=== PATIENT | female | born 1960 | race Caucasian/White ===

== ENCOUNTER 2020-04-14 09:19 | Outpatient (REF) | payer OTHER, SELFPAY ==
--- NOTE | 2020-04-14 09:22 | XR_ITS ---
EXAMINATION: XR CHEST CLINICAL INFORMATION: Cough. COMPARISON: Chest 10/26/2019 TECHNIQUE: 2 views of the chest were obtained. FINDINGS: Lungs are well-expanded with patchy opacities seen in the left upper lobe suggestive of developing infiltrate. Underlying lesion cannot be excluded. Rest of lungs are clear. The heart size and pulmonary vascularity is normal. There is old healed right posterior eighth rib fracture. XR/XR chest 2V IMPRESSION: Left upper lobe developing infiltrate. Underlying lesion cannot be excluded. This is a new finding since chest x-ray 10/26/2019
== END 2020-04-14 09:20 | disposition home or self-care (01) ==
LOC: HO.HMGCX 09:19
PROVIDERS: PCP Internal Medicine; Visit Provider Hospitalist
DX: R05 Cough (principal)
CPT/HCPCS: 71046

== ENCOUNTER 2020-04-14 09:52 | Outpatient (REF) | payer OTHER, SELFPAY | END 2020-04-14 09:53 | disposition home or self-care (01) | LOC: HO.LAB 09:52 | PROVIDERS: Visit Provider Hospitalist | DX: Z20.828 Contact with and (suspected) exposure to other viral communicable diseases (principal) | CPT/HCPCS: U0003 ==

== ENCOUNTER 2020-08-22 09:55 | Outpatient (REF) | payer OTHER, SELFPAY ==
--- NOTE | ~2020-08-22 | XR_ITS ---
EXAMINATION: XR ABDOMEN KUB CLINICAL INDICATION: Intra-abdominal and pelvic swelling, mass, lump. COMPARISON: Most recent CT abdomen/pelvis dated 06/02/2019 TECHNIQUE: AP view of the abdomen. FINDINGS: Nonobstructive bowel gas pattern. Mild air and stool throughout the colon. No radiopaque renal stone. Pelvic phleboliths. No acute osseous abnormality. XR/XR KUB IMPRESSION: Unremarkable examination.
[2020-08-22 11:15] LABS: MANUAL DIFF FLAG NO
[2020-08-22 11:39] LABS: Basophils Absolute Auto 0.1 X10*3/uL (0.0-0.2); Eosinophils Absolute Auto 0.1 X10*3/uL (0.0-0.4); Eosinophils Percent Auto 2.7 % (0-4); Hematocrit 43.9 % (37-47); Hemoglobin 14.6 g/dl (12.0-16.0); Imm Gran Abs Auto 0.01 X10*3/uL (0.00-0.03); Imm Gran Pct Auto 0.2 % (0.0-0.4); Lymphocytes Absolute Auto 0.8 X10*3/uL (1.2-4.9); Mean Corpuscular HGB Conc 33.3 g/dl (31.0-35.0); Mean Corpuscular Hemoglobin 31.2 pg (27.0-33.0); Mean Corpuscular Volume 93.8 fL (80-98); Mean Platelet Volume 9.9 fL (9.4-12.3); Monocytes Absolute Auto 0.3 X10*3/uL (0.1-1.2); Monocytes Percent Auto 5.1 % (2-11); Neutrophils Absolute Auto 3.6 X10*3/uL (2.0-8.3); Platelet Count 332 X10*3/uL (160-400); Red Blood Count 4.68 X10*6/uL (4.20-5.50); Red Cell Distribution Width 12.6 % (11.0-16.0); White Blood Count 4.9 X10*3/uL (4.8-10.8)
[2020-08-22 12:19] LABS: Alanine Aminotransferase 18 U/L (0-31); Albumin Level 4.6 g/dL (3.5-5.0); Alkaline Phosphatase 62 U/L (39-117); Amylase 46 U/L (28-100); Anion Gap 15 (12-20); Aspartate Amino Transferase 27 U/L (5-31); Bilirubin Total 0.7 mg/dL (0.0-1.0); Blood Urea Nitrogen 18 mg/dL (9-16); Calcium 9.3 mg/dL (8.4-10.2); Carbon Dioxide 27 mmol/L (22-29); Chloride 104 mmol/L (96-108); Estimated Glomerular Filt Rate 59; Glucose Random 100 mg/dL (60-115); Lipase 30 U/L (8-78); Sodium 142 mmol/L (135-145); Total Protein 7.1 g/dL (6.5-8.0)
== END 2020-08-22 09:56 | disposition home or self-care (01) ==
LOC: HO.HMGCX 09:55
PROVIDERS: PCP Internal Medicine; Visit Provider Nurse Practitioner Family
DX: R19.00 Intra-abdominal and pelvic swelling, mass and lump, unspecified site (principal)
CPT/HCPCS: 36415; 74018; 80053; 82150; 83690; 85025

== ENCOUNTER 2020-11-26 17:46 | Emergency (ER) | payer OTHER, SELFPAY ==
--- NOTE | ~2020-11-26 | XR_ITS ---
EXAMINATION: XR CHEST CLINICAL INFORMATION: Dyspnea. Question aspiration. COMPARISON: 03/16/2020 chest x-ray TECHNIQUE: 2 views of the chest were obtained. FINDINGS: The lungs are well-expanded. There is no focal consolidation, edema or effusion. No pneumothorax. The cardiomediastinal silhouette is within normal limits. Old healed right posterior eighth rib fracture. XR/XR chest 2V IMPRESSION: No acute pulmonary disease. IMPRESSION: No evidence of focal consolidation.
[2020-11-26 17:52] VITALS: BP 140/57; PULSE 70; RESP 18; TEMP 36.8; O2SAT 97; BMI 19.6
[2020-11-26 20:21] VITALS: BP 128/71; PULSE 59; RESP 16; TEMP 36.8; O2SAT 98
--- NOTE | 2020-11-26 21:12 | ECG_ITS ---
Test Reason : SOB Blood Pressure : / mmHG Vent. Rate : 047 BPM Atrial Rate : 047 BPM P-R Int : 140 ms QRS Dur : 078 ms QT Int : 494 ms P-R-T Axes : 058 004 031 degrees QTc Int : 437 ms Sinus bradycardia Possible Left atrial enlargement Borderline ECG No previous ECGs available Referred By: Micki Almeida Electronically Signed By:GRISELDA JUAREZ
--- NOTE | 2020-11-26 21:12 | ED.SOB ---
HPI - SOB/Dyspnea General Chief Complaint: Dyspnea Stated Complaint: diff breathing Time Seen by Provider: 11/26/20 21:03 Source: patient Mode of arrival: ambulatory Limitations: no limitations History of Present Illness HPI Narrative: Patient comes emergency room complaining of shortness of breath. Patient states she vomited 2 days ago, yesterday she started feeling tired, this morning she woke with shortness of breath. Patient states that she does have history of asthma, has been using her inhaler. Patient states her breathing feels tight. Patient states she has had COVID pneumonia in the past and feels about the same. Patient denies fever or chills, no chest pain MD elicited complaint: shortness of breath Related Data Home Medications Medication Instructions Recorded Confirmed brimonidine 0.1 % eye drops drp OPHTHALMIC (EYE) 03/15/20 07/18/20 carboxymethylcellulose 0.5 drp OPHTHALMIC (EYE) 03/15/20 07/18/20 %-glycerin 0.9 % (PF) eye drops,dropperette dorzolamide 2 % eye drops drp OPHTHALMIC (EYE) 03/15/20 07/18/20 fluorometholone 0.1 % eye drp OPHTHALMIC (EYE) 03/15/20 07/18/20 drops,suspension pilocarpine HCl 1 % eye drops drp OPHTHALMIC (EYE) 03/15/20 07/18/20 travoprost 0.004 % eye drops drp OPHTHALMIC (EYE) 03/15/20 07/18/20 Previous Rx's Medication Instructions Recorded ProAir HFA 90 mcg/actuation 2 puff INHALATION Q6H PRN #8.5 g NS 03/08/20 aerosol inhaler fluticasone propionate 50 2 spray INTRANASAL DAILY #16 cap 04/27/20 mcg/actuation nasal spray,suspension ascorbic acid (vitamin C) 500 mg 500 mg PO DAILY #30 cap 06/12/20 tablet rosuvastatin 5 mg tablet 5 mg PO .twice a week 90 Days #24 07/17/20 tab azithromycin 250 mg tablet See Rx Instructions PO .COMPLEX #6 07/25/20 tab prednisone 20 mg tablet 20 mg PO DAILY 9 Days #18 tab 07/25/20 fluticasone propionate 110 1 puff INHALATION BID #12 g 09/15/20 mcg/actuation HFA aerosol inhaler alprazolam 0.25 mg tablet 0.25 mg PO DAILY PRN #14 tab 11/10/20 levothyroxine 88 mcg tablet 88 mcg PO DAILY #30 cap 11/10/20 azithromycin 250 mg tablet See Rx Instructions PO .COMPLEX #6 11/14/20 tab prednisone 20 mg tablet 20 mg PO DAILY 9 Days #18 tab 11/14/20 prednisone 50 mg PO DAILY #4 tab 11/26/20 Allergies Allergy/AdvReac Type Severity Reaction Status Date / Time Opioids - Morphine Analogues Allergy Severe convultions Verified 07/18/20 00:42 sulfabenzamide Allergy Severe tongue Verified 07/18/20 00:42 swelled shut gluten [GLUTEN] Allergy Intermediate INFLAMMATION Verified 07/18/20 00:42 SYSTEMICALLY mold [MOLD] Allergy Intermediate UNKNOWN Verified 07/18/20 00:42 animal dander Allergy Unknown ASTHMA Verified 07/18/20 00:42 FLAIRUP Clindamycin HCl Allergy Unknown rash Verified 07/18/20 00:42 doxycycline [DOXYCYCLINE] Allergy Unknown RASH Verified 07/18/20 00:42 morphine [MORPHINE] Allergy Unknown SEIZURE Verified 07/18/20 00:42 LIKE EXPERIENCE - FELT TERRIBLE, convulsions penicillin V Allergy Unknown rash Verified 07/18/20 00:42 Penicillins [PENICILLINS] Allergy Unknown RASH HIVES Verified 07/18/20 00:42 soybean Allergy Unknown unknown Verified 07/18/20 00:42 Sulfa (Sulfonamide Allergy Unknown TONGUE Verified 07/18/20 00:42 Antibiotics) SWELLING, [SULFA (SULFONAMIDE swelling ANTIBIOTICS)] of mouth soy AdvReac Intermediate UPSET Verified 07/18/20 00:42 STOMACH DAIRY PRODUCTS Allergy Intermediate INFLAMMATIO Uncoded 04/27/20 10:26 N cats, dogs Allergy Unknown Unknown Uncoded 04/27/20 10:26 mole,bread and diary Allergy Unknown Unknown Uncoded 04/27/20 10:26 Review of Systems Review of Systems: Constitutional : No Weight loss, No Fever, No Chills, No Night Sweats, No Fatigue, No Malaise ENT/Mouth : No Hearing loss, No Ear Pain, No Nasal Congestion, No Sinus Pain, No Hoarseness, No sore throat, No Rhinorrhea, No Swallowing Difficulty Eyes: No Eye Pain, No Swelling, No Redness, No Foreign Body, No Discharge, No Vision Changes Cardiovascular : No Chest Pain, No SOB, No Dyspnea on Exertion, No Orthopnea, No Edema, No Palpitations Respiratory : No Cough, No Sputum, No Wheezing, No Smoke Exposure, complaining of dyspnea Gastrointestinal : No Nausea, No Vomiting, No Diarrhea, No Constipation, No abdominal Pain, No Hematochezia, No Melena Genitourinary : no irregular bleeding, No Dysuria, No Urinary Frequency, No Hematuria, No Urinary Incontinence, No Urgency, No Flank Pain, No Urinary Flow Changes, No Hesitancy Musculoskeletal : No joint pain, No Myalgias, No Joint Swelling Skin : No Skin Lesions, No rash Neuro : No Weakness, No Numbness, No Paresthesias, No Loss of Consciousness, No Dizziness, No Headache Psych : No Anxiety/Panic, No Depression, No SI/HI/AH/VH, No Social Issues, Heme/Lymph: No Bruising, No Bleeding,No Lymphadenopathy Endocrine : No Polyuria, No Polydipsia, No Temperature Intolerance PMFSH Past Medical History Medical History Acquired hypothyroidism Anxiety disorder Breast cancer, right Dyslipidemia Encounter for screening laboratory testing for COVID-19 virus in asymptomatic patient Vini's thyroiditis History of COVID-19 Mild intermittent asthma Narrow angle glaucoma suspect of both eyes Recurrent otitis media Retinal detachment Rib fracture Vitamin D deficiency Surgical History H/O myringotomy History of eye surgery History of eyelid surgery History of hysterectomy History of surgery Family History Family History Father No problems noted. Mother Diabetes mellitus Heart disease Brother No problems noted. Brother No problems noted. Brother No problems noted. Brother No problems noted. Brother No problems noted. Social History Social History Alcohol intake: never Advance Directives: No Advance Directives Information Provided: Yes Patient : No Physical Exam Vital Signs: Vital Signs: Last Vital Signs Temp 98.3 F 11/26/20 20: Pulse 59 11/26/20 20:21 Resp 16 11/26/20 20:21 BP 128/71 11/26/20 20:21 Pulse Ox 98 11/26/20 20:21 Body Mass Index 19.6 Appearance: Alert. Oriented X3. No acute distress. Eyes: Pupils equal, round and reactive to light. ENT: Pharynx normal. Neck: Normal inspection. Neck supple. No lymph nodes noted. No crepitus CVS: Normal heart rate and rhythm. Pulses normal. Normal S1 and S2 Respiratory: No respiratory distress. Breath sounds normal. No Wheezing. No rales Abdomen: Soft and nontender. No rigidity. No distention. good BS x4 Skin: Skin warm and dry. Normal skin color. Normal skin turgor. Extremities: No lower extremity edema. No Lacerations. No Rash Neuro: Oriented X 3. No motor deficit. No sensory deficit. Moving all extermities. No slurred speech. Course Course Course Narrative: I discussed the labs and imaging with the patient, chest x-ray within normal limits, white blood cell count, BNP, D-dimer negative. Patient likely having residual dyspnea from an asthma exacerbation. Patient was given a 1st dose prednisone here in the emergency room. Patient instructed to follow-up with her primary care physician tomorrow. Patient's EKG shows sinus bradycardia, 147. Patient is an avid weightlifter and does daily intense physical activity Wells PE score 0 MDM - SOB/Dyspnea Lab Data Result diagrams: 11/26/20 21:27 11/26/20 21:27 Labs: Lab Results 11/26/20 11/26/20 11/26/20 Range/Units 21:27 21:27 21:27 WBC 6.8 (4.8-10.8) X10*3/uL RBC 4.41 (4.20-5.50) X10*6/uL Hgb 13.7 (12.0-16.0) g/dl Hct 41.7 (37-47) % MCV 94.6 (80-98) fL MCH 31.1 (27.0-33.0) pg MCHC 32.9 (31.0-35.0) g/dl RDW 12.3 (11.0-16.0) % Plt Count 303 (160-400) X10*3/uL MPV 8.7 L (9.4-12.3) fL Immature Gran % (Auto) 0.3 (0.0-0.4) % Neut % (Auto) 79.3 H (45-73) % Lymph % (Auto) 14.3 L (20-40) % [place] % (Auto) 5.7 (2-11) % Eos % (Auto) 0.1 (0-4) % Baso % (Auto) 0.3 (0-2) % Lymph # (Auto) 1.0 L (1.2-4.9) X10*3/uL [place] # (Auto) 0.4 (0.1-1.2) X10*3/uL Eos # (Auto) 0.0 (0.0-0.4) X10*3/uL Baso # (Auto) 0.0 (0.0-0.2) X10*3/uL Abs Immat Gran (auto) 0.02 (0.00-0.03) X10*3/uL Absolute Neuts (auto) 5.4 (2.0-8.3) X10*3/uL Absolute Nucleated RBC 0.000 (0.0-0.012) X10*3/uL Nucleated RBC % (auto) 0.0 (0.0-0.2) /100WBC D-Dimer < 200 NG/ML Sodium 142 (135-145) mmol/L Potassium 4.2 (3.3-5.1) mmol/L Chloride 106 (96-108) mmol/L Carbon Dioxide 26 (22-29) mmol/L Anion Gap 14 (12-20) BUN 18 H (9-16) mg/dL Creatinine 0.90 (0.5-1.4) mg/dL Estim Creat Clear Calc 57.5 Estimated GFR > 60 Random Glucose 114 (60-115) mg/dL Calcium 9.6 (8.4-10.2) mg/dL Total Bilirubin 0.4 (0.0-1.0) mg/dL Direct Bilirubin 0.2 (0.0-0.5) mg/dL AST 32 H (5-31) U/L ALT 22 (0-31) U/L Alkaline Phosphatase 67 (39-117) U/L B-Natriuretic Peptide (<100) pg/mL Total Protein 7.1 (6.5-8.0) g/dL Albumin 4.6 (3.5-5.0) g/dL COVID-19 (LIANG) (Negative) COVID-19 Clin Com 11/26/20 11/26/20 Range/Units 21:27 21:27 WBC (4.8-10.8) X10*3/uL RBC (4.20-5.50) X10*6/uL Hgb (12.0-16.0) g/dl Hct (37-47) % MCV (80-98) fL MCH (27.0-33.0) pg MCHC (31.0-35.0) g/dl RDW (11.0-16.0) % Plt Count (160-400) X10*3/uL MPV (9.4-12.3) fL Immature Gran % (Auto) (0.0-0.4) % Neut % (Auto) (45-73) % Lymph % (Auto) (20-40) % [place] % (Auto) (2-11) % Eos % (Auto) (0-4) % Baso % (Auto) (0-2) % Lymph # (Auto) (1.2-4.9) X10*3/uL [place] # (Auto) (0.1-1.2) X10*3/uL Eos # (Auto) (0.0-0.4) X10*3/uL Baso # (Auto) (0.0-0.2) X10*3/uL Abs Immat Gran (auto) (0.00-0.03) X10*3/uL Absolute Neuts (auto) (2.0-8.3) X10*3/uL Absolute Nucleated RBC (0.0-0.012) X10*3/uL Nucleated RBC % (auto) (0.0-0.2) /100WBC D-Dimer NG/ML Sodium (135-145) mmol/L Potassium (3.3-5.1) mmol/L Chloride (96-108) mmol/L Carbon Dioxide (22-29) mmol/L Anion Gap (12-20) BUN (9-16) mg/dL Creatinine (0.5-1.4) mg/dL Estim Creat Clear Calc Estimated GFR Random Glucose (60-115) mg/dL Calcium (8.4-10.2) mg/dL Total Bilirubin (0.0-1.0) mg/dL Direct Bilirubin (0.0-0.5) mg/dL AST (5-31) U/L ALT (0-31) U/L Alkaline Phosphatase (39-117) U/L B-Natriuretic Peptide 14 (<100) pg/mL Total Protein (6.5-8.0) g/dL Albumin (3.5-5.0) g/dL COVID-19 (LIANG) Negative (Negative) COVID-19 Clin Com See Note Imaging Data Chest x-ray: Radiologist's impression: The lungs are well-expanded. There is no focal consolidation, edema or effusion. No pneumothorax. The cardiomediastinal silhouette is within normal limits. Old healed right posterior eighth rib fracture. XR/XR chest 2V IMPRESSION: No acute pulmonary disease. IMPRESSION: No evidence of focal consolidation. ECG Data Attestation: I personally reviewed and interpreted this ECG as follows: (Sinus bradycardia, heart rate 47, no ST segment depression or elevation, no T-wave inversion. QTC 437) Discharge Plan Discharge Clinical Impression: Acute dyspnea Patient Disposition: Home, Self-Care Instructions: Dyspnea (ED) Additional Instructions: Please follow-up with your primary care physician tomorrow. If you have any worsening or new symptoms, please return to the emergency room or call 911 Prescriptions: New prednisone 50 mg tablet 50 mg PO DAILY Qty: 4 RF: 0 No Action albuterol sulfate [ProAir HFA] 90 mcg/actuation HFA aerosol inhaler 2 puff inhalation Q6H PRN (Reason: shortness of breath or wheezing) Qty: 8.5 RF: 2 fluticasone propionate 50 mcg/actuation spray,suspension 2 spray intranasal DAILY Qty: 16 RF: 2 ascorbic acid (vitamin C) [Vitamin C] 500 mg tablet 500 mg PO DAILY Qty: 30 RF: 8 fluticasone propionate 110 mcg/actuation HFA aerosol inhaler 1 puff inhalation BID Qty: 12 RF: 2 levothyroxine 88 mcg tablet 88 mcg PO DAILY Qty: 30 RF: 6 alprazolam 0.25 mg tablet 0.25 mg PO DAILY PRN (Reason: anxiety) Qty: 14 RF: 0 Refresh Optive Sensitive (PF) 0.5-0.9 % dropperette ophthalmic (eye) RF: 0 pilocarpine HCl 1 % drops ophthalmic (eye) RF: 0 [place] P 0.1 % drops ophthalmic (eye) RF: 0 dorzolamide 2 % drops ophthalmic (eye) RF: 0 fluorometholone 0.1 % drops,suspension ophthalmic (eye) RF: 0 travoprost 0.004 % drops ophthalmic (eye) RF: 0 prednisone 20 mg tablet 20 mg PO DAILY 9 Days Qty: 18 RF: 0 azithromycin 250 mg tablet See Rx Instructions PO .COMPLEX Qty: 6 RF: 0 prednisone 20 mg tablet 20 mg PO DAILY 9 Days Qty: 18 RF: 0 azithromycin 250 mg tablet See Rx Instructions PO .COMPLEX Qty: 6 RF: 0 rosuvastatin 5 mg tablet 5 mg PO .twice a week 90 Days Qty: 24 RF: 1
[2020-11-26 21:34] LABS: Basophils Percent Auto 0.3 % (0-2); Eosinophils Percent Auto 0.1 % (0-4); Hematocrit 41.7 % (37-47); Hemoglobin 13.7 g/dl (12.0-16.0); Imm Gran Abs Auto 0.02 X10*3/uL (0.00-0.03); Imm Gran Pct Auto 0.3 % (0.0-0.4); Lymphocytes Percent Auto 14.3 % (20-40); MANUAL DIFF FLAG NO; Mean Corpuscular HGB Conc 32.9 g/dl (31.0-35.0); Mean Corpuscular Hemoglobin 31.1 pg (27.0-33.0); Mean Corpuscular Volume 94.6 fL (80-98); Mean Platelet Volume 8.7 fL (9.4-12.3); Monocytes Absolute Auto 0.4 X10*3/uL (0.1-1.2); Monocytes Percent Auto 5.7 % (2-11); Neutrophils Absolute Auto 5.4 X10*3/uL (2.0-8.3); Neutrophils Percent Auto 79.3 % (45-73); Platelet Count 303 X10*3/uL (160-400); Red Blood Count 4.41 X10*6/uL (4.20-5.50); Red Cell Distribution Width 12.3 % (11.0-16.0); White Blood Count 6.8 X10*3/uL (4.8-10.8)
[2020-11-26 21:44] LABS: D Dimer < 200 NG/ML
[2020-11-26 21:46] LABS: COVID-19 Test Negative (Negative)
[2020-11-26 22:07] LABS: Alanine Aminotransferase 22 U/L (0-31); Albumin Level 4.6 g/dL (3.5-5.0); Alkaline Phosphatase 67 U/L (39-117); Anion Gap 14 (12-20); Aspartate Amino Transferase 32 U/L (5-31); Bilirubin Direct 0.2 mg/dL (0.0-0.5); Bilirubin Total 0.4 mg/dL (0.0-1.0); Blood Urea Nitrogen 18 mg/dL (9-16); Calcium 9.6 mg/dL (8.4-10.2); Carbon Dioxide 26 mmol/L (22-29); Chloride 106 mmol/L (96-108); Creatinine Clr Calc Pharmacy 57.5; Estimated Glomerular Filt Rate > 60; Glucose Random 114 mg/dL (60-115); Potassium 4.2 mmol/L (3.3-5.1); Sodium 142 mmol/L (135-145); Total Protein 7.1 g/dL (6.5-8.0)
[2020-11-26 22:10] LABS: B Type Natriuretic Peptide 14 pg/mL (<100)
[2020-11-26] MEDS: predniSONE 20 MG TABLET 60 MG PO (22:45)
== END 2020-11-26 22:56 | disposition home or self-care (01) ==
PROVIDERS: Emergency Provider Emergency Medicine; PCP Internal Medicine
DX: R06.00 Dyspnea, unspecified (principal); Z20.822 Contact with and (suspected) exposure to COVID-19; R06.02 Shortness of breath
CPT/HCPCS: 36415; 71046; 80048; 80076; 83880; 85025; 85379; 87635; 93005; 99284

== ENCOUNTER 2020-11-27 12:23 | Outpatient (REF) | payer OTHER, SELFPAY ==
--- NOTE | ~2020-11-27 | XR_ITS ---
EXAMINATION: XR CHEST CLINICAL INFORMATION: Cough COMPARISON: Previous chest x-ray most recent from yesterday TECHNIQUE: 2 views of the chest were obtained. FINDINGS: The cardiac and mediastinal contours are normal. The lungs are clear. There is no pleural effusion or pneumothorax. There is an old right posterior eighth rib fracture. There is mild thoracolumbar scoliosis. XR/XR chest 2V IMPRESSION: No evidence for acute disease in the chest.
== END 2020-11-27 12:24 | disposition home or self-care (01) ==
LOC: HO.HMGCX 12:23
PROVIDERS: PCP Internal Medicine; Visit Provider Internal Medicine
DX: Z13.89 Encounter for screening for other disorder (principal)
CPT/HCPCS: 71046

== ENCOUNTER → 2020-12-18 09:02 | Outpatient (BNV) | payer OTHER, SELFPAY | PROVIDERS: PCP Internal Medicine; Visit Provider Internal Medicine | DX: Z85.3 Personal history of malignant neoplasm of breast (principal) | CPT/HCPCS: 99213; 99214 ==

== ENCOUNTER 2021-02-15 11:35 | Outpatient (REF) | payer OTHER, SELFPAY | END 2021-02-15 11:36 | disposition home or self-care (01) | LOC: HO.LNP 11:35 | PROVIDERS: Visit Provider Physician Assistant Medical | DX: Z20.822 Contact with and (suspected) exposure to COVID-19 (principal) | CPT/HCPCS: U0003; U0005 ==

== ENCOUNTER 2021-02-21 13:32 | Emergency (ER) | payer MEDICAID, SELFPAY ==
[2021-02-21 14:17] VITALS: BP 125/67; PULSE 68; RESP 18; TEMP 36.5; O2SAT 97; BMI 19.6
--- NOTE | 2021-02-21 16:12 | ED_ITS ---
HPI - General Adult General Chief complaint: General Medical Stated complaint: EAR PAIN Time Seen by Provider: 02/21/21 16:00 Source: patient Mode of arrival: ambulatory Limitations: no limitations History of Present Illness HPI narrative: 52-year-old female presents for 3 days of left ear pain. She feels nauseous, and has had pain behind her left ear. She endorses a runny nose and postnasal drip. The left side of her throat is also sore, her left neck feels sore. No fevers. No cough, no vomiting, no diarrhea, no chest pain, no shortness of breath. Patient has a history of her current otitis media, recurrence sinusitis. Patient is very anxious because she is having problems with her insurance. She has many specialty doctors and now she is without insurance. Past medical history includes breast cancer, anxiety, Vini's, recurrent otitis, recurrent sinusitis, narrow angle glaucoma Related Data Home Medications Medication Instructions Recorded Confirmed dorzolamide 2 % eye drops 2 drp OPHTHALMIC (EYE) DAILY 03/15/20 12/18/20 fluorometholone 0.1 % eye 1 drp OPHTHALMIC (EYE) NEEDED 03/15/20 12/18/20 drops,suspension pilocarpine HCl 1 % eye drops 1 drp OPHTHALMIC (EYE) NEEDED 03/15/20 12/18/20 travoprost 0.004 % eye drops 4 drp OPHTHALMIC (EYE) NEEDED 03/15/20 12/18/20 betaxolol 0.25 % eye drp OPHTHALMIC (EYE) 02/15/21 drops,suspension (Betoptic S) carboxymethylcellulose 0.5 drp OPHTHALMIC (EYE) 02/15/21 %-glycerin 0.9 % (PF) eye drops,dropperette (Refresh Optive Sensitive (PF)) cyclosporine 0.05 % eye drops in a drp OPHTHALMIC (EYE) 02/15/21 dropperette (Restasis) Previous Rx's Medication Instructions Recorded fluticasone propionate 50 2 spray INTRANASAL DAILY #16 cap 04/27/20 mcg/actuation nasal spray,suspension ascorbic acid (vitamin C) 500 mg 500 mg PO DAILY #30 cap 06/12/20 tablet (Vitamin C) fluticasone propionate 110 1 puff INHALATION BID #12 g 09/15/20 mcg/actuation HFA aerosol inhaler levothyroxine 88 mcg tablet 88 mcg PO DAILY #30 cap 11/10/20 prednisone 50 mg tablet 50 mg PO DAILY #4 tab 11/26/20 ProAir HFA 90 mcg/actuation 2 puff INHALATION Q6H PRN #8.5 g NS 01/18/21 aerosol inhaler (albuterol sulfate) alprazolam 0.25 mg tablet 0.25 mg PO DAILY PRN #14 tab 02/06/21 azithromycin 250 mg tablet See Rx Instructions PO .COMPLEX #6 02/15/21 tab methylprednisolone 4 mg tablets in See Rx Instructions PO PER PKG DIR 02/15/21 a dose pack (Medrol (Ghanshyam)) #21 ea azithromycin 250 mg tablet See Rx Instructions .ROUTE 02/21/21 .COMPLEX #6 tab prednisone 20 mg tablet 20 mg PO DAILY 9 Days #18 tab 02/21/21 Allergies Allergy/AdvReac Type Severity Reaction Status Date / Time Opioids - Morphine Analogues Allergy Severe convultions Verified 02/21/21 14:15 sulfabenzamide Allergy Severe tongue Verified 02/21/21 14:15 swelled shut gluten [GLUTEN] Allergy Intermediate INFLAMMATION Verified 02/21/21 14:15 SYSTEMICALLY mold [MOLD] Allergy Intermediate UNKNOWN Verified 02/21/21 14:15 animal dander Allergy Unknown ASTHMA Verified 02/21/21 14:15 FLAIRUP Clindamycin HCl Allergy Unknown rash Verified 02/21/21 14:15 doxycycline [DOXYCYCLINE] Allergy Unknown RASH Verified 02/21/21 14:15 morphine [MORPHINE] Allergy Unknown SEIZURE Verified 02/21/21 14:15 LIKE EXPERIENCE - FELT TERRIBLE, convulsions penicillin V Allergy Unknown rash Verified 02/21/21 14:15 Penicillins [PENICILLINS] Allergy Unknown RASH HIVES Verified 02/21/21 14:15 soybean Allergy Unknown unknown Verified 02/21/21 14:15 Sulfa (Sulfonamide Allergy Unknown TONGUE Verified 02/21/21 14:15 Antibiotics) SWELLING, [SULFA (SULFONAMIDE swelling ANTIBIOTICS)] of mouth soy AdvReac Intermediate UPSET Verified 02/21/21 14:15 STOMACH DAIRY PRODUCTS Allergy Intermediate INFLAMMATIO Uncoded 04/27/20 10:26 N cats, dogs Allergy Unknown Unknown Uncoded 04/27/20 10:26 mole,bread and diary Allergy Unknown Unknown Uncoded 04/27/20 10:26 Review of Systems Constitutional: Constitutional: Denies body ache(s), Denies chills, Reports fatigue, Denies fever(s), Denies headache(s), Denies malaise and Denies weakness Eyes: Eyes: Denies diplopia ENT: Denies vertigo, Reports dizziness, Reports otalgia, Denies headache(s), Denies mouth pain, Denies post nasal drip, Denies sinus pain, Denies sinus pressure, Reports sore throat and Denies throat swelling Cardiovascular: Cardiovascular: Denies chest pain, Denies syncope, Denies leg edema, Denies lightheadedness, Denies Loss of Consciousness, Denies palpitations and Denies dyspnea Respiratory: Respiratory: Denies chest congestion, Denies cough and Denies dyspnea Gastrointestinal: Gastrointestinal: Denies abdominal pain, Denies hematochezia, Denies constipation, Denies diarrhea, Reports nausea and Denies vomiting Musculoskeletal: Musculoskeletal: Reports no additional musculoskeletal complaints Neurologic: Denies confusion, Denies vertigo, Reports dizziness, Denies syncope, Denies headache(s) and Denies weakness Psychiatric: Psychiatric: Reports anxiety, Denies confusion and Denies depression Endocrine: Endocrine: Reports fatigue and Denies palpitations Allergic/Immunologic: Allergic/Immunologic: Denies throat swelling PMFSH Past Medical History Medical History Acquired hypothyroidism Anxiety disorder Breast cancer, right Dyslipidemia Encounter for screening laboratory testing for COVID-19 virus in asymptomatic patient Vini's thyroiditis History of COVID-19 Mild intermittent asthma Narrow angle glaucoma suspect of both eyes Recurrent otitis media Retinal detachment Rib fracture Vitamin D deficiency Surgical History H/O myringotomy History of eye surgery History of eyelid surgery History of hysterectomy History of surgery Family History Family History Father No problems noted. Mother Diabetes mellitus Heart disease Heart attack Brother No problems noted. Brother No problems noted. Brother No problems noted. Brother No problems noted. Brother No problems noted. Social History Social History Alcohol intake: never Advance Directives: No Advance Directives Information Provided: No Physical Exam Vital Signs: Vital Signs: Last Vital Signs Temp 97.7 F 02/21/21 14:17 Pulse 68 02/21/21 14:17 Resp 18 02/21/21 14:17 BP 125/67 02/21/21 14:17 Pulse Ox 97 02/21/21 14:17 Body Mass Index 19.6 Const: General: alert, awake and in distress (d/t anxiety) mild; No confusion Nutritional Appearance: thin Orientation/consciousness: patient oriented x3 and No confusion Limitations: no limitations HENMT: Head: Yes normal to inspection, Yes normocephalic and Yes atraumatic Ears: hearing grossly normal bilaterally, external ears normal, TM normal on the right, EAC's normal, mastoid abnormal (tender over left mastoid) and TM abnormal bulging on the left and with fluid behind the TM (purulent) on the left General nose exam: Normal external nose present Face and sinus: Yes normal facial exam and Yes sinuses nontender Mouth: Normal oral and palatal mucosa present Throat: Yes posterior oropharynx normal Eyes: Conjunctivae: conjunctivae normal Pupils: Equal, round and reactive pupils present EOM: EOMs intact bilaterally Neck: Neck: Yes full ROM, Yes no lymphadenopathy and Yes supple Resp: Effort & Inspection: normal respiratory effort and able to speak in complete sentences Auscultation: clear to auscultation bilaterally, no crackles, no rales, no rhonchi and no wheezes Cardio: Rate: regular rate Rhythm: regular rhythm Heart sounds: S1 normal heart sound present and S2 normal heart sound present GI: Inspection: Yes normal to inspection Palpation (GI): Soft to palpation, nontender, no guarding and not rigid Percussion: Yes normal to percussion Auscultation: normal bowel sounds Skin: General skin exam: no rashes or lesions noted Neuro: General: patient oriented x3 and No confusion Cranial nerves: Yes Equal, round and reactive pupils present Extrem: General: Yes normal to inspection and Yes full ROM Psych: Appearance: grossly normal Affect: normal affect Attitude: cooperative Thought process: Normal thought process present Course Course Course Narrative: 52-year-old female with chronic otitis media presents for 3 days of left ear pain. On exam patient has stable vitals, no fevers, but is tender over her left mastoid bone. Left TM is bulging with a purulence effusion. Patient is very concerned about insurance, social work spoke to patient, gave her phone numbers to call financial services tomorrow morning. Patient is refusing CT scan due to her insurance problems. And counseled patient to return for fevers, worsening pain. Gave patient good Rx prescription to help alleviate the cost of the azithromycin and prednisone are prescribed. Patient is allergic to penicillin, doxycycline, sulfa medicines, as well as clindamycin. Discharge Plan Discharge Clinical Impression: Otitis media Qualifiers: Otitis media type: suppurative Chronicity: chronic Laterality: left Suppurative otitis media location: unspecified location Qualified Code(s): H66.3X2 - Other chronic suppurative otitis media, left ear Patient Disposition: Left Against Medical Advice Additional Instructions: You are leaving against medical advice. I hope to get a CT scan of your mastoid bone behind your left ear, because you have chronic ear infections, and you are tender in this bone. Please call the insurance people that the high school social science teacher gave you the phone numbers for. Please discuss options for getting a CT scan. Please fill the prescriptions, I sent them to the [facility] pharmacy. Please return if you have fevers, worsening pain, or for any other new or concerning symptoms. Even though you have left against medical advice, we are always here to see you and treat you Prescriptions: New azithromycin 250 mg tablet See Rx Instructions .ROUTE .COMPLEX Qty: 6 RF: 0 prednisone 20 mg tablet 20 mg PO DAILY 9 Days Qty: 18 RF: 0 No Action fluticasone propionate 50 mcg/actuation spray,suspension 2 spray intranasal DAILY Qty: 16 RF: 2 ascorbic acid (vitamin C) [Vitamin C] 500 mg tablet 500 mg PO DAILY Qty: 30 RF: 8 fluticasone propionate 110 mcg/actuation HFA aerosol inhaler 1 puff inhalation BID Qty: 12 RF: 2 levothyroxine 88 mcg tablet 88 mcg PO DAILY Qty: 30 RF: 6 albuterol sulfate [ProAir HFA] 90 mcg/actuation HFA aerosol inhaler 2 puff inhalation Q6H PRN (Reason: shortness of breath or wheezing) Qty: 8.5 RF: 2 alprazolam 0.25 mg tablet 0.25 mg PO DAILY PRN (Reason: anxiety) Qty: 14 RF: 0 prednisone 50 mg tablet 50 mg PO DAILY Qty: 4 RF: 0 pilocarpine HCl 1 % drops 1 drp ophthalmic (eye) NEEDED RF: 0 dorzolamide 2 % drops 2 drp ophthalmic (eye) DAILY RF: 0 fluorometholone 0.1 % drops,suspension 1 drp ophthalmic (eye) NEEDED RF: 0 travoprost 0.004 % drops 4 drp ophthalmic (eye) NEEDED RF: 0 Restasis 0.05 % dropperette ophthalmic (eye) RF: 0 Betoptic S 0.25 % drops,suspension ophthalmic (eye) RF: 0 Refresh Optive Sensitive (PF) 0.5-0.9 % dropperette ophthalmic (eye) RF: 0 azithromycin 250 mg tablet See Rx Instructions PO .COMPLEX Qty: 6 RF: 0 methylprednisolone [Medrol (Hganshyam)] 4 mg tablets,dose pack See Rx Instructions PO PER PKG DIR Qty: 21 RF: 0
[2021-02-21] MEDS: Azithromycin 500 MG TABLET PO (16:46)
[2021-02-21] MEDS: Ondansetron ODT 4 MG TAB.RAPDIS TRANSLINGU (16:46)
[2021-02-21] MEDS: predniSONE 20 MG TABLET 60 MG PO (16:46)
--- NOTE | 2021-02-21 18:02 | MHC.CM.ED ---
CM met with patient at request of Val LEGER. Pt has concerns about insurance and costs of care, and a recommended CT scan, because she states she cannot possibly incur any more bills. CM gave patient the financial services brochure. Pt wanted CM to guarantee that she would not be billed. CM explained that financial services could help her, but that my expertise was not in insurance and financial services. CM stressed that pt should have recommended testing and then work with financial services. Pt is refusing and wants to go home. Will return if symptoms worsen. Will call financial services if needed. Val LEGER aware. Val LEGER spoke with patient. Pt will leave AMA.
== END 2021-02-21 17:48 | disposition left against medical advice (07) ==
PROVIDERS: Emergency Provider Emergency Medicine; PCP Internal Medicine
DX: H66.3X2 Other chronic suppurative otitis media, left ear (principal); J45.20 Mild intermittent asthma, uncomplicated; Z88.0 Allergy status to penicillin; Z88.2 Allergy status to sulfonamides; Z88.8 Allergy status to other drugs, medicaments and biological substances
CPT/HCPCS: 99284

== ENCOUNTER 2021-04-10 14:33 | Outpatient (REF) | payer OTHER, SELFPAY ==
--- NOTE | ~2021-04-10 | US_ITS ---
EXAMINATION: US SOFT TISSUE HEAD AND/OR NECK CLINICAL INFORMATION: Generalized enlarged lymph nodes COMPARISON: None TECHNIQUE: Ultrasound of the left neck, left chest, and armpit soft tissues is performed with high- frequency howe-scale imaging and color Doppler. FINDINGS: There is no lymphadenopathy identified. Multiple small lymph nodes are seen with normal morphology in the regions of concern. US/US soft tiss head and/or neck IMPRESSION: No lymphadenopathy.
== END 2021-04-10 14:34 | disposition home or self-care (01) ==
LOC: HO.US 14:33
PROVIDERS: PCP Internal Medicine; Visit Provider Internal Medicine
DX: R59.1 Generalized enlarged lymph nodes (principal)
CPT/HCPCS: 76536

== ENCOUNTER 2021-05-22 08:28 | Outpatient (REF) | payer OTHER, SELFPAY ==
--- NOTE | ~2021-05-22 | US_ITS ---
EXAMINATION: US THYROID CLINICAL INFORMATION: Vini's thyroiditis. Mass anterior left neck. COMPARISON: Ultrasound soft tissue head/neck 04/10/2021. TECHNIQUE: Linear transducer grayscale and color Doppler examination with attention to the region of the thyroid. FINDINGS: SIZE: Measurements of the thyroid lobes and nodules are given in sagittal, anteroposterior and transverse dimensions respectively. Right Thyroid Lobe: 1.6 x 0.7 x 0.7 cm, volume 0.4 mL. Parenchyma: The gland echotexture is heterogeneous. Thyroid vascularity is normal. Left Thyroid Lobe: 1.5 x 0.5 x 0.8 cm, volume 0.3 mL. Parenchyma: The gland echotexture is heterogeneous. Thyroid vascularity is increased. Isthmus: 0.1 cm in maximum AP dimension. No focal thyroid nodule is seen. NODES: There is a right lymph node level 2 measuring 2.3 x 0.5 x 1.2 cm and left neck level 1B lymph node measuring 1.8 x 0.8 x 0.5 cm. US/US thyroid IMPRESSION: Heterogenous thyroid gland without any focal nodules. Benign-appearing neck lymph nodes. ACR TI-RADS RECOMMENDATION REFERENCE: Ultrasound-guided fine-needle aspiration, followup ultrasound, no further follow up. * TR1 (0 point) and TR 2 (2 points): No FNA or follow up * TR3 (3 points): FNA if more than or equal to 2.5 cm in maximum dimension, followup ultrasound in 1, 3 and 5 years if 1.5 to 2.4 cm in maximum dimension. * TR4 (4-6 points): FNA if more than or equal to 1.5 cm in maximum dimension, followup ultrasound in 1, 2, 3 and 5 years if 1 to 1.4 cm in maximum dimension. * TR5 (more than or equal to 7 points): FNA if more than or equal to 1 cm in maximum dimension, followup ultrasound every year for 5 years if 0.5 to 0.9 cm in maximum dimension. * TR3, TR4 or TR5 nodules that are below the size threshold for follow up receive no follow up.
--- NOTE | ~2021-05-22 | US_ITS ---
EXAMINATION: US EXTREMITY NONVASCULAR, LEFT CLINICAL INFORMATION: Left groin mass. COMPARISON: None TECHNIQUE: Limited ultrasound imaging of left groin extremity was performed. FINDINGS: There is a small well-defined lymph node in the left groin hypervascular measuring 2.5 x 0.4 x 0.7 cm. There are additional lymph nodes measuring 0.6 x 0.3 x 0.4 cm, 0.9 x 0.3 x 0.5 cm and 1.1 x 0.3 x 0.6 cm, most of these lymph nodes with normal vascularity. No fluid collection or hernia seen. US/US extremity nonvascular sutton IMPRESSION: Small 4 lymph nodes seen in the left groin with the largest lymph node measuring 2.5 cm being slightly hypervascular. These are likely nonspecific and could be related to low-grade inflammation or infectious process. The lymph node architecture has benign ultrasound appearance.
== END 2021-05-22 08:29 | disposition home or self-care (01) ==
LOC: HO.HMGCX 08:28
PROVIDERS: PCP Internal Medicine; Visit Provider Internal Medicine
DX: E06.3 Autoimmune thyroiditis (principal); E03.9 Hypothyroidism, unspecified; R59.0 Localized enlarged lymph nodes; R19.09 Other intra-abdominal and pelvic swelling, mass and lump
CPT/HCPCS: 76536; 76882

== ENCOUNTER 2021-05-29 08:14 | Outpatient (REF) | payer OTHER, SELFPAY ==
[2021-05-29 11:19] LABS: MANUAL DIFF FLAG NO
[2021-05-29 11:34] LABS: Basophils Absolute Auto 0.1 X10*3/uL (0.0-0.2); Basophils Percent Auto 1.6 % (0-2); Eosinophils Absolute Auto 0.4 X10*3/uL (0.0-0.4); Eosinophils Percent Auto 9.3 % (0-4); Hematocrit 42.2 % (37.0-47.0); Hemoglobin 13.8 g/dl (12.0-16.0); Imm Gran Abs Auto 0.01 X10*3/uL (0.00-0.03); Imm Gran Pct Auto 0.3 % (0.0-0.4); Lymphocytes Absolute Auto 1.9 X10*3/uL (1.2-4.9); Lymphocytes Percent Auto 51.5 % (20-40); Mean Corpuscular HGB Conc 32.7 g/dl (31.0-35.0); Mean Corpuscular Hemoglobin 30.9 pg (27.0-33.0); Mean Corpuscular Volume 94.6 fL (80.0-98.0); Mean Platelet Volume 9.9 fL (9.4-12.3); Monocytes Absolute Auto 0.4 X10*3/uL (0.1-1.2); Monocytes Percent Auto 9.5 % (2-11); Neutrophils Absolute Auto 1.1 x10*3/uL (2.0-8.3); Neutrophils Percent Auto 27.8 % (45-73); Platelet Count 306 X10*3/uL (160-400); Red Blood Count 4.46 X10*6/uL (4.20-5.50); White Blood Count 3.8 X10*3/uL (4.8-10.8)
[2021-05-29 12:06] LABS: Anion Gap 11 (12-20); Blood Urea Nitrogen 15 mg/dL (9-16); Calcium 9.8 mg/dL (8.4-10.2); Carbon Dioxide 29 mmol/L (22-29); Chloride 107 mmol/L (96-108); Estimated Glomerular Filt Rate 60; Glucose Fasting 94 mg/dL (60-99); Sodium 143 mmol/L (135-145)
[2021-05-29 12:09] LABS: Free T4 (Free Thyroxine) 1.12 ng/dL (0.71-1.85); Vitamin D 25-OH Total 44.5 ng/mL (>30)
[2021-05-30 09:17] LABS: Cholesterol 326 mg/dL; HDL Cholesterol 100 mg/dL; LDL Cholesterol Calculated 211 mg/dl; Triglycerides 75 mg/dL
[2021-05-30 21:25] LABS: Thyroid Peroxidase Antibodies <1 IU/mL (<9)
== END 2021-05-29 08:15 | disposition home or self-care (01) ==
LOC: HO.HMGCLDS 08:14
PROVIDERS: PCP Internal Medicine; Visit Provider Internal Medicine
DX: E03.9 Hypothyroidism, unspecified (principal); E06.3 Autoimmune thyroiditis; E55.9 Vitamin D deficiency, unspecified; R59.0 Localized enlarged lymph nodes; E78.5 Hyperlipidemia, unspecified
CPT/HCPCS: 36415; 80048; 80061; 82306; 84439; 84443; 85025; 86376

== ENCOUNTER 2021-06-14 14:11 | Outpatient (REF) | payer OTHER, SELFPAY ==
[2021-06-18 17:57] LABS: CK-BB None Detected (None Detected); CK-MB 0 % (<5); CK-MM 100 % (95-100); Creatine Kinase,Total,Serum 113 U/L (29-143)
== END 2021-06-14 14:12 | disposition home or self-care (01) ==
LOC: HO.HMGCLDS 14:11
PROVIDERS: Visit Provider Internal Medicine
DX: Z79.899 Other long term (current) drug therapy (principal)
CPT/HCPCS: 36415; 82552

== ENCOUNTER 2022-01-14 08:02 | Outpatient (REF) | payer OTHER, SELFPAY ==
--- NOTE | ~2022-01-14 | MM_ITS ---
EXAMINATION: MM DIAGNOSTIC DIGITAL BREAST TOMOSYNTHESIS, LEFT US DIAGNOSTIC ULTRASOUND BREAST, LEFT CLINICAL INFORMATION: Right mastectomy for breast cancer, 2013. Due for yearly. Patient notes several month history stabbing left breast pain. COMPARISON: Mammography: 11/06/2017; outside mammography 12/27/2015, 06/27/2015 ([facility]); 03/08/2014. TECHNIQUE: Digital breast tomosynthesis is performed in both the craniocaudal and mediolateral oblique views along with computer-aided detection (CAD). Synthesized 2D images are generated from the tomosynthesis. Additional exaggerated left CC view is provided. Ultrasound left breast is targeted to the areas of clinical concern. Grayscale imaging and color Doppler are performed without and with harmonics. FINDINGS: The breasts are heterogeneously dense, which may obscure small masses (ACR BI-RADS breast composition Category c). There are no significant masses, abnormal calcifications, or other abnormalities. Parenchymal pattern is similar to prior studies. Breast tissue composition borders on average fibroglandular. No developing density or architectural abnormality. No skin thickening or coarsening of the Harley's ligaments. The axilla is unremarkable. Ultrasound left breast demonstrates no cystic or solid mass or architectural abnormality. No focal duct ectasia. No skin thickening or edema tracking in soft tissue planes. Results are discussed with the patient at time of visit. MM/MM tomosynthesis diagnostic LT IMPRESSION: -No mammographic evidence of malignancy or inflammatory changes.. -Unremarkable left breast ultrasound. ASSESSMENT: BI-RADS 1: Negative RECOMMENDATION: 1. Patient's left mastodynia should be managed based on the clinical impression. 2. Otherwise, routine annual screening mammography. This patient's information was entered into a reminder system with a target due date for their next mammogram.
== END 2022-01-14 08:03 | disposition home or self-care (01) ==
LOC: HO.MAMMO 08:02
PROVIDERS: PCP Internal Medicine; Visit Provider Internal Medicine
DX: N64.4 Mastodynia (principal)
CPT/HCPCS: 76642; 77061; 77065

== ENCOUNTER 2022-07-02 18:03 | Outpatient (REF) | payer OTHER, SELFPAY ==
[2022-07-02 18:59] LABS: Influenza A PCR NEGATIVE (Negative); Influenza B PCR NEGATIVE (Negative); Resp Syncy Virus RNA Qual PCR NEGATIVE (Negative); SARS COV2 PCR INHOUSE NEGATIVE (Negative)
== END 2022-07-02 18:04 | disposition home or self-care (01) ==
LOC: HO.LNP 18:03
PROVIDERS: Visit Provider Nurse Practitioner Family
DX: R09.89 Other specified symptoms and signs involving the circulatory and respiratory systems (principal); Z20.822 Contact with and (suspected) exposure to COVID-19
CPT/HCPCS: 0241U

== ENCOUNTER 2022-07-12 07:54 | Outpatient (REF) | payer OTHER, SELFPAY ==
[2022-07-12 12:31] LABS: Alanine Aminotransferase 23 U/L (0-31); Aspartate Amino Transferase 30 U/L (5-31); Cholesterol 263 mg/dL; HDL Cholesterol 96 mg/dL; LDL Cholesterol Calculated 154 mg/dl; Triglycerides 68 mg/dL
[2022-07-12 12:48] LABS: Free T4 (Free Thyroxine) 1.17 ng/dL (0.71-1.85); Thyroid Stimulating Hormone 1.59 uIU/mL (0.32-4.0)
[2022-07-18 11:54] LABS: Thyroid Peroxidase Antibodies <1 IU/mL (<9)
== END 2022-07-12 07:55 | disposition home or self-care (01) ==
LOC: HO.HMGCLDS 07:54
PROVIDERS: PCP Internal Medicine; Visit Provider Internal Medicine
DX: E03.9 Hypothyroidism, unspecified (principal); E06.3 Autoimmune thyroiditis; E78.5 Hyperlipidemia, unspecified
CPT/HCPCS: 36415; 80061; 82550; 84439; 84443; 84450; 84460; 86376

== ENCOUNTER 2022-09-04 10:17 | Outpatient (REF) | payer OTHER, SELFPAY ==
--- NOTE | ~2022-09-04 | XR_ITS ---
EXAMINATION: XR SINUSES CLINICAL INFORMATION: Chronic frontal sinusitis COMPARISON: None available. TECHNIQUE: 3 views of the sinuses were obtained. FINDINGS: Paranasal sinuses appear clear without air-fluid levels. No fractures are identified. No radiodense foreign bodies. XR/XR sinus min 3V IMPRESSION: Unremarkable examination.
== END 2022-09-04 10:18 | disposition home or self-care (01) ==
LOC: HO.HMGCX 10:17
PROVIDERS: PCP Internal Medicine; Visit Provider Internal Medicine
DX: J32.1 Chronic frontal sinusitis (principal)
CPT/HCPCS: 70220

== ENCOUNTER 2022-10-10 08:11 | Outpatient (REF) | payer OTHER, SELFPAY ==
[2022-10-10 11:37] LABS: MANUAL DIFF FLAG NO
[2022-10-10 11:53] LABS: Basophils Absolute Auto 0.1 X10*3/uL (0.0-0.2); Basophils Percent Auto 1.2 % (0-2); Eosinophils Absolute Auto 0.2 X10*3/uL (0.0-0.4); Eosinophils Percent Auto 3.2 % (0-4); Hematocrit 42.8 % (37.0-47.0); Hemoglobin 13.8 g/dl (12.0-16.0); Imm Gran Abs Auto 0.01 X10*3/uL (0.00-0.03); Imm Gran Pct Auto 0.2 % (0.0-0.4); Lymphocytes Absolute Auto 1.4 X10*3/uL (1.2-4.9); Lymphocytes Percent Auto 24.6 % (20-40); Mean Corpuscular HGB Conc 32.2 g/dl (31.0-35.0); Mean Corpuscular Hemoglobin 31.2 pg (27.0-33.0); Mean Corpuscular Volume 96.6 fL (80.0-98.0); Monocytes Absolute Auto 0.4 X10*3/uL (0.1-1.2); Monocytes Percent Auto 7.6 % (2-11); Neutrophils Absolute Auto 3.6 x10*3/uL (2.0-8.3); Neutrophils Percent Auto 63.2 % (45-73); Platelet Count 291 X10*3/uL (160-400); Red Blood Count 4.43 X10*6/uL (4.20-5.50); Red Cell Distribution Width 12.8 % (11.0-16.0); White Blood Count 5.7 X10*3/uL (4.8-10.8)
== END 2022-10-10 08:12 | disposition home or self-care (01) ==
LOC: HO.HMGCLDS 08:11
PROVIDERS: PCP Internal Medicine; Visit Provider Internal Medicine
DX: J32.1 Chronic frontal sinusitis (principal); R51.9 Headache, unspecified
CPT/HCPCS: 36415; 85025

== ENCOUNTER 2022-11-03 12:06 | Emergency (ER) | payer OTHER, SELFPAY ==
[2022-11-03 12:33] VITALS: BP 119/68; PULSE 73; RESP 18; TEMP 36.8; O2SAT 98; BMI 20.3
--- NOTE | 2022-11-03 12:40 | ED.GENADULT ---
HPI - General Adult General Chief complaint: Abdominal Pain Stated complaint: L upper abd pain/L side back pain Time Seen by Provider: 11/03/22 14:40 Source: patient, RN notes reviewed and old records reviewed Mode of arrival: ambulatory Limitations: no limitations History of Present Illness HPI narrative: 62 year old female with history of anxiety, HDL, Afsaneh's, asthma, breast cancer, recurrent OM presents to the ED with c/o abdominal bloating, left-sided abdominal pain radiating to left flank, nausea and constipation x4 days. Describes pain as sharp without identifiable triggers. States her abdomen has felt more bloated over the last few days. Admits to irregular BM fluctuating between regular/ constipation. Last BM this morning. Denies fever/ chills, CP or SOB, diarrhea, hematochezia or hematemesis, urinary symptoms. MD complaint: abdominal pain/bloating, nausea Onset (ago): day(s) Related Data Home Medications Medication Instructions Recorded Confirmed dorzolamide 2 % eye drops 2 drp ophthalmic (eye) DAILY 03/15/20 10/11/22 fluorometholone 0.1 % eye 1 drp ophthalmic (eye) NEEDED 03/15/20 10/11/22 drops,suspension pilocarpine HCl 1 % eye drops 1 drp ophthalmic (eye) NEEDED 03/15/20 10/11/22 travoprost 0.004 % eye drops 4 drp ophthalmic (eye) NEEDED 03/15/20 10/11/22 betaxolol 0.25 % eye 1 drp ophthalmic (eye) DAILY 02/15/21 10/11/22 drops,suspension (Betoptic S) carboxymethylcellulose 0.5 1 drp ophthalmic (eye) DAILY 02/15/21 10/11/22 %-glycerin 0.9 % (PF) eye drops,dropperette (Refresh Optive Sensitive (PF)) cyclosporine 0.05 % eye drops in a 1 drp ophthalmic (eye) DAILY 02/15/21 10/11/22 dropperette (Restasis) brimonidine 0.1 % eye drops 1 drp ophthalmic (eye) DAILY 03/16/21 10/11/22 (Alphagan P) Previous Rx's Medication Instructions Recorded levothyroxine 88 mcg tablet 88 mcg PO DAILY #30 caps 11/10/20 albuterol sulfate 90 mcg/actuation 2 inh inhalation Q6H PRN shortness 05/22/21 breath activated powder inhaler of breath or wheezing #1 ea Flovent HFA 110 mcg/actuation 1 puff inhalation Q12H #12 grams 04/30/22 aerosol inhaler (fluticasone propionate) ascorbic acid (vitamin C) 500 mg 500 mg PO DAILY #90 caps 05/03/22 tablet (Vitamin C) cyclobenzaprine 5 mg tablet 5 mg PO TID PRN muscle spasm #20 07/02/22 tabs ProAir HFA 90 mcg/actuation 2 puff inhalation Q6H PRN for 07/09/22 aerosol inhaler (albuterol sulfate) wheezing #8.5 grams inhalational spacing device #1 ea 07/18/22 (BreatheRite MDI Spacer) nebulizers (AeroEclipse II #1 ea 07/18/22 Nebulizer) ipratropium 0.5 mg-albuterol 3 mg 3 ml inhalation Q6H PRN wheezing 07/19/22 (2.5 mg base)/3 mL nebulization #90 mL soln cephalexin 500 mg capsule 500 mg PO BID #20 caps 09/04/22 fluticasone propionate 50 2 spray intranasal DAILY #16 caps 09/22/22 mcg/actuation nasal spray,suspension alprazolam 0.25 mg tablet 0.25 mg PO DAILY PRN anxiety #10 10/03/22 tabs azelastine 137 mcg (0.1 %) nasal 1 spray intranasal BID #30 mL 10/11/22 spray aerosol azithromycin 250 mg tablet See Rx Instructions PO .COMPLEX #6 10/11/22 tabs rosuvastatin 5 mg tablet 5 mg PO Q2D #45 tabs 10/17/22 Allergies Allergy/AdvReac Type Severity Reaction Status Date / Time Opioids - Morphine Analogues Allergy Severe convultions Verified 11/03/22 12:33 sulfabenzamide Allergy Severe tongue Verified 11/03/22 12:33 swelled shut gluten [GLUTEN] Allergy Intermediate INFLAMMATION Verified 11/03/22 12:33 SYSTEMICALLY mold [MOLD] Allergy Intermediate UNKNOWN Verified 11/03/22 12:33 animal dander Allergy Unknown ASTHMA Verified 11/03/22 12:33 FLAIRUP Clindamycin HCl Allergy Unknown rash Verified 11/03/22 12:33 doxycycline [DOXYCYCLINE] Allergy Unknown RASH Verified 11/03/22 12:33 morphine [MORPHINE] Allergy Unknown SEIZURE Verified 11/03/22 12:33 LIKE EXPERIENCE - FELT TERRIBLE, convulsions penicillin V Allergy Unknown rash Verified 11/03/22 12:33 Penicillins [PENICILLINS] Allergy Unknown RASH HIVES Verified 11/03/22 12:33 soybean Allergy Unknown unknown Verified 11/03/22 12:33 Sulfa (Sulfonamide Allergy Unknown TONGUE Verified 11/03/22 12:33 Antibiotics) SWELLING, [SULFA (SULFONAMIDE swelling ANTIBIOTICS)] of mouth soy AdvReac Intermediate UPSET Verified 11/03/22 12:33 STOMACH DAIRY PRODUCTS Allergy Intermediate INFLAMMATIO Uncoded 10/11/22 12:30 N cats, dogs Allergy Unknown Unknown Uncoded 10/11/22 12:30 mole,bread and diary Allergy Unknown Unknown Uncoded 10/11/22 12:30 Review of Systems Review of Systems: Constitutional: No Fever, No Chills, No Fatigue, ENT/Mouth: No Ear Pain, No Nasal Congestion, No sore throat, Cardiovascular: No Chest Pain, No SOB Respiratory: No Cough, No Sputum, No Wheezinga Gastrointestinal: + Nausea, No Vomiting, No Diarrhea, + Constipation, + Abdominal pain, No Hematochezia, No Melena Genitourinary: No irregular bleeding, No Dysuria, No Urinary Frequency, No Hematuria, No Urgency, No Flank Pain, No Urinary Flow Changes, No Hesitancy Musculoskeletal: No joint pain, No Myalgias, No Joint Swelling Skin: No Skin Lesions, No rash Neuro: No Dizziness, No Headache Yes all other systems are reviewed and are negative Constitutional: Constitutional: Reports as per [facility] Past Medical History Attestation statement: The following information was validated with the patient. Source: old records reviewed Medical History Acquired hypothyroidism Anxiety disorder Dyslipidemia Environmental and seasonal allergies Frequent headaches Afsaneh's thyroiditis History of COVID-19 Hx of breast cancer Immunization refused Mild intermittent asthma Mixed dyslipidemia Narrow angle glaucoma suspect of both eyes Recurrent otitis media Retinal detachment Temporomandibular joint dysfunction Vitamin D deficiency Surgical History H/O myringotomy History of eye surgery History of eyelid surgery History of hysterectomy History of surgery Family History Family History Father No problems noted. Mother Diabetes mellitus Heart disease Heart attack Brother No problems noted. Brother No problems noted. Brother No problems noted. Brother No problems noted. Brother No problems noted. Social History Social History Household Members: None Housing: House Alcohol intake: current Alcohol intake frequency: a few times a week Patient Tobacco Use Status: Never used Tobacco Smoked in Last 30 Days: No e-Cigarette/Vaping Use: Never Used Use of substances other than those prescribed or required for medical reasons: No Advance Directives: No Advance Directives Information Provided: No service: No Current occupational status: employed Cognitive needs: No Hearing needs: No Vision needs: No Physical Exam ED Vital Signs: Vital Signs - 24 hr 11/03/22 12:33 11/03/22 13:08 11/03/22 17:02 Temperature 98.2 F 98.1 F 98.0 F Pulse Rate 73 69 52 Respiratory Rate 18 16 18 Blood Pressure 119/68 124/64 131/55 L Pulse Oximetry 98 97 98 Oxygen Delivery Method Room Air Room Air Room Air 11/03/22 18:04 Temperature Pulse Rate 59 Respiratory Rate 16 Blood Pressure 114/66 Pulse Oximetry 95 Oxygen Delivery Method Room Air BMI result Body Mass Index 20.3 Const General: cooperative, healthy appearing, no acute distress, alert and awake; No diaphoretic or lethargic Nutritional Appearance: average body habitus Orientation/consciousness: patient oriented x3 and No lethargic Limitations: no limitations HENMT Head: Yes normal to inspection and Yes atraumatic Ears: hearing grossly normal bilaterally General nose exam: Normal external nose present Face and sinus: Yes normal facial exam Mouth: moist mucous membranes Eyes General: appearance normal, both eyes and all related structures EOM: EOMs intact bilaterally Neck Neck: Yes normal visual inspection and Yes no meningeal signs Resp Effort & Inspection: normal respiratory effort and no respiratory distress Auscultation: clear to auscultation bilaterally Cardio Rate: regular rate Heart sounds: S1 normal heart sound present and S2 normal heart sound present GI Other: no overlying skin changes or obvious masses Inspection: Yes normal to inspection, No abdominal wall ecchymosis, Yes distended (mildly), No visible herniation and No visible peristalsis Palpation (GI): Soft to palpation, Tenderness to palpation present (GI) (+LUQ and left mid-abdomen tenderness to palpation) with no rebound tenderness, no guarding, not rigid, no pulsatile masses and No Rebound tenderness present General: Yes CVA tenderness on the left Back/Spine/Pelvis Other: No midline cervical/thoracic/lumbar spinous tenderness/step-off or deformity Back: CVA tenderness Skin General skin exam: no rashes or lesions noted Wounds: no wounds Neuro General: patient oriented x3, gait normal, tone normal and no meningeal signs Gait exam (Neuro): Normal gait present Extrem General: Yes normal to inspection Course Course Course Narrative: RME: 62 yold female with pmh of afsaneh disease presents to the ED for left upper abdominal pain radiating to left posterior rib upper back. labs, EKG, and chest xray and UA ordered 1522-- CBC without leukocytosis or anemia. Coags WNL. BMP without electrolyte derangements. Lipase WNL. No elevation of LFTs. Troponin negative, BNP WNL. UA without infection or RBCs. Urine preg negative. Radiology currently down > Preliminary report CXR 2V interpretation by Dr. Keily PALENCIA . -1630--ED care transferred to [facility] Ricks pending CTAP Reevaluation(s) Reevaluation #1: Patient received in sign-out at change of shift pending CT scan. CT scan shows mild edema and possible stranding around the pancreas question early mild pancreatitis. The patient's lipase is within normal limits. Her pain is in the area that would be consistent with acute pancreatitis. However her symptoms appear mild. She is able to tolerate p.o. and is not vomiting. Patient was encouraged to drink clear fluids for the next 2 days and advance as tolerated Time: 19:26 Medications Administered Discontinued Medications Generic Name Dose Route Start Last Admin Trade Name Freq PRN Reason Stop Dose Admin Sodium Chloride 1,000 mls @ 999 mls/hr 11/03/22 15:30 11/03/22 18:29 Ns IV 11/03/22 16:30 Infused .Q1H1M RAÚL Infusion Iohexol 100 ml 11/03/22 17:45 11/03/22 17:46 Iohexol 350 Mg/Ml 100 Ml Infus..Btl IV 11/03/22 17:46 85 ml ONCE ONE Administration Ketorolac Tromethamine 15 mg 11/03/22 15:27 11/03/22 15:37 Ketorolac Tromethamine 15 Mg/Ml Vial IVPUSH 11/03/22 15:28 15 mg ONCE ONE Administration Ondansetron HCl 4 mg 11/03/22 15:27 11/03/22 15:37 Ondansetron Hcl 4 Mg/2 Ml Vial IVPUSH 11/03/22 15:28 4 mg ONCE ONE Administration Medical Decision Making Medical Decision Making [facility] Narrative: 62 year old female with history of anxiety, HDL, Afsaneh's, asthma, breast cancer, recurrent OM presents to the ED with c/o abdominal bloating, left-sided abdominal pain radiating to left flank, nausea and constipation x4 days. On exam vital signs stable, NAD, abdomen soft, mildly distended, +LUQ and left mid-abdomen tenderness to palpation without rebound tenderness or guarding, +Left CVA tenderness. Concern for SBO vs diverticulitis/ diverticulosis vs colitis vs pancreatitis vs renal stone. Lower suspicion for pyelonephritis/UTI, cholecystitis or appendicitis. Unlikely atypical ACS Plan: labs, UA, EKG, CXR, CT abd/pelvis, IVF, antiemetics/IV Toradol, re-evaluate Please refer to course for remaining clinical decision making, interpretation of labs/imaging results, and discussions with consultants and/or family members. Differential Diagnosis Differential Diagnoses: The differential diagnosis associated with the presentation includes As above Admission/Observation Consideration of admission/observation: Escalation of care including admission/observation considered Lab Data [facility] Lab Attestation statement: I reviewed the patient's lab results. 11/03/22 13:24 11/03/22 13:24 Labs: Lab Results 11/03/22 11/03/22 11/03/22 Range/Units 13:24 13:24 13:24 WBC 5.8 (4.8-10.8) X10*3/uL RBC 4.29 (4.20-5.50) X10*6/uL Hgb 13.4 (12.0-16.0) g/dl Hct 40.5 (37.0-47.0) % MCV 94.4 (80.0-98.0) fL MCH 31.2 (27.0-33.0) pg MCHC 33.1 (31.0-35.0) g/dl RDW 12.4 (11.0-16.0) % Plt Count 259 (160-400) X10*3/uL MPV 9.2 L (9.4-12.3) fL Immature Gran % (Auto) 0.5 H (0.0-0.4) % Neut % (Auto) 77.3 H (45-73) % Lymph % (Auto) 14.9 L (20-40) % [place] % (Auto) 5.5 (2-11) % Eos % (Auto) 0.9 (0-4) % Baso % (Auto) 0.9 (0-2) % Lymph # (Auto) 0.9 L (1.2-4.9) X10*3/uL [place] # (Auto) 0.3 (0.1-1.2) X10*3/uL Eos # (Auto) 0.1 (0.0-0.4) X10*3/uL Baso # (Auto) 0.1 (0.0-0.2) X10*3/uL Abs Immat Gran (auto) 0.03 (0.00-0.03) X10*3/uL Absolute Neuts (auto) 4.5 (2.0-8.3) x10*3/uL Absolute Nucleated RBC 0.000 (0.0-0.012) X10*3/uL Nucleated RBC % (auto) 0.0 (0.0-0.2) /100WBC PT 10.9 (10.0-13.1) SEC INR 1.0 (0.9-1.1) APTT 29.1 (26.0-36.4) SEC Sodium 141 (135-145) mmol/L Potassium 3.8 (3.3-5.1) mmol/L Chloride 106 (96-108) mmol/L Carbon Dioxide 25 (22-29) mmol/L Anion Gap 14 (12-20) BUN 15 (9-16) mg/dL Creatinine 0.90 (0.5-1.4) mg/dL Estim Creat Clear Calc 58.1 Estimated GFR > 60 Random Glucose 122 H (60-115) mg/dL Calcium 10.0 (8.4-10.2) mg/dL Magnesium 2.3 (1.6-2.6) mg/dL Total Bilirubin 0.9 (0.0-1.0) mg/dL AST 31 (5-31) U/L ALT 21 (0-31) U/L Alkaline Phosphatase 69 (39-117) U/L Troponin I High Sens (<3.5-17.0) ng/L B-Natriuretic Peptide (<100) pg/mL Total Protein 7.2 (6.5-8.0) g/dL Albumin 4.3 (3.5-5.0) g/dL Lipase 67 (8-78) U/L Urine Color Urine Appearance Urine pH (5.0-9.0) Ur Specific [place] (1.005-1.025) Urine Protein (Neg-Trace) mg/dL Urine Glucose (UA) (Negative) mg/dL Urine Ketones (Negative) mg/dL Urine Blood (Negative) Urine Nitrite (Negative) Ur Leukocyte Esterase (Negative) 11/03/22 11/03/22 11/03/22 Range/Units 13:25 13:30 14:14 WBC (4.8-10.8) X10*3/uL RBC (4.20-5.50) X10*6/uL Hgb (12.0-16.0) g/dl Hct (37.0-47.0) % MCV (80.0-98.0) fL MCH (27.0-33.0) pg MCHC (31.0-35.0) g/dl RDW (11.0-16.0) % Plt Count (160-400) X10*3/uL MPV (9.4-12.3) fL Immature Gran % (Auto) (0.0-0.4) % Neut % (Auto) (45-73) % Lymph % (Auto) (20-40) % [place] % (Auto) (2-11) % Eos % (Auto) (0-4) % Baso % (Auto) (0-2) % Lymph # (Auto) (1.2-4.9) X10*3/uL [place] # (Auto) (0.1-1.2) X10*3/uL Eos # (Auto) (0.0-0.4) X10*3/uL Baso # (Auto) (0.0-0.2) X10*3/uL Abs Immat Gran (auto) (0.00-0.03) X10*3/uL Absolute Neuts (auto) (2.0-8.3) x10*3/uL Absolute Nucleated RBC (0.0-0.012) X10*3/uL Nucleated RBC % (auto) (0.0-0.2) /100WBC PT (10.0-13.1) SEC INR (0.9-1.1) APTT (26.0-36.4) SEC Sodium (135-145) mmol/L Potassium (3.3-5.1) mmol/L Chloride (96-108) mmol/L Carbon Dioxide (22-29) mmol/L Anion Gap (12-20) BUN (9-16) mg/dL Creatinine (0.5-1.4) mg/dL Estim Creat Clear Calc Estimated GFR Random Glucose (60-115) mg/dL Calcium (8.4-10.2) mg/dL Magnesium (1.6-2.6) mg/dL Total Bilirubin (0.0-1.0) mg/dL AST (5-31) U/L ALT (0-31) U/L Alkaline Phosphatase (39-117) U/L Troponin I High Sens < 2.7 (<3.5-17.0) ng/L B-Natriuretic Peptide 57 (<100) pg/mL Total Protein (6.5-8.0) g/dL Albumin (3.5-5.0) g/dL Lipase (8-78) U/L Urine Color Yellow Urine Appearance Clear Urine pH 7.0 (5.0-9.0) Ur Specific [place] <= 1.005 (1.005-1.025) Urine Protein Negative (Neg-Trace) mg/dL Urine Glucose (UA) Negative (Negative) mg/dL Urine Ketones Negative (Negative) mg/dL Urine Blood Negative (Negative) Urine Nitrite Negative (Negative) Ur Leukocyte Esterase Negative (Negative) Independent Interpretation Interpretation: Radiology currently down. Preliminary report read. Radiology Impression Discussion of test interpretation with radiology: I have reviewed the radiologist's reading. External Record Review External record reviewed: Inpatient record, Office record, Outpatient record, Prior outpatient labs, Prior outpatient radiology, Primary care record and Outside ED record Tests considered The following testing was considered but not selected: As above Prescription Management I considered prescription management with: Pain Medication and Other (antiemetic) Critical Care Time Critical Care Time Critical Care Time: No Discharge Plan Discharge Clinical Impression: Abdominal pain Patient Disposition: Home, Self-Care Instructions: Pancreatitis (ED) Additional Instructions: Your workup in the emergency department today was reassuring. Your CT scan did show some inflammation around the pancreas Your lipase however was within normal limits You should have a clear liquid diet for the next 2 days and advance as tolerated You may use ibuprofen or Tylenol as needed for pain Return for new or worsening symptoms For your bloating, you may use [id number] Pepto-Bismol, simethicone or gas-x Call your doctor tomorrow morning to schedule follow-up Prescriptions: No Action levothyroxine 88 mcg tablet 88 mcg PO DAILY Qty: 30 6RF albuterol sulfate 90 mcg/actuation aerosol powdr breath activated 2 inh inhalation Q6H PRN (Reason: shortness of breath or wheezing) Qty: 1 5RF fluticasone propionate [Flovent HFA] 110 mcg/actuation HFA aerosol inhaler 1 puff inhalation Q12H Qty: 12 2RF ascorbic acid (vitamin C) [Vitamin C] 500 mg tablet 500 mg PO DAILY Qty: 90 3RF albuterol sulfate [ProAir HFA] 90 mcg/actuation HFA aerosol inhaler 2 puff inhalation Q6H PRN (Reason: for wheezing) Qty: 8.5 2RF (DME) BreatheRite MDI Spacer Spacer See Rx Instructions .Route Qty: 1 0RF Rx Instructions: As directed (DME) nebulizers [AeroEclipse II Nebulizer] [facility] [place] .Route Qty: 1 0RF Rx Instructions: As directed ipratropium-albuterol 0.5 mg-3 mg(2.5 mg base)/3 mL solution for nebulization 3 ml inhalation Q6H PRN (Reason: wheezing) Qty: 90 0RF fluticasone propionate 50 mcg/actuation spray,suspension 2 spray intranasal DAILY Qty: 16 5RF alprazolam 0.25 mg tablet 0.25 mg PO DAILY PRN (Reason: anxiety) Qty: 10 0RF rosuvastatin 5 mg tablet 5 mg PO Q2D Qty: 45 1RF pilocarpine HCl 1 % drops 1 drp ophthalmic (eye) NEEDED dorzolamide 2 % drops 2 drp ophthalmic (eye) DAILY fluorometholone 0.1 % drops,suspension 1 drp ophthalmic (eye) NEEDED travoprost 0.004 % drops 4 drp ophthalmic (eye) NEEDED Alphagan P 0.1 % drops 1 drp ophthalmic (eye) DAILY Restasis 0.05 % dropperette 1 drp ophthalmic (eye) DAILY Betoptic S 0.25 % drops,suspension 1 drp ophthalmic (eye) DAILY Refresh Optive Sensitive (PF) 0.5-0.9 % dropperette 1 drp ophthalmic (eye) DAILY cyclobenzaprine 5 mg tablet 5 mg PO TID PRN (Reason: muscle spasm) Qty: 20 0RF azithromycin 250 mg tablet See Rx Instructions PO .COMPLEX Qty: 6 0RF Rx Instructions: For 250 mg dose pack: take 500 mg today (day 1), then 250 mg for 4 days (days 2-5) PO azelastine 137 mcg (0.1 %) aerosol,spray 1 spray intranasal BID Qty: 30 0RF Rx Instructions: administer into each nostril cephalexin 500 mg capsule 500 mg PO BID Qty: 20 0RF Interventions: ED Discharge Assessment Last Done: 11/03/22 19:38 Discharge Date/Time: 11/03/22 19:46
[2022-11-03 13:08] VITALS: BP 124/64; PULSE 69; RESP 16; TEMP 36.7; O2SAT 97
--- NOTE | 2022-11-03 13:29 | PC.NURSE ---
pt a&ox3, respirations equal and non labored. skin pink, warm and moist. abdomen soft but tender to touch in the upper left. active bowel sounds in all quadrants. pt reporting constipation, nausea and pain for 3 days that gets worse with eating.
[2022-11-03 17:02] VITALS: BP 131/55; PULSE 52; RESP 18; TEMP 36.7; O2SAT 98
[2022-11-03 18:04] VITALS: BP 114/66; PULSE 59; RESP 16; O2SAT 95
== END 2022-11-03 19:46 | disposition home or self-care (01) ==
PROVIDERS: Emergency Provider Emergency Medicine Emergency Medical Services; PCP Internal Medicine
DX: R10.12 Left upper quadrant pain (principal); R11.0 Nausea; K59.00 Constipation, unspecified; E06.3 Autoimmune thyroiditis; J45.909 Unspecified asthma, uncomplicated; E78.5 Hyperlipidemia, unspecified
CPT/HCPCS: 36415; 71046; 74177; 80053; 81003; 83690; 83735; 83880; 84484; 85025; 85610; 85730; 93005; 96361; 96374; 96375; 99285; J1885; J2405; Q9967

== ENCOUNTER 2022-11-25 07:07 | Outpatient (REF) | payer OTHER, SELFPAY ==
[2022-11-25 12:40] LABS: Free T4 (Free Thyroxine) 0.97 ng/dL (0.71-1.85); Thyroid Stimulating Hormone 0.95 uIU/mL (0.32-4.0)
[2022-11-25 12:59] LABS: Alanine Aminotransferase 17 U/L (0-31); Anion Gap 11 (12-20); Aspartate Amino Transferase 24 U/L (5-31); Blood Urea Nitrogen 19 mg/dL (9-16); Calcium 9.8 mg/dL (8.4-10.2); Carbon Dioxide 30 mmol/L (22-29); Chloride 106 mmol/L (96-108); Cholesterol 252 mg/dL; Estimated Glomerular Filt Rate > 60; Glucose Fasting 93 mg/dL (60-99); HDL Cholesterol 89 mg/dL; LDL Cholesterol Calculated 144 mg/dl; Potassium 3.9 mmol/L (3.3-5.1); Sodium 143 mmol/L (135-145); Triglycerides 96 mg/dL
[2022-11-26 23:04] LABS: Thyroid Peroxidase Antibodies <1 IU/mL (<9)
== END 2022-11-25 07:08 | disposition home or self-care (01) ==
LOC: HO.HMGCLDS 07:07
PROVIDERS: PCP Internal Medicine; Visit Provider Internal Medicine
DX: E03.9 Hypothyroidism, unspecified (principal); E06.3 Autoimmune thyroiditis; E55.9 Vitamin D deficiency, unspecified; E78.2 Mixed hyperlipidemia; J32.1 Chronic frontal sinusitis; R51.9 Headache, unspecified
CPT/HCPCS: 36415; 80048; 80061; 82306; 82550; 84439; 84443; 84450; 84460; 86376

== ENCOUNTER 2022-11-27 09:22 | Outpatient (AMB) | payer OTHER, SELFPAY ==
--- NOTE | 2022-11-27 10:07 | MHC.PC.OV ---
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 Allergies Opioids - Morphine Analogues Allergy (Severe, Verified 02/26/23 03:07) convultions sulfabenzamide Allergy (Severe, Verified 02/26/23 03:07) tongue swelled shut gluten [GLUTEN] Allergy (Intermediate, Verified 02/26/23 03:07) INFLAMMATION SYSTEMICALLY mold [MOLD] Allergy (Intermediate, Verified 02/26/23 03:07) UNKNOWN animal dander Allergy (Unknown, Verified 02/26/23 03:07) ASTHMA FLAIRUP Clindamycin HCl Allergy (Unknown, Verified 02/26/23 03:07) rash doxycycline [DOXYCYCLINE] Allergy (Unknown, Verified 02/26/23 03:07) RASH morphine [MORPHINE] Allergy (Unknown, Verified 02/26/23 03:07) SEIZURE LIKE EXPERIENCE - FELT TERRIBLE, convulsions penicillin V Allergy (Unknown, Verified 02/26/23 03:07) rash Penicillins [PENICILLINS] Allergy (Unknown, Verified 02/26/23 03:07) RASH HIVES soybean Allergy (Unknown, Verified 02/26/23 03:07) unknown Sulfa (Sulfonamide Antibiotics) [SULFA (SULFONAMIDE ANTIBIOTICS)] Allergy (Unknown, Verified 02/26/23 03:07) TONGUE SWELLING, swelling of mouth soy Adverse Reaction (Intermediate, Verified 02/26/23 03:07) UPSET STOMACH DAIRY PRODUCTS Allergy (Intermediate, Uncoded 02/26/23 03:07) INFLAMMATION cats, dogs Allergy (Unknown, Uncoded 02/26/23 03:07) Unknown mole,bread and diary Allergy (Unknown, Uncoded 02/26/23 03:07) Unknown Medication List - Last Reconciled 02/26/23 by Stephania Guaman MD albuterol sulfate 90 mcg/actuation 2 inhalations inhalation Q6H PRN alprazolam 0.25 mg PO DAILY PRN ascorbic acid (vitamin C) (Vitamin C) 500 mg PO DAILY azelastine 1 spray intranasal BID betaxolol 0.25% (Betoptic S) 1 drp ophthalmic (eye) DAILY brimonidine 0.1% (Alphagan P) 1 drp ophthalmic (eye) DAILY carboxymethylcell-glycerin(PF) 0.5-0.9 % (Refresh Optive Sensitive (PF)) 1 drp ophthalmic (eye) DAILY cyclosporine 0.05% (Restasis) 1 drp ophthalmic (eye) DAILY Flovent HFA 110 mcg/actuation (fluticasone propionate) 1 puff inhalation Q12H NS fluorometholone 0.1% 1 drp ophthalmic (eye) NEEDED fluticasone propionate 50 mcg/actuation 2 sprays intranasal DAILY inhalational spacing device (BreatheRite MDI Spacer) As directed ipratropium-albuterol 0.5 mg-3 mg(2.5 mg base)/3 mL 3 mL inhalation Q6H PRN levofloxacin 500 mg PO DAILY levothyroxine 88 mcg PO DAILY nebulizers (AeroEclipse II Nebulizer) As directed pilocarpine HCl 1% 1 drp ophthalmic (eye) NEEDED prednisone 40 mg (2 x 20 mg) PO DAILY 5 days ProAir HFA 90 mcg/actuation (albuterol sulfate) 2 puffs inhalation Q6H PRN NS rosuvastatin 5 mg PO Q2D travoprost 0.004% 4 drps ophthalmic (eye) NEEDED Tobacco use date assessed: 11/27/22 Dental Screening Dental Screen Date: 11/27/22 Did you have a dental visit in the last 12 months?: Yes Did you have a dental problem in the last 6 months where you did not have access to dental care?: No Was dental information given to patient?: Patient has dentist HPI 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 CBC done was unremarkable, and her basic metabolic panel, lipase, liver enzymes, troponin and BNP as well as urinalysis all came back with negative results. Her Urine test was negative. t CXR 2V did not show any acute process. CT scan of abdomen done showed mild edema and possible stranding around the pancreas, questioning early mild pancreatitis developing. Patient was then discharged home due to lack of severity of symptoms, and pain resolving. She advised to drink clear fluids in the meantime and advance her diet as tolerated. At present, patient feels better, no eating a regular diet, with no recurrence of abdominal pain [facility] Medical History Environmental and seasonal allergies Temporomandibular joint dysfunction Frequent headaches Mixed dyslipidemia Immunization refused Hx of breast cancer History of COVID-19 Anxiety disorder Dyslipidemia Recurrent otitis media Retinal detachment Vini's thyroiditis Mild intermittent asthma Narrow angle glaucoma suspect of both eyes Vitamin D deficiency Acquired hypothyroidism Surgical History History of surgery H/O myringotomy History of hysterectomy History of eyelid surgery History of eye surgery Family History Father No problems noted. Mother Diabetes mellitus Heart disease Heart attack Brother No problems noted. Brother No problems noted. Brother No problems noted. Brother No problems noted. Brother No problems noted. Social History Household Members: None Housing: House Alcohol intake: current Alcohol intake frequency: a few times a week Patient Tobacco Use Status: Never used Tobacco e-Cigarette/Vaping Use: Never Used service: No Current occupational status: employed Cognitive needs: No Hearing needs: No Vision needs: No Questionnaire Thrive Questionnaire Date Thrive assessed: 07/15/22 PASCUAL-7 AMB Questionnaire PASCUAL-7 Date PASCUAL - 7 assessed: 07/15/22 Source: Developed by Drs. Angel Allen, Manuela Gardner, Emre Palacios and colleagues, with an educational cresencio from [employer]. Review of Systems Const All systems reviewed & are unremarkable except as noted in HPI and below Physical exam (Primary Care) Vital Signs: Last Vital Signs Pulse 61 11/27/22 10:08 BP 112/70 11/27/22 10:08 Pulse Ox 98 11/27/22 10:08 Oxygen Delivery Method Room Air 11/27/22 10:08 BMI result Body Mass Index 20.0 Tobacco/Smoking Status: Tobacco use Status Tobacco use date assessed 11/27/22 11/27/22 10:09 Patient Tobacco Use Status Never used Tobacco 11/27/22 10:09 e-Cigarette/Vaping Use Never Used 11/27/22 10:09 Thrive Assessment: Date of Thrive Assessment Date Thrive assessed 07/15/22 11/27/22 10:09 Const Other: Alert oriented x3, no acute distress noted, ambulatory normal gait HENMT Ears: no periauricular adenopathy General nose exam: Normal external nose present Mouth: Normal oral and palatal mucosa present, oropharynx normal and moist mucous membranes Neck Neck: Yes full ROM, Yes no lymphadenopathy and Yes supple Resp Effort & Inspection: normal respiratory effort and able to speak in complete sentences Auscultation: clear to auscultation bilaterally Cardio Other: S1-S2 present regular rate and rhythm GI Inspection: Yes normal to inspection Palpation (GI): Soft to palpation, nontender, no guarding and no masses Auscultation: normal bowel sounds Assessment and Plan Assessment & Plan (1) History of abdominal pain: Code(s): Z87.898 - Personal history of other specified conditions Plan: Likely early pancreatitis, which has now resolved. Patient now on a regular diet, advised to continue staying well hydrated, with water only (2) Colon cancer screening: Code(s): Z12.11 - Encounter for screening for malignant neoplasm of colon Plan: Referred for screening colonoscopy to GI clinic Orders: Referrals Gastroenterology Referral Z12.11 - Encounter for screening for malignant neoplasm of colon Medications: Refilled azelastine administer into each nostril 1 spray intranasal BID 30 mL 5RF cyclobenzaprine 5 mg PO TID PRN 14 tabs 0RF muscle spasm Coding Level of Care Code Est Pt Level 3 (80782) Diagnoses History of abdominal pain Z87.898 Colon cancer screening Z12.11
[2022-11-27 10:08] VITALS: BP 112/70; PULSE 61; O2SAT 98
== END 2022-11-27 10:52 | disposition home or self-care (01) ==
PROVIDERS: PCP Internal Medicine; Visit Provider Internal Medicine
DX: F41.9 Anxiety disorder, unspecified (principal); Z87.898 Personal history of other specified conditions; Z12.11 Encounter for screening for malignant neoplasm of colon
CPT/HCPCS: 99213

== ENCOUNTER → 2023-01-20 08:45 | Outpatient (BNV) | payer OTHER, SELFPAY | PROVIDERS: PCP Internal Medicine; Visit Provider Radiology Diagnostic Radiology | DX: Z12.31 Encounter for screening mammogram for malignant neoplasm of breast (principal); Z90.11 Acquired absence of right breast and nipple | CPT/HCPCS: 77063; 77067 ==

== ENCOUNTER 2023-01-20 08:53 | Outpatient (REF) | payer OTHER, SELFPAY | END 2023-01-20 08:54 | disposition home or self-care (01) | LOC: HO.MAMMO 08:53 | PROVIDERS: PCP Internal Medicine; Visit Provider Internal Medicine | DX: Z12.31 Encounter for screening mammogram for malignant neoplasm of breast (principal) | CPT/HCPCS: 77063; 77067 ==

== ENCOUNTER 2023-02-20 09:01 | Outpatient (AMB) | payer OTHER, SELFPAY ==
--- NOTE | 2023-02-20 09:37 | AM.OFFWIN_ITS ---
Intake Vital Signs 02/20/23 09:38 Height 5 ft 5 in Weight 54.431 kg BMI 20.0 BP 120/70 Blood Pressure Location Lt brachial Position Sitting Pulse 62 Pulse Source Pulse Oximeter Temp 97.9 F Temp Source Temporal Artery Scan Pulse Oximetry (%) 98 Oxygen Delivery Method Room Air Intake Visit Reasons: EP, sinus congestion, left ear pain [phone] Intake Note: pt is here for c.o sinus congestion, left ear pain Patient Tobacco Use Status: Never used Tobacco Allergies Opioids - Morphine Analogues Allergy (Severe, Verified 02/20/23 09:38) convultions sulfabenzamide Allergy (Severe, Verified 02/20/23 09:38) tongue swelled shut gluten [GLUTEN] Allergy (Intermediate, Verified 02/20/23:38) INFLAMMATION SYSTEMICALLY mold [MOLD] Allergy (Intermediate, Verified 02/20/23 09:38) UNKNOWN animal dander Allergy (Unknown, Verified 02/20/23 09:38) ASTHMA FLAIRUP Clindamycin HCl Allergy (Unknown, Verified 02/20/23 09:38) rash doxycycline [DOXYCYCLINE] Allergy (Unknown, Verified 02/20/23 09:38) RASH morphine [MORPHINE] Allergy (Unknown, Verified 02/20/23 09:38) SEIZURE LIKE EXPERIENCE - FELT TERRIBLE, convulsions penicillin V Allergy (Unknown, Verified 02/20/23 09:38) rash Penicillins [PENICILLINS] Allergy (Unknown, Verified 02/20/23 09:38) RASH HIVES soybean Allergy (Unknown, Verified 02/20/23 09:38) unknown Sulfa (Sulfonamide Antibiotics) [SULFA (SULFONAMIDE ANTIBIOTICS)] Allergy (Unknown, Verified 02/20/23 09:38) TONGUE SWELLING, swelling of mouth soy Adverse Reaction (Intermediate, Verified 02/20/23 09:38) UPSET STOMACH DAIRY PRODUCTS Allergy (Intermediate, Uncoded 11/27/22 10:09) INFLAMMATION cats, dogs Allergy (Unknown, Uncoded 11/27/22 10:09) Unknown mole,bread and diary Allergy (Unknown, Uncoded 11/27/22 10:09) Unknown Do you need a note to return to daycare/school/sports/work: Yes HPI HPI Comments History of Present Illness Details 1007 62-year-old female presents with fatigue, malaise, frontal headaches, sinus pressure, rhinorrhea, sore throat and left ear pain for the past week worsening. Patient tells me this feels like her typical sinus infection she gets them yearly. She denies any visual disturbances dizziness or weakness associated with headache. Patient denies fevers, chills, chest pain, shortness of breath, abdominal pain, nausea, vomiting. Physical exam with discomfort with palpation of facial sinuses and pressure to face with for admitting. Likely sinusitis versus viral illness unlikely pneumonia, intracranial hemorrhage, stroke, posterior stroke. Likely tension type headache secondary to sinusitis. No signs of pneumonia, PE. Plan viral test will discharge with azithromycin patient has allergies to doxycycline and penicillin based antibiotics. Educated patient on diagnosis and treatment plan, answered all question, patient verbalizes understanding. At this time patient will be discharged home, advised to return with new or worsening symptoms. Educated on worrisome signs and symptoms and when to return. At this time I feel comfortable discharge home. [facility] Medical History Acquired hypothyroidism Anxiety disorder Dyslipidemia Environmental and seasonal allergies Frequent headaches Vini's thyroiditis History of COVID-19 Hx of breast cancer Immunization refused Mild intermittent asthma Mixed dyslipidemia Narrow angle glaucoma suspect of both eyes Recurrent otitis media Retinal detachment Temporomandibular joint dysfunction Vitamin D deficiency Surgical History H/O myringotomy History of eye surgery History of eyelid surgery History of hysterectomy History of surgery Family History Father No problems noted. Mother Diabetes mellitus Heart disease Heart attack Brother No problems noted. Brother No problems noted. Brother No problems noted. Brother No problems noted. Brother No problems noted. Social History Household Members: None Housing: House Alcohol intake: current Alcohol intake frequency: a few times a week Patient Tobacco Use Status: Never used Tobacco e-Cigarette/Vaping Use: Never Used service: No Current occupational status: employed Cognitive needs: No Hearing needs: No Vision needs: No Review of Systems Const Details: Constitutional : No Weight loss, No Fever, No Chills, + Fatigue, + Malaise ENT/Mouth : + sore throat, + Rhinorrhea, + sinus pressure Eyes: No Eye Pain, No Swelling, No Redness Cardiovascular : No Chest Pain, No SOB, No Dyspnea on Exertion, No Orthopnea, No Edema, No Palpitations Respiratory : No Cough, No Sputum, No Wheezing Gastrointestinal : No Nausea, No Vomiting, No Diarrhea, No Constipation, No abdominal Pain, No Hematochezia, No Melena Genitourinary : No Dysuria, No Urinary Frequency, No Hematuria, Musculoskeletal : No joint pain, No Myalgias, No Joint Swelling Skin : No Skin Lesions, No rash Neuro : No Weakness, No Numbness, No Dizziness, No Headache Psych : No Anxiety/Panic, No Depression All other systems reviewed and are negative All systems reviewed & are unremarkable except as noted in HPI and below Physical Exam Vital Signs: Last Vital Signs Temp 97.9 F 02/20/23 09:38 Pulse 62 02/20/23 09:38 BP 120/70 02/20/23 09:38 Pulse Ox 98 02/20/23 09:38 Oxygen Delivery Method Room Air 02/20/23 09:38 BMI result Body Mass Index 20.0 vss Appearance: Alert.? Oriented X3.? No acute distress.? Head: Normocephalic, atraumatic, no step-offs or deformities. Discomfort with palpation of facial sinuses and pressure to face with forward bending. Eyes: Pupils equal, round and reactive to light.? ENT: Pharynx normal.? No pain negative sensation of external ears bilaterally. No mastoid tenderness bilaterally. Tympanic membranes pearly white with normal landmarks, no erythema, edema . Neck: Normal inspection.? Neck supple.? CVS: Normal heart rate and rhythm.? Pulses normal.? Respiratory: No respiratory distress.? Breath sounds normal.? Abdomen: Soft and nontender.? Skin: Skin warm and dry.? Normal skin color.? Normal skin turgor.? Extremities: No lower extremity edema.? No calf ttp. 5/5 strength to bilateral upper and lower extremities Back: No midline tenderness, no C-spine tenderness, full range of motion, no CVA tenderness bilaterally Neuro: Oriented X 3.? No motor deficit.? No sensory deficit. CN 2-12 intact Assessment & Plan Assessment & Plan (1) Sinusitis: Code(s): J32.9 - Chronic sinusitis, unspecified Plan Take your medications as prescribed. If you were prescribed antibiotics today, it is important that you take your medication to their entirety, do not skip any doses, do not finish them early. Follow-up with your primary care provider this week. Return to the emergency department with new or worsening symptoms. Such as fe vers, chills, chest pain, shortness of breath, nausea, vomiting, dizziness, headache, vision changes, lethargy In case of emergency call 911 Orders: Orders BinaxMAGALYSW Covid-19 Ag Today J32.9 - Chronic sinusitis, unspecified Medications: New prednisone 40 mg (2 x 20 mg) PO DAILY 5 days 10 tabs 0RF azithromycin For 250 mg dose pack: take 500 mg today (day 1), then 250 mg for 4 days (days 2-5) PO 6 tabs 0RF Coding Level of Care Code Est Pt Level 3 (26964) Diagnoses Sinusitis J32.9
[2023-02-20 09:38] VITALS: BP 120/70; PULSE 62; TEMP 36.6; O2SAT 98
== END 2023-02-20 10:20 | disposition home or self-care (01) ==
PROVIDERS: PCP Internal Medicine; Visit Provider Physician Assistant
DX: J32.9 Chronic sinusitis, unspecified (principal)
CPT/HCPCS: 99213

== ENCOUNTER 2023-02-20 10:06 | Outpatient (REF) | payer OTHER, SELFPAY ==
[2023-02-20 10:35] LABS: Binax Internal Control QC Valid; Binax Now Covid-19 Ag Negative (Negative); Binax Performed by: HO.BONILM
== END 2023-02-20 10:07 | disposition home or self-care (01) ==
LOC: HO.HMGCLDS 10:06
PROVIDERS: Visit Provider Physician Assistant
DX: Z11.52 Encounter for screening for COVID-19 (principal); J32.9 Chronic sinusitis, unspecified
CPT/HCPCS: 87811

== ENCOUNTER 2023-02-25 09:32 | Outpatient (AMB) | payer OTHER, SELFPAY ==
--- NOTE | 2023-02-25 09:38 | MHC.PC.OV ---
Vital Signs 02/25/23 09:39 Height 5 ft 5 in Weight 122 lb 2 oz BMI 20.3 BP 120/78 Blood Pressure Location Lt brachial Position Sitting Pulse 63 Pulse Source Pulse Oximeter Pulse Oximetry (%) 97 Oxygen Delivery Method Room Air Intake Visit Reasons: Follow up from walk in visit Intake Note: pt was seen last with a sinus and ear infection at the walk-in and pt was told to follow with her Pcp pt was told to postpone surgery until Jun due to stress Allergies Opioids - Morphine Analogues Allergy (Severe, Verified 02/26/23 03:07) convultions sulfabenzamide Allergy (Severe, Verified 02/26/23 03:07) tongue swelled shut gluten [GLUTEN] Allergy (Intermediate, Verified 02/26/23 03:07) INFLAMMATION SYSTEMICALLY mold [MOLD] Allergy (Intermediate, Verified 02/26/23 03:07) UNKNOWN animal dander Allergy (Unknown, Verified 02/26/23 03:07) ASTHMA FLAIRUP Clindamycin HCl Allergy (Unknown, Verified 02/26/23 03:07) rash doxycycline [DOXYCYCLINE] Allergy (Unknown, Verified 02/26/23 03:07) RASH morphine [MORPHINE] Allergy (Unknown, Verified 02/26/23 03:07) SEIZURE LIKE EXPERIENCE - FELT TERRIBLE, convulsions penicillin V Allergy (Unknown, Verified 02/26/23 03:07) rash Penicillins [PENICILLINS] Allergy (Unknown, Verified 02/26/23 03:07) RASH HIVES soybean Allergy (Unknown, Verified 02/26/23 03:07) unknown Sulfa (Sulfonamide Antibiotics) [SULFA (SULFONAMIDE ANTIBIOTICS)] Allergy (Unknown, Verified 02/26/23 03:07) TONGUE SWELLING, swelling of mouth soy Adverse Reaction (Intermediate, Verified 02/26/23 03:07) UPSET STOMACH DAIRY PRODUCTS Allergy (Intermediate, Uncoded 02/26/23 03:07) INFLAMMATION cats, dogs Allergy (Unknown, Uncoded 02/26/23 03:07) Unknown mole,bread and diary Allergy (Unknown, Uncoded 02/26/23 03:07) Unknown Medication List - Last Reconciled 02/26/23 by Stephania Guaman MD albuterol sulfate 90 mcg/actuation 2 inhalations inhalation Q6H PRN alprazolam 0.25 mg PO DAILY PRN ascorbic acid (vitamin C) (Vitamin C) 500 mg PO DAILY azelastine 1 spray intranasal BID betaxolol 0.25% (Betoptic S) 1 drp ophthalmic (eye) DAILY brimonidine 0.1% (Alphagan P) 1 drp ophthalmic (eye) DAILY carboxymethylcell-glycerin(PF) 0.5-0.9 % (Refresh Optive Sensitive (PF)) 1 drp ophthalmic (eye) DAILY cyclosporine 0.05% (Restasis) 1 drp ophthalmic (eye) DAILY Flovent HFA 110 mcg/actuation (fluticasone propionate) 1 puff inhalation Q12H NS fluorometholone 0.1% 1 drp ophthalmic (eye) NEEDED fluticasone propionate 50 mcg/actuation 2 sprays intranasal DAILY inhalational spacing device (BreatheRite MDI Spacer) As directed ipratropium-albuterol 0.5 mg-3 mg(2.5 mg base)/3 mL 3 mL inhalation Q6H PRN levofloxacin 500 mg PO DAILY levothyroxine 88 mcg PO DAILY nebulizers (AeroEclipse II Nebulizer) As directed pilocarpine HCl 1% 1 drp ophthalmic (eye) NEEDED prednisone 40 mg (2 x 20 mg) PO DAILY 5 days ProAir HFA 90 mcg/actuation (albuterol sulfate) 2 puffs inhalation Q6H PRN NS rosuvastatin 5 mg PO Q2D travoprost 0.004% 4 drps ophthalmic (eye) NEEDED Tobacco use date assessed: 02/25/23 Dental Screening Dental Screen Date: 02/25/23 Did you have a dental visit in the last 12 months?: Yes Did you have a dental problem in the last 6 months where you did not have access to dental care?: No Was dental information given to patient?: Patient has dentist HPI HPI Comments History of Present Illness Details 62-year-old lady here today for follow-up after recent visit to the walk-in clinic, where she was diagnosed with acute otitis media and sinusitis. He was initially placed on azithromycin, which patient states did not help at all. She then called her oncologist, who placed her on levofloxacin 500 mg once a day, , which has stayed afforded improvement in her nasal congestion and left ear pain and headache. Still has about 3 tablets left on her prescription. [facility] Medical History Environmental and seasonal allergies Temporomandibular joint dysfunction Frequent headaches Mixed dyslipidemia Immunization refused Hx of breast cancer History of COVID-19 Anxiety disorder Dyslipidemia Recurrent otitis media Retinal detachment Vini's thyroiditis Mild intermittent asthma Narrow angle glaucoma suspect of both eyes Vitamin D deficiency Acquired hypothyroidism Surgical History History of surgery H/O myringotomy History of hysterectomy History of eyelid surgery History of eye surgery Family History Father No problems noted. Mother Diabetes mellitus Heart disease Heart attack Brother No problems noted. Brother No problems noted. Brother No problems noted. Brother No problems noted. Brother No problems noted. Social History Household Members: None Housing: House Alcohol intake: current Alcohol intake frequency: a few times a week Patient Tobacco Use Status: Never used Tobacco e-Cigarette/Vaping Use: Never Used service: No Current occupational status: employed Cognitive needs: No Hearing needs: No Vision needs: No Questionnaire Thrive Questionnaire Date Thrive assessed: 07/15/22 PASCUAL-7 AMB Questionnaire PASCUAL-7 Date PASCUAL - 7 assessed: 07/15/22 Source: Developed by Drs. Angel Allen, Manuela Gardner, Emre Palacios and colleagues, with an educational cresencio from [employer]. Review of Systems Const Denies fatigue, Denies fever(s), Denies headache(s) and Denies lethargy ENT Denies dizziness, Denies facial pain, Denies headache(s), Denies epistaxis, Denies nasal congestion, Denies nasal discharge, Denies neck pain, Denies sinus pain, Denies sinus pressure and Denies sore throat Card Reports no additional complaints Resp Reports no additional complaints Musc Denies neck pain Neuro Denies dizziness and Denies headache(s) Endo Denies fatigue Physical exam (Primary Care) Vital Signs: Last Vital Signs Pulse 63 02/25/23 09:39 BP 120/78 02/25/23 09:39 Pulse Ox 97 02/25/23 09:39 Oxygen Delivery Method Room Air 02/25/23 09:39 BMI result Body Mass Index 20.3 Tobacco/Smoking Status: Tobacco use Status Tobacco use date assessed 02/25/23 02/25/23 09:48 Patient Tobacco Use Status Never used Tobacco 02/25/23 09:41 e-Cigarette/Vaping Use Never Used 02/25/23 09:41 Thrive Assessment: Date of Thrive Assessment Date Thrive assessed 07/15/22 02/25/23 09:41 Const Other: Alert oriented x3, no acute distress noted, ambulatory normal gait HENMT Head: Yes normocephalic Ears: hearing grossly normal bilaterally, TM normal on the right, TM normal on the left (Except for mild erythema and swelling in left tympanic membrane, no dischar), EAC's normal and no periauricular adenopathy General nose exam: Normal external nose present Mouth: Normal oral and palatal mucosa present, oropharynx normal and moist mucous membranes Neck Neck: Yes full ROM, Yes no lymphadenopathy and Yes supple Resp Effort & Inspection: normal respiratory effort and able to speak in complete sentences Auscultation: clear to auscultation bilaterally Cardio Other: S1-S2 present regular rate and rhythm Assessment and Plan Assessment & Plan (1) Sinusitis chronic, frontal: Comment: Due to patient's allergies, prescribed Levaquin for sinus infection. Advised to use Neti pot, Flonase, rest and take the antibiotic. Code(s): J32.1 - Chronic frontal sinusitis Plan: Patient clinically improved, continue and finish prescription for levofloxacin. Coding Level of Care Code Est Pt Level 3 (04565) Diagnoses Sinusitis chronic, frontal J32.1
[2023-02-25 09:39] VITALS: BP 120/78; PULSE 63; O2SAT 97; BMI 20.3
== END 2023-02-25 12:32 | disposition home or self-care (01) ==
PROVIDERS: PCP Internal Medicine; Visit Provider Internal Medicine
DX: J32.1 Chronic frontal sinusitis (principal)
CPT/HCPCS: 99213

== ENCOUNTER 2023-03-18 14:04 | Outpatient (AMB) | payer OTHER, SELFPAY ==
[2023-03-18 15:59] VITALS: BP 122/64; PULSE 68; TEMP 36.4; BMI 20.1
--- NOTE | 2023-03-18 15:59 | AM.OFFWIN_ITS ---
Intake Vital Signs 03/18/23 15:59 Height 5 ft 5 in Weight 121 lb BMI 20.1 BP 122/64 Blood Pressure Location Rt brachial Position Sitting Pulse 68 Pulse Source Pulse Oximeter Temp 97.5 F Temp Source Temporal Artery Scan Intake Visit Reasons: EP LT eye/Sinus pain. Intake Note: pt is here for c/o sinus pain, was at the eye doctor due to patient feeling eye pressure but eye doctor advised patient to be seen in walk in for possible sinus infection Patient Tobacco Use Status: Never used Tobacco Allergies Opioids - Morphine Analogues Allergy (Severe, Verified 03/18/23 16:03) convultions sulfabenzamide Allergy (Severe, Verified 03/18/23 16:03) tongue swelled shut gluten [GLUTEN] Allergy (Intermediate, Verified 03/18/23 16:03) INFLAMMATION SYSTEMICALLY mold [MOLD] Allergy (Intermediate, Verified 03/18/23 16:03) UNKNOWN animal dander Allergy (Unknown, Verified 03/18/23 16:03) ASTHMA FLAIRUP Clindamycin HCl Allergy (Unknown, Verified 03/18/23 16:03) rash doxycycline [DOXYCYCLINE] Allergy (Unknown, Verified 03/18/23 16:03) RASH morphine [MORPHINE] Allergy (Unknown, Verified 03/18/23 16:03) SEIZURE LIKE EXPERIENCE - FELT TERRIBLE, convulsions penicillin V Allergy (Unknown, Verified 03/18/23 16:03) rash Penicillins [PENICILLINS] Allergy (Unknown, Verified 03/18/23 16:03) RASH HIVES soybean Allergy (Unknown, Verified 03/18/23 16:03) unknown Sulfa (Sulfonamide Antibiotics) [SULFA (SULFONAMIDE ANTIBIOTICS)] Allergy (Unknown, Verified 03/18/23 16:03) TONGUE SWELLING, swelling of mouth soy Adverse Reaction (Intermediate, Verified 03/18/23 16:03) UPSET STOMACH DAIRY PRODUCTS Allergy (Intermediate, Uncoded 02/26/23 03:07) INFLAMMATION cats, dogs Allergy (Unknown, Uncoded 02/26/23 03:07) Unknown mole,bread and diary Allergy (Unknown, Uncoded 02/26/23 03:07) Unknown Do you need a note to return to daycare/school/sports/work: Yes HPI EP LT eye/Sinus pain. HPI Details Patient presents for a sick visit. Reporting symptoms of sinus congestion, sore throat and difficulty swallowing. Low-grade fever. No family member is sick. No recent travel. Patient reports symptoms of malaise and fatigue. [facility] Medical History Environmental and seasonal allergies Temporomandibular joint dysfunction Frequent headaches Mixed dyslipidemia Immunization refused Hx of breast cancer History of COVID-19 Anxiety disorder Dyslipidemia Recurrent otitis media Retinal detachment Vini's thyroiditis Mild intermittent asthma Narrow angle glaucoma suspect of both eyes Vitamin D deficiency Acquired hypothyroidism Surgical History History of surgery H/O myringotomy History of hysterectomy History of eyelid surgery History of eye surgery Family History Father No problems noted. Mother Diabetes mellitus Heart disease Heart attack Brother No problems noted. Brother No problems noted. Brother No problems noted. Brother No problems noted. Brother No problems noted. Social History Household Members: None Housing: House Alcohol intake: current Alcohol intake frequency: a few times a week Patient Tobacco Use Status: Never used Tobacco e-Cigarette/Vaping Use: Never Used service: No Current occupational status: employed Cognitive needs: No Hearing needs: No Vision needs: No Physical Exam Vital Signs: Last Vital Signs Temp 97.5 F 03/18/23 15:59 Pulse 68 03/18/23 15:59 BP 122/64 03/18/23 15:59 BMI result Body Mass Index 20.1 Const General: cooperative and healthy appearing Nutritional Appearance: well nourished Orientation/consciousness: patient oriented x3 Limitations: no limitations HEENT Head: Yes normal to inspection Eyes General: appearance normal, both eyes and all related structures Neck Neck: Yes normal visual inspection Chest Chest palpation & inspection: normal palpation of entire chest wall Resp Effort & Inspection: normal respiratory effort Neuro General: patient oriented x3 Assessment & Plan Assessment & Plan (1) Acute sinusitis: Code(s): J01.90 - Acute sinusitis, unspecified Plan Antibiotics ordered. Increase fluid intake. Tylenol for aches and pains. If symptoms worsen, follow-up here for a recheck. Medications: New azithromycin (Zithromax) 250 mg PO ONCE 1 day 4 tabs 0RF Coding Level of Care Code Est Pt Level 3 (72893) Diagnoses Acute sinusitis J01.90
== END 2023-03-18 16:22 | disposition home or self-care (01) ==
PROVIDERS: PCP Internal Medicine; Visit Provider Internal Medicine
DX: J01.90 Acute sinusitis, unspecified (principal)
CPT/HCPCS: 99213

== ENCOUNTER 2023-04-24 12:04 | Outpatient (AMB) | payer OTHER, SELFPAY ==
--- NOTE | 2023-04-24 12:05 | MHC.OFFWIV ---
Intake Vital Signs 04/24/23 12:19 Height 5 ft 5 in Weight 124 lb 6 oz BMI 20.7 BP 124/70 Blood Pressure Location Lt brachial Position Sitting Pulse 59 Pulse Source Pulse Oximeter Temp 97.7 F Temp Source Oral Pulse Oximetry (%) 97 Oxygen Delivery Method Room Air Intake Visit Reasons: EP ?Sinus Infection/Nausea [phone] Intake Note: pt is here today for sinus infection nausea started Friday. Patient Tobacco Use Status: Never used Tobacco Allergies Opioids - Morphine Analogues Allergy (Severe, Verified 04/24/23 12:21) convultions sulfabenzamide Allergy (Severe, Verified 04/24/23 12:21) tongue swelled shut gluten [GLUTEN] Allergy (Intermediate, Verified 04/24/23 12:21) INFLAMMATION SYSTEMICALLY mold [MOLD] Allergy (Intermediate, Verified 04/24/23 12:21) UNKNOWN animal dander Allergy (Unknown, Verified 04/24/23 12:21) ASTHMA FLAIRUP Clindamycin HCl Allergy (Unknown, Verified 04/24/23 12:21) rash doxycycline [DOXYCYCLINE] Allergy (Unknown, Verified 04/24/23 12:21) RASH morphine [MORPHINE] Allergy (Unknown, Verified 04/24/23 12:21) SEIZURE LIKE EXPERIENCE - FELT TERRIBLE, convulsions penicillin V Allergy (Unknown, Verified 04/24/23 12:21) rash Penicillins [PENICILLINS] Allergy (Unknown, Verified 04/24/23 12:21) RASH HIVES soybean Allergy (Unknown, Verified 04/24/23 12:21) unknown Sulfa (Sulfonamide Antibiotics) [SULFA (SULFONAMIDE ANTIBIOTICS)] Allergy (Unknown, Verified 04/24/23 12:21) TONGUE SWELLING, swelling of mouth soy Adverse Reaction (Intermediate, Verified 04/24/23 12:21) UPSET STOMACH DAIRY PRODUCTS Allergy (Intermediate, Uncoded 02/26/23 03:07) INFLAMMATION cats, dogs Allergy (Unknown, Uncoded 02/26/23 03:07) Unknown mole,bread and diary Allergy (Unknown, Uncoded 02/26/23 03:07) Unknown Do you need a note to return to daycare/school/sports/work: No HPI HPI Comments History of Present Illness Details the patient presents to urgent care for evaluation of cough congestion sinus pressure sore throat with symptoms beginning to 3 days ago. Patient reports no fever no nausea vomiting or diarrhea. patient is very concerned because she has a democrat this weekend and notes that the symptoms will only worsen from past experience. She reports that she must get it taken care of now. She cannot take many different [id number] medications due to several allergies or medical conditions. COUNT INCLUDES THE [facility] Medical History Environmental and seasonal allergies Temporomandibular joint dysfunction Frequent headaches Mixed dyslipidemia Immunization refused Hx of breast cancer History of COVID-19 Anxiety disorder Dyslipidemia Recurrent otitis media Retinal detachment Vini's thyroiditis Mild intermittent asthma Narrow angle glaucoma suspect of both eyes Vitamin D deficiency Acquired hypothyroidism Surgical History History of surgery H/O myringotomy History of hysterectomy History of eyelid surgery History of eye surgery Family History Father No problems noted. Mother Diabetes mellitus Heart disease Heart attack Brother No problems noted. Brother No problems noted. Brother No problems noted. Brother No problems noted. Brother No problems noted. Social History Household Members: None Housing: House Alcohol intake: current Alcohol intake frequency: a few times a week Patient Tobacco Use Status: Never used Tobacco e-Cigarette/Vaping Use: Never Used service: No Current occupational status: employed Cognitive needs: No Hearing needs: No Vision needs: No Review of Systems Const Denies increased appetite ENT Reports nasal obstruction, Denies disequilibrium, Reports post nasal drip and Reports sinus pain Card Denies radiating jaw, neck or arm pain and Denies dyspnea Resp Denies hemoptysis and Denies dyspnea Neuro Denies disequilibrium Physical Exam Vital Signs: Last Vital Signs Temp 97.7 F 04/24/23 12:19 Pulse 59 04/24/23 12:19 BP 124/70 04/24/23 12:19 Pulse Ox 97 04/24/23 12:19 Oxygen Delivery Method Room Air 04/24/23 12:19 BMI result Body Mass Index 20.7 Const General: healthy appearing and no acute distress HEENT Head: Yes normal to inspection Ears: external ears normal Mouth: Normal oral and palatal mucosa present Throat: Yes posterior oropharynx normal Chest Chest palpation & inspection: normal inspection of the chest Resp Effort & Inspection: normal respiratory effort and able to speak in complete sentences Assessment & Plan Assessment & Plan (1) URI (upper respiratory infection): Code(s): J06.9 - Acute upper respiratory infection, unspecified Plan Patient's symptoms consistent with viral URI. discussed symptomatic treatment with patient who adamantly reports that she needs an antibiotic. She states that this is definitely not a virus and will only continue to get worse without treatment of an antibiotic. I have attempted to family counselor the patient but in the end we will prescribe antibiotic. Medications: New azithromycin For 250 mg dose pack: take 500 mg today (day 1), then 250 mg for 4 days (days 2-5) PO 6 tabs 0RF Coding Level of Care Code Est Pt Level 3 (79960) Diagnoses URI (upper respiratory infection) J06.9
[2023-04-24 12:19] VITALS: BP 124/70; PULSE 59; TEMP 36.5; O2SAT 97; BMI 20.7
== END 2023-04-24 13:28 | disposition home or self-care (01) ==
PROVIDERS: PCP Internal Medicine; Visit Provider Emergency Medicine
DX: J06.9 Acute upper respiratory infection, unspecified (principal)
CPT/HCPCS: 99213

== ENCOUNTER 2023-05-14 09:11 | Outpatient (AMB) | payer OTHER, SELFPAY ==
--- NOTE | 2023-05-14 09:42 | AM.OFFWIN_ITS ---
Intake Vital Signs 05/14/23 09:48 Height 5 ft 5 in Weight 122 lb BMI 20.3 BP 126/70 Blood Pressure Location Lt brachial Position Sitting Pulse 69 Pulse Source Pulse Oximeter Temp 98.5 F Temp Source Oral Pulse Oximetry (%) 97 Oxygen Delivery Method Room Air Intake Visit Reasons: EST/coughing up flem ([phone]) Intake Note: Pt is here c/o sinus congestion, phlegm build up and a bad cough for the past 2 weeks Patient Tobacco Use Status: Never used Tobacco Allergies Opioids - Morphine Analogues Allergy (Severe, Verified 05/14/23 09:46) convultions sulfabenzamide Allergy (Severe, Verified 05/14/23:46) tongue swelled shut gluten [GLUTEN] Allergy (Intermediate, Verified 05/14/2346) INFLAMMATION SYSTEMICALLY mold [MOLD] Allergy (Intermediate, Verified 05/14/23:46) UNKNOWN animal dander Allergy (Unknown, Verified 05/14/23:46) ASTHMA FLAIRUP Clindamycin HCl Allergy (Unknown, Verified 05/14/2346) rash doxycycline [DOXYCYCLINE] Allergy (Unknown, Verified 05/14/23:46) RASH morphine [MORPHINE] Allergy (Unknown, Verified 05/14/23:46) SEIZURE LIKE EXPERIENCE - FELT TERRIBLE, convulsions penicillin V Allergy (Unknown, Verified 05/14/23:46) rash Penicillins [PENICILLINS] Allergy (Unknown, Verified 05/14/23:46) RASH HIVES soybean Allergy (Unknown, Verified 05/14/23:46) unknown Sulfa (Sulfonamide Antibiotics) [SULFA (SULFONAMIDE ANTIBIOTICS)] Allergy (Unknown, Verified 05/14/23:46) TONGUE SWELLING, swelling of mouth soy Adverse Reaction (Intermediate, Verified 05/14/23:46) UPSET STOMACH DAIRY PRODUCTS Allergy (Intermediate, Uncoded 05/14/23:46) INFLAMMATION cats, dogs Allergy (Unknown, Uncoded 05/14/23:46) Unknown mole,bread and diary Allergy (Unknown, Uncoded 05/14/23:46) Unknown Do you need a note to return to daycare/school/sports/work: No HPI HPI Comments History of Present Illness Details She presents to office with cough and chest wall pain She has a PCP here and unable to be seen Hx of breast ca and autoimmune issues She states post mastectomy R side she has had recurrent sharp stabbing R chest wall pain epsidoes Has been seen for this with negative work up PCP said she thinks it is a post neuralgia Last month she had a few episodes of the chest wall pain which radiates to R s houlder and back/neck Symptoms are always consistent with this presentation She decided to come today because she had the recurrent sensation last night Last night felt minty cold water sensation on R side of chest wall which radiates intermittently into R shoulder/back No associated palpitations or SOB Has had chronic cough and congestion associated No dizziness or syncope Tried Alprazolam 1 tablet which helped with symptoms She denies personal cardiac issue but mother had AL in 50s Unsure when last PCP visit was; has next appointment in June She said + cough with phlegm production + nasal congestion and post nasal drip She denies fever but + chills subjective No covid test completed She denies chest pain currently, 0/10 PFSH Medical History Environmental and seasonal allergies Temporomandibular joint dysfunction Frequent headaches Mixed dyslipidemia Immunization refused Hx of breast cancer History of COVID-19 Anxiety disorder Dyslipidemia Recurrent otitis media Retinal detachment Vini's thyroiditis Mild intermittent asthma Narrow angle glaucoma suspect of both eyes Vitamin D deficiency Acquired hypothyroidism Surgical History History of surgery H/O myringotomy History of hysterectomy History of eyelid surgery History of eye surgery Family History Father No problems noted. Mother Diabetes mellitus Heart disease Heart attack Brother No problems noted. Brother No problems noted. Brother No problems noted. Brother No problems noted. Brother No problems noted. Social History Household Members: None Housing: House Alcohol intake: current Alcohol intake frequency: a few times a week Patient Tobacco Use Status: Never used Tobacco e-Cigarette/Vaping Use: Never Used service: No Current occupational status: employed Cognitive needs: No Hearing needs: No Vision needs: No Review of Systems Const Denies body aches, Reports chills, Denies fatigue, Denies fever(s) and Denies headache(s) Eyes Denies blurry vision ENT Denies otalgia, Denies headache(s), Reports nasal congestion, Reports nasal discharge, Denies sinus pressure, Denies sore throat and Denies throat swelling Card Reports chest pain (R chest wall minty cold sensation ), Denies syncope, Denies rapid heart rate, Denies claudication, Denies leg edema and Denies dyspnea Resp Denies change in phlegm color, Reports chest congestion, Reports cough, Denies hemoptysis and Denies dyspnea Neuro Denies syncope and Denies headache(s) Psych Reports anxiety Endo Denies fatigue Aller/Immun Denies throat swelling Physical Exam Vital Signs: Last Vital Signs Temp 98.5 F 05/14/23 09:48 Pulse 69 05/14/23 09:48 BP 126/70 05/14/23 09:48 Pulse Ox 97 05/14/23 09:48 Oxygen Delivery Method Room Air 05/14/23 09:48 BMI result Body Mass Index 20.3 General: Non-toxic, NAD. Speaking full sentences. Skin: Warm dry throughout No posterior back or flank or chest wall rashes or vesicles Eye: EOMI HENT: Airway patent. Uvula midline. No pharyngeal erythema or edema. No [employer]. Bilateral canals clear. TM non-erythematous, non-bulging. No TM perforation or hemotympanum noted. Respiratory: CTA bilaterally. No wheezes, rales or rhonchi Cardiac: + R sided rib and intervertebral space chest wall tenderness to palpation near rib 4/5. RRR. No murmur MSK: Full ROM extremities. No midline cervical or thoracic tenderness. + R trapezius tenderness to palpation Neurology: A/O. No aphasia or facial droop. Gait without abnormality Psych: Good mood and affect Assessment & Plan Assessment & Plan (1) Chest wall pain: Code(s): R07.89 - Other chest pain Plan: Patient seen and evaluated. Vitals are stable Lungs CTA No shingles on examination + chest wall tenderness to palpation and this provokes the same pain that the patient has been experiencing EKG and chest xray ordered EKG compared to that in summer and no significant change. No STEMI. +bradycardic Chest xray: I viewed as no change when compared to summer imaging in system Discussed results with patient Has has follow up arranged with her PCP We discussed muscle relaxant use; can cause lethargy. No alcohol or driving We discussed ER procotol s/s in depth and she understands. Patient gave verbal understanding and had no additional questions or concerns at time of discharge All questions answered (2) Cough: Code(s): R05.9 - Cough, unspecified Qualifiers: Cough type: acute Qualified Code(s): R05.1 - Acute cough Plan: see above. (3) Muscle ache: Code(s): M79.10 - Myalgia, unspecified site Plan: muscle relaxant use. see above Orders: Orders AMB EKG-In Office Today R07.89 - Other chest pain XR chest 2V Today R05.9 - Cough, unspecified, R07.89 - Other chest pain Coding Level of Care Code Est Pt Level 4 (82522) Diagnoses Chest wall pain R07.89 Acute cough R05.1 Cough type: acute Muscle ache M79.10
[2023-05-14 09:48] VITALS: BP 126/70; PULSE 69; TEMP 36.9; O2SAT 97; BMI 20.3
== END 2023-05-14 11:54 | disposition home or self-care (01) ==
PROVIDERS: PCP Internal Medicine; Visit Provider Physician Assistant
DX: R07.89 Other chest pain (principal); R05.1 Acute cough; M79.10 Myalgia, unspecified site
CPT/HCPCS: 93000; 99214

== ENCOUNTER 2023-05-14 10:32 | Outpatient (REF) | payer OTHER, SELFPAY ==
--- NOTE | ~2023-05-14 | XR_ITS ---
EXAMINATION: XR CHEST CLINICAL INFORMATION: Chest pain COMPARISON: 11/03/2022 TECHNIQUE: 2 views of the chest were obtained. FINDINGS: Lungs are well-inflated and clear. Trachea is midline in position. No interstitial disease, consolidation or mass. No pleural effusion or pneumothorax. Cardiac silhouette and pulmonary vessels are normal in size. The mediastinum and rosa have normal contour. Old healed fractures of right posterior eighth and ninth ribs. There is dextroscoliosis of the thoracic spine. Prior right mastectomy. Surgical clips are present in the right axillary region. XR/XR chest 2V IMPRESSION: No acute cardiopulmonary abnormality.
== END 2023-05-14 10:33 | disposition home or self-care (01) ==
LOC: HO.HMGCX 10:32
PROVIDERS: Visit Provider Physician Assistant
DX: R07.89 Other chest pain (principal); R05.9 Cough, unspecified
CPT/HCPCS: 71046

== ENCOUNTER 2023-06-04 14:09 | Outpatient (REF) | payer OTHER, SELFPAY ==
[2023-06-04 16:07] LABS: MANUAL DIFF FLAG NO
[2023-06-04 16:14] LABS: Basophils Absolute Auto 0.1 X10*3/uL (0.0-0.2); Basophils Percent Auto 0.9 % (0-2); Eosinophils Absolute Auto 0.1 X10*3/uL (0.0-0.4); Eosinophils Percent Auto 1.9 % (0-4); Hematocrit 41.6 % (37.0-47.0); Hemoglobin 14.2 g/dl (12.0-16.0); Imm Gran Abs Auto 0.02 X10*3/uL (0.00-0.03); Imm Gran Pct Auto 0.4 % (0.0-0.4); Lymphocytes Absolute Auto 1.1 X10*3/uL (1.2-4.9); Lymphocytes Percent Auto 19.7 % (20-40); Mean Corpuscular HGB Conc 34.1 g/dl (31.0-35.0); Mean Corpuscular Volume 93.7 fL (80.0-98.0); Mean Platelet Volume 9.5 fL (9.4-12.3); Monocytes Absolute Auto 0.3 X10*3/uL (0.1-1.2); Monocytes Percent Auto 5.4 % (2-11); Neutrophils Absolute Auto 3.9 x10*3/uL (2.0-8.3); Neutrophils Percent Auto 71.7 % (45-73); Platelet Count 306 X10*3/uL (160-400); Red Blood Count 4.44 X10*6/uL (4.20-5.50); White Blood Count 5.4 X10*3/uL (4.8-10.8)
[2023-06-04 16:17] LABS: Appearance Urine Clear; Color Urine Yellow; Glucose Urine UA Negative (Negative); Leukocyte Esterase Urine Negative (Negative); Nitrite Urine Negative (Negative); Specific Gravity - Urine <= 1.005 (1.005-1.025); UMIC TRIGGER UACC YES; Urine Blood Trace (Negative); Urine Ketones Negative (Negative); Urine Protein Negative (Neg-Trace)
[2023-06-04 16:22] LABS: Bacteria Urine None Seen (None Seen); Hyaline Casts Urine 0-2 /LPF (0-2); RBC Urine 0-2 /HPF (0-2); Squamous Epithelial Cell Urine 0-2 /HPF (0-2); WBC Urine 0-5 /HPF (0-5)
[2023-06-04 16:25] LABS: Rheumatoid Factor < 13.0 IU/mL (<15.0)
[2023-06-04 16:40] LABS: Alanine Aminotransferase 21 U/L (0-31); Albumin Level 4.4 g/dL (3.5-5.0); Alkaline Phosphatase 67 U/L (39-117); Anion Gap 14 (12-20); Aspartate Amino Transferase 28 U/L (5-31); Bilirubin Total 0.3 mg/dL (0.0-1.0); Blood Urea Nitrogen 23 mg/dL (9-16); C Reactive Protein < 0.04 mg/dL (< or = 0.50); Calcium 9.6 mg/dL (8.4-10.2); Carbon Dioxide 25 mmol/L (22-29); Chloride 104 mmol/L (96-108); Estimated Glomerular Filt Rate > 60; Glucose Random 112 mg/dL (60-115); Sodium 139 mmol/L (135-145); Total Protein 7.5 g/dL (6.5-8.0)
[2023-06-04 16:47] LABS: Free T4 (Free Thyroxine) 1.07 ng/dL (0.71-1.85); Thyroid Stimulating Hormone 0.29 uIU/mL (0.32-4.0)
[2023-06-04 17:03] LABS: Erythrocyte Sedimentation Rate 16 MM/HR (0-20)
[2023-06-05 11:23] LABS: Thyroid Peroxidase Antibodies <1 IU/mL (<9)
[2023-06-05 13:33] LABS: Antibody to SS-A Antigen <1.0 NEG AI (<1.0 NEG); Antibody to SS-B Antigen <1.0 NEG AI (<1.0 NEG)
[2023-06-05 13:44] LABS: Complement C3 109 mg/dL (83-193)
[2023-06-09 07:43] LABS: Anti Nuclear Antibody Screen NEGATIVE (NEGATIVE)
== END 2023-06-04 14:10 | disposition home or self-care (01) ==
LOC: HO.HMGCLDS 14:09
PROVIDERS: PCP Internal Medicine; Referring Provider Internal Medicine; Visit Provider Ophthalmology
DX: Z13.89 Encounter for screening for other disorder (principal)
CPT/HCPCS: 36415; 80053; 81001; 84439; 84443; 85025; 85652; 86038; 86140; 86160; 86235; 86376; 86431

== ENCOUNTER 2023-06-09 09:01 | Outpatient (AMB) | payer OTHER, SELFPAY ==
[2023-06-09 09:09] VITALS: BP 114/62; PULSE 61; O2SAT 98; BMI 20.8
--- NOTE | 2023-06-09 09:09 | A.OFFPC_ITS ---
Vital Signs 06/09/23 09:09 Height 5 ft 5 in Weight 125 lb BMI 20.8 BP 114/62 Blood Pressure Location Lt brachial Position Sitting Pulse 61 Pulse Source Pulse Oximeter Pulse Oximetry (%) 98 Oxygen Delivery Method Room Air Intake Visit Reasons: pain where mastectomy was, other issues Intake Note: Pt is here today c/o pain wheere mastectomy site Allergies Opioids - Morphine Analogues Allergy (Severe, Verified 06/09/23 09:29) convultions sulfabenzamide Allergy (Severe, Verified 06/09/23:) tongue swelled shut gluten [GLUTEN] Allergy (Intermediate, Verified 06/09/23:) INFLAMMATION SYSTEMICALLY mold [MOLD] Allergy (Intermediate, Verified 06/09/23) UNKNOWN animal dander Allergy (Unknown, Verified 06/09/23) ASTHMA FLAIRUP Clindamycin HCl Allergy (Unknown, Verified 06/09/23) rash doxycycline [DOXYCYCLINE] Allergy (Unknown, Verified 06/09/23) RASH morphine [MORPHINE] Allergy (Unknown, Verified 06/09/23) SEIZURE LIKE EXPERIENCE - FELT TERRIBLE, convulsions penicillin V Allergy (Unknown, Verified 06/09/23:) rash Penicillins [PENICILLINS] Allergy (Unknown, Verified 06/09/23:) RASH HIVES soybean Allergy (Unknown, Verified 06/09/23) unknown Sulfa (Sulfonamide Antibiotics) [SULFA (SULFONAMIDE ANTIBIOTICS)] Allergy (Unknown, Verified 06/09/23:) TONGUE SWELLING, swelling of mouth soy Adverse Reaction (Intermediate, Verified 06/09/23:) UPSET STOMACH DAIRY PRODUCTS Allergy (Intermediate, Uncoded 06/09/23:) INFLAMMATION cats, dogs Allergy (Unknown, Uncoded 06/09/23:) Unknown mole,bread and diary Allergy (Unknown, Uncoded 06/09/23:) Unknown Medication List - Last Reconciled 06/09/23 by Stephania Guaman MD alprazolam 0.25 mg PO DAILY PRN ascorbic acid (vitamin C) (Vitamin C) 500 mg PO DAILY azelastine 1 spray intranasal BID betaxolol 0.25% (Betoptic S) 1 drp ophthalmic (eye) DAILY brimonidine 0.1% (Alphagan P) 1 drp ophthalmic (eye) DAILY carboxymethylcell-glycerin(PF) 0.5-0.9 % (Refresh Optive Sensitive (PF)) 1 drp ophthalmic (eye) DAILY cyclosporine 0.05% (Restasis) 1 drp ophthalmic (eye) DAILY fluorometholone 0.1% 1 drp ophthalmic (eye) NEEDED fluticasone furoate 100 mcg/actuation (Arnuity Ellipta) 1 inh inhalation Q24H fluticasone propionate 50 mcg/actuation 2 sprays intranasal DAILY inhalational spacing device (BreatheRite MDI Spacer) As directed ipratropium-albuterol 0.5 mg-3 mg(2.5 mg base)/3 mL 3 mL inhalation Q6H PRN levothyroxine 88 mcg PO DAILY methocarbamol 500 mg PO BID PRN nebulizers (AeroEclipse II Nebulizer) As directed pilocarpine HCl 1% 1 drp ophthalmic (eye) NEEDED rosuvastatin 5 mg PO Q2D travoprost 0.004% 4 drps ophthalmic (eye) NEEDED Ventolin HFA 90 mcg/actuation (albuterol sulfate) 2 puffs inhalation Q6H PRN NS Tobacco use date assessed: 06/09/23 Dental Screening Dental Screen Date: 06/09/23 Did you have a dental visit in the last 12 months?: Yes Did you have a dental problem in the last 6 months where you did not have access to dental care?: Yes Was dental information given to patient?: Patient has dentist HPI pain where mastectomy was, other issues HPI Details 62-year-old lady here today complaining of intermittent episodes of sharp pain over her right chest, where she had her mastectomy. She already has been seen by her breast surgeon, ordered a bone scan with results still pending. 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 Has been having and some pain on anterior neck an occasional difficulty swelling over the last several days. Latest labs however showed no evidence of inflammation with CRP within normal limits Has hyperlipidemia currently on rosuvastatin 40 mg daily, due for recheck on her lipids. She has been compliant with healthy eating habits but unable to exercise much lately [facility] Medical History (Updated 06/09/23 @ 09:52 by Stephania Guaman MD) Environmental and seasonal allergies Temporomandibular joint dysfunction Frequent headaches Mixed dyslipidemia Immunization refused Hx of breast cancer History of COVID-19 Anxiety disorder Dyslipidemia Recurrent otitis media Retinal detachment Vini's thyroiditis Mild intermittent asthma Narrow angle glaucoma suspect of both eyes Vitamin D deficiency Acquired hypothyroidism Surgical History History of surgery H/O myringotomy History of hysterectomy History of eyelid surgery History of eye surgery Family History Father No problems noted. Mother Diabetes mellitus Heart disease Heart attack Brother No problems noted. Brother No problems noted. Brother No problems noted. Brother No problems noted. Brother No problems noted. Social History Household Members: None Housing: House Alcohol intake: current Alcohol intake frequency: a few times a week Patient Tobacco Use Status: Never used Tobacco e-Cigarette/Vaping Use: Never Used service: No Current occupational status: employed Cognitive needs: No Hearing needs: No Vision needs: No Questionnaire PHQ-9 Over the last 2 weeks, how often have you been bothered by any of the following problems? 1. Little interest or pleasure in doing things: not at all 2. Feeling down, depressed, or hopeless: not at all 3. Trouble falling or staying asleep, or sleeping too much: not at all 4. Feeling tired or having little energy: more than half the days 5. Poor appetite or overeating: not at all 6. Feeling bad about yourself - or that you are a failure or have let yourself or your family down: not at all 7. Trouble concentrating on things, such as reading the newspaper or watching television: not at all 8. Moving or speaking so slowly that other people could have noticed. Or the opposite - being so fidgety or restless that you have been moving around a lot more than usual: not at all 9. Thoughts that you would be better off or of hurting yourself in some way: not at all Total score: 2 Depression Screening Interpretation: Negative Depression Screening Done: Yes 44160 - PHQ-9 Billing: Yes Source: Developed by Drs. Angel Allen, Manuela Gardner, Emre Palacios and colleagues, with an educational cresencio from [employer]. Thrive Questionnaire Date Thrive assessed: 06/09/23 I am a: Patient What is your living situation today?: I have a steady place to live Within the past 12 months, did the food you bought not last and you didn't have the money to get more?: Sometimes True Within the past 12 months, did you worry whether your food would run out before you got money to buy more?: I choose not to answer this question Do you have trouble paying for medicines?: No Do you have trouble getting transportation to medical appointments?: No Do you have trouble paying your heating and electricity bill?: Yes Do you have trouble taking care of your child, family member or friend?: I choose not to answer this question Do you have trouble with day-to-day activities such as bathing, preparing meals, shopping, managing finances, etc.?: No Are you currently unemployed and looking for a job?: No Are you interested in more education?: Yes THRIVE Score: 2 PASCUAL-7 AMB Questionnaire PASCUAL-7 Date PASCUAL - 7 assessed: 06/09/23 Source: Developed by Drs. Angel Allen, Manuela Gardner, Emre Palacios and colleagues, with an educational cresencio from [employer]. PASCUAL-7 Assessment Billing PASCUAL-7 Assessment Tool: pt declined-do not bill Review of Systems Const Denies fever(s) and Denies headache(s) ENT Denies headache(s), Denies sinus pressure and Denies sore throat Card Denies syncope, Denies rapid heart rate and Denies dyspnea Resp Denies dyspnea GI Reports no additional complaints Musc Reports as per HPI Skin/Breast Denies lesions, Denies erythema, Denies rash and Denies unusual bruising Neuro Denies syncope and Denies headache(s) Physical exam (Primary Care) Vital Signs: Last Vital Signs Pulse 61 06/09/23 09:09 BP 114/62 06/09/23 09:09 Pulse Ox 98 06/09/23 09:09 Oxygen Delivery Method Room Air 06/09/23 09:09 BMI result Body Mass Index 20.8 Tobacco/Smoking Status: Tobacco use Status Tobacco use date assessed 06/09/23 06/09/23 09:16 Patient Tobacco Use Status Never used Tobacco 06/09/23 09:11 e-Cigarette/Vaping Use Never Used 06/09/23 09:11 PHQ-9: PHQ-9 Score PHQ-9: Total score 2 06/23/23 00:44 Depression Screening Interpretation: Negative Thrive Assessment: Date of Thrive Assessment Date Thrive assessed 06/09/23 06/09/23 10:07 Const Other: Alert oriented x3, no acute distress noted, ambulatory normal gait HENMT Head: Yes normocephalic Mouth: Normal oral and palatal mucosa present, oropharynx normal and moist mucous membranes Neck Neck: Yes full ROM, Yes no lymphadenopathy and Yes supple Thyroid: Thyroid normal (Nonpalpable) and nontender Chest Other: Right mastectomy scar, no redness or swelling noted, nontender to palpation Resp Effort & Inspection: normal respiratory effort and able to speak in complete sentences Auscultation: clear to auscultation bilaterally Cardio Other: S1-S2 present regular rate and rhythm Neuro General: gait normal, tone normal, moves all extremities and no focal motor deficits Results Reviewed Results Reviewed: Name: Kaylynn Julian Age/Sex: 62/F : 1960 Unit#: [id number] Attend Dr: VINICIUS KUMARI MD Re06/04/23 Status: DEP REF Location: [facility] Dis ch: SPEC : [id number] BECKY: 06/04/23 STATUS: COMP REQ : [id number] RECD: 06/04/23-[address]: KENYETTA COLVIN COMP: 06/04/23-1433 ENTERED: 06/04/23-[address]: Stephania Guaman MD ORDERED: CBC Auto Diff Test Result Flag Reference WBC 5.4 4.8-10.8 X10*3/uL RBC 4.44 4.20-5.50 X10*6/uL HGB 14.2 12.0-16.0 g/dl HCT 41.6 37.0-47.0 % MCV 93.7 80.0-98.0 fL MCH 32.0 27.0-33.0 pg MCHC 34.1 31.0-35.0 g/dl RDW 12.0 11.0-16.0 % PLT 306 160-400 X10*3/uL debi: Kaylynn Julian Age/Sex: 62/F : 1960 Unit#: [id number] Attend Dr: VINICIUS KUMARI MD Re06/04/23 Status: DEP REF Location: [facility] Disch: SPEC : [id number] BECKY: 06/04/23-1440 STATUS: COMP REQ : [id number] RECD: 06/04/23-[address]: KENYETTA COLVIN COMP: 06/04/23 ENTERED: 06/04/23-[address]: Stephania Guaman MD ORDERED: CMP, C Reactive Prot, Free T4, TSH Test Result Flag Reference Sodium 139 135-145 mmol/L Potassium 4.0 3.3-5.1 mmol/L CL 104 96-108 mmol/L CO2 25 22-29 mmol/L Gap 14 12-20 BUN 23 H 9-16 mg/dL Creat 0.95 0.5-1.4 mg/dL EGFR > 60 NOTE: For -[place] individuals, multiply the result by 1.210. Chronic Kidney Disease: Estimated GFR < 60 mL/min/1.73m2 Severe Kidney Disease: Estimated GFR < 15 mL/min/1.73m2 Glucose, Random 112 60-115 mg/dL CA 9.6 8.4-10.2 mg/dL Total Bili 0.3 0.0-1.0 mg/dL AST (GOT) 28 5-31 U/L ALT (GPT) 21 0-31 U/L CRP < 0.04 < or = 0.50 mg/dL Protein, Total 7.5 6.5-8.0 g/dL Alb 4.4 3.5-5.0 g/dL Alk Phos 67 39-117 U/L Free T4 1.07 0.71-1.85 ng/dL TSH 3rd Gen. 0.29 L 0.32-4.0 uIU/mL TSH 3rd Generation ([facility]) Assessment and Plan Assessment & Plan (1) Right-sided chest wall pain: Code(s): R07.89 - Other chest pain Plan: Patient states that she was already seen by her breast surgeon, and they ordered a bone scan, results still pending (2) Vini's thyroiditis: Code(s): E06.3 - Autoimmune thyroiditis Plan: Recent thyroid levels were reviewed with low normal TSH and normal free T4. Continue with current dose of levothyroxine, might be having a flare-up of her thyroiditis as patient complaining of difficulty swallowing and swelling around anterior neck area, advised to take ibuprofen or Aleve as needed. (3) Acquired hypothyroidism: Code(s): E03.9 - Hypothyroidism, unspecified Plan: Recent thyroid levels were reviewed with low normal TSH and normal free T4. Continue with current dose of levothyroxine, might be having a flare-up of her thyroiditis as patient complaining of difficulty swallowing and swelling around anterior neck area, advised to take ibuprofen or Aleve as needed. (4) Mixed dyslipidemia: Code(s): E78.2 - Mixed hyperlipidemia Plan: Continue with rosuvastatin 5 mg every other day , in addition to adherence to low-cholesterol diet and regular exercise, at least 30 minutes 3 to 4 times a week. Advised patient to make healthy food choices, eat more fruits, vegetables, whole grains, wild caught fish and low-fat dairy. Limit amount of meat and fried or fatty food products, as well as processed foods and fast foods. Fasting lipid panel ordered Coding Level of Care Code Est Pt Level 4 (12506) Diagnoses Right-sided chest wall pain R07.89 Vini's thyroiditis E06.3 Acquired hypothyroidism E03.9 Mixed dyslipidemia E78.2
== END 2023-06-09 10:18 | disposition home or self-care (01) ==
PROVIDERS: PCP Internal Medicine; Visit Provider Internal Medicine
DX: R07.89 Other chest pain (principal); E06.3 Autoimmune thyroiditis; E03.9 Hypothyroidism, unspecified; E78.2 Mixed hyperlipidemia
CPT/HCPCS: 99214

== ENCOUNTER 2023-06-25 11:21 | Outpatient (AMB) | payer OTHER, SELFPAY ==
[2023-06-25 11:51] VITALS: BP 130/80; PULSE 66; O2SAT 97; BMI 20.3
--- NOTE | 2023-06-25 11:51 | AM.OFFWIN_ITS ---
Intake Vital Signs 06/25/23 11:51 Height 5 ft 5 in Weight 122 lb BMI 20.3 BP 130/80 Blood Pressure Location Lt brachial Position Sitting Pulse 66 Pulse Source Pulse Oximeter Temp Source Temporal Artery Scan Pulse Oximetry (%) 97 Oxygen Delivery Method Room Air Intake Visit Reasons: EP sinus pressure Intake Note: pt is here today for sinus pressure started 1 week ago Patient Tobacco Use Status: Never used Tobacco Allergies Opioids - Morphine Analogues Allergy (Severe, Verified 06/25/23 11:54) convultions sulfabenzamide Allergy (Severe, Verified 06/25/23 11:54) tongue swelled shut gluten [GLUTEN] Allergy (Intermediate, Verified 06/25/23 11:54) INFLAMMATION SYSTEMICALLY mold [MOLD] Allergy (Intermediate, Verified 06/25/23 11:54) UNKNOWN animal dander Allergy (Unknown, Verified 06/25/23 11:54) ASTHMA FLAIRUP Clindamycin HCl Allergy (Unknown, Verified 06/25/23 11:54) rash doxycycline [DOXYCYCLINE] Allergy (Unknown, Verified 06/25/23 11:54) RASH morphine [MORPHINE] Allergy (Unknown, Verified 06/25/23 11:54) SEIZURE LIKE EXPERIENCE - FELT TERRIBLE, convulsions penicillin V Allergy (Unknown, Verified 06/25/23 11:54) rash Penicillins [PENICILLINS] Allergy (Unknown, Verified 06/25/23 11:54) RASH HIVES soybean Allergy (Unknown, Verified 06/25/23 11:54) unknown Sulfa (Sulfonamide Antibiotics) [SULFA (SULFONAMIDE ANTIBIOTICS)] Allergy (Unknown, Verified 06/25/23 11:54) TONGUE SWELLING, swelling of mouth soy Adverse Reaction (Intermediate, Verified 06/25/23 11:54) UPSET STOMACH DAIRY PRODUCTS Allergy (Intermediate, Uncoded 06/09/23 09:29) INFLAMMATION cats, dogs Allergy (Unknown, Uncoded 06/09/23 09:29) Unknown mole,bread and diary Allergy (Unknown, Uncoded 06/09/23 09:29) Unknown Do you need a note to return to daycare/school/sports/work: Yes HPI HPI Comments History of Present Illness Details Patient is a 62yo F who presents with sinus/cough complaint States has felt unwell since Friday Had chills, fatigue, congestion, cough No CP or SOB Increase fluid hydration which helped + body aches Not taking any medicine for symptoms to improve it No nausea/vomiting No diarrhea or abdominal pain + ear pain, congstion, ST, L tonsilar LN pain, headache, cough PFSH Medical History (Updated 06/25/23 @ 12:39 by Brooklyn Morin PA-C) Environmental and seasonal allergies Temporomandibular joint dysfunction Frequent headaches Mixed dyslipidemia Immunization refused Hx of breast cancer History of COVID-19 Anxiety disorder Dyslipidemia Recurrent otitis media Retinal detachment Vini's thyroiditis Mild intermittent asthma Narrow angle glaucoma suspect of both eyes Vitamin D deficiency Acquired hypothyroidism Surgical History History of surgery H/O myringotomy History of hysterectomy History of eyelid surgery History of eye surgery Family History Father No problems noted. Mother Diabetes mellitus Heart disease Heart attack Brother No problems noted. Brother No problems noted. Brother No problems noted. Brother No problems noted. Brother No problems noted. Social History Household Members: None Housing: House Alcohol intake: current Alcohol intake frequency: a few times a week Patient Tobacco Use Status: Never used Tobacco e-Cigarette/Vaping Use: Never Used service: No Current occupational status: employed Cognitive needs: No Hearing needs: No Vision needs: No Review of Systems Const Reports body aches, Reports chills, Reports fatigue, Denies fever(s) and Reports headache(s) Eyes Denies blurry vision ENT Denies vertigo, Reports otalgia, Reports headache(s), Reports nasal discharge, Reports sinus pressure, Reports sore throat, Denies throat swelling and Denies tongue swelling Card Denies chest pain and Denies dyspnea Resp Reports chest congestion, Reports cough and Denies dyspnea GI Denies abdominal pain, Denies diarrhea and Denies vomiting Musc Reports myalgias Skin/Breast Reports erythema (R cheek redness) Neuro Denies vertigo and Reports headache(s) Endo Reports fatigue Aller/Immun Denies throat swelling and Denies tongue swelling Physical Exam Vital Signs: Last Vital Signs Pulse 66 06/25/23 11:51 BP 130/80 06/25/23 11:51 Pulse Ox 97 06/25/23 11:51 Oxygen Delivery Method Room Air 06/25/23 11:51 BMI result Body Mass Index 20.3 General: Non-toxic, NAD. Speaking full sentences. Skin: Warm dry throughout. Slight R cheek erythema without vesicles, patches discharge Eye: EOMI HENT: Airway patent. Uvula midline. No pharyngeal erythema or edema. No ORGANIZATIONAL EFFECTIVENESS CONSULTANT. Bilateral canals clear. Slight L TM erythema without bulge. R TM non- erythematous, non-bulging. No TM perforation or hemotympanum noted. +maxillary tenderness bilaterally. Respiratory: CTA bilaterally. No wheezes, rales or rhonchi Cardiac: RRR. No murmur Neurology: A/O No aphasia or facial droop. Gait without abnormality Psych: Good mood and affect Assessment & Plan Assessment & Plan (1) Sinusitis: Code(s): J32.9 - Chronic sinusitis, unspecified Qualifiers: Sinusitis location: maxillary Chronicity: acute Recurrence: non- recurrent Qualified Code(s): J01.00 - Acute maxillary sinusitis, unspecified Plan: Patient seen and evaluated. Will cover sinus/cheek erythema with keflex No periorbital or orbital cellulitis Lungs CTA COVID/FLU/RSV sent Advised to take medicine with food F/U with PCP. Call with concerns Patient gave verbal understanding and had no additional questions or concerns at time of discharge All questions answered Orders: Orders SARS-CoV2/FLU/RSV Today J32.9 - Chronic sinusitis, unspecified Medications: New cephalexin 500 mg PO BID 14 caps 0RF Coding Level of Care Code Est Pt Level 3 (78066) Diagnoses Acute non-recurrent maxillary sinusitis J01.00 Sinusitis location: maxillary Chronicity: acute Recurrence: non-recurrent
== END 2023-06-25 14:00 | disposition home or self-care (01) ==
PROVIDERS: PCP Internal Medicine; Visit Provider Physician Assistant
DX: J01.00 Acute maxillary sinusitis, unspecified (principal)
CPT/HCPCS: 99213

== ENCOUNTER 2023-06-25 13:47 | Outpatient (REF) | payer OTHER, SELFPAY ==
[2023-06-25 14:53] LABS: Influenza A PCR NEGATIVE (Negative); Influenza B PCR NEGATIVE (Negative); Resp Syncy Virus RNA Qual PCR NEGATIVE (Negative); SARS COV2 PCR INHOUSE NEGATIVE (Negative)
== END 2023-06-25 13:48 | disposition home or self-care (01) ==
LOC: HO.HMGCLNP 13:47
PROVIDERS: Visit Provider Physician Assistant
DX: J32.9 Chronic sinusitis, unspecified (principal)
CPT/HCPCS: 0241U

== ENCOUNTER 2023-07-03 10:31 | Outpatient (AMB) | payer OTHER, SELFPAY ==
[2023-07-03 10:33] VITALS: BP 122/74; PULSE 70; O2SAT 96; BMI 20.9
--- NOTE | 2023-07-03 10:33 | A.OFFPC_ITS ---
Vital Signs 07/03/23 10:33 Height 5 ft 5 in Weight 125 lb 6 oz BMI 20.9 BP 122/74 Blood Pressure Location Lt brachial Position Sitting Pulse 70 Pulse Source Pulse Oximeter Pulse Oximetry (%) 96 Oxygen Delivery Method Room Air Intake Visit Reasons: f/u labs Intake Note: Pt is here today to follow up on labs and also has abdominal concerns. Allergies Opioids - Morphine Analogues Allergy (Severe, Verified 01/07/24 15:07) convultions sulfabenzamide Allergy (Severe, Verified 01/07/24 15:07) tongue swelled shut gluten [GLUTEN] Allergy (Intermediate, Verified 01/07/24 15:07) INFLAMMATION SYSTEMICALLY mold [MOLD] Allergy (Intermediate, Verified 01/07/24 15:07) UNKNOWN animal dander Allergy (Unknown, Verified 01/07/24 15:07) ASTHMA FLAIRUP Clindamycin HCl Allergy (Unknown, Verified 01/07/24 15:07) rash doxycycline [DOXYCYCLINE] Allergy (Unknown, Verified 01/07/24 15:07) RASH morphine [MORPHINE] Allergy (Unknown, Verified 01/07/24 15:07) SEIZURE LIKE EXPERIENCE - FELT TERRIBLE, convulsions penicillin V Allergy (Unknown, Verified 01/07/24 15:07) rash Penicillins [PENICILLINS] Allergy (Unknown, Verified 01/07/24 15:07) RASH HIVES soybean Allergy (Unknown, Verified 01/07/24 15:07) unknown Sulfa (Sulfonamide Antibiotics) [SULFA (SULFONAMIDE ANTIBIOTICS)] Allergy (Unknown, Verified 01/07/24 15:07) TONGUE SWELLING, swelling of mouth soy Adverse Reaction (Intermediate, Verified 01/07/24 15:07) UPSET STOMACH DAIRY PRODUCTS Allergy (Intermediate, Uncoded 01/07/24 15:07) INFLAMMATION cats, dogs Allergy (Unknown, Uncoded 01/07/24 15:07) Unknown mole,bread and diary Allergy (Unknown, Uncoded 01/07/24 15:07) Unknown Medication List - Last Reconciled 07/03/23 by Stephania Guaman MD alprazolam 0.25 mg PO DAILY PRN ascorbic acid (vitamin C) (Vitamin C) 500 mg PO DAILY azelastine 1 spray intranasal BID betaxolol 0.25% (Betoptic S) 1 drp ophthalmic (eye) DAILY brimonidine 0.1% (Alphagan P) 1 drp ophthalmic (eye) DAILY carboxymethylcell-glycerin(PF) 0.5-0.9 % (Refresh Optive Sensitive (PF)) 1 drp ophthalmic (eye) DAILY cyclosporine 0.05% (Restasis) 1 drp ophthalmic (eye) DAILY dorzolamide-timolol 22.3-6.8 mg/mL ophthalmic (eye) fluorometholone 0.1% 1 drp ophthalmic (eye) NEEDED fluticasone furoate 100 mcg/actuation (Arnuity Ellipta) 1 inh inhalation Q24H fluticasone propionate 50 mcg/actuation 2 sprays intranasal DAILY inhalational spacing device (BreatheRite MDI Spacer) As directed ipratropium-albuterol 0.5 mg-3 mg(2.5 mg base)/3 mL 3 mL inhalation Q6H PRN levothyroxine 88 mcg PO DAILY loteprednol etabonate 0.5% (Lotemax) drps ophthalmic (eye) nebulizers (AeroEclipse II Nebulizer) As directed prednisone 5 mg PO DAILY rosuvastatin 5 mg PO Q2D Ventolin HFA 90 mcg/actuation (albuterol sulfate) 2 puffs inhalation Q6H PRN NS Tobacco use date assessed: 07/03/23 Dental Screening Dental Screen Date: 07/03/23 Did you have a dental visit in the last 12 months?: Yes Did you have a dental problem in the last 6 months where you did not have access to dental care?: No Was dental information given to patient?: Patient has dentist HPI f/u labs HPI Details 63-year-old lady here today complaining of intermittent episodes of lower abdominal cramping accompanied by feeling gassy. This has been on and off present for the last several weeks.. Denies any urinary symptoms, no back pain. She is overdue for colon cancer screening. Has history of recurrent genital herpes, would like a prescription for valacyclovir to have an has to take at the 1st sign of symptoms. Not having a flare-up at this time [facility] Medical History (Updated 11/23/23 @ 22:46 by Stephania Guaman MD) History of adenomatous polyp of colon Fatigue Recurrent genital herpes Environmental and seasonal allergies Temporomandibular joint dysfunction Frequent headaches Mixed dyslipidemia Immunization refused Hx of breast cancer History of COVID-19 Anxiety disorder Dyslipidemia Recurrent otitis media Retinal detachment Vini's thyroiditis Mild intermittent asthma Narrow angle glaucoma suspect of both eyes Vitamin D deficiency Acquired hypothyroidism Surgical History Hx of colonoscopy History of surgery H/O myringotomy History of hysterectomy History of eyelid surgery History of eye surgery Family History Father No problems noted. Mother Diabetes mellitus Heart disease Heart attack Brother No problems noted. Brother No problems noted. Brother No problems noted. Brother No problems noted. Brother No problems noted. Social History Household Members: None Housing: House Alcohol intake: current Alcohol intake frequency: a few times a week Patient Tobacco Use Status: Never used Tobacco e-Cigarette/Vaping Use: Never Used service: No Current occupational status: employed Cognitive needs: No Hearing needs: No Vision needs: No Questionnaire PHQ-9 Over the last 2 weeks, how often have you been bothered by any of the following problems? Depression Screening Interpretation: Negative Depression Screening Done: Yes Source: Developed by Drs. Angel Allen, Emre Sims and colleagues, with an educational cresencio from [employer]. Thrive Questionnaire Date Thrive assessed: 06/09/23 AUDIT C Alcohol Use Questionnaire (AUDIT-C) 1. How often do you have a drink containing alcohol?: Never 3. How often do you have six or more drinks on one occasion?: Never Total Score: 0 Score Reviewed/Action Taken: Yes PASCUAL-7 AMB Questionnaire PASCUAL-7 Date PASCUAL - 7 assessed: 06/09/23 Source: Developed by Drs. Angel lAlen, Emre Sims and colleagues, with an educational cresencio from [employer]. Review of Systems Const Reports no additional complaints ENT Denies sinus pressure and Denies sore throat Card Denies syncope, Denies rapid heart rate and Denies dyspnea Resp Denies dyspnea GI Reports as per HPI Reports no additional complaints Musc Reports as per HPI Skin/Breast Denies lesions, Denies erythema, Denies rash and Denies unusual bruising Neuro Denies syncope Physical exam (Primary Care) Vital Signs: Last Vital Signs Pulse 70 07/03/23 10:33 BP 122/74 07/03/23 10:33 Pulse Ox 96 07/03/23 10:33 Oxygen Delivery Method Room Air 07/03/23 10:33 BMI result Body Mass Index 20.9 Tobacco/Smoking Status: Tobacco use Status Tobacco use date assessed 07/03/23 07/03/23 10:34 Patient Tobacco Use Status Never used Tobacco 07/03/23 10:34 e-Cigarette/Vaping Use Never Used 07/03/23 10:34 Depression Screening Interpretation: Negative Thrive Assessment: Date of Thrive Assessment Date Thrive assessed 06/09/23 07/03/23 10:34 Const Other: Alert oriented x3, no acute distress noted, ambulatory normal gait HENFL Head: Yes normocephalic Mouth: Normal oral and palatal mucosa present, oropharynx normal and moist mucous membranes Neck Neck: Yes full ROM, Yes no lymphadenopathy and Yes supple Thyroid: Thyroid normal (Nonpalpable) and nontender Chest Other: Right mastectomy scar, no redness or swelling noted, nontender to palpation Resp Effort & Inspection: normal respiratory effort and able to speak in complete sentences Auscultation: clear to auscultation bilaterally Cardio Other: S1-S2 present regular rate and rhythm GI Inspection: Yes normal to inspection Palpation (GI): Soft to palpation, nontender, no guarding and no masses General: Yes no CVA tenderness Back/Spine/Pelvis Back: no CVA tenderness Skin General skin exam: no rashes or lesions noted Neuro General: gait normal, tone normal, moves all extremities and no focal motor deficits Extrem General: Yes full ROM, Yes no joint enlargement, Yes no pedal edema, Yes no calf tenderness and Yes normal gait Results AMB Urinalysis, Automated UA Leukoctes 0 Blayne/uL Last Edit by CHRIS Lowe on 07/03/23 11:04 UA Nitrite Negative Last Edit by CHRIS Lowe on 07/03/23 11:04 UA Urobilinogen 0.2 mg/dL Last Edit by CHRIS Lowe on 07/03/23 11:04 UA Protein 0 mg/dL Last Edit by CHRIS Lowe on 07/03/23 11:04 UA pH 7.0 Last Edit by [facility]org[facility] on 07/03/23 11:04 UA Blood 25 Loyd/uL Last Edit by Maxine Mayorga [facility] on 07/03/23 11:04 UA Specific [place] 1.010 Last Edit by Maxine Mayorga [facility] on 07/03/23 11:04 UA Ketone Negative Last Edit by Maxine Mayorga [facility] on 07/03/23 11:04 UA Bilirubin 0 mg/dL Last Edit by Maxine Mayorga [facility] on 07/03/23 11:04 UA Glucose 0 mg/dL Last Edit by Maxine Mayorga [facility] on 07/03/23 11:04 Results Reviewed Results Reviewed: Laboratory Last Values Urine pH (Auto) 7.0 07/03/23 11:03 Specific [place] (Auto) 1.010 07/03/23 11:03 Urine Protein (Auto) 0 mg/dL 07/03/23 11:03 Glucose (UA)(Auto) 0 mg/dL 07/03/23 11:03 Urine Ketones (Auto) Negative 07/03/23 11:03 Urine Blood (Auto) 25 Loyd/uL 07/03/23 11:03 Urine Nitrite (Auto) Negative 07/03/23 11:03 Urine Bilirubin (Auto) 0 mg/dL 07/03/23 11:03 Urine Urobilinogen (Auto) 0.2 mg/dL 07/03/23 11:03 Leukocyte Esterase (Auto) 0 Blayne/uL 07/03/23 11:03 Name: Kaylynn Julian Age/Sex: 62/F : 1960 Unit#: [id number] Attend Dr: VINICIUS KUMARI MD Re06/04/23 Status: DEP REF Location: [facility] Disch: SPEC : [id number] BECKY: 06/04/23144 STATUS: COMP REQ : [id number] RECD: 06/04/[address]: KENYETTA COLVIN COMP: 06/04/23 ENTERED: 06/04/23-[address]: Stephania Guaman MD ORDERED: CBC Auto Diff Test Result Flag Reference WBC 5.4 4.8-10.8 X10*3/uL RBC 4.44 4.20-5.50 X10*6/uL HGB 14.2 12.0-16.0 g/dl HCT 41.6 37.0-47.0 % MCV 93.7 80.0-98.0 fL MCH 32.0 27.0-33.0 pg MCHC 34.1 31.0-35.0 g/dl RDW 12.0 11.0-16.0 % PLT 306 160-400 X10*3/uL RUN: 07/03/23 1112 PAGE 1 [facility] [address] [place] [id number] [employer]ch Hemmer: Ra Lee M.D. Specimen Inquiry Name: Kaylynn Julian Age/Sex: 62/F : 1960 Unit#: [id number] Attend Dr: VINICIUS KUMARI MD Re06/04/23 Status: DEP REF Location: [facility] Disch: SPEC : [id number] BECKY: 06/04/23-1440 STATUS: COMP REQ : [id number] RECD: 06/04/23-[address]: KENYETTA COLVIN COMP: 06/04/23-1647 ENTERED: 06/04/23-[address]: Stephania Guaman MD ORDERED: CMP, C Reactive Prot, Free T4, TSH Test Result Flag Reference Sodium 139 135-145 mmol/L Potassium 4.0 3.3-5.1 mmol/L CL 104 96-108 mmol/L CO2 25 22-29 mmol/L Gap 14 12-20 BUN 23 H 9-16 mg/dL Creat 0.95 0.5-1.4 mg/dL EGFR > 60 NOTE: For -Malaysian individuals, multiply the result by 1.210. Chronic Kidney Disease: Estimated GFR < 60 mL/min/1.73m2 Severe Kidney Disease: Estimated GFR < 15 mL/min/1.73m2 Glucose, Random 112 60-115 mg/dL CA 9.6 8.4-10.2 mg/dL Total Bili 0.3 0.0-1.0 mg/dL AST (GOT) 28 5-31 U/L ALT (GPT) 21 0-31 U/L CRP < 0.04 < or = 0.50 mg/dL Protein, Total 7.5 6.5-8.0 g/dL Alb 4.4 3.5-5.0 g/dL Alk Phos 67 39-117 U/L Free T4 1.07 0.71-1.85 ng/dL TSH 3rd Gen. 0.29 L 0.32-4.0 uIU/mL TSH 3rd Generation ([facility]) Assessment and Plan Assessment & Plan (1) Colon cancer screening: Code(s): Z12.11 - Encounter for screening for malignant neoplasm of colon Plan: Referred to GI Clinic at [facility] [place] for her colon cancer screening (2) Abdominal bloating with cramps: Code(s): R14.0 - Abdominal distension (gaseous); R10.9 - Unspecified abdominal pain Plan: GI consult obtained, advised to avoid dairy, greasy /fried foods, advised to try taking probiotic (3) Recurrent genital herpes: Code(s): A60.00 - Herpesviral infection of urogenital system, unspecified Plan: prescription sent for valacyclovir 500 mg per tablet to take 1 every 12 hours for 3 days, 6 tablets prescribed with 3 refills, take it the 1st sign of 60 Orders: Orders AMB Urinalysis Automated 07/03/23 Z13.9 - Encounter for screening, unspecified Referrals Gastroenterology Referral Z12.11 - Encounter for screening for malignant neoplasm of colon, R14.0 - Abdominal distension (gaseous), R10.9 - Unspecified abdominal pain Medications: New valacyclovir Take within 48 hours at the onset of symptom 500 mg PO Q12H 6 tabs 3RF 3 days A60.00 - Herpesviral infection of urogenital system, unspecified Coding Level of Care Code Est Pt Level 4 (67311) Diagnoses Colon cancer screening Z12.11 Abdominal bloating with cramps R14.0; R10.9 Recurrent genital herpes A60.00
== END 2023-07-03 12:25 | disposition home or self-care (01) ==
PROVIDERS: PCP Internal Medicine; Visit Provider Internal Medicine
DX: Z12.11 Encounter for screening for malignant neoplasm of colon (principal); R14.0 Abdominal distension (gaseous); R10.9 Unspecified abdominal pain; A60.00 Herpesviral infection of urogenital system, unspecified
CPT/HCPCS: 81003; 99499

== ENCOUNTER 2023-07-09 08:57 | Emergency (ER) | payer OTHER, SELFPAY ==
--- NOTE | ~2023-07-09 | CT_ITS ---
EXAMINATION: CT ABDOMEN AND PELVIS WITH CONTRAST CLINICAL INFORMATION: Left-sided pain and swelling COMPARISON: 11/03/2022 TECHNIQUE: Multidetector volumetric images were obtained from the superior aspect of the liver through the pubic symphysis following administration 85 mL of Omnipaque 350 intravenous contrast. Sagittal and coronal reformatted images were obtained on the technologist's workstation. Oral contrast: No This CT examination was performed using dose optimization techniques as appropriate, variously including the following: *Automated exposure control *Adjustment of mA and/or kV according to patient size (this includes techniques or standardized protocols for targeted exams where dose is matched to indication/reason for exam; i.e. extremities or head) *Use of iterative reconstruction technique DLP: 361 mGy-cm FINDINGS: LUNG BASES: Right-sided mastectomy changes. Lung bases clear. LIVER, GALLBLADDER, AND BILIARY TREE: The liver is normal in size, shape, and attenuation. No focal hepatic lesion or biliary ductal dilatation is present. The gallbladder is unremarkable with no evidence of radiopaque gallstones, gallbladder wall thickening, or obvious pericholecystic inflammatory changes. PANCREAS: Unremarkable. SPLEEN: Unremarkable. ADRENAL GLANDS: Unremarkable. KIDNEYS AND URETERS: The kidneys are normal in size, shape, and attenuation. No hydronephrosis, hydroureter, or calculi seen. No perinephric stranding. Incidental low-density focus tiny cyst measuring 3 mm right kidney similar. No perinephric abnormality. BLADDER: Unremarkable. GASTROINTESTINAL TRACT: Cortical thickening circumferentially of the gastric antrum. Stomach is somewhat contracted this level limiting assessment. Further assessment with endoscopy recommended for GI. The small and large bowel are unremarkable. The appendix is unremarkable. ABDOMINAL WALL: No significant hernia is appreciated. LYMPH NODES: Normal. VASCULAR: Unremarkable. PELVIC VISCERA: Pelvic organs appear to be surgically absent. OSSEOUS STRUCTURES: Unremarkable. CT/CT abdomen pelvis w IV con IMPRESSION: 1. No specific findings to explain patient's left-sided pain. 2. Nonspecific thickening of the gastric antrum question. Consider endoscopy for further assessment. Fleischner guidelines were followed.
[2023-07-09 09:06] VITALS: BP 123/61; PULSE 68; RESP 18; TEMP 37.1; O2SAT 99; BMI 19.8
[2023-07-09 10:00] LABS: MANUAL DIFF FLAG NO
[2023-07-09 10:02] LABS: Basophils Absolute Auto 0.1 X10*3/uL (0.0-0.2); Basophils Percent Auto 0.9 % (0-2); Eosinophils Absolute Auto 0.1 X10*3/uL (0.0-0.4); Eosinophils Percent Auto 1.8 % (0-4); Hematocrit 43.5 % (37.0-47.0); Hemoglobin 14.7 g/dl (12.0-16.0); Imm Gran Abs Auto 0.02 X10*3/uL (0.00-0.03); Imm Gran Pct Auto 0.4 % (0.0-0.4); Lymphocytes Absolute Auto 0.9 X10*3/uL (1.2-4.9); Lymphocytes Percent Auto 15.7 % (20-40); Mean Corpuscular HGB Conc 33.8 g/dl (31.0-35.0); Mean Corpuscular Hemoglobin 30.9 pg (27.0-33.0); Mean Corpuscular Volume 91.6 fL (80.0-98.0); Mean Platelet Volume 8.8 fL (9.4-12.3); Monocytes Absolute Auto 0.3 X10*3/uL (0.1-1.2); Monocytes Percent Auto 5.1 % (2-11); Neutrophils Absolute Auto 4.3 x10*3/uL (2.0-8.3); Neutrophils Percent Auto 76.1 % (45-73); Platelet Count 297 X10*3/uL (160-400); Red Blood Count 4.75 X10*6/uL (4.20-5.50); Red Cell Distribution Width 11.9 % (11.0-16.0); White Blood Count 5.7 X10*3/uL (4.8-10.8)
[2023-07-09 10:35] LABS: Alanine Aminotransferase 17 U/L (0-31); Albumin Level 4.4 g/dL (3.5-5.0); Alkaline Phosphatase 65 U/L (39-117); Anion Gap 12 (12-20); Aspartate Amino Transferase 26 U/L (5-31); Bilirubin Total 0.5 mg/dL (0.0-1.0); Blood Urea Nitrogen 11 mg/dL (9-16); Carbon Dioxide 28 mmol/L (22-29); Chloride 103 mmol/L (96-108); Creatinine Clr Calc Pharmacy 50.9; Estimated Glomerular Filt Rate 57; Glucose Random 109 mg/dL (60-115); Magnesium 2.4 mg/dL (1.6-2.6); Sodium 139 mmol/L (135-145); Total Protein 7.6 g/dL (6.5-8.0)
[2023-07-09 10:43] LABS: Influenza A PCR NEGATIVE (Negative); Influenza B PCR NEGATIVE (Negative); Resp Syncy Virus RNA Qual PCR NEGATIVE (Negative); SARS COV2 PCR INHOUSE NEGATIVE (Negative)
--- NOTE | 2023-07-09 12:13 | ED.GENADULT ---
HPI - General Adult General Chief complaint: Abdominal Pain Stated complaint: Abd pain left side Time Seen by Provider: 07/09/23 12:13 Source: patient Mode of arrival: ambulatory Limitations: no limitations History of Present Illness HPI narrative: Patient is a 62 year old assigned female at with a history of anxiety, breast cancer, and thyroiditis presenting to the emergency department today with abdominal pain. Patient states that over the last few weeks she has had left sided abdominal pain that radiates into the center of the abdomen and into the left pelvis. Patient states that she is scheduled to follow up with GI here at [facility] later this month. Patient denies any dizziness, lightheadedness, nausea, vomiting, fever, chills, blurry vision, double vision, loss of vision, chest pain, difficulty breathing, shortness of breath, back pain, night sweats, pain with urination, increased urinary frequency, increased urinary urgency, blood in her urine or stool, syncope or a near syncopal episode, recent trauma or falls, bowel incontinence, bladder incontinence, bowel retention, bladder retention, or any other complaints at this time. MD complaint: Abdominal pain Onset (ago): week(s) (2) Location: abdomen Radiation: back Severity: mild Severity scale (1-10): 3 Quality: aching and sharp Pain Consistency: constant Relieving factors: none Exacerbating factors: eating Associated symptoms: denies other symptoms Treatments prior to arrival: NSAID (two week history of Advil, 400 mg/day) Related Data Home Medications Medication Instructions Recorded Confirmed fluorometholone 0.1 % eye 1 drp ophthalmic (eye) NEEDED 03/15/20 02/26/23 drops,suspension betaxolol 0.25 % eye 1 drp ophthalmic (eye) DAILY 02/15/21 02/26/23 drops,suspension (Betoptic S) carboxymethylcellulose 0.5 1 drp ophthalmic (eye) DAILY 02/15/21 02/26/23 %-glycerin 0.9 % (PF) eye drops,dropperette (Refresh Optive Sensitive (PF)) cyclosporine 0.05 % eye drops in a 1 drp ophthalmic (eye) DAILY 02/15/21 02/26/23 dropperette (Restasis) brimonidine 0.1 % eye drops 1 drp ophthalmic (eye) DAILY 03/16/21 02/26/23 (Alphagan P) dorzolamide 22.3 mg-timolol 6.8 ophthalmic (eye) 06/25/23 mg/mL eye drops loteprednol etabonate 0.5 % eye drp ophthalmic (eye) 06/25/23 drops,suspension (Lotemax) prednisone 5 mg tablet 5 mg PO DAILY 06/25/23 Previous Rx's Medication Instructions Recorded inhalational spacing device #1 ea 07/18/22 (BreatheRite MDI Spacer) nebulizers (AeroEclipse II #1 ea 07/18/22 Nebulizer) ipratropium 0.5 mg-albuterol 3 mg 3 ml inhalation Q6H PRN wheezing 07/19/22 (2.5 mg base)/3 mL nebulization #90 mL soln ascorbic acid (vitamin C) 500 mg 500 mg PO DAILY #90 caps 03/17/23 tablet (Vitamin C) Ventolin HFA 90 mcg/actuation 2 puff inhalation Q6H PRN for 04/16/23 aerosol inhaler (albuterol sulfate) wheezing #18 grams levothyroxine 88 mcg tablet 88 mcg PO DAILY #90 caps 05/07/23 rosuvastatin 5 mg tablet 5 mg PO Q2D #45 tabs 05/24/23 fluticasone furoate 100 1 inh inhalation Q24H #30 ea 05/31/23 mcg/actuation blister powder for inhalation (Arnuity Ellipta) azelastine 137 mcg (0.1 %) nasal 1 spray intranasal BID #30 mL 06/13/23 spray aerosol fluticasone propionate 50 2 spray intranasal DAILY #16 caps 06/28/23 mcg/actuation nasal spray,suspension valacyclovir 500 mg tablet 500 mg PO Q12H 3 days #6 tabs 07/03/23 alprazolam 0.25 mg tablet 0.25 mg PO DAILY PRN anxiety #14 07/04/23 tabs omeprazole 20 mg capsule,delayed 20 mg PO DAILY #14 caps 07/09/23 release Allergies Allergy/AdvReac Type Severity Reaction Status Date / Time Opioids - Morphine Analogues Allergy Severe convultions Verified 07/09/23 09:10 sulfabenzamide Allergy Severe tongue Verified 07/09/23 09:10 swelled shut gluten [GLUTEN] Allergy Intermediate INFLAMMATION Verified 07/09/23 09:10 SYSTEMICALLY mold [MOLD] Allergy Intermediate UNKNOWN Verified 07/09/23 09:10 animal dander Allergy Unknown ASTHMA Verified 07/09/23 09:10 FLAIRUP Clindamycin HCl Allergy Unknown rash Verified 07/09/23 09:10 doxycycline [DOXYCYCLINE] Allergy Unknown RASH Verified 07/09/23 09:10 morphine [MORPHINE] Allergy Unknown SEIZURE Verified 07/09/23 09:10 LIKE EXPERIENCE - FELT TERRIBLE, convulsions penicillin V Allergy Unknown rash Verified 07/09/23 09:10 Penicillins [PENICILLINS] Allergy Unknown RASH HIVES Verified 07/09/23 09:10 soybean Allergy Unknown unknown Verified 07/03/23 11:13 Sulfa (Sulfonamide Allergy Unknown TONGUE Verified 07/03/23 11:13 Antibiotics) SWELLING, [SULFA (SULFONAMIDE swelling ANTIBIOTICS)] of mouth soy AdvReac Intermediate UPSET Verified 07/03/23 11:13 STOMACH DAIRY PRODUCTS Allergy Intermediate INFLAMMATIO Uncoded 07/03/23 11:13 N cats, dogs Allergy Unknown Unknown Uncoded 07/03/23 11:13 mole,bread and diary Allergy Unknown Unknown Uncoded 07/03/23 11:13 Review of Systems Constitutional: Constitutional: Reports no additional constitutional complaints, Denies chills, Denies fever(s) and Denies night sweats Eyes: Eyes: Reports no additional eye complaints, Denies blurry vision, Denies change in vision, Denies diplopia, Denies eye discharge, Denies loss of vision and Denies eye pain ENT: Denies dizziness Cardiovascular: Cardiovascular: Reports no additional cardiovascular complaints, Denies chest pain, Denies lightheadedness, Denies Loss of Consciousness and Denies dyspnea Respiratory: Respiratory: Reports no additional respiratory complaints and Denies dyspnea Gastrointestinal: Gastrointestinal: Reports no additional gastrointestinal complaints, Reports abdominal pain, Denies melena, Denies hematochezia, Denies change in bowel habits and Denies change in stool character Genitourinary: Genitourinary: Denies hematuria, Denies urinary frequency, Denies dysuria, Denies urinary incontinence, Denies urinary hesitancy and Denies urinary urgency Musculoskeletal: Musculoskeletal: Reports no additional musculoskeletal complaints, Denies numbness and Denies tingling Neurologic: Denies dizziness, Denies loss of vision, Denies numbness and Denies tingling Psychiatric: Psychiatric: Reports no additional psychiatric complaints Endocrine: Endocrine: Reports no additional endocrine complaints Hematologic/Lymphatic: Hematologic/Lymphatic: Reports no additional hematologic/lymphatic complaints Allergic/Immunologic: Allergic/Immunologic: Reports no additional allergic/immunologic complaints [facility] Past Medical History Attestation statement: The following information was validated with the patient. Source: old records reviewed and nursing notes reviewed Medical History Recurrent genital herpes Environmental and seasonal allergies Temporomandibular joint dysfunction Frequent headaches Mixed dyslipidemia Immunization refused Hx of breast cancer History of COVID-19 Anxiety disorder Dyslipidemia Recurrent otitis media Retinal detachment Vini's thyroiditis Mild intermittent asthma Narrow angle glaucoma suspect of both eyes Vitamin D deficiency Acquired hypothyroidism Surgical History History of surgery H/O myringotomy History of hysterectomy History of eyelid surgery History of eye surgery Family History Family History Father No problems noted. Mother Diabetes mellitus Heart disease Heart attack Brother No problems noted. Brother No problems noted. Brother No problems noted. Brother No problems noted. Brother No problems noted. Social History Social History Household Members: None Housing: House Alcohol intake: current Alcohol intake frequency: a few times a week Patient Tobacco Use Status: Never used Tobacco e-Cigarette/Vaping Use: Never Used service: No Current occupational status: employed Cognitive needs: No Hearing needs: No Vision needs: No Physical Exam ED Vital Signs: Vital Signs - 24 hr 07/09/23 09:06 07/09/23 13:02 Temperature 98.8 F 98.0 F Pulse Rate 68 70 Respiratory Rate 18 16 Blood Pressure 123/61 125/61 Pulse Oximetry 99 97 Oxygen Delivery Method Room Air Room Air BMI result Body Mass Index 19.8 Const General: cooperative, alert, awake and Physically active Nutritional Appearance: average body habitus Orientation/consciousness: patient oriented x3 Limitations: no limitations HENMT Head: Yes normal to inspection Ears: hearing grossly normal bilaterally General nose exam: Normal external nose present Face and sinus: Yes normal facial exam Mouth: Normal oral and palatal mucosa present Throat: Yes posterior oropharynx normal Eyes General: appearance normal, both eyes and all related structures Periorbital: periorbital findings normal Eyelids: Yes eyelids normal Conjunctivae: conjunctivae normal Pupils: Equal, round and reactive pupils present EOM: EOMs intact bilaterally Neck Neck: Yes normal visual inspection, Yes full ROM and Yes no lymphadenopathy Chest Chest palpation & inspection: normal inspection of the chest Resp Effort & Inspection: normal respiratory effort and able to speak in complete sentences Auscultation: clear to auscultation bilaterally Cardio Jugular venous distension: no JVD Palpation: normal PMI Rate: regular rate Rhythm: regular rhythm GI Inspection: Yes normal to inspection Palpation (GI): Soft to palpation, not firm, nontender, no guarding and No Rebound tenderness present Auscultation: Hyperactive bowel sounds present Neuro General: patient oriented x3 Cranial nerves: Yes Equal, round and reactive pupils present Cognition (Neuro): normal cognition Motor exam (neuro): 5/5 motor strength present throughout Sensory Exam: Normal double simultaneous stimulation for sensation Coordination: [id number] test normal Extrem General: Yes normal to inspection, Yes full ROM and Yes capillary refill normal Psych Appearance: grossly normal Mental Status: mental status grossly normal Affect: normal affect Attitude: cooperative Thought process: Normal thought process present Thought content: Normal thought content present Insight: Good insight present (Psych) Medications Administered Discontinued Medications Generic Name Dose Route Start Last Admin Trade Name Freq PRN Reason Stop Dose Admin Iohexol 100 ml 07/09/23 13:22 07/09/23 13:23 Iohexol 350 Mg/Ml 100 Ml Infus..Btl IV 07/09/23 13:23 85 ml ONCE ONE Administration Ketorolac Tromethamine 15 mg 07/09/23 14:18 07/09/23 14:41 Ketorolac Tromethamine 15 Mg/Ml Vial IVPUSH 07/09/23 14:19 15 mg ONCE ONE Administration Medical Decision Making Medical Decision Making [facility] Narrative: Patient is a 62 year old assigned female at with a history of anxiety, breast cancer, and thyroiditis presenting to the emergency department today with abdominal pain. Patient's physical exam was unremarkable. Patient's blood work was unremarkable. Patient's urine showed no acute process. Patient's CT abdomen / pelvis showed no specific findings to explain the patient's left sided pain as well as non-specific thickening of the gastric antrum. Radiologist recommended an endoscope to further evaluate the gastric antrum thickening. I spoke to Dr. Argueta who recommended the patient follow up on an outpatient basis for an EGD. Given the patient has been taking prednisone with ibuprofen, has epigastric pain, and has this nonspecific gastric antrum thickening, will start patient on PPI for symptom relief. I explained my physical exam findings as well as all test results to the patient. I answered all questions asked by the patient. I stressed the importance of the patient taking her medication as prescribed. I stressed the importance of the patient following up with her primary care provider and GI specialist. I stressed the importance of the patient returning to the emergency department immediately if her symptoms were to worsen or if she were to develop any dizziness, shortness of breath, difficulty breathing, chest pain, blurry vision, loss of vision, nausea, vomiting, abdominal pain, fever, chills, back pain, or any other complaints. Patient verbalized agreement and understanding with this treatment plan and discharge. Differential Diagnosis Differential Diagnoses: The differential diagnosis associated with the presentation includes Gastritis Gastroenteritis Constipation Abdominal pain Admission/Observation Consideration of admission/observation: Escalation of care including admission/observation considered Patient would have been admitted to the hospital had her work up had any findings where hospital admission was appropriate and her clinical presentation warranted hospital admission. Consult Healthcare Provider Management of the patient was discussed with: Junior Qa Analyst (spoke to Dr. Argueta, the GI specialist, as noted in the [facility] Rationale portion of this note. ) Lab Data [facility] Lab Attestation statement: I reviewed the patient's lab results. My interpretation of these studies and their corresponding values is that they are grossly normal. 07/09/23 09:56 07/09/23 09:56 Labs: Lab Results 07/09/23 07/09/23 Range/Units 09:56 15:30 WBC 5.7 (4.8-10.8) X10*3/uL RBC 4.75 (4.20-5.50) X10*6/uL Hgb 14.7 (12.0-16.0) g/dl Hct 43.5 (37.0-47.0) % MCV 91.6 (80.0-98.0) fL MCH 30.9 (27.0-33.0) pg MCHC 33.8 (31.0-35.0) g/dl RDW 11.9 (11.0-16.0) % Plt Count 297 (160-400) X10*3/uL MPV 8.8 L (9.4-12.3) fL Immature Gran % (Auto) 0.4 (0.0-0.4) % Neut % (Auto) 76.1 H (45-73) % Lymph % (Auto) 15.7 L (20-40) % [place] % (Auto) 5.1 (2-11) % Eos % (Auto) 1.8 (0-4) % Baso % (Auto) 0.9 (0-2) % Lymph # (Auto) 0.9 L (1.2-4.9) X10*3/uL [place] # (Auto) 0.3 (0.1-1.2) X10*3/uL Eos # (Auto) 0.1 (0.0-0.4) X10*3/uL Baso # (Auto) 0.1 (0.0-0.2) X10*3/uL Abs Immat Gran (auto) 0.02 (0.00-0.03) X10*3/uL Absolute Neuts (auto) 4.3 (2.0-8.3) x10*3/uL Absolute Nucleated RBC 0.000 (0.0-0.012) X10*3/uL Nucleated RBC % (auto) 0.0 (0.0-0.2) /100WBC Sodium 139 (135-145) mmol/L Potassium 4.0 (3.3-5.1) mmol/L Chloride 103 (96-108) mmol/L Carbon Dioxide 28 (22-29) mmol/L Anion Gap 12 (12-20) BUN 11 (9-16) mg/dL Creatinine 1.00 (0.5-1.4) mg/dL Estim Creat Clear Calc 50.9 Estimated GFR 57 Random Glucose 109 (60-115) mg/dL Calcium 10.0 (8.4-10.2) mg/dL Magnesium 2.4 (1.6-2.6) mg/dL Total Bilirubin 0.5 (0.0-1.0) mg/dL AST 26 (5-31) U/L ALT 17 (0-31) U/L Alkaline Phosphatase 65 (39-117) U/L Total Protein 7.6 (6.5-8.0) g/dL Albumin 4.4 (3.5-5.0) g/dL Urine Color Yellow Urine Appearance Clear Urine pH 6.0 (5.0-9.0) Ur Specific [place] >= 1.030 H (1.005-1.025) Urine Protein Negative (Neg-Trace) mg/dL Urine Glucose (UA) Negative (Negative) mg/dL Urine Ketones Trace (Negative) mg/dL Urine Blood Small (1+) H (Negative) Urine Nitrite Negative (Negative) Ur Leukocyte Esterase Negative (Negative) Urine RBC 3-5 H (0-2) /HPF Urine WBC 0-5 (0-5) /HPF Ur Squamous Epith Cells 0-2 (0-2) /HPF Urine Bacteria None Seen (None Seen) Hyaline Casts 0-2 (0-2) /LPF Influenza Type A (PCR) NEGATIVE (Negative) Influenza Type B (PCR) NEGATIVE (Negative) RSV RNA Qual (PCR) NEGATIVE (Negative) SARS-CoV-2 RNA (RT-PCR) NEGATIVE (Negative) Independent Interpretation I performed an independent interpretation of an: CT Scan Interpretation: My interpretation is in agreement with the radiologist's impression of this imaging study. EXAMINATION: CT ABDOMEN AND PELVIS WITH CONTRAST CLINICAL INFORMATION: Left-sided pain and swelling COMPARISON: 11/03/2022 TECHNIQUE: Multidetector volumetric images were obtained from the superior aspect of the liver through the pubic symphysis following administration 85 mL of Omnipaque 350 intravenous contrast. Sagittal and coronal reformatted images were obtained on the technologist's workstation. Oral contrast: No This CT examination was performed using dose optimization techniques as appropriate, variously including the following: *Automated exposure control *Adjustment of mA and/or kV according to patient size (this includes techniques or standardized protocols for targeted exams where dose is matched to indication/reason for exam; i.e. extremities or head) *Use of iterative reconstruction technique DLP: 361 mGy-cm FINDINGS: LUNG BASES: Right-sided mastectomy changes. Lung bases clear. LIVER, GALLBLADDER, AND BILIARY TREE: The liver is normal in size, shape, and attenuation. No focal hepatic lesion or biliary ductal dilatation is present. The gallbladder is unremarkable with no evidence of radiopaque gallstones, gallbladder wall thickening, or obvious pericholecystic inflammatory changes. PANCREAS: Unremarkable. SPLEEN: Unremarkable. ADRENAL GLANDS: Unremarkable. KIDNEYS AND URETERS: The kidneys are normal in size, shape, and attenuation. No hydronephrosis, hydroureter, or calculi seen. No perinephric stranding. Incidental low-density focus tiny cyst measuring 3 mm right kidney similar. No perinephric abnormality. BLADDER: Unremarkable. GASTROINTESTINAL TRACT: Cortical thickening circumferentially of the gastric antrum. Stomach is somewhat contracted this level limiting assessment. Further assessment with endoscopy recommended for GI. The small and large bowel are unremarkable. The appendix is unremarkable. ABDOMINAL WALL: No significant hernia is appreciated. LYMPH NODES: Normal. VASCULAR: Unremarkable. PELVIC VISCERA: Pelvic organs appear to be surgically absent. OSSEOUS STRUCTURES: Unremarkable. CT/CT abdomen pelvis w IV con IMPRESSION: 1. No specific findings to explain patient's left-sided pain. 2. Nonspecific thickening of the gastric antrum question. Consider endoscopy for further assessment. Fleischner guidelines were followed. Dictated By: Rusty Lange MD Signed By: Electronically signed by Rusty Lange MD 07/09/23 9919 Radiology Impression Discussion of test interpretation with radiology: I have reviewed the radiologist's reading. Critical Care Time Critical Care Time Critical Care Time: Yes Total Critical Care Time: 45 Attestation: I spent 45 minutes of Critical Care Time with this patient. This does not include time spent on separately reported billable procedures. Discharge Plan Discharge Clinical Impression: Epigastric pain Patient Disposition: Home, Self-Care Instructions: Epigastric Pain (ED) Additional Instructions: Follow up with your primary care provider and a GI specialist. Return to the emergency department immediately if your symptoms worsen or if you develop any dizziness, shortness of breath, difficulty breathing, chest pain, blurry vision, loss of vision, nausea, vomiting, abdominal pain, fever, chills, back pain, or any other complaints. Prescriptions: New omeprazole 20 mg capsule,delayed release(DR/EC) 20 mg PO DAILY Qty: 14 0RF No Action (DME) BreatheRite MDI Spacer Spacer See Rx Instructions .Route Qty: 1 0RF Rx Instructions: As directed (DME) nebulizers [AeroEclipse II Nebulizer] [facility] See Rx Instructions .Route Qty: 1 0RF Rx Instructions: As directed ipratropium-albuterol 0.5 mg-3 mg(2.5 mg base)/3 mL solution for nebulization 3 ml inhalation Q6H PRN (Reason: wheezing) Qty: 90 0RF ascorbic acid (vitamin C) [Vitamin C] 500 mg tablet 500 mg PO DAILY Qty: 90 3RF albuterol sulfate [Ventolin HFA] 90 mcg/actuation HFA aerosol inhaler 2 puff inhalation Q6H PRN (Reason: for wheezing) Qty: 18 2RF levothyroxine 88 mcg tablet 88 mcg PO DAILY Qty: 90 1RF rosuvastatin 5 mg tablet 5 mg PO Q2D Qty: 45 1RF Arnuity Ellipta 100 mcg/actuation blister with device 1 inh inhalation Q24H Qty: 30 5RF azelastine 137 mcg (0.1 %) aerosol,spray 1 spray intranasal BID Qty: 30 5RF fluticasone propionate 50 mcg/actuation spray,suspension 2 spray intranasal DAILY Qty: 16 5RF alprazolam 0.25 mg tablet 0.25 mg PO DAILY PRN (Reason: anxiety) Qty: 14 0RF fluorometholone 0.1 % drops,suspension 1 drp ophthalmic (eye) NEEDED Alphagan P 0.1 % drops 1 drp ophthalmic (eye) DAILY Restasis 0.05 % dropperette 1 drp ophthalmic (eye) DAILY Betoptic S 0.25 % drops,suspension 1 drp ophthalmic (eye) DAILY Refresh Optive Sensitive (PF) 0.5-0.9 % dropperette 1 drp ophthalmic (eye) DAILY prednisone 5 mg tablet 5 mg PO DAILY dorzolamide-timolol 22.3-6.8 mg/mL drops ophthalmic (eye) loteprednol etabonate [Lotemax] 0.5 % drops,suspension ophthalmic (eye) valacyclovir 500 mg tablet 500 mg PO Q12H 3 Days Qty: 6 3RF Rx Instructions: Take within 48 hours at the onset of symptom
[2023-07-09 13:02] VITALS: BP 125/61; PULSE 70; RESP 16; TEMP 36.7; O2SAT 97
--- NOTE | 2023-07-09 13:05 | PC.NURSE ---
patient a&ox3, vss, pt has c/o 8/10 abd pain with PO intake, hyperactive bs, iv inserted, labs previously drawn, pt to ct scan.
[2023-07-09] MEDS: iohexoL 350 MG/ML 100 ML INFUS..BTL IV (13:23)
[2023-07-09] MEDS: Ketorolac Tromethamine 15 MG/ML VIAL IVPUSH (14:41)
[2023-07-09 15:39] LABS: Appearance Urine Clear; Color Urine Yellow; Glucose Urine UA Negative (Negative); Leukocyte Esterase Urine Negative (Negative); Nitrite Urine Negative (Negative); Specific Gravity - Urine >= 1.030 (1.005-1.025); UMIC TRIGGER UACC YES; Urine Blood Small (1+) (Negative); Urine Ketones Trace mg/dL (Negative); Urine Protein Negative (Neg-Trace)
[2023-07-09 15:59] LABS: Bacteria Urine None Seen (None Seen); Hyaline Casts Urine 0-2 /LPF (0-2); Squamous Epithelial Cell Urine 0-2 /HPF (0-2); WBC Urine 0-5 /HPF (0-5)
== END 2023-07-09 16:52 | disposition home or self-care (01) ==
PROVIDERS: Physician Assistant Medical; Emergency Provider Emergency Medicine; PCP Internal Medicine
DX: R10.13 Epigastric pain (principal); Z11.52 Encounter for screening for COVID-19; Z20.828 Contact with and (suspected) exposure to other viral communicable diseases
CPT/HCPCS: 0241U; 74177; 80053; 81001; 83735; 85025; 96374; 99284; J1885; Q9967

== ENCOUNTER 2023-07-11 08:44 | Outpatient (AMB) | payer OTHER, SELFPAY ==
--- NOTE | 2023-07-11 08:52 | A.OFFVIS_ITS ---
Intake Vital Signs 07/11/23 08:55 Height 5 ft 5 in Weight 118 lb BMI 19.6 BP 100/79 Blood Pressure Location Lt brachial Position Sitting Pulse 70 Intake Visit Reasons: ED visit Intake Note: Kaylynn presents in the office as a ED follow up. CC: She was in the ED and she states that she had pains in her stomach. She states that she is scheduled already for her procedure. States that she has IBS and was also seen at [facility]. Pains always in the left side of abdomen. Travelift Operator Required: No Allergies Opioids - Morphine Analogues Allergy (Severe, Verified 07/11/23 08:57) convultions sulfabenzamide Allergy (Severe, Verified 07/11/23 08:57) tongue swelled shut gluten [GLUTEN] Allergy (Intermediate, Verified 07/11/23 08:57) INFLAMMATION SYSTEMICALLY mold [MOLD] Allergy (Intermediate, Verified 07/11/23 08:57) UNKNOWN animal dander Allergy (Unknown, Verified 07/11/23 08:57) ASTHMA FLAIRUP Clindamycin HCl Allergy (Unknown, Verified 07/11/23 08:57) rash doxycycline [DOXYCYCLINE] Allergy (Unknown, Verified 07/11/23 08:57) RASH morphine [MORPHINE] Allergy (Unknown, Verified 07/11/23 08:57) SEIZURE LIKE EXPERIENCE - FELT TERRIBLE, convulsions penicillin V Allergy (Unknown, Verified 07/11/23 08:57) rash Penicillins [PENICILLINS] Allergy (Unknown, Verified 07/11/23 08:57) RASH HIVES soybean Allergy (Unknown, Verified 07/11/23 08:57) unknown Sulfa (Sulfonamide Antibiotics) [SULFA (SULFONAMIDE ANTIBIOTICS)] Allergy (Unknown, Verified 07/11/23 08:57) TONGUE SWELLING, swelling of mouth soy Adverse Reaction (Intermediate, Verified 07/11/23 08:57) UPSET STOMACH DAIRY PRODUCTS Allergy (Intermediate, Uncoded 07/11/23 08:57) INFLAMMATION cats, dogs Allergy (Unknown, Uncoded 07/11/23 08:57) Unknown mole,bread and diary Allergy (Unknown, Uncoded 07/11/23 08:57) Unknown HPI ED visit HPI Details 62 y rold f with thyoriditis anxiety, gl aucoma, asthma, recurrent genital herpes here for assessment She had went to the ED due to bloating and indigestion, and LUQ discomfort for [address] scan with abn antrum and stomach thickening she gets antibiotics she has constipation she is chronic pred 5 mg for grave opthalmoplegia she takes excedrin on regular basis for headaches she chokes and gags easily, if eats fast, but no dysphagia never had colonoscopy she has constipation, and takes sennakot, 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 just 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 omeprazole brother and still trying to recover labs: 07/2023-- nml HGB an d CMP Constitutional : No Weight loss, No Fever, No Chills ENT/Mouth : No sore throat, No Rhinorrhea Eyes: No Swelling, No Redness Cardiovascular : No Chest Pain, No SOB, No Edema Respiratory : No Cough, No Sputum, No Wheezing Gastrointestinal : see HPI Genitourinary : NO Dysuria, No Urinary Frequency, No Hematuria, No Urgency Musculoskeletal : + joint pain, No Myalgias, No Joint Swelling Skin : No Skin Lesions, No rash Neuro : No Weakness, No Numbness, No Dizziness, No Headache Psych : No Anxiety/Panic, + Depression--reactive Heme/Lymph: No Bruising, No Lymphadenopathy Endocrine : No Polyuria, No Polydipsia All other systems reviewed and are negative. Medical History Environmental and seasonal allergies Temporomandibular joint dysfunction Frequent headaches Mixed dyslipidemia Immunization refused Hx of breast cancer History of COVID-19 Anxiety disorder Dyslipidemia Recurrent otitis media Retinal detachment Vini's thyroiditis Mild intermittent asthma Narrow angle glaucoma suspect of both eyes Vitamin D deficiency Acquired hypothyroidism Surgical History History of surgery H/O myringotomy History of hysterectomy History of eyelid surgery History of eye surgery Family History Father No problems noted. Mother Diabetes mellitus Heart disease Heart attack Brother No problems noted. Brother No problems noted. Brother No problems noted. Brother No problems noted. Brother No problems noted. Social History Household Members: None Housing: House Alcohol intake: current Alcohol intake frequency: a few times a week Patient Tobacco Use Status: Never used Tobacco e-Cigarette/Vaping Use: Never Used service: No Current occupational status: employed Cognitive needs: No Hearing needs: No Vision needs: No EXAM: GENERAL: The patient is well developed and nontoxic. VITAL SIGNS:see workflow HEENT: Nonicteric sclerae, PERRLA, EOMI. Oropharynx clear. Moist mucous membranes. Conjunctivae appear well perfused. No thyroid mass. CHEST: Chest wall is nontender. HEART: Regular rate and rhythm without murmurs. LUNGS: Clear to auscultation bilaterally. ABDOMEN: Soft, positive bowel sounds, nontender, no organomegaly.no flank tenderness SKIN: No rash, no excessive bruising, petechiae, or purpura. NEUROLOGIC: Cranial nerves II-XII intact without motor/sensory deficit. Psych: normal affect A?P: 1/ constipation, never had colonoscopy, could be IBS, but need to r/o underlying pathology 2/ abn imaging of stomach, prob PUD from pred and excedrin use, maybe from stress as well PLAN: 1/ EGD and colonoscopy for further asses sment, bx as well--suprep 2/ needs zofran on procedure day 3/ atherosclerosis of aorta on imaging a nd scoliosis, advised to make sure on LDL targets with PCP anthony with FH of heart disease --on statin PFSH Medical History Recurrent genital herpes Environmental and seasonal allergies Temporomandibular joint dysfunction Frequent headaches Mixed dyslipidemia Immunization refused Hx of breast cancer History of COVID-19 Anxiety disorder Dyslipidemia Recurrent otitis media Retinal detachment Vini's thyroiditis Mild intermittent asthma Narrow angle glaucoma suspect of both eyes Vitamin D deficiency Acquired hypothyroidism Surgical History History of surgery H/O myringotomy History of hysterectomy History of eyelid surgery History of eye surgery Family History Father No problems noted. Mother Diabetes mellitus Heart disease Heart attack Brother No problems noted. Brother No problems noted. Brother No problems noted. Brother No problems noted. Brother No problems noted. Social History Household Members: None Housing: House Alcohol intake: current Alcohol intake frequency: a few times a week Patient Tobacco Use Status: Never used Tobacco e-Cigarette/Vaping Use: Never Used service: No Current occupational status: employed Cognitive needs: No Hearing needs: No Vision needs: No Review of Systems Const Details: Constitutional : No Weight loss, No Fever, No Chills ENT/Mouth : No sore throat, No Rhinorrhea Eyes: No Swelling, No Redness Cardiovascular : No Chest Pain, No SOB, No Edema Respiratory : No Cough, No Sputum, No Wheezing Gastrointestinal : see HPI Genitourinary : NO Dysuria, No Urinary Frequency, No Hematuria, No Urgency Musculoskeletal : + joint pain, No Myalgias, No Joint Swelling Skin : No Skin Lesions, No rash Neuro : No Weakness, No Numbness, No Dizziness, No Headache Psych : No Anxiety/Panic, No Depression Heme/Lymph: No Bruising, No Lymphadenopathy Endocrine : No Polyuria, No Polydipsia All other systems reviewed and are negative. Physical Exam Vital Signs: Last Vital Signs Pulse 70 07/11/23 08:55 BP 100/79 07/11/23 08:55 BMI result Body Mass Index 19.6 EXAM: GENERAL: The patient is well developed and nontoxic. VITAL SIGNS:see workflow HEENT: Nonicteric sclerae, PERRLA, EOMI. Oropharynx clear. Moist mucous membra cecilio. Conjunctivae appear well perfused. No thyroid mass. CHEST: Chest wall is nontender. HEART: Regular rate and rhythm without murmurs. LUNGS: Clear to auscultation bilaterally. ABDOMEN: Soft, positive bowel sounds, nontender, no organomegaly.no flank tenderness SKIN: No rash, no excessive bruising, petechiae, or purpura. NEUROLOGIC: Cranial nerves II-XII intact without motor/sensory deficit. Psych: normal affect Assessment & Plan Assessment & Plan (1) Peptic ulcer: Code(s): K27.9 - Peptic ulcer, site unspecified, unspecified as acute or chronic, without hemorrhage or perforation Plan: see above (2) Encounter for screening colonoscopy: Code(s): Z12.11 - Encounter for screening for malignant neoplasm of colon Plan: see above Medications: New polyethylene glycol 3350 (Miralax) 17 grams PO BID 510 grams 2RF sodium,potassium,mag sulfates 17.5-3.13-1.6 gram (Suprep Bowel Prep Kit) DILUTE; drink 1/2 at 6-8 pm and half at 11 PM- 1AM 354 mL 0RF Coding Level of Care Code New Pt Level 4 (12710) Diagnoses Peptic ulcer K27.9 Encounter for screening colonoscopy Z12.11
[2023-07-11 08:55] VITALS: BP 100/79; PULSE 70; BMI 19.6
== END 2023-07-11 09:37 | disposition home or self-care (01) ==
PROVIDERS: PCP Internal Medicine; Visit Provider Internal Medicine Gastroenterology
DX: K27.9 Peptic ulcer, site unspecified, unspecified as acute or chronic, without hemorrhage or perforation (principal); Z12.11 Encounter for screening for malignant neoplasm of colon
CPT/HCPCS: 99204

== ENCOUNTER → 2023-07-11 08:44 | Outpatient (BNVA) | payer OTHER, SELFPAY | PROVIDERS: PCP Internal Medicine; Visit Provider Internal Medicine Gastroenterology | DX: Z12.11 Encounter for screening for malignant neoplasm of colon (principal); K27.9 Peptic ulcer, site unspecified, unspecified as acute or chronic, without hemorrhage or perforation | CPT/HCPCS: 99202 ==

== ENCOUNTER 2023-07-15 11:21 | Day surgery (SDC) | payer OTHER, SELFPAY ==
--- NOTE | 2023-07-14 11:05 | HO.ANESPROP2 ---
Documented by User: Diane Biggs NP 07/14/23 11:08 HPI - Anesthesia Eval Consult details Narrative: 62yo F for Upper Endoscopy and Colonoscopy *Multiple Med Allergies* PMFSH Active Problems Active Problems: All Active Problems (Updated 07/11/23 @ 09:36 by Cherelle Argueta MD) Encounter for screening colonoscopy (Acute) Peptic ulcer (Acute) Recurrent genital herpes (Acute) Sinusitis (Acute) Chest wall pain (Acute) Environmental and seasonal allergies (Acute) Temporomandibular joint dysfunction (Acute) Mixed dyslipidemia (Acute) Immunization refused (Acute) Anxiety disorder (Acute) Vini's thyroiditis (Acute) Mild intermittent asthma (Acute) Narrow angle glaucoma suspect of both eyes (Acute) Vitamin D deficiency (Acute) Acquired hypothyroidism (Acute) Past Medical History Medical History Recurrent genital herpes Environmental and seasonal allergies Temporomandibular joint dysfunction Frequent headaches Mixed dyslipidemia Immunization refused Hx of breast cancer History of COVID-19 Anxiety disorder Dyslipidemia Recurrent otitis media Retinal detachment Vini's thyroiditis Mild intermittent asthma Narrow angle glaucoma suspect of both eyes Vitamin D deficiency Acquired hypothyroidism Family History Family History Father No problems noted. Mother Diabetes mellitus Heart disease Heart attack Brother No problems noted. Brother No problems noted. Brother No problems noted. Brother No problems noted. Brother No problems noted. Surgical History Surgical History History of surgery H/O myringotomy History of hysterectomy History of eyelid surgery History of eye surgery Social History Social History Household Members: None Housing: House Alcohol intake: current Alcohol intake frequency: a few times a week Patient Tobacco Use Status: Never used Tobacco e-Cigarette/Vaping Use: Never Used Use of substances other than those prescribed or required for medical reasons: No Are you DNR?: No Advance Directives: No Advance Directives Information Provided: Yes service: No Current occupational status: employed Cognitive needs: No Hearing needs: No Vision needs: No Meds Allergies Allergy/AdvReac Type Severity Reaction Status Date / Time Opioids - Morphine Analogues Allergy Severe convultions Verified 07/15/23 13:15 sulfabenzamide Allergy Severe tongue Verified 07/15/23 13:15 swelled shut gluten [GLUTEN] Allergy Intermediate INFLAMMATION Verified 07/15/23 13:15 SYSTEMICALLY mold [MOLD] Allergy Intermediate UNKNOWN Verified 07/15/23 13:15 animal dander Allergy Unknown ASTHMA Verified 07/15/23 13:15 FLAIRUP Clindamycin HCl Allergy Unknown rash Verified 07/15/23 13:15 doxycycline [DOXYCYCLINE] Allergy Unknown RASH Verified 07/15/23 13:15 morphine [MORPHINE] Allergy Unknown SEIZURE Verified 07/15/23 13:15 LIKE EXPERIENCE - FELT TERRIBLE, convulsions penicillin V Allergy Unknown rash Verified 07/15/23 13:15 Penicillins [PENICILLINS] Allergy Unknown RASH HIVES Verified 07/15/23 13:15 soybean Allergy Unknown unknown Verified 07/15/23 13:15 Sulfa (Sulfonamide Allergy Unknown TONGUE Verified 07/15/23 13:15 Antibiotics) SWELLING, [SULFA (SULFONAMIDE swelling ANTIBIOTICS)] of mouth soy AdvReac Intermediate UPSET Verified 07/15/23 13:15 STOMACH DAIRY PRODUCTS Allergy Intermediate INFLAMMATIO Uncoded 07/15/23 13:15 N cats, dogs Allergy Unknown Unknown Uncoded 07/15/23 13:15 mole,bread and diary Allergy Unknown Unknown Uncoded 07/15/23 13:15 Home Medications Medication Instructions Recorded Confirmed Last Taken Type fluorometholone 0.1 % eye 1 drp ophthalmic (eye) NEEDED 03/15/20 07/15/23 Unknown History drops,suspension betaxolol 0.25 % eye 1 drp ophthalmic (eye) DAILY 02/15/21 07/15/23 Unknown History drops,suspension (Betoptic S) carboxymethylcellulose 0.5 1 drp ophthalmic (eye) DAILY 02/15/21 07/15/23 Unknown History %-glycerin 0.9 % (PF) eye drops,dropperette (Refresh Optive Sensitive (PF)) cyclosporine 0.05 % eye drops in a 1 drp ophthalmic (eye) DAILY 02/15/21 07/15/23 Unknown History dropperette (Restasis) brimonidine 0.1 % eye drops 1 drp ophthalmic (eye) DAILY 03/16/21 07/15/23 Unknown History (Alphagan P) dorzolamide 22.3 mg-timolol 6.8 ophthalmic (eye) 06/25/23 Unknown History mg/mL eye drops loteprednol etabonate 0.5 % eye drp ophthalmic (eye) 06/25/23 Unknown History drops,suspension (Lotemax) prednisone 5 mg tablet 5 mg PO DAILY 06/25/23 07/15/23 Unknown History Exam Pertinent Lab Results Pertinent Lab Results: Laboratory Tests 07/09/23 09:56 WBC 5.7 Hgb 14.7 Hct 43.5 Plt Count 297 Sodium 139 Potassium 4.0 Chloride 103 Carbon Dioxide 28 BUN 11 Creatinine 1.00 Narrative Narrative: EKG 05/2023 SB @ 56 Low volt QRS Nonspecific T wave abn Assessment and Plan Assessment Anesthesia Assessment: Chart Reviewed Documented by User: Rosita Rosales MD 07/15/23 14:27 PMFSH Active Problems Active Problems: All Active Problems (Updated 07/15/23 @ 13:56 by Rosita Rosales MD) Encounter for screening colonoscopy (Acute) Peptic ulcer (Acute) Recurrent genital herpes (Acute) Sinusitis (Acute) Chest wall pain (Acute) Environmental and seasonal allergies (Acute) Temporomandibular joint dysfunction (Acute) Mixed dyslipidemia (Acute) Immunization refused (Acute) Anxiety disorder (Acute) Vini's thyroiditis (Acute) Asthma (Acute)- inhalers 2ce/day Narrow angle glaucoma suspect of both eyes (Acute) Vitamin D deficiency (Acute) Acquired hypothyroidism (Acute) Dry eyes- Thyroid eye disease Post nasal drip Past Medical History Medical History Recurrent genital herpes Environmental and seasonal allergies Temporomandibular joint dysfunction Frequent headaches Mixed dyslipidemia Immunization refused Hx of breast cancer History of COVID-19 Anxiety disorder Dyslipidemia Recurrent otitis media Retinal detachment Vini's thyroiditis Mild intermittent asthma Narrow angle glaucoma suspect of both eyes Vitamin D deficiency Acquired hypothyroidism Family History Family History Father No problems noted. Mother Diabetes mellitus Heart disease Heart attack Brother No problems noted. Brother No problems noted. Brother No problems noted. Brother No problems noted. Brother No problems noted. Family history of problems with anesthesia: No Surgical History Surgical History History of surgery H/O myringotomy History of hysterectomy History of eyelid surgery History of eye surgery History of Problems with Anesthesia: Yes (PONV) Social History Social History Household Members: None Housing: House Alcohol intake: current Alcohol intake frequency: a few times a week Patient Tobacco Use Status: Never used Tobacco e-Cigarette/Vaping Use: Never Used Use of substances other than those prescribed or required for medical reasons: No Are you DNR?: No Advance Directives: No Advance Directives Information Provided: Yes service: No Current occupational status: employed Cognitive needs: No Hearing needs: No Vision needs: No Meds Allergies Allergy/AdvReac Type Severity Reaction Status Date / Time Opioids - Morphine Analogues Allergy Severe convultions Verified 07/15/23 13:15 sulfabenzamide Allergy Severe tongue Verified 07/15/23 13:15 swelled shut gluten [GLUTEN] Allergy Intermediate INFLAMMATION Verified 07/15/23 13:15 SYSTEMICALLY mold [MOLD] Allergy Intermediate UNKNOWN Verified 07/15/23 13:15 animal dander Allergy Unknown ASTHMA Verified 07/15/23 13:15 FLAIRUP Clindamycin HCl Allergy Unknown rash Verified 07/15/23 13:15 doxycycline [DOXYCYCLINE] Allergy Unknown RASH Verified 07/15/23 13:15 morphine [MORPHINE] Allergy Unknown SEIZURE Verified 07/15/23 13:15 LIKE EXPERIENCE - FELT TERRIBLE, convulsions penicillin V Allergy Unknown rash Verified 07/15/23 13:15 Penicillins [PENICILLINS] Allergy Unknown RASH HIVES Verified 07/15/23 13:15 soybean Allergy Unknown unknown Verified 07/15/23 13:15 Sulfa (Sulfonamide Allergy Unknown TONGUE Verified 07/15/23 13:15 Antibiotics) SWELLING, [SULFA (SULFONAMIDE swelling ANTIBIOTICS)] of mouth soy AdvReac Intermediate UPSET Verified 07/15/23 13:15 STOMACH DAIRY PRODUCTS Allergy Intermediate INFLAMMATIO Uncoded 07/15/23 13:15 N cats, dogs Allergy Unknown Unknown Uncoded 07/15/23 13:15 mole,bread and diary Allergy Unknown Unknown Uncoded 07/15/23 13:15 Home Medications Medication Instructions Recorded Confirmed Last Taken Type fluorometholone 0.1 % eye 1 drp ophthalmic (eye) NEEDED 03/15/20 07/15/23 Unknown History drops,suspension betaxolol 0.25 % eye 1 drp ophthalmic (eye) DAILY 02/15/21 07/15/23 Unknown History drops,suspension (Betoptic S) carboxymethylcellulose 0.5 1 drp ophthalmic (eye) DAILY 02/15/21 07/15/23 Unknown History %-glycerin 0.9 % (PF) eye drops,dropperette (Refresh Optive Sensitive (PF)) cyclosporine 0.05 % eye drops in a 1 drp ophthalmic (eye) DAILY 02/15/21 07/15/23 Unknown History dropperette (Restasis) brimonidine 0.1 % eye drops 1 drp ophthalmic (eye) DAILY 03/16/21 07/15/23 Unknown History (Alphagan P) dorzolamide 22.3 mg-timolol 6.8 ophthalmic (eye) 06/25/23 Unknown History mg/mL eye drops loteprednol etabonate 0.5 % eye drp ophthalmic (eye) 06/25/23 Unknown History drops,suspension (Lotemax) prednisone 5 mg tablet 5 mg PO DAILY 06/25/23 07/15/23 Unknown History Exam Height,Weight and Vital Signs: Height 5 ft 5 in Weight 53.524 kg Vital Signs Temp Pulse Resp BP Pulse Ox O2 Del Method 07/15/23 13:41 98.7 F 67 16 123/62 97 Room Air Airway Mallampati Class: II TM Dist: >3cm Neck ROM: Full Loose/Missing/Broken Teeth: Yes (Chipped tooth back right-repaired. Top front ?dental implant- weaker than other teeth, ?hollow-patient states worried because beginning to discolor at base) Heart: RRR Lungs: CTAB. No wheezing Other: Patient worried about dry eyes- asks to use her eye drops before. Will use eye ointment in OR as well Assessment and Plan Assessment Anesthesia Assessment: Anesthesia Plan Discussed and Chart Reviewed Final Anesthetic Review Family History of Problems with Anesthesia: No History of Problems with Anesthesia: Yes (PONV) NPO: Yes ASA Class: III Final Preanesthetic Review: No Changes in Pt Med Stat, Meds/Allgs Chart Reviewed, Consent Obtained/Reviewed and Anes Risks/Benef Reviewed Patient Risk: Intermediate Procedure Risk: Low Assessment/Block/Sedation in SS: Assess/Block/Sedation-SS Anesthetic Plan Anesthetic Plan: MAC: and TIVA Disposition: Standard PACU
[2023-07-15 13:14] VITALS: BMI 19.6
--- NOTE | 2023-07-15 13:27 | MHC.SHP ---
Pre-Procedural Eval Section A - 24 Hr Update-Section A only Date of Service: 07/15/23 The patient is an INPATIENT: No The patient has been examined within 24 hours of the surgical procedure. The History & Physical has been completed within 30 days and I have reviewed it.: Yes Section B - Complete if H&P > 30 days Chief Complaint: Generalized abdominal pain,screening Allergies: Allergies Allergy/AdvReac Type Severity Reaction Status Date / Time Opioids - Morphine Analogues Allergy Severe convultions Verified 07/15/23 13:15 sulfabenzamide Allergy Severe tongue Verified 07/15/23 13:15 swelled shut gluten [GLUTEN] Allergy Intermediate INFLAMMATION Verified 07/15/23 13:15 SYSTEMICALLY mold [MOLD] Allergy Intermediate UNKNOWN Verified 07/15/23 13:15 animal dander Allergy Unknown ASTHMA Verified 07/15/23 13:15 FLAIRUP Clindamycin HCl Allergy Unknown rash Verified 07/15/23 13:15 doxycycline [DOXYCYCLINE] Allergy Unknown RASH Verified 07/15/23 13:15 morphine [MORPHINE] Allergy Unknown SEIZURE Verified 07/15/23 13:15 LIKE EXPERIENCE - FELT TERRIBLE, convulsions penicillin V Allergy Unknown rash Verified 07/15/23 13:15 Penicillins [PENICILLINS] Allergy Unknown RASH HIVES Verified 07/15/23 13:15 soybean Allergy Unknown unknown Verified 07/15/23 13:15 Sulfa (Sulfonamide Allergy Unknown TONGUE Verified 07/15/23 13:15 Antibiotics) SWELLING, [SULFA (SULFONAMIDE swelling ANTIBIOTICS)] of mouth soy AdvReac Intermediate UPSET Verified 07/15/23 13:15 STOMACH DAIRY PRODUCTS Allergy Intermediate INFLAMMATIO Uncoded 07/15/23 13:15 N cats, dogs Allergy Unknown Unknown Uncoded 07/15/23 13:15 mole,bread and diary Allergy Unknown Unknown Uncoded 07/15/23 13:15 Plan Diagnosis/Plan: Unchanged I have reviewed the history and physical and performed a pertinent physical examination on my patient. No changes have occurred unless specified. Time Spent With Patient Time: Total time managing care of this patient today ____ minutes.
[2023-07-15 13:41] VITALS: BP 123/62; PULSE 67; RESP 16; TEMP 37.1; O2SAT 97
--- NOTE | 2023-07-15 14:25 | P.OP_ITS ---
Operative Note Operative Note Date of Service: 07/15/23 Narrative: Operative Information Procedure Description: EGD, Colonoscopy Indication: abn imaging of stomach, Anesthesia: MAC FLEXIBLE TRANSORAL UPPER GASTROINTESTINAL ENDOSCOPY AND COLONOSCOPY PROCEDURE NOTE UPPER ENDOSCOPY Consent: Indications for the procedure and potential complications of bleeding, perforation, reaction to medications and missed diagnosis were discussed with the patient and informed consent was obtained. Instrument: Olympus GIF H 190 J mid size upper endoscope Monitoring: Vital signs and clinical assessment, continuous EKG monitoring, Pulse oximetry, Carbon Dioxide monitoring and blood pressure monitoring were done throughout the procedure. Procedure: The patient was placed in the left lateral decubitis position and pre-procedure medications were administered and a bite block was placed. The endoscope was inserted into the mouth and advanced under direct vision to the third part of duodenum. A careful inspection was made as the upper endoscope was withdrawn including a retroflexed examination of the proximal stomach; Findings and interventions are described below. Findings: Larynx:normal Esophagus: GE junction at 40 cm, diaphragm hiatus at 40 cm, furrowing of mucosa and ridging noted, bx taken from GEJ, distal and proximal esophagus Stomach: Nodular mucosa and erosions at antrum. Biopsies were obtained. Grade 2 flap valve on retroflexed examination of the cardia. Duodenum: Mild bulbar duodenitis, bx taken Intervention: Biopsies as noted above, COLONOSCOPY Instrument: Olympus variable stiffness pediatric scope 190L Colonoscopy Monitoring: Vital signs and clinical assessment, continuous EKG monitoring, Pulse oximetry, Carbon Dioxide monitoring and blood pressure monitoring were done throughout the procedure. Colon withdrawal time was 23 minutes. Procedure: The patient was placed in the left lateral decubitis position and pre-procedure medications were administered. After a digital rectal examination of the ano-rectum, the video colonoscope was inserted into the rectum and advanced through the colon to the cecum/TI. The colonoscope was slowly withdrawn in a retrograde panoramic fashion and the colon mucosa was carefully examined including a retroflexed view of the rectum. Findings and interventions are described below. Procedure Difficulty:moderate Findings: Terminal Ileum-normal, bx taken Random right sided and left sided bx taken due to granular mucosa Cecum: x 2 sessile polyps 8-10 mm removed with cold snare Ascending Colon: x 3 sessile polyps 10 mm removed with cold snare Transverse Colon - x 3 sessile polyps, 6-8 mm removed with cold snare Descending Colon:normal Sigmoid Colon: moderate diverticulosis Rectum: Retroflexion with small internal hemorrhoids, grade I Anorectum - normal Colon preparation: [place] Bowel Preparation Scale Right colon; 2 Transverse colon: 2 Left colon; 2 (0 = Unprepared colon segment with mucosa not seen due to solid stool that cannot be cleared. 1 = Portion of mucosa of the colon segment seen, but other areas of the colon segment not well seen due to staining, residual stool and/or opaque liquid. 2 = Minor amount of residual staining, small fragments of stool and/or opaque liquid, but mucosa of colon segment seen well. 3 = Entire mucosa of colon segment seen well with no residual staining, small fragments of stool or opaque liquid) Impression and Post Procedure Diagnosis: Endoscopy Findings: erosive gastritis duodenitis Colonoscopy Findings: diverticulosis colon polyps internal hemorrhoids Plan: Await Pathology results Repeat Colonoscopy in 1 year or earlier if clinically indicated High fiber diet leaflet avoid straining at stool, epsom salts and sitz bath, anusol supps or cream consider increasing PPI, if h pylori pos then treat Above findings were reviewed with the patient and relevant handouts were provided if indicated.
[2023-07-15 15:04] VITALS: BP 96/46; PULSE 53; RESP 14; TEMP 37.1; O2SAT 97
[2023-07-15 15:19] VITALS: BP 113/46; PULSE 66; RESP 20; TEMP 37.1; O2SAT 99
== END 2023-07-15 15:35 | disposition home or self-care (01) ==
PROVIDERS: PCP Internal Medicine; Visit Provider Internal Medicine Gastroenterology
PROC: (CPT 43239; principal; 2023-07-15 14:40)
DX: Q39.8 Other congenital malformations of esophagus (principal); K29.60 Other gastritis without bleeding; K29.80 Duodenitis without bleeding; K20.90 Esophagitis, unspecified without bleeding; Z12.11 Encounter for screening for malignant neoplasm of colon; D12.0 Benign neoplasm of cecum; D12.2 Benign neoplasm of ascending colon; D12.3 Benign neoplasm of transverse colon; K57.30 Diverticulosis of large intestine without perforation or abscess without bleeding; K64.0 First degree hemorrhoids; E78.5 Hyperlipidemia, unspecified; A60.00 Herpesviral infection of urogenital system, unspecified; J45.30 Mild persistent asthma, uncomplicated; E55.9 Vitamin D deficiency, unspecified; E03.9 Hypothyroidism, unspecified; F41.9 Anxiety disorder, unspecified; Z85.3 Personal history of malignant neoplasm of breast
CPT/HCPCS: 43239; 45385; 45380; 88305; 88313; 88342; J2405; J2704

== ENCOUNTER → 2023-07-15 11:21 | Outpatient (BNV) | payer OTHER, SELFPAY | PROVIDERS: PCP Internal Medicine; Visit Provider Internal Medicine Gastroenterology | DX: R93.3 Abnormal findings on diagnostic imaging of other parts of digestive tract (principal); K29.80 Duodenitis without bleeding; K22.89 Other specified disease of esophagus; D12.3 Benign neoplasm of transverse colon; D12.0 Benign neoplasm of cecum; K63.89 Other specified diseases of intestine | CPT/HCPCS: 43239; 45380; 45385 ==

== ENCOUNTER 2023-08-04 13:54 | Outpatient (AMB) | payer OTHER, SELFPAY ==
--- NOTE | 2023-08-04 13:55 | A.OFFVIS_ITS ---
Intake Intake Visit Reasons: S/P colo Intake Note: Kaylynn presents as a telehealth. CC: f/u colo - states she has questions for the Dr once he calls. Allergies Opioids - Morphine Analogues Allergy (Severe, Verified 08/04/23 13:55) convultions sulfabenzamide Allergy (Severe, Verified 08/04/23 13:55) tongue swelled shut gluten [GLUTEN] Allergy (Intermediate, Verified 08/04/23 13:55) INFLAMMATION SYSTEMICALLY mold [MOLD] Allergy (Intermediate, Verified 08/04/23 13:55) UNKNOWN animal dander Allergy (Unknown, Verified 08/04/23 13:55) ASTHMA FLAIRUP Clindamycin HCl Allergy (Unknown, Verified 08/04/23 13:55) rash doxycycline [DOXYCYCLINE] Allergy (Unknown, Verified 08/04/23 13:55) RASH morphine [MORPHINE] Allergy (Unknown, Verified 08/04/23 13:55) SEIZURE LIKE EXPERIENCE - FELT TERRIBLE, convulsions penicillin V Allergy (Unknown, Verified 08/04/23 13:55) rash Penicillins [PENICILLINS] Allergy (Unknown, Verified 08/04/23 13:55) RASH HIVES soybean Allergy (Unknown, Verified 08/04/23 13:55) unknown Sulfa (Sulfonamide Antibiotics) [SULFA (SULFONAMIDE ANTIBIOTICS)] Allergy (Unknown, Verified 08/04/23 13:55) TONGUE SWELLING, swelling of mouth soy Adverse Reaction (Intermediate, Verified 08/04/23 13:55) UPSET STOMACH DAIRY PRODUCTS Allergy (Intermediate, Uncoded 08/04/23 13:55) INFLAMMATION cats, dogs Allergy (Unknown, Uncoded 08/04/23 13:55) Unknown mole,bread and diary Allergy (Unknown, Uncoded 08/04/23 13:55) Unknown HPI S/P colo HPI Details 62 yr old f with thyoriditis anxiety, gl aucoma, asthma, recurrent genital herpes called for f/u RECAP: She had went to the ED due to bloating and indigestion, and LUQ discomfort for [address] scan with abn antrum and stomach thickening she gets antibiotics she has constipation she is chronic pred 5 mg for grave opthalmoplegia she takes excedrin on regular basis for headaches she chokes and gags easily, if eats fast, but no dysphagia never had colonoscopy she has constipation, and takes sennakot, 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 just started omeprazole brother and still trying to recover labs: 07/2023-- nml HGB and CMP EGD/[place]- 07/25 Endoscopy Findings: erosive gastritis duodenitis Colonoscopy Findings: diverticulosis colon polyps internal hemorrhoids path: moderate inflammation GEJ, TA polyps- 8 melanosis coli Repeat colo recommended in 1-2 yrs INTERIM: she feels really good with omeprazole reviewed pathology eating more healthy no abdominal pain no diarrhea or constipation--feels stools are in the middle using miralax A/P: 1/ tubular adenomas 2/ erosive gastritis, esophagitis -on pp i PLAN: 1/ repeat colonoscopy in 1-2 yrs 3/ cont with PPI, take Mv and vit D supp lement PFSH Medical History (Updated 08/04/23 @ 14:28 by Cherelle Argueta MD) Recurrent genital herpes Environmental and seasonal allergies Temporomandibular joint dysfunction Frequent headaches Mixed dyslipidemia Immunization refused Hx of breast cancer History of COVID-19 Anxiety disorder Dyslipidemia Recurrent otitis media Retinal detachment Vini's thyroiditis Mild intermittent asthma Narrow angle glaucoma suspect of both eyes Vitamin D deficiency Acquired hypothyroidism Surgical History (Updated 08/04/23 @ 13:56 by AMBAR Green) Hx of colonoscopy History of surgery H/O myringotomy History of hysterectomy History of eyelid surgery History of eye surgery Family History Father No problems noted. Mother Diabetes mellitus Heart disease Heart attack Brother No problems noted. Brother No problems noted. Brother No problems noted. Brother No problems noted. Brother No problems noted. Social History Household Members: None Housing: House Alcohol intake: current Alcohol intake frequency: a few times a week Patient Tobacco Use Status: Never used Tobacco e-Cigarette/Vaping Use: Never Used service: No Current occupational status: employed Cognitive needs: No Hearing needs: No Vision needs: No Assessment & Plan Assessment & Plan (1) Tubular adenoma: Code(s): D36.9 - Benign neoplasm, unspecified site Plan: A/P: 1/ tubular adenomas 2/ erosive gastritis, esophagitis -on ppi PLAN: 1/ repeat colonoscopy in 1-2 yrs 3/ cont with PPI, take Mv and vit D supplement Telehealth Telehealth Location of provider rendering services: practice address Location of patient: address on file Patient Identification confirmed using: Name, : Yes Telehealth method: voice only Patient verbally consented to treatment: Yes Patient verbally consented to billing insurance company: Yes Patient informed of any privacy concerns related to visit: Yes Minutes spent on Phone/Video with Pt.: 9 Coding Level of Care Code Tele Est Pt Level 3 (99723) Diagnoses Tubular adenoma D36.9
== END 2023-08-04 15:20 | disposition home or self-care (01) ==
LOC: HO.HGI 13:54
PROVIDERS: PCP Internal Medicine; Visit Provider Internal Medicine Gastroenterology
DX: D36.9 Benign neoplasm, unspecified site (principal)
CPT/HCPCS: 99213

== ENCOUNTER → 2023-08-04 13:54 | Outpatient (BNVA) | payer OTHER, SELFPAY | PROVIDERS: PCP Internal Medicine; Visit Provider Internal Medicine Gastroenterology ==

== ENCOUNTER 2023-09-09 11:51 | Outpatient (AMB) | payer OTHER, SELFPAY ==
[2023-09-09 12:01] VITALS: BP 110/80; PULSE 66; TEMP 36.5; O2SAT 97; BMI 20.6
--- NOTE | 2023-09-09 12:01 | MHC.OFFWIV ---
Intake Vital Signs 09/09/23 12:01 Height 5 ft 5 in Weight 124 lb BMI 20.6 BP 110/80 Blood Pressure Location Lt brachial Position Sitting Pulse 66 Pulse Source Pulse Oximeter Temp 97.7 F Temp Source Temporal Artery Scan Pulse Oximetry (%) 97 Oxygen Delivery Method Room Air Intake Visit Reasons: EP sinus infection cough lung pain Intake Note: pt is here today for sinus infection cough lung pain started 1 week ago Patient Tobacco Use Status: Never used Tobacco Allergies Opioids - Morphine Analogues Allergy (Severe, Verified 09/09/23 12:05) convultions sulfabenzamide Allergy (Severe, Verified 09/09/23 12:05) tongue swelled shut gluten [GLUTEN] Allergy (Intermediate, Verified 09/09/23 12:05) INFLAMMATION SYSTEMICALLY mold [MOLD] Allergy (Intermediate, Verified 09/09/23 12:05) UNKNOWN animal dander Allergy (Unknown, Verified 09/09/23 12:05) ASTHMA FLAIRUP Clindamycin HCl Allergy (Unknown, Verified 09/09/23 12:05) rash doxycycline [DOXYCYCLINE] Allergy (Unknown, Verified 09/09/23 12:05) RASH morphine [MORPHINE] Allergy (Unknown, Verified 09/09/23 12:05) SEIZURE LIKE EXPERIENCE - FELT TERRIBLE, convulsions penicillin V Allergy (Unknown, Verified 09/09/23 12:05) rash Penicillins [PENICILLINS] Allergy (Unknown, Verified 09/09/23 12:05) RASH HIVES soybean Allergy (Unknown, Verified 09/09/23 12:05) unknown Sulfa (Sulfonamide Antibiotics) [SULFA (SULFONAMIDE ANTIBIOTICS)] Allergy (Unknown, Verified 09/09/23 12:05) TONGUE SWELLING, swelling of mouth soy Adverse Reaction (Intermediate, Verified 09/09/23 12:05) UPSET STOMACH DAIRY PRODUCTS Allergy (Intermediate, Uncoded 08/04/23 13:55) INFLAMMATION cats, dogs Allergy (Unknown, Uncoded 08/04/23 13:55) Unknown mole,bread and diary Allergy (Unknown, Uncoded 08/04/23 13:55) Unknown Do you need a note to return to daycare/school/sports/work: Yes HPI HPI Comments History of Present Illness Details Patient is a 62-year-old female in today for sick visit. Patient states for the past 5 days she has developed symptoms of cough, chest congestion, chest tightness, fever and chills. Patient has a past medical history significant for asthma, Vini's, and several allergies. Patient has utilize her albuterol and daily inhaler with little effect. Has not tried any [id number] medications. Patient used albuterol inhaler just prior to this appointment. Patient denies chest pain, shortness a breath, nausea, vomiting. Patient did have 1 episode of diarrhea. [facility] Medical History Recurrent genital herpes Environmental and seasonal allergies Temporomandibular joint dysfunction Frequent headaches Mixed dyslipidemia Immunization refused Hx of breast cancer History of COVID-19 Anxiety disorder Dyslipidemia Recurrent otitis media Retinal detachment Vini's thyroiditis Mild intermittent asthma Narrow angle glaucoma suspect of both eyes Vitamin D deficiency Acquired hypothyroidism Surgical History Hx of colonoscopy History of surgery H/O myringotomy History of hysterectomy History of eyelid surgery History of eye surgery Family History Father No problems noted. Mother Diabetes mellitus Heart disease Heart attack Brother No problems noted. Brother No problems noted. Brother No problems noted. Brother No problems noted. Brother No problems noted. Social History Household Members: None Housing: House Alcohol intake: current Alcohol intake frequency: a few times a week Patient Tobacco Use Status: Never used Tobacco e-Cigarette/Vaping Use: Never Used service: No Current occupational status: employed Cognitive needs: No Hearing needs: No Vision needs: No Review of Systems Const All systems reviewed & are unremarkable except as noted in HPI and below Physical Exam Vital Signs: Last Vital Signs Temp 97.7 F 09/09/23 12:01 Pulse 66 09/09/23 12:01 BP 110/80 09/09/23 12:01 Pulse Ox 97 09/09/23 12:01 Oxygen Delivery Method Room Air 09/09/23 12:01 BMI result Body Mass Index 20.6 Const Other: Appearance: Alert.? Oriented X3.? No acute distress.? Head: Normocephalic. Eyes: Pupils equal, round and reactive to light.? ENT: Pharynx erythema, no exudate. TM intact and pearly howe. + sinus tenderness. Neck: Normal inspection.? Neck supple.? CVS: Normal heart rate and rhythm.? Pulses normal.? Respiratory: No respiratory distress.? Wheeze of bilateral upper lobes. Abdomen: Soft and nontender.? Neuro: Oriented X 3.? No motor deficit.? No sensory deficit. CN 2-12 intact Assessment & Plan Assessment & Plan (1) Sinusitis: Comment: Will obtain URI swab. Will give azithromycin. Code(s): J32.9 - Chronic sinusitis, unspecified Qualifiers: Sinusitis location: maxillary Chronicity: acute Recurrence: non-recurrent Qualified Code(s): J01.00 - Acute maxillary sinusitis, unspecified Plan: Take your medications as prescribed. If you were prescribed antibiotics today, it is important that you take your medication to their entirety, do not skip any doses, do not finish them early. Follow-up with your primary care provider this week. Return to the emergency department with new or worsening symptoms. Such as fevers, chills, chest pain, shortness of breath, nausea, vomiting, dizziness, headache, vision changes, lethargy In case of emergency call 911 (2) Bronchitis: Code(s): J40 - Bronchitis, not specified as acute or chronic Plan: Will give prednisone. Will also get CMP, CBC, chest x-ray. Plan Follow up with pcp. Orders: Orders XR chest 2V Today J18.9 - Pneumonia, unspecified organism Complete Blood Count Auto Diff Today Z13.0 - Encounter for screening for diseases of the blood and blood-forming organs and certain disorders involving the immune mechanism SARS-CoV2/FLU/RSV Today J06.9 - Acute upper respiratory infection, unspecified Comprehensive Met. Panel Today Z91.89 - Other specified personal risk factors, not elsewhere classified Medications: New azithromycin For 250 mg dose pack: take 500 mg today (day 1), then 250 mg for 4 days (days 2-5) PO 6 tabs 0RF prednisone 20 mg PO BID 10 tabs 0RF Coding Level of Care Code Est Pt Level 3 (32981) Diagnoses Acute non-recurrent maxillary sinusitis J01.00 Sinusitis location: maxillary Chronicity: acute Recurrence: non-recurrent Bronchitis J40 Time Spent (min) 26
== END 2023-09-09 13:00 | disposition home or self-care (01) ==
PROVIDERS: PCP Internal Medicine; Visit Provider Nurse Practitioner Primary Care
DX: J01.00 Acute maxillary sinusitis, unspecified (principal); J40 Bronchitis, not specified as acute or chronic
CPT/HCPCS: 99213

== ENCOUNTER 2023-09-09 12:40 | Outpatient (REF) | payer OTHER, SELFPAY ==
--- NOTE | ~2023-09-09 | XR_ITS ---
EXAMINATION: XR CHEST CLINICAL INFORMATION: Pneumonia COMPARISON: Chest radiograph 05/14/2023, CT abdomen pelvis 07/09/2023 TECHNIQUE: 2 views of the chest were obtained. FINDINGS: There is biconvex thoracolumbar scoliosis. Heart size normal. No infiltrates, effusions or lung masses are seen. Healed right-sided rib fractures are again seen. XR/XR chest 2V IMPRESSION: No acute intrathoracic disease.
[2023-09-09 14:08] LABS: Influenza A PCR NEGATIVE (Negative); Influenza B PCR NEGATIVE (Negative); Resp Syncy Virus RNA Qual PCR NEGATIVE (Negative); SARS COV2 PCR INHOUSE NEGATIVE (Negative)
[2023-09-09 16:21] LABS: MANUAL DIFF FLAG NO
[2023-09-09 16:37] LABS: Basophils Absolute Auto 0.1 X10*3/uL (0.0-0.2); Basophils Percent Auto 1.2 % (0-2); Eosinophils Absolute Auto 0.2 X10*3/uL (0.0-0.4); Eosinophils Percent Auto 3.7 % (0-4); Hematocrit 40.2 % (37.0-47.0); Hemoglobin 13.2 g/dl (12.0-16.0); Imm Gran Abs Auto 0.02 X10*3/uL (0.00-0.03); Imm Gran Pct Auto 0.4 % (0.0-0.4); Lymphocytes Absolute Auto 1.1 X10*3/uL (1.2-4.9); Lymphocytes Percent Auto 21.8 % (20-40); Mean Corpuscular HGB Conc 32.8 g/dl (31.0-35.0); Mean Corpuscular Volume 94.4 fL (80.0-98.0); Mean Platelet Volume 9.5 fL (9.4-12.3); Monocytes Absolute Auto 0.5 X10*3/uL (0.1-1.2); Monocytes Percent Auto 9.8 % (2-11); Neutrophils Absolute Auto 3.2 x10*3/uL (2.0-8.3); Neutrophils Percent Auto 63.1 % (45-73); Platelet Count 298 X10*3/uL (160-400); Red Blood Count 4.26 X10*6/uL (4.20-5.50); Red Cell Distribution Width 12.1 % (11.0-16.0); White Blood Count 5.1 X10*3/uL (4.8-10.8)
[2023-09-09 17:32] LABS: Alanine Aminotransferase 19 U/L (0-31); Albumin Level 4.1 g/dL (3.5-5.0); Alkaline Phosphatase 75 U/L (39-117); Anion Gap 12 (12-20); Aspartate Amino Transferase 28 U/L (5-31); Bilirubin Total 0.3 mg/dL (0.0-1.0); Blood Urea Nitrogen 13 mg/dL (9-16); Calcium 9.3 mg/dL (8.4-10.2); Carbon Dioxide 26 mmol/L (22-29); Chloride 107 mmol/L (96-108); Estimated Glomerular Filt Rate > 60; Glucose Random 92 mg/dL (60-115); Potassium 3.9 mmol/L (3.3-5.1); Sodium 141 mmol/L (135-145); Total Protein 7.2 g/dL (6.5-8.0)
== END 2023-09-09 12:41 | disposition home or self-care (01) ==
LOC: HO.HMGCX 12:40
PROVIDERS: PCP Internal Medicine; Visit Provider Nurse Practitioner Primary Care
DX: Z13.0 Encounter for screening for diseases of the blood and blood-forming organs and certain disorders involving the immune mechanism (principal); J18.9 Pneumonia, unspecified organism; J06.9 Acute upper respiratory infection, unspecified; Z91.89 Other specified personal risk factors, not elsewhere classified
CPT/HCPCS: 0241U; 36415; 71046; 80053; 85025

== ENCOUNTER 2023-09-13 13:48 | Outpatient (AMB) | payer OTHER, SELFPAY ==
--- NOTE | 2023-09-13 13:50 | MHC.OFFWIV ---
Intake Vital Signs 09/13/23 13:52 Height 5 ft 5 in Weight 123 lb BMI 20.5 BP 110/70 Blood Pressure Location Rt brachial Position Sitting Pulse 70 Pulse Source Pulse Oximeter Temp 98.1 F Temp Source Oral Pulse Oximetry (%) 98 Oxygen Delivery Method Room Air Intake Visit Reasons: EST/ongoing cough (lobby) Intake Note: Pt is here today ongoing cough just finished a course of abx and prednisone pt not better Patient Tobacco Use Status: Never used Tobacco Allergies Opioids - Morphine Analogues Allergy (Severe, Verified 09/13/23 13:56) convultions sulfabenzamide Allergy (Severe, Verified 09/13/23 13:56) tongue swelled shut gluten [GLUTEN] Allergy (Intermediate, Verified 09/13/23 13:56) INFLAMMATION SYSTEMICALLY mold [MOLD] Allergy (Intermediate, Verified 09/13/23 13:56) UNKNOWN animal dander Allergy (Unknown, Verified 09/13/23 13:56) ASTHMA FLAIRUP Clindamycin HCl Allergy (Unknown, Verified 09/13/23 13:56) rash doxycycline [DOXYCYCLINE] Allergy (Unknown, Verified 09/13/23 13:56) RASH morphine [MORPHINE] Allergy (Unknown, Verified 09/13/23 13:56) SEIZURE LIKE EXPERIENCE - FELT TERRIBLE, convulsions penicillin V Allergy (Unknown, Verified 09/13/23 13:56) rash Penicillins [PENICILLINS] Allergy (Unknown, Verified 09/13/23 13:56) RASH HIVES soybean Allergy (Unknown, Verified 09/13/23 13:56) unknown Sulfa (Sulfonamide Antibiotics) [SULFA (SULFONAMIDE ANTIBIOTICS)] Allergy (Unknown, Verified 09/13/23 13:56) TONGUE SWELLING, swelling of mouth soy Adverse Reaction (Intermediate, Verified 09/13/23 13:56) UPSET STOMACH DAIRY PRODUCTS Allergy (Intermediate, Uncoded 09/13/23 13:54) INFLAMMATION cats, dogs Allergy (Unknown, Uncoded 09/13/23 13:54) Unknown mole,bread and diary Allergy (Unknown, Uncoded 09/13/23 13:54) Unknown Medication List - Last Reconciled 09/13/23 by Olesya Hayes, DIAMOND SELECTOR- alprazolam 0.25 mg PO DAILY PRN ascorbic acid (vitamin C) (Vitamin C) 500 mg PO DAILY azelastine 1 spray intranasal BID betaxolol 0.25% (Betoptic S) 1 drp ophthalmic (eye) DAILY brimonidine 0.1% (Alphagan P) 1 drp ophthalmic (eye) DAILY carboxymethylcell-glycerin(PF) 0.5-0.9 % (Refresh Optive Sensitive (PF)) 1 drp ophthalmic (eye) DAILY cyclosporine 0.05% (Restasis) 1 drp ophthalmic (eye) DAILY dorzolamide-timolol 22.3-6.8 mg/mL ophthalmic (eye) fluorometholone 0.1% 1 drp ophthalmic (eye) NEEDED fluticasone furoate 100 mcg/actuation (Arnuity Ellipta) 1 inh inhalation Q24H fluticasone propionate 50 mcg/actuation 2 sprays intranasal DAILY inhalational spacing device (BreatheRite MDI Spacer) As directed levothyroxine 88 mcg PO DAILY loteprednol etabonate 0.5% (Lotemax) drps ophthalmic (eye) nebulizers (AeroEclipse II Nebulizer) As directed omeprazole 40 mg PO DAILY 90 days polyethylene glycol 3350 (Miralax) 17 grams PO BID rosuvastatin 5 mg PO Q2D valacyclovir 500 mg PO Q12H 3 days Ventolin HFA 90 mcg/actuation (albuterol sulfate) 2 puffs inhalation Q6H PRN NS HPI HPI Comments History of Present Illness Details Patient was seen here on 09/09/2023 of her walk-in visit. A CBC and CMP were done and within normal limits. A viral swab was obtained and this was also within normal limits. She had a chest x-ray and this was also within normal limits. She was treated with azithromycin and prednisone for bronchitis. She just completed her course of therapy and continues to have a cough. She has severe anxiety and she is worried about having bronchitis or getting a pneumonia. She admits to overusing her inhalers. She is worried about going to mother's day celebration with this illness and getting other sick. She would like another round of antibiotics as she really thinks that she would benefit from this. Awake alert NAD, very anxious, forcing herself to cough and attempting to cough up mucus to show me the color. When she is distracted, she is not coughing at all & is talking in a clear voice. She then develops periods of tachypnea that is also forced. Once again, once she is distracted this immediately resolves. LS CTAB , no wheezing, no rales, no rhonchi. Appears well. PFS Medical History Recurrent genital herpes Environmental and seasonal allergies Temporomandibular joint dysfunction Frequent headaches Mixed dyslipidemia Immunization refused Hx of breast cancer History of COVID-19 Anxiety disorder Dyslipidemia Recurrent otitis media Retinal detachment Vini's thyroiditis Mild intermittent asthma Narrow angle glaucoma suspect of both eyes Vitamin D deficiency Acquired hypothyroidism Surgical History Hx of colonoscopy History of surgery H/O myringotomy History of hysterectomy History of eyelid surgery History of eye surgery Family History Father No problems noted. Mother Diabetes mellitus Heart disease Heart attack Brother No problems noted. Brother No problems noted. Brother No problems noted. Brother No problems noted. Brother No problems noted. Social History Household Members: None Housing: House Alcohol intake: current Alcohol intake frequency: a few times a week Patient Tobacco Use Status: Never used Tobacco e-Cigarette/Vaping Use: Never Used service: No Current occupational status: employed Cognitive needs: No Hearing needs: No Vision needs: No Review of Systems Const All systems reviewed & are unremarkable except as noted in HPI and below Physical Exam Vital Signs: Last Vital Signs Temp 98.1 F 09/13/23 13:52 Pulse 70 09/13/23 13:52 BP 110/70 09/13/23 13:52 Pulse Ox 98 09/13/23 13:52 Oxygen Delivery Method Room Air 09/13/23 13:52 BMI result Body Mass Index 20.5 Assessment & Plan Assessment & Plan (1) Bronchitis: Code(s): J40 - Bronchitis, not specified as acute or chronic Plan: . Plan . Medications: New benzonatate 100 mg PO TID 10 days PRN 30 caps 1RF cough Patient Instructions: Reassurance provided today that her lungs are clear. Reviewed her labs and her chest x-ray along with her viral swab with her. Educated her that the azithromycin as in her system for several days even after she completes the pack. There was no indication to prescribe any more antibiotics or any additional steroids. Educated her that she should not overuse any of her medications and should take all of the mass directed and then includes her inhalers. I will prescribe her an antitussive to help. Otherwise supportive care and reassurance. Why aren't I getting antibiotics? I am so sick. I need them. I am empathetic that you're not feeling well & want you to recover quickly. The reason I have not prescribed antibiotics today is because I am an [employer] [place]. What does that mean? It means that I am aiding in reducing Antimicrobial resistance (AMR). Antimicrobial resistance (AMR) is one of the top global public health and development threats. It is estimated that bacterial AMR was directly responsible for 1.27 million global deaths in 2019 and contributed to 4.95 million deaths. The misuse and overuse of antimicrobials in humans, animals and plants are the main drivers in the development of drug-resistant pathogens. Taking an antibiotic increases a patient?s chance of becoming colonized or infected with a resistant organism, and taking an antibiotic when not needed can lead to the development of antibiotic resistance. So the why... is because I care! Coding Level of Care Code Est Pt Level 4 (99783) Diagnoses Bronchitis J40
[2023-09-13 13:52] VITALS: BP 110/70; PULSE 70; TEMP 36.7; O2SAT 98; BMI 20.5
== END 2023-09-13 14:09 | disposition home or self-care (01) ==
PROVIDERS: PCP Internal Medicine; Visit Provider Nurse Practitioner Family
DX: J40 Bronchitis, not specified as acute or chronic (principal)
CPT/HCPCS: 99051; 99214

== ENCOUNTER 2023-11-17 11:04 | Outpatient (AMB) | payer OTHER, SELFPAY ==
--- NOTE | 2023-11-17 11:06 | A.OFFPC_ITS ---
Vital Signs 11/17/23 11:16 Height 5 ft 5 in Weight 121 lb BMI 20.1 BP 120/76 Blood Pressure Location Lt brachial Position Sitting Pulse 61 Pulse Source Pulse Oximeter Pulse Oximetry (%) 98 Oxygen Delivery Method Room Air Intake Visit Reasons: Annual PE Intake Note: Pt is here today for her PE: Last mammogram 08/02/23: colonoscopy 07/11/23: Hx of partial hysterectomy Allergies Opioids - Morphine Analogues Allergy (Severe, Verified 11/17/23 11:31) convultions sulfabenzamide Allergy (Severe, Verified 11/17/23 11:31) tongue swelled shut gluten [GLUTEN] Allergy (Intermediate, Verified 11/17/23 11:31) INFLAMMATION SYSTEMICALLY mold [MOLD] Allergy (Intermediate, Verified 11/17/23 11:31) UNKNOWN animal dander Allergy (Unknown, Verified 11/17/23 11:31) ASTHMA FLAIRUP Clindamycin HCl Allergy (Unknown, Verified 11/17/23 11:31) rash doxycycline [DOXYCYCLINE] Allergy (Unknown, Verified 11/17/23 11:31) RASH morphine [MORPHINE] Allergy (Unknown, Verified 11/17/23 11:31) SEIZURE LIKE EXPERIENCE - FELT TERRIBLE, convulsions penicillin V Allergy (Unknown, Verified 11/17/23 11:31) rash Penicillins [PENICILLINS] Allergy (Unknown, Verified 11/17/23 11:31) RASH HIVES soybean Allergy (Unknown, Verified 11/17/23 11:31) unknown Sulfa (Sulfonamide Antibiotics) [SULFA (SULFONAMIDE ANTIBIOTICS)] Allergy (Unknown, Verified 11/17/23 11:31) TONGUE SWELLING, swelling of mouth soy Adverse Reaction (Intermediate, Verified 11/17/23 11:31) UPSET STOMACH DAIRY PRODUCTS Allergy (Intermediate, Uncoded 11/17/23 11:31) INFLAMMATION cats, dogs Allergy (Unknown, Uncoded 11/17/23 11:31) Unknown mole,bread and diary Allergy (Unknown, Uncoded 11/17/23 11:31) Unknown Medication List - Last Reconciled 11/17/23 by Stephania Guaman MD alprazolam 0.25 mg PO DAILY PRN ascorbic acid (vitamin C) (Vitamin C) 500 mg PO DAILY azelastine 1 spray intranasal BID betaxolol 0.25% (Betoptic S) 1 drp ophthalmic (eye) DAILY brimonidine 0.1% (Alphagan P) 1 drp ophthalmic (eye) DAILY carboxymethylcell-glycerin(PF) 0.5-0.9 % (Refresh Optive Sensitive (PF)) 1 drp ophthalmic (eye) DAILY cyclosporine 0.05% (Restasis) 1 drp ophthalmic (eye) DAILY dorzolamide-timolol 22.3-6.8 mg/mL ophthalmic (eye) fluorometholone 0.1% 1 drp ophthalmic (eye) NEEDED fluticasone furoate 100 mcg/actuation (Arnuity Ellipta) 1 inh inhalation Q24H fluticasone propionate 50 mcg/actuation 2 sprays intranasal DAILY inhalational spacing device (BreatheRite MDI Spacer) As directed levothyroxine 88 mcg PO DAILY loteprednol etabonate 0.5% (Lotemax) drps ophthalmic (eye) nebulizers (AeroEclipse II Nebulizer) As directed omeprazole 40 mg PO DAILY 90 days polyethylene glycol 3350 (Miralax) 17 grams PO BID rosuvastatin 5 mg PO DAILY valacyclovir 500 mg PO Q12H 3 days Ventolin HFA 90 mcg/actuation (albuterol sulfate) 2 puffs inhalation Q6H PRN NS Tobacco use date assessed: 11/17/23 Dental Screening Dental Screen Date: 11/17/23 Did you have a dental visit in the last 12 months?: Yes Did you have a dental problem in the last 6 months where you did not have access to dental care?: No Was dental information given to patient?: Patient has dentist HPI Annual PE HPI Details 63-year-old lady with history of narrow angle glaucoma, Vini's thyroiditis with hypothyroidism, history of recurrent genital herpes, mixed dyslipidemia, mild intermittent asthma, acquired hypothyroidism, and recurrent sinusitis, here today for physical exam. She is up-to-date with her mammogram, last done 08/02/23: Had a screening colonoscopy and upper endoscopy done by Dr. Argueta last 07/11/23 which showed presence of acute esophagitis and duodenitis as well as removal of several tubular adenoma polyps. Patient states that she no longer gets cervical cancer screenings she had partial hysterectomy with salpingo-oophorectomy due to prolapsing uterine fibroid from cervical os. She declines getting any vaccines [facility] Medical History (Updated 11/23/23 @ 22:46 by Stephania Guaman MD) History of adenomatous polyp of colon Fatigue Recurrent genital herpes Environmental and seasonal allergies Temporomandibular joint dysfunction Frequent headaches Mixed dyslipidemia Immunization refused Hx of breast cancer History of COVID-19 Anxiety disorder Dyslipidemia Recurrent otitis media Retinal detachment Vini's thyroiditis Mild intermittent asthma Narrow angle glaucoma suspect of both eyes Vitamin D deficiency Acquired hypothyroidism Surgical History Hx of colonoscopy History of surgery H/O myringotomy History of hysterectomy History of eyelid surgery History of eye surgery Family History Father No problems noted. Mother Diabetes mellitus Heart disease Heart attack Brother No problems noted. Brother No problems noted. Brother No problems noted. Brother No problems noted. Brother No problems noted. Social History Household Members: None Housing: House Alcohol intake: current Alcohol intake frequency: a few times a week Patient Tobacco Use Status: Never used Tobacco e-Cigarette/Vaping Use: Never Used service: No Current occupational status: employed Cognitive needs: No Hearing needs: No Vision needs: No Female Reproductive History Menstrual Menopause type: surgical Questionnaire PHQ-9 Over the last 2 weeks, how often have you been bothered by any of the following problems? Depression Screening Interpretation: Negative Depression Screening Done: Yes Source: Developed by Drs. Angel Allen, Manuela Gardner, Emre Palacios and colleagues, with an educational cresencio from [employer]. Thrive Questionnaire Date Thrive assessed: 06/09/23 PASCUAL-7 AMB Questionnaire PASCUAL-7 Date PASCUAL - 7 assessed: 06/09/23 Source: Developed by Drs. Angel Allen, Manuela Gardner, Emre Palacios and colleagues, with an educational cresencio from [employer]. Review of Systems Const Denies fever(s) and Denies headache(s) Eyes Details: Followed by [facility] and [facility] Denies change in vision ENT Denies headache(s), Denies sinus pressure and Denies sore throat Card Denies syncope, Denies rapid heart rate and Denies dyspnea Resp Denies dyspnea GI Denies abdominal pain, Denies melena, Denies hematochezia, Denies change in bowel habits and Reports heartburn Reports no additional complaints Musc Denies arthralgias and Reports stiffness Skin/Breast Denies lesions, Denies erythema, Denies rash and Denies unusual bruising Neuro Denies syncope and Denies headache(s) Psych Reports no additional complaints Endo Reports no additional complaints Kiel/Lymph Reports no additional complaints Aller/Immun Reports seasonal rhinorrhea Physical exam (Primary Care) Vital Signs: Last Vital Signs Pulse 61 11/17/23 11:16 BP 120/76 11/17/23 11:16 Pulse Ox 98 11/17/23 11:16 Oxygen Delivery Method Room Air 11/17/23 11:16 BMI result Body Mass Index 20.1 Tobacco/Smoking Status: Tobacco use Status Tobacco use date assessed 11/17/23 11/17/23 11:20 Patient Tobacco Use Status Never used Tobacco 11/17/23 11:08 e-Cigarette/Vaping Use Never Used 11/17/23 11:08 Depression Screening Interpretation: Negative Thrive Assessment: Date of Thrive Assessment Date Thrive assessed 06/09/23 11/17/23 11:08 Advance Care Planning discussion: Completed/Scanned Date of discussion: 11/17/23 Who was present: Patient Forms completed: Health Care Proxy Time spent: 16-45 minutes Actual minutes spent: 16 Const Other: Alert oriented x3, no acute distress noted, ambulatory normal gait HENMT Head: Yes normocephalic Mouth: Normal oral and palatal mucosa present, oropharynx normal and moist mucous membranes Eyes General: appearance normal, both eyes and all related structures Neck Neck: Yes full ROM, Yes no lymphadenopathy and Yes supple Thyroid: Thyroid normal (Nonpalpable) and nontender Chest Other: Right mastectomy scar, no redness or swelling noted, nontender to palpation Resp Effort & Inspection: normal respiratory effort and able to speak in complete sentences Auscultation: clear to auscultation bilaterally Cardio Other: S1-S2 present regular rate and rhythm GI Palpation (GI): Soft to palpation, nontender, no guarding and no masses Auscultation: normal bowel sounds General: Yes no CVA tenderness Back/Spine/Pelvis Back: no CVA tenderness Skin General skin exam: no rashes or lesions noted Neuro General: gait normal, tone normal, moves all extremities and no focal motor deficits Extrem General: Yes full ROM, Yes no joint enlargement, Yes no clubbing, cyanosis or edema and Yes normal gait Psych Appearance: grossly normal and well kempt Mental Status: mental status grossly normal Speech and movement: Normal speech and movement present Affect: normal affect Thought process: Normal thought process present Thought content: Normal thought content present Assessment and Plan Assessment & Plan (1) Annual visit for general adult medical examination with abnormal findings: Code(s): Z00.01 - Encounter for general adult medical examination with abnormal findings Plan: Will check appropriate labs. Recommended dental visit every 6 months and regular eye exams, goes to [facility] and [facility]. Take adequate calcium in diet and vitamin-D 3 at 2000 IU per cap once a day, in addition to weight- bearing exercises to help maintain good muscle tone and weight control. Instructed to do self-breast exam, and continue with yearly mammogram, patient longer gets cervical cancer screenings due to partial hysterectomy. Up-to-date with her screening colonoscopy done 07/2023, with removal of several tubular adenoma polyps, due again for recheck in 1-2 years, per Dr. Argueta. Patient declines getting any vaccines (2) Advanced directives, counseling/discussion: Code(s): Z71.89 - Other specified counseling Plan: Initiated the conversation about Advanced Directives. Advanced Directives help patients prepare for current and future decisions about their medical treatment and place of care. Discussed with patient that it is a process where a patients current condition and prognosis are reviewed, their wishes for information regarding their illness are elicited, and likely medical dilemmas are presented and options discussed. Healthcare proxy form done today. The form can be amended as needed, reviewed yearly and make changes as needed (3) Narrow angle glaucoma suspect of both eyes: Code(s): H40.033 - Anatomical narrow angle, bilateral Plan: Currently followed by [facility] and [facility] (4) Mild intermittent asthma: Code(s): J45.20 - Mild intermittent asthma, uncomplicated Plan: Currently on fluticasone furoate, 1 inhalation once a day and is on Ventolin inhaler 2 be used only as needed for episodes of bronchospasm and wheezing. (5) Vini's thyroiditis: Code(s): E06.3 - Autoimmune thyroiditis Plan: Will check TSH with free T4 currently on levothyroxine 88 mcg daily (6) Anxiety disorder: Code(s): F41.9 - Anxiety disorder, unspecified Plan: Currently taking alprazolam 0.25 mg 1 tablet once a day as needed for acute anxiety attacks. Does not want referral for therapy to start any new medications. (7) Mixed dyslipidemia: Code(s): E78.2 - Mixed hyperlipidemia Plan: Fasting lipid panel ordered, currently on rosuvastatin 5 mg once a day (8) Environmental and seasonal allergies: Code(s): J30.89 - Other allergic rhinitis Plan: Currently on fluticasone propionate 2 sprays intranasally daily (9) Tubular adenoma: Code(s): D36.9 - Benign neoplasm, unspecified site Plan: Seen on recent colonoscopy, followed by Dr. Argueta, repeat colonoscopy in 1-2 years (10) Fatigue: Code(s): R53.83 - Other fatigue Plan: Ordered comprehensive metabolic panel, TSH and free T4, vitamin-D and B12 level (11) Immunization refused: Code(s): Z28.21 - Immunization not carried out because of patient refusal (12) Peptic ulcer: Code(s): K27.9 - Peptic ulcer, site unspecified, unspecified as acute or chronic, without hemorrhage or perforation Plan: Seen on recent upper endoscopy done by Dr. Argueta 07/2023, currently on omeprazole 40 mg daily Orders: Orders Glucose Fasting 11/17/23 D36.9 - Benign neoplasm, unspecified site, E06.3 - Autoimmune thyroiditis, E78.2 - Mixed hyperlipidemia, F41.9 - Anxiety disorder, unspecified, H40.033 - Anatomical narrow angle, bilateral, J30.89 - Other allergic rhinitis, J45.20 - Mild intermittent asthma, uncomplicated, R53.83 - Other fatigue, Z78.0 - Asymptomatic menopausal state Comprehensive [place]. Panel Fast 11/17/23 D36.9 - Benign neoplasm, unspecified site, E06.3 - Autoimmune thyroiditis, E78.2 - Mixed hyperlipidemia, F41.9 - Anxiety disorder, unspecified, H40.033 - Anatomical narrow angle, bilateral, J30.89 - Other allergic rhinitis, J45.20 - Mild intermittent asthma, uncomplicated, R53.83 - Other fatigue, Z78.0 - Asymptomatic menopausal state Vitamin B12 and Folate 11/17/23 D36.9 - Benign neoplasm, unspecified site, E06.3 - Autoimmune thyroiditis, E78.2 - Mixed hyperlipidemia, F41.9 - Anxiety disorder, unspecified, H40.033 - Anatomical narrow angle, bilateral, J30.89 - Other allergic rhinitis, J45.20 - Mild intermittent asthma, uncomplicated, R53.83 - Other fatigue, Z78.0 - Asymptomatic menopausal state Lipid Panel 11/17/23 D36.9 - Benign neoplasm, unspecified site, E06.3 - Autoimmune thyroiditis, E78.2 - Mixed hyperlipidemia, F41.9 - Anxiety disorder, unspecified, H40.033 - Anatomical narrow angle, bilateral, J30.89 - Other allergic rhinitis, J45.20 - Mild intermittent asthma, uncomplicated, R53.83 - Other fatigue, Z78.0 - Asymptomatic menopausal state Creatine Kinase Total 11/17/23 D36.9 - Benign neoplasm, unspecified site, E06.3 - Autoimmune thyroiditis, E78.2 - Mixed hyperlipidemia, F41.9 - Anxiety disorder, unspecified, H40.033 - Anatomical narrow angle, bilateral, J30.89 - Other allergic rhinitis, J45.20 - Mild intermittent asthma, uncomplicated, R53.83 - Other fatigue, Z78.0 - Asymptomatic menopausal state Free T4 (Free Thyroxine) Today E06.3 - Autoimmune thyroiditis Thyroid Stimulating Hormone 11/17/23 D36.9 - Benign neoplasm, unspecified site, E06.3 - Autoimmune thyroiditis, E78.2 - Mixed hyperlipidemia, F41.9 - Anxiety disorder, unspecified, H40.033 - Anatomical narrow angle, bilateral, J30.89 - Other allergic rhinitis, J45.20 - Mild intermittent asthma, uncomplicated, R53.83 - Other fatigue, Z78.0 - Asymptomatic menopausal state Vitamin D 25-OH Total 11/17/23 D36.9 - Benign neoplasm, unspecified site, E06.3 - Autoimmune thyroiditis, E78.2 - Mixed hyperlipidemia, F41.9 - Anxiety disorder, unspecified, H40.033 - Anatomical narrow angle, bilateral, J30.89 - O ther allergic rhinitis, J45.20 - Mild intermittent asthma, uncomplicated, R53.83 - Other fatigue, Z78.0 - Asymptomatic menopausal state Medications: Changed From rosuvastatin 5 mg PO DAILY To rosuvastatin 5 mg PO DAILY 3 months 90 tabs 2RF Coding Level of Care Code Est Pt Prev Care 40-64y(13224) Diagnoses Annual visit for general adult medical examination with abnormal findings Z00.01 Advanced directives, counseling/discussion Z71.89 Narrow angle glaucoma suspect of both eyes H40.033 Mild intermittent asthma J45.20 Vini's thyroiditis E06.3 Anxiety disorder F41.9 Mixed dyslipidemia E78.2 Environmental and seasonal allergies J30.89 Tubular adenoma D36.9 Fatigue R53.83 Immunization refused Z28.21 Peptic ulcer K27.9 Additional Codes Vital Signs *Quality* - Advance Care Planning discussion: Completed/Scanned ([id number]) Vital Signs *Quality* - Time spent: 16-45 minutes ([id number])
[2023-11-17 11:16] VITALS: BP 120/76; PULSE 61; O2SAT 98; BMI 20.1
== END 2023-11-17 12:31 | disposition home or self-care (01) ==
PROVIDERS: PCP Internal Medicine; Visit Provider Internal Medicine
DX: Z00.00 Encounter for general adult medical examination without abnormal findings (principal); H40.033 Anatomical narrow angle, bilateral; J45.20 Mild intermittent asthma, uncomplicated; E06.3 Autoimmune thyroiditis; F41.9 Anxiety disorder, unspecified; E78.2 Mixed hyperlipidemia; J30.89 Other allergic rhinitis; D36.9 Benign neoplasm, unspecified site; R53.83 Other fatigue; Z28.21 Immunization not carried out because of patient refusal; K27.9 Peptic ulcer, site unspecified, unspecified as acute or chronic, without hemorrhage or perforation
CPT/HCPCS: 1123F; 99396; 99497

== ENCOUNTER 2023-12-16 08:08 | Outpatient (AMB) | payer OTHER, SELFPAY ==
--- NOTE | 2023-12-16 08:13 | AM.OFFWIN_ITS ---
Intake Vital Signs 12/16/23 08:14 Height 5 ft 5 in Weight 120 lb BMI 20.0 BP 110/82 Blood Pressure Location Lt brachial Position Sitting Pulse 61 Pulse Source Pulse Oximeter Temp 97.9 F Temp Source Oral Pulse Oximetry (%) 99 Intake Visit Reasons: EP LT ear Intake Note: pt c/o LT ear pain, blocked, crackling. Dizziness. Started Friday Patient Tobacco Use Status: Never used Tobacco Allergies Opioids - Morphine Analogues Allergy (Severe, Verified 12/16/23 08:14) convultions sulfabenzamide Allergy (Severe, Verified 12/16/23 08:14) tongue swelled shut gluten [GLUTEN] Allergy (Intermediate, Verified 12/16/23 08:14) INFLAMMATION SYSTEMICALLY mold [MOLD] Allergy (Intermediate, Verified 12/16/23 08:14) UNKNOWN animal dander Allergy (Unknown, Verified 12/16/23 08:14) ASTHMA FLAIRUP Clindamycin HCl Allergy (Unknown, Verified 12/16/23 08:14) rash doxycycline [DOXYCYCLINE] Allergy (Unknown, Verified 12/16/23 08:14) RASH morphine [MORPHINE] Allergy (Unknown, Verified 12/16/23 08:14) SEIZURE LIKE EXPERIENCE - FELT TERRIBLE, convulsions penicillin V Allergy (Unknown, Verified 12/16/23 08:14) rash Penicillins [PENICILLINS] Allergy (Unknown, Verified 12/16/23 08:14) RASH HIVES soybean Allergy (Unknown, Verified 12/16/23 08:14) unknown Sulfa (Sulfonamide Antibiotics) [SULFA (SULFONAMIDE ANTIBIOTICS)] Allergy (Unknown, Verified 12/16/23 08:14) TONGUE SWELLING, swelling of mouth soy Adverse Reaction (Intermediate, Verified 12/16/23 08:14) UPSET STOMACH DAIRY PRODUCTS Allergy (Intermediate, Uncoded 12/16/23 08:14) INFLAMMATION cats, dogs Allergy (Unknown, Uncoded 12/16/23 08:14) Unknown mole,bread and diary Allergy (Unknown, Uncoded 12/16/23 08:14) Unknown Do you need a note to return to daycare/school/sports/work: No HPI HPI Comments History of Present Illness Details Patient is a 63-year-old female complaining left ear pain the past 3 days. She states it feels like there is a crackling in her left ear and the pain extends into her neck and shoulders into her upper teeth. She denies any fevers or change in her hearing [facility] Medical History (Updated 11/23/23 @ 22:46 by Stephania Guaman MD) History of adenomatous polyp of colon Fatigue Recurrent genital herpes Environmental and seasonal allergies Temporomandibular joint dysfunction Frequent headaches Mixed dyslipidemia Immunization refused Hx of breast cancer History of COVID-19 Anxiety disorder Dyslipidemia Recurrent otitis media Retinal detachment Vini's thyroiditis Mild intermittent asthma Narrow angle glaucoma suspect of both eyes Vitamin D deficiency Acquired hypothyroidism Surgical History Hx of colonoscopy History of surgery H/O myringotomy History of hysterectomy History of eyelid surgery History of eye surgery Family History Father No problems noted. Mother Diabetes mellitus Heart disease Heart attack Brother No problems noted. Brother No problems noted. Brother No problems noted. Brother No problems noted. Brother No problems noted. Social History Household Members: None Housing: House Alcohol intake: current Alcohol intake frequency: a few times a week Patient Tobacco Use Status: Never used Tobacco e-Cigarette/Vaping Use: Never Used service: No Current occupational status: employed Cognitive needs: No Hearing needs: No Vision needs: No Review of Systems Const All systems reviewed & are unremarkable except as noted in HPI and below Physical Exam Vital Signs: Last Vital Signs Temp 97.9 F 12/16/23 08:14 Pulse 61 12/16/23 08:14 BP 110/82 12/16/23 08:14 Pulse Ox 99 12/16/23 08:14 BMI result Body Mass Index 20.0 Const General: cooperative, healthy appearing, comfortable and no acute distress Orientation/consciousness: patient oriented x3 Limitations: no limitations HEENT Head: Yes normal to inspection Ears: hearing grossly normal bilaterally, external ears normal, TM normal on the right and TM abnormal dull, wth effusion and erythematous General nose exam: Normal external nose present, Normal nares present and No nasal discharge present Face and sinus: Yes normal facial exam and Yes sinuses nontender Mouth: Normal oral and palatal mucosa present and moist mucous membranes Throat: Yes tonsils normal, Yes uvula midline and Yes posterior oropharynx abnor mal (Erythema) Eyes General: appearance normal, both eyes and all related structures Neck Neck: Yes normal visual inspection Resp Effort & Inspection: normal respiratory effort, able to speak in complete sentences, no respiratory distress, not tachypneic, no tripod positioning and no use of accessory muscles Skin General skin exam: no rashes or lesions noted Neuro General: patient oriented x3 Extrem General: Yes normal to inspection and Yes no clubbing, cyanosis or edema Assessment & Plan Assessment & Plan (1) Otitis media: Code(s): H66.90 - Otitis media, unspecified, unspecified ear Qualifiers: Chronicity: chronic Laterality: left Otitis media type: suppurative Suppurative otitis media location: unspecified location Qualified Code(s): H66.3X2 - Other chronic suppurative otitis media, left ear Plan: Sent antibiotics to pharmacy Plan see above Coding Level of Care Code Est Pt Level 3 (78992) Diagnoses Otitis media H66.3X2 Chronicity: chronic Laterality: left Otitis media type: suppurative Suppurative otitis media location: unspecified location
[2023-12-16 08:14] VITALS: BP 110/82; PULSE 61; TEMP 36.6; O2SAT 99
== END 2023-12-16 08:36 | disposition home or self-care (01) ==
PROVIDERS: PCP Internal Medicine; Visit Provider Physician Assistant
DX: H66.3X2 Other chronic suppurative otitis media, left ear (principal)
CPT/HCPCS: 99213

== ENCOUNTER 2024-03-03 07:06 | Outpatient (REF) | payer OTHER, SELFPAY ==
[2024-03-03 10:51] LABS: Glucose Fasting 93 mg/dL (60-99)
[2024-03-03 12:10] LABS: Alanine Aminotransferase 23 U/L (0-31); Albumin Level 4.1 g/dL (3.5-5.0); Alkaline Phosphatase 67 U/L (39-117); Anion Gap 11 (12-20); Aspartate Amino Transferase 30 U/L (5-31); Bilirubin Total 0.4 mg/dL (0.0-1.0); Blood Urea Nitrogen 16 mg/dL (9-16); Calcium 9.5 mg/dL (8.4-10.2); Carbon Dioxide 28 mmol/L (22-29); Chloride 106 mmol/L (96-108); Cholesterol 223 mg/dL (<200); Estimated Glomerular Filt Rate > 60; Glucose Fasting 96 mg/dL (60-99); HDL Cholesterol 87 mg/dL (>40); LDL Cholesterol Calculated 116 mg/dL (<100); Potassium 3.7 mmol/L (3.3-5.1); Sodium 141 mmol/L (135-145); Total Protein 7.1 g/dL (6.5-8.0); Triglycerides 101 mg/dL (<150)
[2024-03-03 12:25] LABS: Free T4 (Free Thyroxine) 0.95 ng/dL (0.71-1.85)
[2024-03-03 12:50] LABS: Free T4 (Free Thyroxine) 0.99 ng/dL (0.71-1.85); Thyroid Stimulating Hormone 4.14 uIU/mL (0.32-4.0); Vitamin D 25-OH Total 37.2 ng/mL (>30)
[2024-03-03 12:53] LABS: Folate 7.8 ng/mL (> or = 4.0); Vitamin B12 463 pg/mL (200-900)
== END 2024-03-03 07:07 | disposition home or self-care (01) ==
LOC: HO.HMGCLDS 07:06
PROVIDERS: PCP Internal Medicine; Referring Provider Internal Medicine Endocrinology, Diabetes & Metabolism; Visit Provider Internal Medicine
DX: E06.3 Autoimmune thyroiditis (principal); E78.2 Mixed hyperlipidemia; F41.9 Anxiety disorder, unspecified; H40.033 Anatomical narrow angle, bilateral; J45.20 Mild intermittent asthma, uncomplicated; J30.89 Other allergic rhinitis; D36.9 Benign neoplasm, unspecified site; R53.83 Other fatigue; Z78.0 Asymptomatic menopausal state
CPT/HCPCS: 36415; 80053; 80061; 82306; 82550; 82607; 82746; 82947; 84439; 84443

== ENCOUNTER 2024-03-10 13:47 | Outpatient (AMB) | payer OTHER, SELFPAY ==
[2024-03-10 14:22] VITALS: BP 122/82; PULSE 70; O2SAT 97; BMI 20.1
--- NOTE | 2024-03-10 14:22 | MHC.PC.OV ---
Vital Signs 03/10/24 14:22 Height 5 ft 5 in Weight 121 lb BMI 20.1 BP 122/82 Blood Pressure Location Lt brachial Position Sitting Pulse 70 Pulse Source Pulse Oximeter Pulse Oximetry (%) 97 Oxygen Delivery Method Room Air Intake Visit Reasons: med follow up Intake Note: Pt is here today for her lab results Allergies Opioids - Morphine Analogues Allergy (Severe, Verified 03/14/24 16:46) convultions sulfabenzamide Allergy (Severe, Verified 03/14/24 16:46) tongue swelled shut gluten [GLUTEN] Allergy (Intermediate, Verified 03/14/24 16:46) INFLAMMATION SYSTEMICALLY mold [MOLD] Allergy (Intermediate, Verified 03/14/24 16:46) UNKNOWN animal dander Allergy (Unknown, Verified 03/14/24 16:46) ASTHMA FLAIRUP Clindamycin HCl Allergy (Unknown, Verified 03/14/24 16:46) rash doxycycline [DOXYCYCLINE] Allergy (Unknown, Verified 03/14/24 16:46) RASH morphine [MORPHINE] Allergy (Unknown, Verified 03/14/24 16:46) SEIZURE LIKE EXPERIENCE - FELT TERRIBLE, convulsions penicillin V Allergy (Unknown, Verified 03/14/24 16:46) rash Penicillins [PENICILLINS] Allergy (Unknown, Verified 03/14/24 16:46) RASH HIVES soybean Allergy (Unknown, Verified 03/14/24 16:46) unknown Sulfa (Sulfonamide Antibiotics) [SULFA (SULFONAMIDE ANTIBIOTICS)] Allergy (Unknown, Verified 03/14/24 16:46) TONGUE SWELLING, swelling of mouth soy Adverse Reaction (Intermediate, Verified 03/14/24 16:46) UPSET STOMACH DAIRY PRODUCTS Allergy (Intermediate, Uncoded 03/14/24 16:46) INFLAMMATION cats, dogs Allergy (Unknown, Uncoded 03/14/24 16:46) Unknown mole,bread and diary Allergy (Unknown, Uncoded 03/14/24 16:46) Unknown Medication List - Last Reconciled 03/10/24 by Stephania Guaman MD alprazolam 0.25 mg PO DAILY PRN ascorbic acid (vitamin C) (Vitamin C) 500 mg PO DAILY azelastine 1 spray intranasal BID betaxolol 0.25% (Betoptic S) 1 drp ophthalmic (eye) DAILY brimonidine 0.1% (Alphagan P) 1 drp ophthalmic (eye) DAILY carboxymethylcell-glycerin(PF) 0.5-0.9 % (Refresh Optive Sensitive (PF)) 1 drp ophthalmic (eye) DAILY cyclosporine 0.05% (Restasis) 1 drp ophthalmic (eye) DAILY dorzolamide-timolol 22.3-6.8 mg/mL ophthalmic (eye) fluorometholone 0.1% 1 drp ophthalmic (eye) NEEDED fluticasone furoate 100 mcg/actuation (Arnuity Ellipta) 1 inh inhalation Q24H fluticasone propionate 50 mcg/actuation 2 sprays intranasal DAILY inhalational spacing device (BreatheRite MDI Spacer) As directed levothyroxine 88 mcg PO DAILY loteprednol etabonate 0.5% (Lotemax) drps ophthalmic (eye) nebulizers (AeroEclipse II Nebulizer) As directed omeprazole 40 mg PO DAILY 90 days polyethylene glycol 3350 17 grams PO BID prednisone 5 mg PO DAILY rosuvastatin 5 mg PO DAILY 3 months Ventolin HFA 90 mcg/actuation (albuterol sulfate) 2 puffs inhalation Q6H PRN NS Tobacco use date assessed: 03/10/24 Dental Screening Dental Screen Date: 03/10/24 Did you have a dental visit in the last 12 months?: Yes Did you have a dental problem in the last 6 months where you did not have access to dental care?: No Was dental information given to patient?: Patient has dentist HPI med follow up HPI Details 63-year-old lady with hyperlipidemia and Vini's thyroiditis with hypothyroidism, here today for follow-up. Has been compliant with taking her medications. Recent fasting labs showed fasting lipids, thyroid levels and vitamin-D level are all within normal limits. FOR[facility]LY [facility] Medical History Hip pain, bilateral History of adenomatous polyp of colon Fatigue Recurrent genital herpes Environmental and seasonal allergies Temporomandibular joint dysfunction Frequent headaches Mixed dyslipidemia Immunization refused Hx of breast cancer History of COVID-19 Anxiety disorder Dyslipidemia Recurrent otitis media Retinal detachment Vini's thyroiditis Mild intermittent asthma Narrow angle glaucoma suspect of both eyes Vitamin D deficiency Acquired hypothyroidism Surgical History Hx of colonoscopy History of surgery H/O myringotomy History of hysterectomy History of eyelid surgery History of eye surgery Family History Father No problems noted. Mother Diabetes mellitus Heart disease Heart attack Brother No problems noted. Brother No problems noted. Brother No problems noted. Brother No problems noted. Brother No problems noted. Social History Household Members: None Housing: House Alcohol intake: current Alcohol intake frequency: a few times a week Patient Tobacco Use Status: Never used Tobacco e-Cigarette/Vaping Use: Never Used service: No Current occupational status: employed Cognitive needs: No Hearing needs: No Vision needs: No Questionnaire Thrive Questionnaire Date Thrive assessed: 06/09/23 PASCUAL-7 AMB Questionnaire PASCUAL-7 Date PASCUAL - 7 assessed: 06/09/23 Source: Developed by Drs. Angel Allen, Manuela Gardner, Emre Palacios and colleagues, with an educational cresencio from [employer]. Review of Systems Const Denies fever(s) and Denies headache(s) Eyes Details: Followed by [facility] and [facility] Denies change in vision ENT Denies headache(s), Denies sinus pressure and Denies sore throat Card Denies syncope, Denies rapid heart rate and Denies dyspnea Resp Denies dyspnea GI Denies abdominal pain, Denies melena, Denies hematochezia and Denies change in bowel habits Reports no additional complaints Musc Denies arthralgias and Reports stiffness Skin/Breast Denies lesions, Denies erythema, Denies rash and Denies unusual bruising Neuro Denies syncope and Denies headache(s) Psych Reports no additional complaints Endo Reports no additional complaints Kiel/Lymph Reports no additional complaints Aller/Immun Reports seasonal rhinorrhea Physical exam (Primary Care) Vital Signs: Last Vital Signs Pulse 70 03/10/24 14:22 BP 122/82 03/10/24 14:22 Pulse Ox 97 03/10/24 14:22 Oxygen Delivery Method Room Air 03/10/24 14:22 BMI result Body Mass Index 20.1 Tobacco/Smoking Status: Tobacco use Status Tobacco use date assessed 03/10/24 03/10/24 14:26 Patient Tobacco Use Status Never used Tobacco 03/10/24 14:26 e-Cigarette/Vaping Use Never Used 03/10/24 14:26 Thrive Assessment: Date of Thrive Assessment Date Thrive assessed 06/09/23 03/10/24 14:26 Const Other: Alert oriented x3, no acute distress noted, ambulatory normal gait HENMT Mouth: Normal oral and palatal mucosa present, oropharynx normal and moist mucous membranes Eyes General: appearance normal, both eyes and all related structures Neck Neck: Yes full ROM, Yes no lymphadenopathy and Yes supple Thyroid: Thyroid normal (Nonpalpable) and nontender Resp Effort & Inspection: normal respiratory effort and able to speak in complete sentences Auscultation: clear to auscultation bilaterally Cardio Other: S1-S2 present regular rate and rhythm GI Palpation (GI): Soft to palpation, nontender, no guarding and no masses Auscultation: normal bowel sounds Skin General skin exam: no rashes or lesions noted Neuro General: gait normal, tone normal, moves all extremities and no focal motor deficits Extrem General: Yes full ROM, Yes no joint enlargement, Yes no clubbing, cyanosis or edema and Yes normal gait Results Reviewed Results Reviewed: Name: Kaylynn Julian Age/Sex: 63/F : 1960 Unit#: [id number] Attend Dr: Stephania Guaman MD Re03/03/24 Status: DEP REF Location: [facility] Disch: SPEC : [id number] BECKY: 03/03/24 STATUS: COMP REQ : [id number] RECD: 03/03/[address]: Stephania Guaman MD COMP: 03/03/241250 ENTERED: 03/03/24-[address]: ORDERED: CMP Fast, CK Total, Lipid Panel, Vitamin D 25-OH, Free T4, TSH Test Result Flag Reference Sodium 141 135-145 mmol/L Potassium 3.7 3.3-5.1 mmol/L CL 106 96-108 mmol/L CO2 28 22-29 mmol/L Gap 11 L 12-20 BUN 16 9-16 mg/dL Creat 0.87 0.5-1.4 mg/dL EGFR > 60 NOTE: For -[place] individuals, multiply the result by 1.210. Chronic Kidney Disease: Estimated GFR < 60 mL/min/1.73m2 Severe Kidney Disease: Estimated GFR < 15 mL/min/1.73m2 FBS 96 60-99 mg/dL CA 9.5 8.4-10.2 mg/dL Total Bili 0.4 0.0-1.0 mg/dL AST (GOT) 30 5-31 U/L ALT (GPT) 23 0-31 U/L CK Total 145 H 26-140 U/L Protein, Total 7.1 6.5-8.0 g/dL Alb 4.1 3.5-5.0 g/dL Triglyceride 101 <150 mg/dL Desirable Triglyceride: less than 150 mg/dL Borderline High Triglyceride 150-199 mg/dL High Triglyceride: 200-499 mg/dL Very High Triglyceride: greater than or equal to 5OO mg/dL Cholesterol 223 H <200 mg/dL Desirable Cholesterol: less than 200 mg/dL Borderline High Cholesterol: 200-239 mg/dL High Cholesterol: greater than 239 mg/dL LDL Calculated 116 H <100 mg/dL Desirable LDL: less than 100 mg/dL Near Optimal/Above Optimal LDL: 110-129 mg/dL Borderline High LDL: 130-159 mg/dL High LDL: 160-189 mg/dL Very High LDL: greater than or equal to 190 mg/dL HDL 87 >40 mg/dL Desirable HDL: greater than 40 mg/dL Note: This HDL assay may give artificially low results in patients with liver disease. Alk Phos 67 39-117 U/L Vit D 25-OH Tot 37.2 >30 ng/mL Health Based Reference Values* < 20 ng/mL Deficient 20-30 ng/mL Insufficient > 30 ng/mL Sufficient *Aleshia CEDENO. N Engl J Med. 2007;357:266-280 Care must be taken in interpreting Vitamin D results from different laboratories and methodologies. Published data demonstrated that results from patients undergoing hemodialysis may show a negative bias when tested with various automated 25-OH vitamin D assays when compared to LC-MS/MS. When testing samples from patients whose predominant form of Vitamin D is Vitamin D2, such as patients receiving Vitamin D2 supplementation, results that are subtherapeutic should be confirmed with another method such as LC-MS/MS. Free T4 0.99 0.71-1.85 ng/dL TSH 3rd Gen. 4.14 H 0.32-4.0 uIU/mL Note: A sustained TSH level above 2.5 uIU/mL may warrant further investigation. Coding Level of Care Code Est Pt Level 3 (90132) Diagnoses Mixed dyslipidemia E78.2 Acquired hypothyroidism E03.9 Assessment & Plan Assessment & Plan (1) Mixed dyslipidemia: Code(s): E78.2 - Mixed hyperlipidemia Category: Medical Plan: Reviewed recent fasting lipid profile with patient with levels within normal limits . Continue rosuvastatin 5 mg daily , in addition to adherence to low-cholesterol diet and regular exercise, at least 30 minutes 3 to 4 times a week. Advised patient to make healthy food choices, eat more fruits, vegetables, whole grains, wild caught fish and low-fat dairy. Limit amount of meat and fried or fatty food products, as well as processed foods and fast foods. (2) Acquired hypothyroidism: Code(s): E03.9 - Hypothyroidism, unspecified Category: Medical Plan: Thyroid levels are all within normal limits, continued on current dose of levothyroxine 8 mcg daily in a.m.
== END 2024-03-10 15:06 | disposition home or self-care (01) ==
LOC: HO.HMCC 13:48
PROVIDERS: PCP Internal Medicine; Visit Provider Internal Medicine
DX: E78.2 Mixed hyperlipidemia (principal); E03.9 Hypothyroidism, unspecified

== ENCOUNTER → 2024-03-10 13:47 | Outpatient (BNVA) | payer OTHER, SELFPAY | PROVIDERS: PCP Internal Medicine; Visit Provider Internal Medicine | DX: E78.2 Mixed hyperlipidemia (principal); E03.9 Hypothyroidism, unspecified | CPT/HCPCS: 99212 ==

== ENCOUNTER → 2024-03-12 08:15 | Outpatient (BNV) | payer OTHER, SELFPAY | PROVIDERS: PCP Internal Medicine; Visit Provider Internal Medicine | DX: Z12.31 Encounter for screening mammogram for malignant neoplasm of breast (principal) | CPT/HCPCS: 77063; 77067 ==

== ENCOUNTER 2024-03-12 08:16 | Outpatient (REF) | payer OTHER, SELFPAY ==
--- NOTE | ~2024-03-12 | MM_ITS ---
EXAMINATION: MM SCREENING DIGITAL BREAST TOMOSYNTHESIS, BILATERAL CLINICAL INFORMATION: Screening. Asymptomatic. Right mastectomy. COMPARISON: Mammography: This study is compared with prior exams dating back to TECHNIQUE: Digital breast tomosynthesis is performed in both the craniocaudal and mediolateral oblique views along with computer-aided detection (CAD). Synthesized 2D images are generated from the tomosynthesis. FINDINGS: The breasts are heterogeneously dense, which may obscure small masses (ACR BI-RADS breast composition Category c). There are no significant masses, abnormal calcifications, or other abnormalities. MM/MM tomosynthesis screening LT IMPRESSION: No mammographic evidence of malignancy. ASSESSMENT: BI-RADS BI-RADS 1 - Negative RECOMMENDATION: Routine annual mammography screening. 1 year F/U This examination should not preclude the clinical evaluation of a suspicious palpable abnormality. This patient's information was entered into a reminder system with a target due date for their next mammogram. Electronically signed by: Maria Isabel Pace DO 03/12/2024 10:03 AM MATTHEW PIZANO
== END 2024-03-12 08:17 | disposition home or self-care (01) ==
LOC: HO.MAMMO 08:16
PROVIDERS: PCP Internal Medicine; Visit Provider Internal Medicine
DX: Z12.31 Encounter for screening mammogram for malignant neoplasm of breast (principal); H66.92 Otitis media, unspecified, left ear
CPT/HCPCS: 77063; 77067; 99212

== ENCOUNTER 2024-03-12 09:03 | Outpatient (AMB) | payer OTHER, SELFPAY ==
--- NOTE | 2024-03-12 09:10 | MHC.OFFWIV ---
Intake Vital Signs 03/12/24 09:13 Weight 120 lb BP 112/60 Blood Pressure Location Lt brachial Position Sitting Pulse 66 Pulse Source Pulse Oximeter Pulse Oximetry (%) 98 Oxygen Delivery Method Room Air Intake Visit Reasons: EP severe pain in LT ear Intake Note: Patient here for left ear pain that has been present for about that has been present for about 12 days and worsening. Patient Tobacco Use Status: Never used Tobacco Allergies Opioids - Morphine Analogues Allergy (Severe, Verified 03/12/24 09:14) convultions sulfabenzamide Allergy (Severe, Verified 03/12/24 09:14) tongue swelled shut gluten [GLUTEN] Allergy (Intermediate, Verified 03/12/24 09:14) INFLAMMATION SYSTEMICALLY mold [MOLD] Allergy (Intermediate, Verified 03/12/24 09:14) UNKNOWN animal dander Allergy (Unknown, Verified 03/12/24 09:14) ASTHMA FLAIRUP Clindamycin HCl Allergy (Unknown, Verified 03/12/24 09:14) rash doxycycline [DOXYCYCLINE] Allergy (Unknown, Verified 03/12/24 09:14) RASH morphine [MORPHINE] Allergy (Unknown, Verified 03/12/24 09:14) SEIZURE LIKE EXPERIENCE - FELT TERRIBLE, convulsions penicillin V Allergy (Unknown, Verified 03/12/24 09:14) rash Penicillins [PENICILLINS] Allergy (Unknown, Verified 03/12/24 09:14) RASH HIVES soybean Allergy (Unknown, Verified 03/12/24 09:14) unknown Sulfa (Sulfonamide Antibiotics) [SULFA (SULFONAMIDE ANTIBIOTICS)] Allergy (Unknown, Verified 03/12/24 09:14) TONGUE SWELLING, swelling of mouth soy Adverse Reaction (Intermediate, Verified 03/12/24 09:14) UPSET STOMACH DAIRY PRODUCTS Allergy (Intermediate, Uncoded 03/12/24 09:14) INFLAMMATION cats, dogs Allergy (Unknown, Uncoded 03/12/24 09:14) Unknown mole,bread and diary Allergy (Unknown, Uncoded 03/12/24 09:14) Unknown Do you need a note to return to daycare/school/sports/work: No HPI HPI Comments History of Present Illness Details This is a 63-year-old female who presented to the walk-in clinic complaining of left ear pain/fullness x almost 2 weeks. She states she had a low-grade fever last night, which prompted her to come to the walk-in clinic for further evaluation. Patient states the left side of her face/neck feels swollen. She also reports a mild sore throat. Patient reports she has a history of frequent ear infections and her current symptoms feel similar. PENDING SALE TO [facility] Medical History (Updated 02/04/24 @ 15:16 by Stephania Guaman MD) Hip pain, bilateral History of adenomatous polyp of colon Fatigue Recurrent genital herpes Environmental and seasonal allergies Temporomandibular joint dysfunction Frequent headaches Mixed dyslipidemia Immunization refused Hx of breast cancer History of COVID-19 Anxiety disorder Dyslipidemia Recurrent otitis media Retinal detachment Vini's thyroiditis Mild intermittent asthma Narrow angle glaucoma suspect of both eyes Vitamin D deficiency Acquired hypothyroidism Surgical History Hx of colonoscopy History of surgery H/O myringotomy History of hysterectomy History of eyelid surgery History of eye surgery Family History Father No problems noted. Mother Diabetes mellitus Heart disease Heart attack Brother No problems noted. Brother No problems noted. Brother No problems noted. Brother No problems noted. Brother No problems noted. Social History Household Members: None Housing: House Alcohol intake: current Alcohol intake frequency: a few times a week Patient Tobacco Use Status: Never used Tobacco e-Cigarette/Vaping Use: Never Used service: No Current occupational status: employed Cognitive needs: No Hearing needs: No Vision needs: No Review of Systems Const All systems reviewed & are unremarkable except as noted in HPI and below Reports no additional complaints Eyes Reports no additional complaints ENT Reports no additional complaints Card Reports no additional complaints Resp Reports no additional complaints GI Reports no additional complaints Reports no additional complaints Musc Reports no additional complaints Skin/Breast Reports system reviewed and no additional complaints, except as documented Neuro Reports no additional complaints Psych Reports no additional complaints Endo Reports no additional complaints Kiel/Lymph Reports no additional complaints Aller/Immun Reports no additional complaints Physical Exam Vital Signs: Last Vital Signs Pulse 66 03/12/24 09:13 BP 112/60 03/12/24 09:13 Pulse Ox 98 03/12/24 09:13 Oxygen Delivery Method Room Air 03/12/24 09:13 Const Other: Vital signs reviewed. Constitutional: Non-toxic appearing. No acute distress. Well-developed and well-nourished. HEENT: Normocephalic and atraumatic. The left tympanic membrane is erythematous and edematous. The right tympanic membrane is within normal limits. External auditory canals without erythema or edema bilaterally. Moist mucous membranes. No pharyngeal erythema or exudates. No mastoid or postauricular swelling, erythema, or tenderness. Skin: Warm and dry. No rashes or lesions noted. Neck: Full and painless range of motion. There is some mild boggy anterior cervical lymphadenopathy. Cardio: Regular rate. No lower extremity edema. Pulmonary: No respiratory distress. No accessory muscle usage. Gastrointestinal: Soft, nontender, and nondistended in all 4 quadrants. Musculoskeletal: Normal range of motion in joints throughout the body. No deformity or other signs of injury. Neuro: Alert and oriented x4. Cranial nerves 2-12 grossly intact. No focal deficits appreciated. Psych: Normal mood and affect. Assessment & Plan Assessment & Plan (1) Acute otitis media: Code(s): H66.90 - Otitis media, unspecified, unspecified ear Qualifiers: Otitis media type: unspecified Qualified Code(s): H66.90 - Otitis media, unspecified, unspecified ear Plan: This is a 63-year-old female who presented to the walk-in clinic complaining of left ear pain x2 weeks. On physical examination, her left tympanic membrane is erythematous and edematous. There is no mastoid/postauricular swelling, tenderness, or erythema. History and physical most consistent with acute otitis media of the left ear. Given multiple antibiotic allergies, patient was sent home on p.o. cefuroxime 500 mg twice daily x7 days, which she states has worked for her in the past. Patient was advised to follow-up here or proceed to the emergency room if she were to develop persistent or worsening symptoms and she was advised to proceed directly to the emergency room if she were to develop any postauricular swelling, tenderness, or erythema. Patient verbalized her understanding and she is in agreement with the plan. Medications: New cefuroxime axetil 500 mg PO BID 14 tabs 0RF Coding Level of Care Code Est Pt Level 3 (15633) Diagnoses Acute otitis media, unspecified otitis media type H66.90 Otitis media type: unspecified
[2024-03-12 09:13] VITALS: BP 112/60; PULSE 66; O2SAT 98
== END 2024-03-12 09:51 | disposition home or self-care (01) ==
PROVIDERS: PCP Internal Medicine; Visit Provider Physician Assistant Medical
DX: H66.90 Otitis media, unspecified, unspecified ear (principal)

== ENCOUNTER 2024-03-25 08:02 | Outpatient (AMB) | payer OTHER, SELFPAY ==
[2024-03-25 08:05] VITALS: BP 120/78; PULSE 66; O2SAT 97
--- NOTE | 2024-03-25 08:05 | MHC.OFFWIV ---
Intake Vital Signs 03/25/24 08:05 Weight 117 lb 4 oz BP 120/78 Blood Pressure Location Lt brachial Position Sitting Pulse 66 Pulse Source Pulse Oximeter Pulse Oximetry (%) 97 Oxygen Delivery Method Room Air Intake Visit Reasons: EP-lt side ear pain Intake Note: Patient here for left ear pain that has been present for about 3 weeks and was put on antibiotics which were helping but two days before she finished it started to flare up again. Patient Tobacco Use Status: Never used Tobacco Allergies Opioids - Morphine Analogues Allergy (Severe, Verified 03/25/24 08:10) convultions sulfabenzamide Allergy (Severe, Verified 03/25/24 08:10) tongue swelled shut gluten [GLUTEN] Allergy (Intermediate, Verified 03/25/24 08:10) INFLAMMATION SYSTEMICALLY mold [MOLD] Allergy (Intermediate, Verified 03/25/24 08:10) UNKNOWN animal dander Allergy (Unknown, Verified 03/25/24 08:10) ASTHMA FLAIRUP Clindamycin HCl Allergy (Unknown, Verified 03/25/24 08:10) rash doxycycline [DOXYCYCLINE] Allergy (Unknown, Verified 03/25/24 08:10) RASH morphine [MORPHINE] Allergy (Unknown, Verified 03/25/24 08:10) SEIZURE LIKE EXPERIENCE - FELT TERRIBLE, convulsions penicillin V Allergy (Unknown, Verified 03/25/24 08:10) rash Penicillins [PENICILLINS] Allergy (Unknown, Verified 03/25/24 08:10) RASH HIVES soybean Allergy (Unknown, Verified 03/25/24 08:10) unknown Sulfa (Sulfonamide Antibiotics) [SULFA (SULFONAMIDE ANTIBIOTICS)] Allergy (Unknown, Verified 03/25/24 08:10) TONGUE SWELLING, swelling of mouth soy Adverse Reaction (Intermediate, Verified 03/25/24 08:10) UPSET STOMACH DAIRY PRODUCTS Allergy (Intermediate, Uncoded 03/25/24 08:10) INFLAMMATION cats, dogs Allergy (Unknown, Uncoded 03/25/24 08:10) Unknown mole,bread and diary Allergy (Unknown, Uncoded 03/25/24 08:10) Unknown Do you need a note to return to daycare/school/sports/work: No HPI HPI Comments History of Present Illness Details The patient is a 63-year-old female presenting with persistent ear infection and associated symptoms. She reports a history of recurrent ear infections and was diagnosed with Vini's thyroiditis many years ago. Recently, she noticed her thyroid levels were elevated, which was atypical given her previous stable levels for 15 years. She initially experienced dizziness, some weight loss as she was eating less 2/2 pain, nausea, and difficulty eating, along with ear and sinus pain. These symptoms worsened over time, prompting a visit to a healthcare facility where she was prescribed cefuroxime. However, she experienced adverse reactions to the medication, including sickness and nighttime discomfort, which led her to reduce the dosage. The incomplete treatment resulted in persistent symptoms, particularly ear pain and swelling around the eyes. She also noted intermittent fever-like symptoms without specific temperature measurement, characterized by night sweats. This persistent condition affects her ability to work efficiently, causing concern due to her history of breast cancer. She mentioned previous ear surgeries and the presence of tubes in her ears, which should not be impacted by the current ear drops treatment. [facility] Medical History Hip pain, bilateral History of adenomatous polyp of colon Fatigue Recurrent genital herpes Environmental and seasonal allergies Temporomandibular joint dysfunction Frequent headaches Mixed dyslipidemia Immunization refused Hx of breast cancer History of COVID-19 Anxiety disorder Dyslipidemia Recurrent otitis media Retinal detachment Vini's thyroiditis Mild intermittent asthma Narrow angle glaucoma suspect of both eyes Vitamin D deficiency Acquired hypothyroidism Surgical History Hx of colonoscopy History of surgery H/O myringotomy History of hysterectomy History of eyelid surgery History of eye surgery Family History Father No problems noted. Mother Diabetes mellitus Heart disease Heart attack Brother No problems noted. Brother No problems noted. Brother No problems noted. Brother No problems noted. Brother No problems noted. Social History Household Members: None Housing: House Alcohol intake: current Alcohol intake frequency: a few times a week Patient Tobacco Use Status: Never used Tobacco e-Cigarette/Vaping Use: Never Used service: No Current occupational status: employed Cognitive needs: No Hearing needs: No Vision needs: No Review of Systems Const All systems reviewed & are unremarkable except as noted in HPI and below Physical Exam Vital Signs: Last Vital Signs Pulse 66 03/25/24 08:05 BP 120/78 03/25/24 08:05 Pulse Ox 97 03/25/24 08:05 Oxygen Delivery Method Room Air 03/25/24 08:05 Const General: cooperative, healthy appearing, comfortable and no acute distress Orientation/consciousness: patient oriented x3 HEENT Head: Yes normal to inspection, Yes No palpable skull fracture present and Yes normocephalic Ears: hearing grossly normal bilaterally, external ears normal, EAC's normal, mastoids normal (no TTP) bilaterally, Abnormal EAC present (left) erythema, edema and EAC tenderness and TM abnormal (left side) dull, wth effusion, erythematous, with fluid behind the TM and with loss of landmarks General nose exam: Normal external nose present Face and sinus: Yes normal facial exam Mouth: Normal oral and palatal mucosa present Teeth and gingiva: dentition normal Throat: Yes posterior oropharynx normal Eyes General: appearance normal, both eyes and all related structures Neck Neck: Yes normal visual inspection, Yes full ROM, Yes no lymphadenopathy, Yes no meningeal signs, Yes trachea midline and Yes supple Resp Effort & Inspection: normal respiratory effort and able to speak in complete sentences Skin General skin exam: no rashes or lesions noted Neuro General: patient oriented x3 and no meningeal signs Assessment & Plan Assessment & Plan (1) Otitis media: Code(s): H66.90 - Otitis media, unspecified, unspecified ear Qualifiers: Chronicity: chronic Laterality: left Otitis media type: suppurative Suppurative otitis media location: unspecified location Qualified Code(s): H66.3X2 - Other chronic suppurative otitis media, left ear Plan: - For the acute otitis media, cefdinir will be prescribed at 300 mg twice daily. This regimen is intended to achieve therapeutic levels while minimizing adverse reactions observed with previous antibiotics. - Prescribe prednisone and acetic acid ear drops for supportive treatment. These are intended to reduce inflammation and soothe the irritation of the outer ear canal, with instructions to apply four drops three times a day. - Discussed potential benefits of using diphenhydramine at bedtime, addressing both its antihistamine and sedative properties, while considering her existing conditions of glaucoma and thyroid eye disease. - Patient is advised to monitor and adjust her dietary habits to ensure sufficient caloric intake to address ongoing weight loss. The plan includes lifestyle modifications once she is feeling better. - Encouraged to maintain close communication regarding any adverse effects that occur, especially any changes in her symptomatology or responses to the newly prescribed regimen. Plan Patient was informed and verbally consented to the use of an ambient scribe for clinic note documentation during this visit. Medications: New cefdinir 300 mg PO Q12H 14 caps 0RF hydrocortisone-acetic acid 1-2 % 4 drps otic (ears) TID 10 mL 0RF Coding Level of Care Code Est Pt Level 3 (22503) Diagnoses Otitis media H66.3X2 Chronicity: chronic Laterality: left Otitis media type: suppurative Suppurative otitis media location: unspecified location
== END 2024-03-25 09:23 | disposition home or self-care (01) ==
PROVIDERS: PCP Internal Medicine; Visit Provider Physician Assistant
DX: H66.3X2 Other chronic suppurative otitis media, left ear (principal)

== ENCOUNTER → 2024-03-25 08:02 | Outpatient (BNVA) | payer OTHER, SELFPAY | PROVIDERS: PCP Internal Medicine; Visit Provider Physician Assistant | DX: H66.3X2 Other chronic suppurative otitis media, left ear (principal) | CPT/HCPCS: 99212 ==

== ENCOUNTER 2024-03-25 22:03 | Emergency (ER) | payer OTHER, SELFPAY ==
--- NOTE | ~2024-03-25 | CT_ITS ---
EXAMINATION: CT ABDOMEN AND PELVIS WITHOUT CONTRAST CLINICAL INFORMATION: Pain and vomiting history of right breast carcinoma. COMPARISON: CT abdomen and pelvis 07/09/2023. TECHNIQUE: Multidetector volumetric imaging was performed from the superior aspect of the liver through the pubic symphysis. Sagittal and coronal reformatted images were obtained on the technologist's workstation. This CT examination was performed using dose optimization techniques as appropriate, variously including the following: *Automated exposure control *Adjustment of mA and/or kV according to patient size (this includes techniques or standardized protocols for targeted exams where dose is matched to indication/reason for exam; i.e. extremities or head) *Use of iterative reconstruction technique DLP: 410 mGy-cm FINDINGS: LUNG BASES: The visualized lung bases are unremarkable. LIVER, GALLBLADDER, AND BILIARY TREE: The liver is normal in size, shape, and attenuation. No focal hepatic lesion or biliary ductal dilatation is present. The gallbladder is unremarkable with no evidence of radiopaque gallstones, gallbladder wall thickening, or obvious pericholecystic inflammatory changes. PANCREAS: Unremarkable. SPLEEN: Unremarkable. ADRENAL GLANDS: Unremarkable. KIDNEYS AND URETERS: The kidneys are normal in size, shape, and attenuation. No hydronephrosis, hydroureter, or calculi seen. No perinephric stranding. BLADDER: Decompressed GASTROINTESTINAL TRACT: Moderate quantity of fluid density is present throughout the lumen of the colon. No colonic dilatation noted. Normal appearance of the terminal ileum. Normal appearance of the appendix (series 3 image 56). No free intraperitoneal fluid or gas collections noted. No inflammatory changes of the sigmoid mesentery or small bowel mesentery. Small hiatal hernia. Normal appearance of the stomach otherwise. ABDOMINAL WALL: No significant hernia is appreciated. Partial visualization of a presumed right mastectomy. LYMPH NODES: Normal. VASCULAR: Moderate scattered calcific atherosclerosis PELVIC VISCERA: The uterus is not visualized and may be surgically absent. No adnexal lesions. OSSEOUS STRUCTURES: No suspicious skeletal lesions noted. CT/CT abdomen pelvis wo IV con IMPRESSION: 1. Moderate quantity of fluid within the lumen of the colon which may correlate with diarrhea. No colonic dilatation. No colonic inflammatory changes. No evidence of intestinal obstruction. 2. Small hiatal hernia. Electronically signed by: Sang Saha MD 03/26/2024 06:37 AM EST
[2024-03-25 22:06] VITALS: BP 124/68; PULSE 60; O2SAT 98
[2024-03-25 22:17] VITALS: BP 115/37; PULSE 58; RESP 20; TEMP 36.3; O2SAT 99; BMI 19.5
[2024-03-25 22:39] LABS: MANUAL DIFF FLAG NO
[2024-03-25 22:40] LABS: Basophils Percent Auto 0.3 % (0-2); Eosinophils Percent Auto 0.3 % (0-4); Hematocrit 40.3 % (37.0-47.0); Hemoglobin 13.8 g/dl (12.0-16.0); Imm Gran Abs Auto 0.03 X10*3/uL (0.00-0.03); Imm Gran Pct Auto 0.3 % (0.0-0.4); Lymphocytes Absolute Auto 0.7 X10*3/uL (1.2-4.9); Lymphocytes Percent Auto 7.3 % (20-40); Mean Corpuscular HGB Conc 34.2 g/dl (31.0-35.0); Mean Corpuscular Hemoglobin 31.6 pg (27.0-33.0); Mean Corpuscular Volume 92.2 fL (80.0-98.0); Mean Platelet Volume 8.9 fL (9.4-12.3); Monocytes Absolute Auto 0.4 X10*3/uL (0.1-1.2); Monocytes Percent Auto 3.8 % (2-11); Neutrophils Absolute Auto 8.2 x10*3/uL (2.0-8.3); Platelet Count 252 X10*3/uL (160-400); Red Blood Count 4.37 X10*6/uL (4.20-5.50); Red Cell Distribution Width 11.9 % (11.0-16.0); White Blood Count 9.4 X10*3/uL (4.8-10.8)
[2024-03-25 22:59] LABS: Alanine Aminotransferase 21 U/L (0-31); Albumin Level 4.1 g/dL (3.5-5.0); Alkaline Phosphatase 68 U/L (39-117); Anion Gap 13 (12-20); Aspartate Amino Transferase 25 U/L (5-31); Bilirubin Total 0.3 mg/dL (0.0-1.0); Blood Urea Nitrogen 15 mg/dL (9-16); Calcium 9.4 mg/dL (8.4-10.2); Carbon Dioxide 23 mmol/L (22-29); Chloride 109 mmol/L (96-108); Creatinine Clr Calc Pharmacy 58.2; Estimated Glomerular Filt Rate > 60; Glucose Random 123 mg/dL (60-115); Potassium 3.7 mmol/L (3.3-5.1); Sodium 141 mmol/L (135-145)
--- NOTE | 2024-03-25 23:34 | ED_ITS ---
HPI - Nausea/Vomiting/Diarrhea General Chief complaint: Nausea/Vomiting/Diarrhea Stated complaint: nausea/dizzy after taking prescribed antibiotic Time Seen by Provider: 03/25/24 23:16 Source: patient Mode of arrival: ambulatory Limitations: no limitations History of Present Illness ED Provider: DR. Cortes HPI Narrative: this is a 63-year-old female came in for evaluation of nausea, vomiting, epigastric tenderness, feeling dizziness all of the above symptoms started 2 hours after taking her 1st dose of antibiotic ( Ceftin ) for left ear infection. Patient started to have 1 time nonbloody watery diarrhea while she was in the emergency department, still feel nauseous but no vomiting now. Abdominal surgery is significant for hysterectomy, patient is passing flatus. No recent travel, no sick contacts, no history of bad food. Related Data Home Medications ?Medication ?Instructions ?Recorded ?Confirmed fluorometholone 0.1 % eye 1 drp ophthalmic (eye) NEEDED 03/15/20 03/24/24 drops,suspension betaxolol 0.25 % eye 1 drp ophthalmic (eye) DAILY 02/15/21 03/24/24 drops,suspension (Betoptic S) carboxymethylcellulose 0.5 1 drp ophthalmic (eye) DAILY 02/15/21 03/24/24 %-glycerin 0.9 % (PF) eye drops,dropperette (Refresh Optive Sensitive (PF)) cyclosporine 0.05 % eye drops in a 1 drp ophthalmic (eye) DAILY 02/15/21 03/24/24 dropperette (Restasis) brimonidine 0.1 % eye drops 1 drp ophthalmic (eye) DAILY 03/16/21 03/24/24 (Alphagan P) dorzolamide 22.3 mg-timolol 6.8 22.3 drp ophthalmic (eye) DAILY 06/25/23 03/24/24 mg/mL eye drops loteprednol etabonate 0.5 % eye 0.5 drp ophthalmic (eye) DAILY 06/25/23 03/24/24 drops,suspension (Lotemax) prednisone 5 mg tablet 5 mg PO DAILY 12/16/23 03/24/24 Previous Rx's ?Medication ?Instructions ?Recorded inhalational spacing device #1 ea 07/18/22 (BreatheRite MDI Spacer) nebulizers (AeroEclipse II #1 ea 07/18/22 Nebulizer) ascorbic acid (vitamin C) 500 mg 500 mg PO DAILY #90 caps 03/17/23 tablet (Vitamin C) levothyroxine 88 mcg tablet 88 mcg PO DAILY #90 caps 05/07/23 azelastine 137 mcg (0.1 %) nasal 1 spray intranasal BID #30 mL 06/13/23 spray omeprazole 40 mg capsule,delayed 40 mg PO DAILY 90 days #90 caps 07/31/23 release rosuvastatin 5 mg tablet 5 mg PO DAILY 3 months #90 tabs 11/17/23 Ventolin HFA 90 mcg/actuation 2 puff inhalation Q6H PRN for 11/24/23 aerosol inhaler (albuterol sulfate) wheezing #18 grams fluticasone propionate 50 2 spray intranasal DAILY #16 caps 12/08/23 mcg/actuation nasal spray,suspension polyethylene glycol 3350 17 17 g PO BID #510 grams 01/20/24 gram/dose oral powder fluticasone furoate 100 1 inh inhalation Q24H #30 ea 02/03/24 mcg/actuation blister powder for inhalation (Arnuity Ellipta) alprazolam 0.25 mg tablet 0.25 mg PO DAILY PRN anxiety #14 03/22/24 tabs azithromycin 250 mg tablet See Rx Instructions PO .COMPLEX #6 03/25/24 (Zithromax Z-Ghanshyam) tabs cefdinir 300 mg capsule 300 mg PO Q12H #14 caps 03/25/24 hydrocortisone-acetic acid 1 %-2 % 4 drp otic (ears) TID #10 mL 03/25/24 ear drops Allergies Allergy/AdvReac Type Severity Reaction Status Date / Time Opioids - Morphine Analogues Allergy Severe convultions Verified 03/25/24 22:18 sulfabenzamide Allergy Severe tongue Verified 03/25/24 22:18 swelled shut gluten [GLUTEN] Allergy Intermediate INFLAMMATION Verified 03/25/24 22:18 SYSTEMICALLY mold [MOLD] Allergy Intermediate UNKNOWN Verified 03/25/24 22:18 animal dander Allergy Unknown ASTHMA Verified 03/25/24 22:18 FLAIRUP Clindamycin HCl Allergy Unknown rash Verified 03/25/24 22:18 doxycycline [DOXYCYCLINE] Allergy Unknown RASH Verified 03/25/24 22:18 morphine [MORPHINE] Allergy Unknown SEIZURE Verified 03/25/24 22:18 LIKE EXPERIENCE - FELT TERRIBLE, convulsions penicillin V Allergy Unknown rash Verified 03/25/24 22:18 Penicillins [PENICILLINS] Allergy Unknown RASH HIVES Verified 03/25/24 22:18 soybean Allergy Unknown unknown Verified 03/25/24 22:18 Sulfa (Sulfonamide Allergy Unknown TONGUE Verified 03/25/24 22:18 Antibiotics) SWELLING, [SULFA (SULFONAMIDE swelling ANTIBIOTICS)] of mouth soy AdvReac Intermediate UPSET Verified 03/25/24 22:18 STOMACH DAIRY PRODUCTS Allergy Intermediate INFLAMMATIO Uncoded 03/25/24 22:18 N cats, dogs Allergy Unknown Unknown Uncoded 03/25/24 22:18 mole,bread and diary Allergy Unknown Unknown Uncoded 03/25/24 22:18 Review of Systems 2 Review of Systems: All other systems are reviewed and are negative Constitutional: Reports as per HPI and Reports no additional constitutional complaints Eyes: Reports as per HPI and Reports no additional eye complaints Reports system reviewed and no additional complaints, except as documented Cardiovascular: Reports as per HPI and Reports no additional cardiovascular complaints Respiratory: Reports as per HPI and Reports no additional respiratory complaints Gastrointestinal: Reports as per HPI and Reports no additional gastrointestinal complaints Genitourinary: Reports no additional female genitourinary complaints Musculoskeletal: Reports no additional musculoskeletal complaints Skin/Breast: Reports system reviewed and no additional complaints, except as docu Psychiatric: Reports no additional psychiatric complaints Endocrine: Reports no additional endocrine complaints Hematologic/Lymphatic: Reports no additional hematologic/lymphatic complaints Allergic/Immunologic: Reports no additional allergic/immunologic complaints Reports system reviewed and no additional complaints, except as documented and Reports Abnormal speech present [facility] Past Medical History Medical History Hip pain, bilateral History of adenomatous polyp of colon Fatigue Recurrent genital herpes Environmental and seasonal allergies Temporomandibular joint dysfunction Frequent headaches Mixed dyslipidemia Immunization refused Hx of breast cancer History of COVID-19 Anxiety disorder Dyslipidemia Recurrent otitis media Retinal detachment Vini's thyroiditis Mild intermittent asthma Narrow angle glaucoma suspect of both eyes Vitamin D deficiency Acquired hypothyroidism Surgical History Hx of colonoscopy History of surgery H/O myringotomy History of hysterectomy History of eyelid surgery History of eye surgery Family History Family History Father No problems noted. Mother Diabetes mellitus Heart disease Heart attack Brother No problems noted. Brother No problems noted. Brother No problems noted. Brother No problems noted. Brother No problems noted. Social History Social History Household Members: None Housing: House Alcohol intake: current Alcohol intake frequency: a few times a week Patient Tobacco Use Status: Never used Tobacco Smoked in Last 30 Days: No e-Cigarette/Vaping Use: Never Used Use of substances other than those prescribed or required for medical reasons: No Advance Directives: No Advance Directives Information Provided: No service: No Current occupational status: employed Cognitive needs: No Hearing needs: No Vision needs: No Physical Exam 2 Vital Signs: Vital Signs: Last Vital Signs Temp 98.2 F 03/26/24 06:09 Pulse 82 03/26/24 06:09 Resp 16 03/26/24 06:09 BP 98/52 L 03/26/24 06:09 Pulse Ox 95 03/26/24 06:09 O2 Del Method Room Air 03/26/24 06:09 BMI result Body Mass Index 19.5 Vital signs have been reviewed and appear to be correct. Blood pressure elevated. Heart rate normal. Respiratory rate normal. Temperature normal. Oxygen saturation normal. Appearance: Alert. Oriented X3. No acute distress. Head: Normal external exam. Normocephalic. Atraumatic. No Richards signs noted. No raccoon eyes noted Eyes: PERRLA. EOMI. Conjunctiva and sclera normal. Eyelids normal. ENT: Left TM erythema , uncomfortable left ear exam due to pain. Pharynx normal. Uvula midline. Moist mucous membranes. No trismus noted. No drooling noted. No muffled voice noted. Neck: Normal inspection. Neck supple. FROM. No adenopathy. Thyroid Normal. No meningeal signs. No neck mass noted. CVS: Normal heart rate and rhythm. Heart sound normal. No murmurs noted. Pulses normal throughout. Respiratory: No respiratory distress. Painless inspiration. Breath sounds normal. No wheezes/rales/rhonchi noted. Chest nontender. No accessory muscle usage noted or decreased air movement noted. Abdomen: Soft , epigastric tenderness, no rebound tenderness, no guarding.. Bowel sounds normal in all 4 quadrants. No distention noted. No organomegaly noted. No visible injury noted. Back: No CVA tenderness. Full range of motion noted. Skin: Skin warm and dry. Normal skin color. Normal skin turgor. No rashes/lesions/lacerations noted. Extremities: No lower extremity edema. Extremities exhibit normal range of motion. Extremities nontender. Neuro: Oriented X 3. Cranial nerve exam: II-XII are grossly intact No motor deficit. No sensory deficit. Reflexes normal. Course Reevaluation(s) Reevaluation #1: Feels better after IV hydration, Maalox, and Pepcid with Zofran, And Imodium, patient still not feeling improved had multiple trips to the bathroom for severe diarrhea, C diff is negative, Patient's symptoms is likely secondary to gastritis or stomach irritation by taking her 1st dose of Ceftin. Time: 07:07 Medications Administered Discontinued Medications Generic Name Dose Route Start Last Admin Trade Name Freq PRN Reason Stop Dose Admin Al Hydroxide/Mg Hydroxide 30 ml 03/25/24 23:32 03/26/24 00:30 Magnesium Hydrox/Alum Hydrox 30 Ml Oral.Susp PO 03/25/24 23:33 30 ml ONCE ONE Administration Famotidine 20 mg 03/25/24 23:32 03/26/24 00:30 Famotidine/Pf 20 Mg/2 Ml Vial IVPUSH 03/25/24 23:33 20 mg ONCE ONE Administration Sodium Chloride 1,000 mls @ 999 mls/hr 03/25/24 23:32 03/26/24 01:48 Ns IV 03/26/24 00:32 Infused .Q1H1M ONE Infusion Sodium Chloride 1,000 mls @ 999 mls/hr 03/26/24 01:37 03/26/24 03:39 Ns IV 03/26/24 02:37 Infused .Q1H1M ONE Infusion Sodium Chloride 1,000 mls @ 999 mls/hr 03/26/24 04:24 03/26/24 06:00 Ns IV 03/26/24 05:24 Infused .Q1H1M ONE Infusion Ondansetron HCl 4 mg 03/25/24 23:32 03/26/24 00:30 Ondansetron Hcl 4 Mg/2 Ml Vial IVPUSH 03/25/24 23:33 4 mg ONCE ONE Administration Ondansetron HCl 4 mg 03/26/24 03:03 03/26/24 03:10 Ondansetron Hcl 4 Mg/2 Ml Vial IVPUSH 03/26/24 03:04 4 mg ONCE ONE Administration Vancomycin HCl 250 mg 03/26/24 02:52 03/26/24 03:10 Vancomycin Hcl 125 Mg Capsule PO 03/26/24 02:53 250 mg ONCE ONE Administration Medical Decision Making Differential Diagnosis Differential Diagnoses: The differential diagnosis associated with the presentation includes ( Pancreatitis, gastritis, gastroenteritis, food poisoning, antibiotic inducing vomiting, severe dehydration, electrolyte derangement, severe anemia.) Admission/Observation Consideration of admission/observation: Escalation of care including admission/observation considered Lab Data MDM Lab Attestation statement: I reviewed the patient's lab results. 03/25/24 22:34 03/25/24 22:34 Labs: Lab Results 03/25/24 03/26/24 03/26/24 Range/Units 22:34 02:22 02:55 WBC 9.4 (4.8-10.8) X10*3/uL RBC 4.37 (4.20-5.50) X10*6/uL Hgb 13.8 (12.0-16.0) g/dl Hct 40.3 (37.0-47.0) % MCV 92.2 (80.0-98.0) fL MCH 31.6 (27.0-33.0) pg MCHC 34.2 (31.0-35.0) g/dl RDW 11.9 (11.0-16.0) % Plt Count 252 (160-400) X10*3/uL MPV 8.9 L (9.4-12.3) fL Immature Gran % (Auto) 0.3 (0.0-0.4) % Neut % (Auto) 88.0 H (45-73) % Lymph % (Auto) 7.3 L (20-40) % Scott % (Auto) 3.8 (2-11) % Eos % (Auto) 0.3 (0-4) % Baso % (Auto) 0.3 (0-2) % Lymph # (Auto) 0.7 L (1.2-4.9) X10*3/uL Scott # (Auto) 0.4 (0.1-1.2) X10*3/uL Eos # (Auto) 0.0 (0.0-0.4) X10*3/uL Baso # (Auto) 0.0 (0.0-0.2) X10*3/uL Abs Immat Gran (auto) 0.03 (0.00-0.03) X10*3/uL Absolute Neuts (auto) 8.2 (2.0-8.3) x10*3/uL Absolute Nucleated RBC 0.000 (0.0-0.012) X10*3/uL Nucleated RBC % (auto) 0.0 (0.0-0.2) /100WBC Sodium 141 (135-145) mmol/L Potassium 3.7 (3.3-5.1) mmol/L Chloride 109 H (96-108) mmol/L Carbon Dioxide 23 (22-29) mmol/L Anion Gap 13 (12-20) BUN 15 (9-16) mg/dL Creatinine 0.85 (0.5-1.4) mg/dL Estim Creat Clear Calc 58.2 Estimated GFR > 60 Random Glucose 123 H (60-115) mg/dL Calcium 9.4 (8.4-10.2) mg/dL Total Bilirubin 0.3 (0.0-1.0) mg/dL AST 25 (5-31) U/L ALT 21 (0-31) U/L Alkaline Phosphatase 68 (39-117) U/L Total Protein 7.0 (6.5-8.0) g/dL Albumin 4.1 (3.5-5.0) g/dL Lipase 13 (8-78) U/L C. difficile Tox B Gene NEGATIVE (Negative) Influenza Type A (PCR) NEGATIVE (Negative) Influenza Type B (PCR) NEGATIVE (Negative) RSV RNA Qual (PCR) NEGATIVE (Negative) SARS-CoV-2 RNA (RT-PCR) NEGATIVE (Negative) Discharge Plan Discharge Clinical Impression: Acute left otitis media, Vomiting Patient Disposition: Still a Patient Instructions: Ear Infection (ED) Prescriptions: New azithromycin [Zithromax Z-Ghanshyam] 250 mg tablet See Rx Instructions .ROUTE .COMPLEX Qty: 6 0RF Rx Instructions: For 250 mg dose pack: take 500 mg today (day 1), then 250 mg for 4 days (days 2-5) No Action (DME) BreatheRite MDI Spacer Spacer See Rx Instructions .Route Qty: 1 0RF Rx Instructions: As directed (DME) nebulizers [place]AeroEclipse [place]ul[place] [facility] [place] Instructions .Route Qty: 1 0RF Rx Instructions: As directed ascorbic acid (vitamin C) [Vitamin C] 500 mg tablet 500 mg PO DAILY Qty: 90 3RF levothyroxine 88 mcg tablet 88 mcg PO DAILY Qty: 90 1RF azelastine 137 mcg (0.1 %) aerosol,spray 1 spray intranasal BID Qty: 30 5RF omeprazole 40 mg capsule,delayed release(DR/EC) 40 mg PO DAILY 90 Days Qty: 90 0RF albuterol sulfate [Ventolin HFA] 90 mcg/actuation HFA aerosol inhaler 2 puff inhalation Q6H PRN (Reason: for wheezing) Qty: 18 1RF fluticasone propionate 50 mcg/actuation spray,suspension 2 spray intranasal DAILY Qty: 16 1RF polyethylene glycol 3350 17 gram/dose powder 17 g PO BID Qty: 510 2RF Arnuity Ellipta 100 mcg/actuation blister with device 1 inh inhalation Q24H Qty: 30 1RF alprazolam 0.25 mg tablet 0.25 mg PO DAILY PRN (Reason: anxiety) Qty: 14 0RF fluorometholone 0.1 % drops,suspension 1 drp ophthalmic (eye) NEEDED Alphagan P 0.1 % drops 1 drp ophthalmic (eye) DAILY Restasis 0.05 % dropperette 1 drp ophthalmic (eye) DAILY Betoptic S 0.25 % drops,suspension 1 drp ophthalmic (eye) DAILY Refresh Optive Sensitive (PF) 0.5-0.9 % dropperette 1 drp ophthalmic (eye) DAILY rosuvastatin 5 mg tablet 5 mg PO DAILY 90 Days Qty: 90 2RF dorzolamide-timolol 22.3-6.8 mg/mL drops 22.3 drp ophthalmic (eye) DAILY loteprednol etabonate [Lotemax] 0.5 % drops,suspension 0.5 drp ophthalmic (eye) DAILY prednisone 5 mg tablet 5 mg PO DAILY cefdinir 300 mg capsule 300 mg PO Q12H Qty: 14 0RF hydrocortisone-acetic acid 1-2 % drops 4 drp otic (ears) TID Qty: 10 0RF Print Language: Qatari
[2024-03-25 23:54] LABS: Lipase 13 U/L (8-78)
--- NOTE | 2024-03-26 | PC.NURSE ---
pt from waiting room, assume care of pt at this time
[2024-03-26] MEDS: 0.9 % Sodium Chloride 1,000 ML 999 ML IV ×3 (00:04→04:27)
[2024-03-26 00:30] VITALS: BP 101/52; PULSE 69; RESP 16; TEMP 36.4; O2SAT 97
[2024-03-26] MEDS: Magnesium Hydrox/Alum Hydrox 30 ML ORAL.SUSP PO (00:30)
[2024-03-26] MEDS: Famotidine/PF 20 MG/2 ML VIAL IVPUSH (00:30)
[2024-03-26] MEDS: ondansetron HCL 4 MG/2 ML VIAL IVPUSH ×2 (00:30→03:10)
--- NOTE | 2024-03-26 02:05 | PC.NURSE ---
pt states, I've got to go to the br again, feel like I am going to throw up. When will this stop? Pt given a hat to get a stool sample..
--- NOTE | 2024-03-26 02:32 | PC.NURSE ---
pt had loose watery stool, sample obtained and sent to lab
[2024-03-26 02:49] VITALS: BP 106/67; PULSE 75; RESP 16; TEMP 36.9; O2SAT 97
--- NOTE | 2024-03-26 02:57 | MHC.EDTECH ---
Provider said Patient can have some ice chips ,Patient tolerated well ,rsv/covid swab done and sent to lab .
[2024-03-26] MEDS: vancomycin HCL 125 MG CAPSULE 250 MG PO (03:10)
[2024-03-26 03:19] LABS: CDiff Gene PCR NEGATIVE (Negative)
[2024-03-26 03:54] LABS: Influenza A PCR NEGATIVE (Negative); Influenza B PCR NEGATIVE (Negative); Resp Syncy Virus RNA Qual PCR NEGATIVE (Negative); SARS COV2 PCR INHOUSE NEGATIVE (Negative)
[2024-03-26 06:09] VITALS: BP 98/52; PULSE 82; RESP 16; TEMP 36.8; O2SAT 95
--- NOTE | 2024-03-26 06:26 | PC.NURSE ---
when asked, if she felt well enough to go home, pt states, I fee; dizzy, I am shaking. I need to rest awhile longer, and then need a ride home, Pt states, I jsut don't want to throw up in the car
--- NOTE | 2024-03-26 06:59 | PC.NURSE ---
report given Sosa BLANCO
[2024-03-26] MEDS: Loperamide HCl 2 MG CAPSULE PO (07:40)
[2024-03-26] MEDS: Acetaminophen 325 MG TABLET 975 MG PO (08:31)
[2024-03-26 08:40] VITALS: BP 110/62; PULSE 82; RESP 18; TEMP 36.7; O2SAT 95
== END 2024-03-26 08:42 | disposition home or self-care (01) ==
PROVIDERS: Emergency Medicine; Emergency Provider Emergency Medicine
DX: H66.92 Otitis media, unspecified, left ear (principal); R11.2 Nausea with vomiting, unspecified; R42 Dizziness and giddiness; R10.2 Pelvic and perineal pain; Z03.818 Encounter for observation for suspected exposure to other biological agents ruled out; Z79.899 Other long term (current) drug therapy
CPT/HCPCS: 0241U; 36415; 74176; 80053; 83690; 85025; 87493; 96361; 96374; 96375; 96376; 99285; J2405

== ENCOUNTER 2024-04-20 10:39 | Outpatient (AMB) | payer OTHER, SELFPAY ==
--- NOTE | 2024-04-20 11:36 | MHC.OFFWIV ---
Intake Vital Signs 04/20/24 11:38 BP 118/72 Blood Pressure Location Lt brachial Position Sitting Pulse 68 Pulse Source Pulse Oximeter Pulse Oximetry (%) 98 Oxygen Delivery Method Room Air Intake Visit Reasons: EP LT ear Intake Note: Patient here for left ear pain that has been present for over 1 week. Patient Tobacco Use Status: Never used Tobacco Allergies Opioids - Morphine Analogues Allergy (Severe, Verified 04/20/24 11:37) convultions sulfabenzamide Allergy (Severe, Verified 04/20/24 11:37) tongue swelled shut gluten [GLUTEN] Allergy (Intermediate, Verified 04/20/24 11:37) INFLAMMATION SYSTEMICALLY mold [MOLD] Allergy (Intermediate, Verified 04/20/24 11:37) UNKNOWN animal dander Allergy (Unknown, Verified 04/20/24 11:37) ASTHMA FLAIRUP Clindamycin HCl Allergy (Unknown, Verified 04/20/24 11:37) rash doxycycline [DOXYCYCLINE] Allergy (Unknown, Verified 04/20/24 11:37) RASH morphine [MORPHINE] Allergy (Unknown, Verified 04/20/24 11:37) SEIZURE LIKE EXPERIENCE - FELT TERRIBLE, convulsions penicillin V Allergy (Unknown, Verified 04/20/24 11:37) rash Penicillins [PENICILLINS] Allergy (Unknown, Verified 04/20/24 11:37) RASH HIVES soybean Allergy (Unknown, Verified 04/20/24 11:37) unknown Sulfa (Sulfonamide Antibiotics) [SULFA (SULFONAMIDE ANTIBIOTICS)] Allergy (Unknown, Verified 04/20/24 11:37) TONGUE SWELLING, swelling of mouth soy Adverse Reaction (Intermediate, Verified 04/20/24 11:37) UPSET STOMACH DAIRY PRODUCTS Allergy (Intermediate, Uncoded 04/20/24 11:37) INFLAMMATION cats, dogs Allergy (Unknown, Uncoded 04/20/24 11:37) Unknown mole,bread and diary Allergy (Unknown, Uncoded 04/20/24 11:37) Unknown Do you need a note to return to daycare/school/sports/work: No HPI EP LT ear HPI Details This is a 63-year-old female patient who presents to the walk-in clinic today with report of a one-week history of left ear pain, now radiating into her left jaw. Reports having the chills and being very sweaty, however has not taken her temperature. History of many ENT issues, however does not have a current ENT provider. History of tube placement in the ears for recurrent infections. Multiple antibiotic allergies including cephalosporins, clindamycin, doxy, sulfas, penicillin. denies any other upper respiratory symptoms. History of autoimmune disorders. [facility] Medical History Hip pain, bilateral History of adenomatous polyp of colon Fatigue Recurrent genital herpes Environmental and seasonal allergies Temporomandibular joint dysfunction Frequent headaches Mixed dyslipidemia Immunization refused Hx of breast cancer History of COVID-19 Anxiety disorder Dyslipidemia Recurrent otitis media Retinal detachment Vini's thyroiditis Mild intermittent asthma Narrow angle glaucoma suspect of both eyes Vitamin D deficiency Acquired hypothyroidism Surgical History Hx of colonoscopy History of surgery H/O myringotomy History of hysterectomy History of eyelid surgery History of eye surgery Family History Father No problems noted. Mother Diabetes mellitus Heart disease Heart attack Brother No problems noted. Brother No problems noted. Brother No problems noted. Brother No problems noted. Brother No problems noted. Social History Household Members: None Housing: House Alcohol intake: current Alcohol intake frequency: a few times a week Patient Tobacco Use Status: Never used Tobacco e-Cigarette/Vaping Use: Never Used service: No Current occupational status: employed Cognitive needs: No Hearing needs: No Vision needs: No Review of Systems Const All systems reviewed & are unremarkable except as noted in HPI and below Physical Exam Vital Signs: Last Vital Signs Pulse 68 04/20/24 11:38 BP 118/72 04/20/24 11:38 Pulse Ox 98 04/20/24 11:38 Oxygen Delivery Method Room Air 04/20/24 11:38 Const General: cooperative and no acute distress Limitations: no limitations HEENT Head: Yes normal to inspection Ears: hearing grossly normal bilaterally, external ears normal, TM normal on the right, EAC's normal, mastoids normal (no TTP) and TM abnormal (left TM erythematous, loss of landmarks, fluid behind TM) General nose exam: Normal external nose present Face and sinus: Yes normal facial exam Mouth: Normal oral and palatal mucosa present Neck Neck: Yes no lymphadenopathy Resp Effort & Inspection: normal respiratory effort Auscultation: clear to auscultation bilaterally Cardio Rate: regular rate Rhythm: regular rhythm Skin General skin exam: no rashes or lesions noted Extrem General: Yes capillary refill normal and Yes no clubbing, cyanosis or edema Psych Appearance: grossly normal Mental Status: mental status grossly normal Speech and movement: Normal speech and movement present Assessment & Plan Assessment & Plan (1) Left otitis media with effusion: Code(s): H65.92 - Unspecified nonsuppurative otitis media, left ear Plan: left otitis media - patient has numerous antibiotic allergies. States she can tolerate azithromycin, however the typical Z-Ghanshyam is never sufficient to treat her. We will treat with 500 daily for 5 days. Also will start her on acetic acid ear drops for supportive treatment. These are intended to reduce inflammation and soothe the irritation of the outer ear canal, with instructions to apply four drops three times a day. advised Tylenol / Motrin as needed for any discomfort. Advised to re-establish care with ENT, as she is having recurrent ear infections, and has a history of ear surgeries. She can return to the clinic as needed if she does not improve with treatment. She verbalizes understanding and agrees to plan. Medications: New azithromycin Take one tablet a day for 5 days 500 mg PO DAILY 5 days 5 tabs 0RF H65.92 - Unspecified nonsuppurative otitis media, left ear Refilled hydrocortisone-acetic acid 1-2 % 4 drps otic (ears) TID 10 mL 0RF Coding Level of Care Code Est Pt Level 4 (07276) Diagnoses Left otitis media with effusion H65.92
[2024-04-20 11:38] VITALS: BP 118/72; PULSE 68; O2SAT 98
== END 2024-04-20 12:09 | disposition home or self-care (01) ==
PROVIDERS: PCP Internal Medicine; Visit Provider Nurse Practitioner Family
DX: H65.92 Unspecified nonsuppurative otitis media, left ear (principal)

== ENCOUNTER 2024-04-20 10:41 | Outpatient (REF) | payer OTHER, SELFPAY ==
[2024-04-20 13:56] LABS: Thyroid Stimulating Hormone 2.16 uIU/mL (0.32-4.0)
== END 2024-04-20 10:42 | disposition home or self-care (01) ==
LOC: HO.HMGCLDS 10:41
PROVIDERS: PCP Internal Medicine; Visit Provider Internal Medicine Endocrinology, Diabetes & Metabolism
DX: E03.9 Hypothyroidism, unspecified (principal); H65.92 Unspecified nonsuppurative otitis media, left ear
CPT/HCPCS: 36415; 84439; 84443; 99212

== ENCOUNTER 2024-04-20 13:00 | Outpatient (RCR) | payer OTHER, SELFPAY ==
--- NOTE | 2024-03-01 08:56 | MHC.PT.EP ---
[facility] Office [place] Office [place] Office [address] Taurus Hoffmann [address] [phone] F: [phone] F: [phone] F: [phone] F: [phone] Physical Therapy Plan of Care Date of Evaluation: 03/01/24 Date of Surgery: n/a Diagnosis: hip pain, B Assessment: Patient is a 63 year old female presenting to PT with complaints of pain in B hips. Pt reports onset of pain began about 10 years ago with worsening the last few months due to insidious onset. She presents today with impairments in pain, ROM, hip strength, tenderness to hip soft tissue. Pt's current occupation is [employer], with baseline physical activities including ADLs, work, ambulating, stair negotiation, exercise, sleep. Pt expresses usp goal of reducing pain, and is motivated to work towards this in PT. Clinical presentation today is most consistent with signs and sx associated with B hip pain and pt will benefit from skilled PT 2 week x 8 weeks to address the following problems and impairments noted upon evaluation: pain, ROM, hip strength, tenderness to hip soft tissue. These problems limit the patient with the following functional activities: ADLs, work, ambulating, stair negotiation, exercise, sleep. The prescribed treatment plan of care is medically necessary. Co-morbidities of hx breast cancer were identified and taken into considerations of plan of care. Pt was educated on HEP, role of PT, prognosis, POC. Frequency and Duration: The patient will be seen 2 x week x 4 weeks Short Term Goals: Pt will demonstrate compliance with avoiding provoking activities in 1 visit. Pt will demonstrate R hip ROM in available range with min to no pain in 2 weeks. Pt will demonstrate improved hip MMT strength by 1/3 grade in 2 weeks. Truant Officer Goals: Pt will demonstrate improved LEFI score by 9 points in 4 weeks for improved functional mobility. Pt will demonstrate ability to sleep with min to no pain in 4 weeks for return to PLOF. Pt will demonstrate ability to work and complete household activities with min to no pain at the end of her day in 4 weeks for return to PLOF. Treatment Plan: Modalities to reduce pain, spasms and effusion. Manual therapy to restore motion and function. Therapeutic exercise to improve strength and flexibility. Neuromuscular re-education for posture and balance. Therapeutic activities to return to functional activities of daily living. Electronically signed by: Daisy Waldron PT, DPT, ATC Please sign and return to therapist. Thank you for your referral.
--- NOTE | 2024-04-20 13:51 | MHC.PT.DC ---
[facility] [place] Office [place] Office [place] Office [address] Taurus Hoffmann [address] [phone] F: [phone] F: [phone] F: [phone] F: [phone] Physical Therapy Discharge Report Diagnosis: hip pain, B Date of Surgery: n/a Date of Evaluation: 03/01/24 Date of Discharge: 04/20/24 Treatments to Date: 7 Cancellations to Date: 4 No Shows to Date: 0 Discharge Status: Improved Function Independent with HEP Discharge Summary: 04/20/2024: Pt has made some low level progress since start of care. She states overall she feels better however she does seem to be having flare ups at times which limit her. At this time we have maximized skilled PT and it is no longer appropriate to continue. She has an HEP and I advised continuing with this at home to continue to maximize strength. I advised also if flare ups continue to limit her then she should follow up with her doctor for further evaluation and management. She is in agreement with plan. Electronically signed by: Daisy Waldron, PT, DPT, ATC Please sign and return to therapist. Thank you for your referral.
== END 2024-04-20 13:52 | disposition home or self-care (01) ==
LOC: HO.PTCHIC 13:00
PROVIDERS: PCP Internal Medicine; Visit Provider Internal Medicine
DX: M25.551 Pain in right hip (principal); M25.552 Pain in left hip
CPT/HCPCS: 97110; 97112; 97140; 97161

== ENCOUNTER 2024-04-26 13:29 | Outpatient (AMB) | payer OTHER, SELFPAY ==
[2024-04-26 13:56] VITALS: BP 90/60; PULSE 65; O2SAT 99; BMI 19.8
--- NOTE | 2024-04-26 13:56 | A.OFFPC_ITS ---
Vital Signs 04/26/24 13:56 Height 5 ft 5 in Weight 119 lb BMI 19.8 BP 90/60 Blood Pressure Location Lt brachial Position Sitting Pulse 65 Pulse Source Pulse Oximeter Pulse Oximetry (%) 99 Oxygen Delivery Method Room Air Intake Visit Reasons: Rt eye cat. dr. Heller 05/17/24 Intake Note: Pt is here today for her pre-op Rt eye cataract surgery with Dr. Heller on 05/17/24 Allergies Opioids - Morphine Analogues Allergy (Severe, Verified 04/26/24 14:20) convultions sulfabenzamide Allergy (Severe, Verified 04/26/24 14:20) tongue swelled shut gluten [GLUTEN] Allergy (Intermediate, Verified 04/26/24 14:20) INFLAMMATION SYSTEMICALLY mold [MOLD] Allergy (Intermediate, Verified 04/26/24 14:20) UNKNOWN animal dander Allergy (Unknown, Verified 04/26/24 14:20) ASTHMA FLAIRUP Clindamycin HCl Allergy (Unknown, Verified 04/26/24 14:20) rash doxycycline [DOXYCYCLINE] Allergy (Unknown, Verified 04/26/24 14:20) RASH morphine [MORPHINE] Allergy (Unknown, Verified 04/26/24 14:20) SEIZURE LIKE EXPERIENCE - FELT TERRIBLE, convulsions penicillin V Allergy (Unknown, Verified 04/26/24 14:20) rash Penicillins [PENICILLINS] Allergy (Unknown, Verified 04/26/24 14:20) RASH HIVES soybean Allergy (Unknown, Verified 04/26/24 14:20) unknown Sulfa (Sulfonamide Antibiotics) [SULFA (SULFONAMIDE ANTIBIOTICS)] Allergy (Unknown, Verified 04/26/24 14:20) TONGUE SWELLING, swelling of mouth soy Adverse Reaction (Intermediate, Verified 04/26/24 14:20) UPSET STOMACH DAIRY PRODUCTS Allergy (Intermediate, Uncoded 04/26/24 14:20) INFLAMMATION cats, dogs Allergy (Unknown, Uncoded 04/26/24 14:20) Unknown mole,bread and diary Allergy (Unknown, Uncoded 04/26/24 14:20) Unknown cefdinir Adverse Reaction (Uncoded 04/26/24 14:20) Vomiting Medication List - Last Reconciled 04/26/24 by Stephania Guaman MD alprazolam 0.25 mg PO DAILY PRN ascorbic acid (vitamin C) (Vitamin C) 500 mg PO DAILY azelastine 1 spray intranasal BID betaxolol 0.25% (Betoptic S) 1 drp ophthalmic (eye) DAILY brimonidine 0.1% (Alphagan P) 1 drp ophthalmic (eye) DAILY carboxymethylcell-glycerin(PF) 0.5-0.9 % (Refresh Optive Sensitive (PF)) 1 drp ophthalmic (eye) DAILY cyclosporine 0.05% (Restasis) 1 drp ophthalmic (eye) DAILY dorzolamide-timolol 22.3-6.8 mg/mL 22.3 drps ophthalmic (eye) DAILY fluorometholone 0.1% 1 drp ophthalmic (eye) NEEDED fluticasone furoate 100 mcg/actuation (Arnuity Ellipta) 1 inh inhalation Q24H fluticasone propionate 50 mcg/actuation 2 sprays intranasal DAILY hydrocortisone-acetic acid 1-2 % 4 drps otic (ears) TID inhalational spacing device (BreatheRite MDI Spacer) As directed levothyroxine 88 mcg PO DAILY loteprednol etabonate 0.5% (Lotemax) 0.5 drps ophthalmic (eye) DAILY nebulizers (AeroEclipse II Nebulizer) As directed pantoprazole 40 mg PO DAILY polyethylene glycol 3350 17 grams PO BID prednisone 5 mg PO DAILY rosuvastatin 5 mg PO DAILY 3 months Ventolin HFA 90 mcg/actuation (albuterol sulfate) 2 puffs inhalation Q6H PRN NS Tobacco use date assessed: 03/10/24 Dental Screening Dental Screen Date: 03/10/24 HPI Rt eye cat. dr. Heller 05/17/24 HPI Details 63-year-old lady with hyperlipidemia env ironmental and seasonal allergies, anxiety disorder mild intermittent asthma, glaucoma and Vini's thyroiditis with hypothyroidism, here today for a preoperative exam for Rt eye cataract surgery with Dr. Heller on 05/17/24. She has been feeling well except for intermittent episodes of nasal congestion with postnasal drainage. Take fluticasone and Azelastine nasal spray as needed. She has been feeling well otherwise with no other complaints at present time. [facility] Medical History History of adenomatous polyp of colon Recurrent genital herpes Environmental and seasonal allergies Temporomandibular joint dysfunction Mixed dyslipidemia Immunization refused Hx of breast cancer History of COVID-19 Anxiety disorder Dyslipidemia Recurrent otitis media Retinal detachment Vini's thyroiditis Mild intermittent asthma Narrow angle glaucoma suspect of both eyes Vitamin D deficiency Acquired hypothyroidism Surgical History Hx of colonoscopy History of surgery H/O myringotomy History of hysterectomy History of eyelid surgery History of eye surgery Family History Father No problems noted. Mother Diabetes mellitus Heart disease Heart attack Brother No problems noted. Brother No problems noted. Brother No problems noted. Brother No problems noted. Brother No problems noted. Social History Household Members: None Housing: House Alcohol intake: current Alcohol intake frequency: a few times a week Patient Tobacco Use Status: Never used Tobacco e-Cigarette/Vaping Use: Never Used service: No Current occupational status: employed Cognitive needs: No Hearing needs: No Vision needs: No Questionnaire Thrive Questionnaire Date Thrive assessed: 04/26/24 I am a: Patient What is your living situation today?: I choose not to answer this question Within the past 12 months, did the food you bought not last and you didn't have the money to get more?: I choose not to answer this question Within the past 12 months, did you worry whether your food would run out before you got money to buy more?: I choose not to answer this question Do you have trouble paying for medicines?: I choose not to answer this question Do you have trouble getting transportation to medical appointments?: I choose not to answer this question Do you have trouble paying your heating and electricity bill?: I choose not to answer this question Do you have trouble taking care of your child, family member or friend?: I choose not to answer this question Do you have trouble with day-to-day activities such as bathing, preparing meals, shopping, managing finances, etc.?: I choose not to answer this question Are you currently unemployed and looking for a job?: I choose not to answer this question Are you interested in more education?: I choose not to answer this question Please select the resources that you would like help with: None Currently or been in a relationship where the following occur: I choose not to answer THRIVE Score: 0 AUDIT C Alcohol Use Questionnaire (AUDIT-C) 1. How often do you have a drink containing alcohol?: Never Total Score: 0 PASCUAL-7 AMB Questionnaire PASCUAL-7 Date PASCUAL - 7 assessed: 06/09/23 Source: Developed by Drs. Angel Allen, Manuela Gardner, Emre Palacios and colleagues, with an educational cresencio from [employer]. Review of Systems Const Denies fever(s) and Denies headache(s) Eyes Reports as per HPI ENT Denies headache(s), Denies sinus pressure and Denies sore throat Card Denies chest pain, Denies pedal edema, Denies irregular heart rhythm and Denies dyspnea Resp Denies chest congestion, Denies cough and Denies dyspnea GI Denies abdominal pain, Denies melena, Denies hematochezia and Denies change in bowel habits Reports no additional complaints Musc Denies arthralgias and Reports stiffness Skin/Breast Denies lesions, Denies erythema, Denies rash and Denies unusual bruising Neuro Denies headache(s) Psych Reports no additional complaints Endo Reports no additional complaints Kiel/Lymph Reports no additional complaints Aller/Immun Reports seasonal rhinorrhea Physical exam (Primary Care) Vital Signs: Last Vital Signs Pulse 65 04/26/24 13:56 BP 90/60 04/26/24 13:56 Pulse Ox 99 04/26/24 13:56 Oxygen Delivery Method Room Air 04/26/24 13:56 BMI result Body Mass Index 19.8 Tobacco/Smoking Status: Tobacco use Status Tobacco use date assessed 03/10/24 04/26/24 14:02 Patient Tobacco Use Status Never used Tobacco 04/26/24 14:02 e-Cigarette/Vaping Use Never Used 04/26/24 14:02 Thrive Assessment: Date of Thrive Assessment Date Thrive assessed 04/26/24 04/26/24 14:02 Currently or been in a relationship where the following occur: I choose not to answer Const Other: Alert oriented x3, no acute distress noted, ambulatory normal gait HENMT Mouth: Normal oral and palatal mucosa present, oropharynx normal and moist mucous membranes Eyes General: appearance normal, both eyes and all related structures Neck Neck: Yes full ROM, Yes no lymphadenopathy and Yes supple Thyroid: Thyroid normal (Nonpalpable) and nontender Resp Effort & Inspection: normal respiratory effort and able to speak in complete sentences Auscultation: clear to auscultation bilaterally Cardio Other: S1-S2 present regular rate and rhythm GI Palpation (GI): Soft to palpation, nontender, no guarding and no masses Auscultation: normal bowel sounds Skin General skin exam: no rashes or lesions noted Neuro General: gait normal, tone normal, moves all extremities and no focal motor deficits Extrem General: Yes full ROM, Yes no joint enlargement, Yes no clubbing, cyanosis or edema and Yes normal gait Results Reviewed Results Reviewed: debi: Kaylynn Julian Age/Sex: 63/F : 1960 Unit#: [id number] Attend Dr: Giorgio Palm MD Re03/25/24 Status: DEP ER Location: [facility] [place] Disch: SPEC : [id number] BECKY: 03/25/24 STATUS: COMP REQ : [id number] RECD: 03/25/[address]: Nicolle Cortes MD COMP: 03/25/24 ENTERED: 03/25/[address]: Generic ED Physician ORDERED: CBC Auto Diff Test Result Flag Reference WBC 9.4 4.8-10.8 X10*3/uL RBC 4.37 4.20-5.50 X10*6/uL HGB 13.8 12.0-16.0 g/dl HCT 40.3 37.0-47.0 % MCV 92.2 80.0-98.0 fL MCH 31.6 27.0-33.0 pg MCHC 34.2 31.0-35.0 g/dl RDW 11.9 11.0-16.0 % PLT 252 160-400 X10*3/uL MPV 8.9 L 9.4-12.3 fL Neut Pct Auto 88.0 H 45-73 % ImGran Pct Auto 0.3 0.0-0.4 % Lymp Pct Auto 7.3 L 20-40 % [place] Pct Auto 3.8 2-11 % Eos Pct Auto 0.3 0-4 % Baso Pct Auto 0.3 0-2 % NRBC Pct Auto 0.0 0.0-0.2 /100WBC ANC Neut Abs # 8.2 2.0-8.3 x10*3/uL ImGran Abs Auto 0.03 0.00-0.03 X10*3/uL Lymph Abs Auto 0.7 L 1.2-4.9 X10*3/uL [place] Abs Auto 0.4 0.1-1.2 X10*3/uL Eos Abs Auto 0.0 0.0-0.4 X10*3/uL Baso Abs Auto 0.0 0.0-0.2 X10*3/uL NRBC Abs Auto 0.000 0.0-0.012 X10*3/uL Name: Kaylynn Julian Age/Sex: 63/F : 1960 Unit#: [id number] Attend Dr: Giorgio Palm MD Re03/25/24 Status: DEP ER Location: [facility] [place] Disch: SPEC : [id number] BECKY: 03/25/24 STATUS: COMP REQ : [id number] RECD: 03/25/[address]: Nicolle Cortes MD COMP: 03/25/24 ENTERED: 03/25/[address]: Generic ED Physician ORDERED: CMP, Lip Test Result Flag Reference Sodium 141 135-145 mmol/L Potassium 3.7 3.3-5.1 mmol/L CL 109 H 96-108 mmol/L CO2 23 22-29 mmol/L Gap 13 12-20 BUN 15 9-16 mg/dL Creat 0.85 0.5-1.4 mg/dL Estimated CrCl 58.2 Provided height and weight: 165.1 cm, 53.07 kg. eGFR (calculated from the MDRD study equation) and eCrCl (calculated from the Cockcroft-Gault equation) are based on different parameters and may not yield comparable results. If eCrCl result is absurd, please check patient's height/weight. eGFR > 60 Chronic Kidney Disease: Estimated GFR < 60 mL/min/1 .73m2 Severe Kidney Disease: Estimated GFR < 15 mL/min/1.73m2 Glucose, Random 123 H 60-115 mg/dL CA 9.4 8.4-10.2 mg/dL Total Bili 0.3 0.0-1.0 mg/dL AST (GOT) 25 5-31 U/L ALT (GPT) 21 0-31 U/L Protein, Total 7.0 6.5-8.0 g/dL Alb 4.1 3.5-5.0 g/dL Alk Phos 68 39-117 U/L Lipase 13 8-78 U/L Laboratory Tests 04/20/24 11:08 TSH 2.16 Free T4 1.00 Coding Level of Care Code Est Pt Level 4 (42002) Diagnoses Preoperative examination Z01.818 Mixed dyslipidemia E78.2 Generalized anxiety disorder F41.1 Anxiety disorder type: generalized anxiety disorder Mild intermittent asthma without complication J45.20 Asthma complication type: uncomplicated Acquired hypothyroidism E03.9 Peptic ulcer K27.9 Environmental and seasonal allergies J30.89 Assessment & Plan Assessment & Plan (1) Preoperative examination: Code(s): Z01.818 - Encounter for other preprocedural examination Plan: 63-year-old lady with hyperlipidemia environmental and seasonal allergies, anxiety disorder mild intermittent asthma, glaucoma and Vini's thyroiditis with hypothyroidism, here today for a preoperative exam for Rt eye cataract surgery with Dr. Heller on 05/17/24. Preoperative exam is unremarkable, she has a low cardiac risk index for proposed surgery (2) Mixed dyslipidemia: Code(s): E78.2 - Mixed hyperlipidemia Category: Medical Plan: Currently on rosuvastatin 5 mg once a day with latest fasting lipids within normal limits (3) Anxiety disorder: Code(s): F41.9 - Anxiety disorder, unspecified Category: Medical Qualifiers: Anxiety disorder type: generalized anxiety disorder Qualified Code(s): F41.1 - Generalized anxiety disorder Plan: Takes alprazolam 0.25 mg once a day as needed for acute anxiety attacks. (4) Mild intermittent asthma: Code(s): J45.20 - Mild intermittent asthma, uncomplicated Category: Medical Qualifiers: Asthma complication type: uncomplicated Qualified Code(s): J45.20 - Mild intermittent asthma, uncomplicated Plan: Symptoms stable and controlled on Arnuity Ellipta 1 inhalation once a day has Ventolin inhaler used as needed for episodes of bronchospasm and wheezing. (5) Acquired hypothyroidism: Code(s): E03.9 - Hypothyroidism, unspecified Category: Medical Plan: Latest thyroid levels are within normal limits. Continued on current dose of levothyroxine 88 mcg once a day in a.m. (6) Peptic ulcer: Code(s): K27.9 - Peptic ulcer, site unspecified, unspecified as acute or chronic, without hemorrhage or perforation Category: Medical Plan: Currently on pantoprazole 40 mg once a day (7) Environmental and seasonal allergies: Code(s): J30.89 - Other allergic rhinitis Category: Medical Plan: Uses Azelastine alternating with fluticasone nasal spray as needed
== END 2024-04-26 15:12 | disposition home or self-care (01) ==
PROVIDERS: PCP Internal Medicine; Visit Provider Internal Medicine
DX: Z01.818 Encounter for other preprocedural examination (principal); E78.2 Mixed hyperlipidemia; F41.1 Generalized anxiety disorder; J45.20 Mild intermittent asthma, uncomplicated; E03.9 Hypothyroidism, unspecified; K27.9 Peptic ulcer, site unspecified, unspecified as acute or chronic, without hemorrhage or perforation; J30.89 Other allergic rhinitis

== ENCOUNTER → 2024-04-26 13:29 | Outpatient (BNVA) | payer OTHER, SELFPAY | PROVIDERS: PCP Internal Medicine; Visit Provider Internal Medicine | DX: Z01.818 Encounter for other preprocedural examination (principal); E78.2 Mixed hyperlipidemia; F41.1 Generalized anxiety disorder; J45.20 Mild intermittent asthma, uncomplicated; E03.9 Hypothyroidism, unspecified; K27.9 Peptic ulcer, site unspecified, unspecified as acute or chronic, without hemorrhage or perforation; J30.89 Other allergic rhinitis | CPT/HCPCS: 99212 ==

== ENCOUNTER 2024-04-29 14:15 | Outpatient (REF) | payer OTHER, SELFPAY ==
--- NOTE | ~2024-04-29 | XR_ITS ---
EXAMINATION: Chest and left ribs. CLINICAL INDICATION: Pleuritic 9:00 AM. COMPARISON: 09/09/2023. TECHNIQUE: Chest 2 views. Left RIBS 3 views. FINDINGS: CHEST: The lungs are slightly hyperinflated but clear acute process. Heart size and pulmonary vascularity is normal. There is mild extra scoliosis. There are old healed fracture and mild deformity right posterior eighth rib. There are surgical nader in right axilla from previous intervention. LEFT RIBS: Multiple views of left ribs reveal no visible acute fracture or bony abnormality. The soft tissues are normal. XR/XR ribs LT 2V Impression: No acute cardiopulmonary process seen. Old healed right eighth rib fracture. No acute left no fracture visualized. Electronically signed by: Fco Coley MD 04/30/2024 11:49 AM MATTHEW
--- NOTE | ~2024-04-29 | XR_ITS ---
EXAMINATION: Chest and left ribs. CLINICAL INDICATION: Pleuritic 9:00 AM. COMPARISON: 09/09/2023. TECHNIQUE: Chest 2 views. Left RIBS 3 views. FINDINGS: CHEST: The lungs are slightly hyperinflated but clear acute process. Heart size and pulmonary vascularity is normal. There is mild extra scoliosis. There are old healed fracture and mild deformity right posterior eighth rib. There are surgical nader in right axilla from previous intervention. LEFT RIBS: Multiple views of left ribs reveal no visible acute fracture or bony abnormality. The soft tissues are normal. XR/XR chest 2V Impression: No acute cardiopulmonary process seen. Old healed right eighth rib fracture. No acute left no fracture visualized. Electronically signed by: Fco Coley MD 04/30/2024 11:49 AM MATTHEW
== END 2024-04-29 14:16 | disposition home or self-care (01) ==
LOC: HO.HMGCX 14:15
PROVIDERS: PCP Internal Medicine; Referring Provider Internal Medicine Gastroenterology; Visit Provider Internal Medicine
DX: R07.81 Pleurodynia (principal)
CPT/HCPCS: 71046; 71100

== ENCOUNTER → 2024-04-29 14:18 | Outpatient (BNV) | payer OTHER, SELFPAY | PROVIDERS: PCP Internal Medicine; Referring Provider Internal Medicine Gastroenterology; Visit Provider Radiology Diagnostic Radiology | DX: R07.81 Pleurodynia (principal) | CPT/HCPCS: 71046; 71100 ==

== ENCOUNTER 2024-05-17 08:51 | Day surgery (SDC) | payer OTHER, SELFPAY ==
[2024-05-12 16:10] VITALS: BMI 19.8
--- NOTE | 2024-05-13 14:46 | HO.ANESPROP2 ---
Documented by User: Diane Biggs NP 05/13/24 14:47 HPI - Anesthesia Eval Consult details Narrative: 63yo F for Right Cataract Extraction IOL Insertion No previous cataract on record *Multiple Med allergies* PMFSH Active Problems Active Problems: All Active Problems Peptic ulcer (Acute) Recurrent genital herpes (Acute) Environmental and seasonal allergies (Acute) Mixed dyslipidemia (Acute) Immunization refused (Acute) Anxiety disorder (Acute) Vini's thyroiditis (Acute) Mild intermittent asthma (Acute) Narrow angle glaucoma suspect of both eyes (Acute) Vitamin D deficiency (Acute) Acquired hypothyroidism (Acute) Past Medical History Medical History Cataract of right eye History of adenomatous polyp of colon Recurrent genital herpes Environmental and seasonal allergies Temporomandibular joint dysfunction Mixed dyslipidemia Immunization refused Hx of breast cancer History of COVID-19 Anxiety disorder Dyslipidemia Recurrent otitis media Retinal detachment Vini's thyroiditis Mild intermittent asthma Narrow angle glaucoma suspect of both eyes Vitamin D deficiency Acquired hypothyroidism Family History Family History Father No problems noted. Mother Diabetes mellitus Heart disease Heart attack Brother No problems noted. Brother No problems noted. Brother No problems noted. Brother No problems noted. Brother No problems noted. Family history of problems with anesthesia: No Surgical History Surgical History Hx of colonoscopy History of surgery H/O myringotomy History of hysterectomy History of eyelid surgery History of eye surgery History of Problems with Anesthesia: Yes (PONV) Social History Social History Household Members: None Housing: House Alcohol intake: current Alcohol intake frequency: a few times a week Patient Tobacco Use Status: Never used Tobacco e-Cigarette/Vaping Use: Never Used service: No Current occupational status: employed Cognitive needs: No Hearing needs: No Vision needs: No Meds Allergies Allergy/AdvReac Type Severity Reaction Status Date / Time Opioids - Morphine Analogues Allergy Severe convultions Verified 04/26/24 14:20 sulfabenzamide Allergy Severe tongue Verified 04/26/24 14:20 swelled shut gluten [GLUTEN] Allergy Intermediate INFLAMMATION Verified 04/26/24 14:20 SYSTEMICALLY mold [MOLD] Allergy Intermediate UNKNOWN Verified 04/26/24 14:20 animal dander Allergy Unknown ASTHMA Verified 04/26/24 14:20 FLAIRUP Clindamycin HCl Allergy Unknown rash Verified 04/26/24 14:20 doxycycline [DOXYCYCLINE] Allergy Unknown RASH Verified 04/26/24 14:20 morphine [MORPHINE] Allergy Unknown SEIZURE Verified 04/26/24 14:20 LIKE EXPERIENCE - FELT TERRIBLE, convulsions penicillin V Allergy Unknown rash Verified 04/26/24 14:20 Penicillins [PENICILLINS] Allergy Unknown RASH HIVES Verified 04/26/24 14:20 soybean Allergy Unknown unknown Verified 04/26/24 14:20 Sulfa (Sulfonamide Allergy Unknown TONGUE Verified 04/26/24 14:20 Antibiotics) SWELLING, [SULFA (SULFONAMIDE swelling ANTIBIOTICS)] of mouth soy AdvReac Intermediate UPSET Verified 04/26/24 14:20 STOMACH DAIRY PRODUCTS Allergy Intermediate INFLAMMATIO Uncoded 04/26/24 14:20 N cats, dogs Allergy Unknown Unknown Uncoded 04/26/24 14:20 mole,bread and diary Allergy Unknown Unknown Uncoded 04/26/24 14:20 cefdinir AdvReac Vomiting Uncoded 04/26/24 14:20 Home Medications ?Medication ?Instructions ?Recorded ?Confirmed ?Last Taken ?Type fluorometholone 0.1 % eye 1 drp ophthalmic (eye) NEEDED 03/15/20 05/17/24 Unknown History drops,suspension betaxolol 0.25 % eye 1 drp ophthalmic (eye) DAILY 02/15/21 05/17/24 Unknown History drops,suspension (Betoptic S) carboxymethylcellulose 0.5 1 drp ophthalmic (eye) DAILY 02/15/21 05/17/24 Unknown History %-glycerin 0.9 % (PF) eye drops,dropperette (Refresh Optive Sensitive (PF)) cyclosporine 0.05 % eye drops in a 1 drp ophthalmic (eye) DAILY 02/15/21 05/17/24 Unknown History dropperette (Restasis) brimonidine 0.1 % eye drops 1 drp ophthalmic (eye) DAILY 03/16/21 05/17/24 Unknown History (Alphagan P) dorzolamide 22.3 mg-timolol 6.8 22.3 drp ophthalmic (eye) DAILY 06/25/23 05/17/24 Unknown History mg/mL eye drops loteprednol etabonate 0.5 % eye 0.5 drp ophthalmic (eye) DAILY 06/25/23 05/17/24 Unknown History drops,suspension (Lotemax) prednisone 5 mg tablet 5 mg PO DAILY 12/16/23 05/17/24 Unknown History Exam Height,Weight and Vital Signs: Height 5 ft 5 in Weight 53.977 kg Assessment and Plan Assessment Anesthesia Assessment: Chart Reviewed Final Anesthetic Review Family History of Problems with Anesthesia: No History of Problems with Anesthesia: Yes (PONV) Documented by User: Rosita Rosales MD 05/17/24 11:12 PMFSH Past Medical History Medical History Cataract of right eye History of adenomatous polyp of colon Recurrent genital herpes Environmental and seasonal allergies Temporomandibular joint dysfunction Mixed dyslipidemia Immunization refused Hx of breast cancer History of COVID-19 Anxiety disorder Dyslipidemia Recurrent otitis media Retinal detachment Vini's thyroiditis Mild intermittent asthma Narrow angle glaucoma suspect of both eyes Vitamin D deficiency Acquired hypothyroidism Family History Family History Father No problems noted. Mother Diabetes mellitus Heart disease Heart attack Brother No problems noted. Brother No problems noted. Brother No problems noted. Brother No problems noted. Brother No problems noted. Family history of problems with anesthesia: No Surgical History Surgical History Hx of colonoscopy History of surgery H/O myringotomy History of hysterectomy History of eyelid surgery History of eye surgery History of Problems with Anesthesia: Yes Social History Social History Household Members: None Housing: House Alcohol intake: current Alcohol intake frequency: a few times a week Patient Tobacco Use Status: Never used Tobacco e-Cigarette/Vaping Use: Never Used service: No Current occupational status: employed Cognitive needs: No Hearing needs: No Vision needs: No Meds Allergies Allergy/AdvReac Type Severity Reaction Status Date / Time Opioids - Morphine Analogues Allergy Severe convultions Verified 04/26/24 14:20 sulfabenzamide Allergy Severe tongue Verified 04/26/24 14:20 swelled shut gluten [GLUTEN] Allergy Intermediate INFLAMMATION Verified 04/26/24 14:20 SYSTEMICALLY mold [MOLD] Allergy Intermediate UNKNOWN Verified 04/26/24 14:20 animal dander Allergy Unknown ASTHMA Verified 04/26/24 14:20 FLAIRUP Clindamycin HCl Allergy Unknown rash Verified 04/26/24 14:20 doxycycline [DOXYCYCLINE] Allergy Unknown RASH Verified 04/26/24 14:20 morphine [MORPHINE] Allergy Unknown SEIZURE Verified 04/26/24 14:20 LIKE EXPERIENCE - FELT TERRIBLE, convulsions penicillin V Allergy Unknown rash Verified 04/26/24 14:20 Penicillins [PENICILLINS] Allergy Unknown RASH HIVES Verified 04/26/24 14:20 soybean Allergy Unknown unknown Verified 04/26/24 14:20 Sulfa (Sulfonamide Allergy Unknown TONGUE Verified 04/26/24 14:20 Antibiotics) SWELLING, [SULFA (SULFONAMIDE swelling ANTIBIOTICS)] of mouth soy AdvReac Intermediate UPSET Verified 04/26/24 14:20 STOMACH DAIRY PRODUCTS Allergy Intermediate INFLAMMATIO Uncoded 04/26/24 14:20 N cats, dogs Allergy Unknown Unknown Uncoded 04/26/24 14:20 mole,bread and diary Allergy Unknown Unknown Uncoded 04/26/24 14:20 cefdinir AdvReac Vomiting Uncoded 04/26/24 14:20 Home Medications ?Medication ?Instructions ?Recorded ?Confirmed ?Last Taken ?Type fluorometholone 0.1 % eye 1 drp ophthalmic (eye) NEEDED 03/15/20 05/17/24 Unknown History drops,suspension betaxolol 0.25 % eye 1 drp ophthalmic (eye) DAILY 02/15/21 05/17/24 Unknown History drops,suspension (Betoptic S) carboxymethylcellulose 0.5 1 drp ophthalmic (eye) DAILY 02/15/21 05/17/24 Unknown History %-glycerin 0.9 % (PF) eye drops,dropperette (Refresh Optive Sensitive (PF)) cyclosporine 0.05 % eye drops in a 1 drp ophthalmic (eye) DAILY 02/15/21 05/17/24 Unknown History dropperette (Restasis) brimonidine 0.1 % eye drops 1 drp ophthalmic (eye) DAILY 03/16/21 05/17/24 Unknown History (Alphagan P) dorzolamide 22.3 mg-timolol 6.8 22.3 drp ophthalmic (eye) DAILY 06/25/23 05/17/24 Unknown History mg/mL eye drops loteprednol etabonate 0.5 % eye 0.5 drp ophthalmic (eye) DAILY 06/25/23 05/17/24 Unknown History drops,suspension (Lotemax) prednisone 5 mg tablet 5 mg PO DAILY 12/16/23 05/17/24 Unknown History Exam Height,Weight and Vital Signs: Height 5 ft 5 in Weight 53.977 kg Vital Signs Temp Pulse Resp BP Pulse Ox O2 Del Method 05/17/24 11:06 98.6 F 72 16 114/57 L 97 Room Air Airway Mallampati Class: II TM Dist: >3cm Neck ROM: Full Loose/Missing/Broken Teeth: No (Caps. Denies broken or loose teeth) Heart: RRR Lungs: CTAB Assessment and Plan Assessment Anesthesia Assessment: Anesthesia Plan Discussed and Chart Reviewed Final Anesthetic Review Family History of Problems with Anesthesia: No History of Problems with Anesthesia: Yes NPO: Yes ASA Class: III Final Preanesthetic Review: No Changes in Pt Med Stat, Meds/Allgs Chart Reviewed, Consent Obtained/Reviewed and Anes Risks/Benef Reviewed Patient Risk: Intermediate Procedure Risk: Low Assessment/Block/Sedation in SS: Assess/Block/Sedation-SS Anesthetic Plan Anesthetic Plan: MAC: Disposition: Standard PACU
[2024-05-17 11:06] VITALS: BP 114/57; PULSE 72; RESP 16; TEMP 37; O2SAT 97; BMI 19.1
[2024-05-17] MEDS: Tetracaine HCl/PF 0.5% Oph Sol 4 ML DROPS 1 DROP EYE-RIGHT (11:10)
[2024-05-17] MEDS: Cyclopentolate 1 % Ophth Sol 2 ML DRPBTL 1 DROP EYE-RIGHT ×3 (11:14→11:27)
[2024-05-17] MEDS: Tropicamide 1 % Ophth Sol 3 ML BTL 1 DROP EYE-RIGHT ×3 (11:15→11:28)
[2024-05-17] MEDS: Ketorolac Tromethamine 0.5% Op 10 ML DROPS 1 DROP EYE-RIGHT ×3 (11:19→11:30)
[2024-05-17] MEDS: Phenylephrine HCL 2.5% Oph SoL 2 ML BOTTLE 1 DROP EYE-RIGHT ×3 (11:20→11:30)
[2024-05-17] MEDS: Lactated Ringers 500 ML 50 ML IV (11:21)
--- NOTE | 2024-05-17 11:47 | MHC.SHP ---
Pre-Procedural Eval Section A - 24 Hr Update-Section A only Date of Service: 05/17/24 The patient is an INPATIENT: No Changes since office visit: No Cold of Flu in the past 2 weeks, No New Medical Problems, No Changes in Medication and No Patient answered all questions The patient has been examined within 24 hours of the surgical procedure. The History & Physical has been completed within 30 days and I have reviewed it.: Yes Section B - Complete if H&P > 30 days Chief Complaint: Age-related nuclear cataract, right eye Allergies: Allergies Allergy/AdvReac Type Severity Reaction Status Date / Time Opioids - Morphine Analogues Allergy Severe convultions Verified 04/26/24 14:20 sulfabenzamide Allergy Severe tongue Verified 04/26/24 14:20 swelled shut gluten [GLUTEN] Allergy Intermediate INFLAMMATION Verified 04/26/24 14:20 SYSTEMICALLY mold [MOLD] Allergy Intermediate UNKNOWN Verified 04/26/24 14:20 animal dander Allergy Unknown ASTHMA Verified 04/26/24 14:20 FLAIRUP Clindamycin HCl Allergy Unknown rash Verified 04/26/24 14:20 doxycycline [DOXYCYCLINE] Allergy Unknown RASH Verified 04/26/24 14:20 morphine [MORPHINE] Allergy Unknown SEIZURE Verified 04/26/24 14:20 LIKE EXPERIENCE - FELT TERRIBLE, convulsions penicillin V Allergy Unknown rash Verified 04/26/24 14:20 Penicillins [PENICILLINS] Allergy Unknown RASH HIVES Verified 04/26/24 14:20 soybean Allergy Unknown unknown Verified 04/26/24 14:20 Sulfa (Sulfonamide Allergy Unknown TONGUE Verified 04/26/24 14:20 Antibiotics) SWELLING, [SULFA (SULFONAMIDE swelling ANTIBIOTICS)] of mouth soy AdvReac Intermediate UPSET Verified 04/26/24 14:20 STOMACH DAIRY PRODUCTS Allergy Intermediate INFLAMMATIO Uncoded 04/26/24 14:20 N cats, dogs Allergy Unknown Unknown Uncoded 04/26/24 14:20 mole,bread and diary Allergy Unknown Unknown Uncoded 04/26/24 14:20 cefdinir AdvReac Vomiting Uncoded 04/26/24 14:20 Plan Diagnosis/Plan: Unchanged I have reviewed the history and physical and performed a pertinent physical examination on my patient. No changes have occurred unless specified. Time Spent With Patient Time: Total time managing care of this patient today ____ minutes.
--- NOTE | 2024-05-17 11:48 | HO.PNOPHT ---
Ophthalmology Procedure Procedure Date of Service: 05/17/24 Ophthalmology Viscoelastic: Healon Duet Dual Pack Pro Ophthalmology Lenses: IOL Acrysof MP - [id number] (23) Procedure Notes: PREOPERATIVE DIAGNOSIS: Decreased visual acuity right eye secondary to cataract POSTOPERATIVE DIAGNOSIS: Same PROCEDURE: Right cataract extraction with intraocular lens insertion with synichialysis SURGEON: Harry Heller M.D. ANESTHESIA: Topical/MAC ESTIMATED BLOOD LOSS: None COMPLICATIONS: None After obtaining informed consent, the patient was brought to the operating room suite and placed in the supine position. After adequate sedation per anesthesia, topical drops of Tetracaine were given to the right eye. The eye was then prepped and draped in the usual sterile fashion. The operating room microscope was then positioned over the operative eye and a lid speculum placed. A paracentesis was created. Viscoelastic was then instilled into the anterior chamber. A three plane incision was then created temporally, utilizing a 2.85 mm keratome. Capsulotomy forceps were then utilized to create a circular tear capsulotomy. Hydrodissection and hydrodelineation were carried out until adequate mobilization of the nucleus occurred. Phacoemulsification was then utilized to remove the dense central nucleus followed by removal of the cortical material utilizing the automated aspiration irrigation unit. Viscoelastic was instilled into the posterior capsular bag followed by placement of a posterior chamber intraocular lens without difficulty. The residual Viscoelastic was then removed utilizing the automated IA machine. The wound was checked and found to be watertight. The patient tolerated the procedure well and the lid speculum was removed. Intracameral injection of Vigamox 0.1 mL followed by a subtenon injection of Kenalog-40 0.2 mL were administered. The patient will be seen in the a.m.
[2024-05-17 12:25] VITALS: BP 130/63; PULSE 61; RESP 12; TEMP 36.1; O2SAT 100
== END 2024-05-17 12:32 | disposition home or self-care (01) ==
PROVIDERS: PCP Internal Medicine; Visit Provider Ophthalmology
PROC: (CPT 66985; principal; 2024-05-17 12:00)
DX: H25.11 Age-related nuclear cataract, right eye (principal); H54.7 Unspecified visual loss; Z83.511 Family history of glaucoma; H40.213 Acute angle-closure glaucoma, bilateral; H40.1134 Primary open-angle glaucoma, bilateral, indeterminate stage; H04.123 Dry eye syndrome of bilateral lacrimal glands; E06.3 Autoimmune thyroiditis; J45.20 Mild intermittent asthma, uncomplicated; Z85.3 Personal history of malignant neoplasm of breast; K58.9 Irritable bowel syndrome, unspecified; E55.9 Vitamin D deficiency, unspecified; Z79.899 Other long term (current) drug therapy; Z79.51 Long term (current) use of inhaled steroids; Z79.52 Long term (current) use of systemic steroids; Z88.0 Allergy status to penicillin; Z88.1 Allergy status to other antibiotic agents; Z88.8 Allergy status to other drugs, medicaments and biological substances
CPT/HCPCS: 66984; J2250; J3301; V2630

== ENCOUNTER 2024-05-19 10:36 | Outpatient (AMB) | payer OTHER, SELFPAY ==
[2024-05-19 10:58] VITALS: BP 126/68; PULSE 67; O2SAT 97; BMI 19.9
--- NOTE | 2024-05-19 10:58 | AM.OFFWIN_ITS ---
Intake Vital Signs 3 05/19/24 10:58 Height 5 ft 5 in Weight 119 lb 8 oz BMI 19.9 BP 126/68 Blood Pressure Location Lt brachial Position Sitting Pulse 67 Pulse Source Pulse Oximeter Pulse Oximetry (%) 97 Oxygen Delivery Method Room Air Intake Visit Reasons: EP-chest rash Patient Tobacco Use Status: Never used Tobacco Allergies Opioids - Morphine Analogues Allergy (Severe, Verified 05/19/24 10:58) convultions sulfabenzamide Allergy (Severe, Verified 05/19/24 10:58) tongue swelled shut gluten [GLUTEN] Allergy (Intermediate, Verified 05/19/24 10:58) INFLAMMATION SYSTEMICALLY mold [MOLD] Allergy (Intermediate, Verified 05/19/24 10:58) UNKNOWN animal dander Allergy (Unknown, Verified 05/19/24 10:58) ASTHMA FLAIRUP Clindamycin HCl Allergy (Unknown, Verified 05/19/24 10:58) rash doxycycline [DOXYCYCLINE] Allergy (Unknown, Verified 05/19/24 10:58) RASH morphine [MORPHINE] Allergy (Unknown, Verified 05/19/24 10:58) SEIZURE LIKE EXPERIENCE - FELT TERRIBLE, convulsions penicillin V Allergy (Unknown, Verified 05/19/24 10:58) rash Penicillins [PENICILLINS] Allergy (Unknown, Verified 05/19/24 10:58) RASH HIVES soybean Allergy (Unknown, Verified 05/19/24 10:58) unknown Sulfa (Sulfonamide Antibiotics) [SULFA (SULFONAMIDE ANTIBIOTICS)] Allergy (Unknown, Verified 05/19/24 10:58) TONGUE SWELLING, swelling of mouth soy Adverse Reaction (Intermediate, Verified 05/19/24 10:58) UPSET STOMACH DAIRY PRODUCTS Allergy (Intermediate, Uncoded 04/26/24 14:20) INFLAMMATION cats, dogs Allergy (Unknown, Uncoded 04/26/24 14:20) Unknown mole,bread and diary Allergy (Unknown, Uncoded 04/26/24 14:20) Unknown cefdinir Adverse Reaction (Uncoded 04/26/24 14:20) Vomiting Medication List - Last Reconciled 05/19/24 by Elena Colorado MD alprazolam 0.25 mg PO DAILY PRN ascorbic acid (vitamin C) (Vitamin C) 500 mg PO DAILY azelastine 1 spray intranasal BID betaxolol 0.25% (Betoptic S) 1 drp ophthalmic (eye) DAILY brimonidine 0.1% (Alphagan P) 1 drp ophthalmic (eye) DAILY carboxymethylcell-glycerin(PF) 0.5-0.9 % (Refresh Optive Sensitive (PF)) 1 drp ophthalmic (eye) DAILY cyclosporine 0.05% (Restasis) 1 drp ophthalmic (eye) DAILY dorzolamide-timolol 22.3-6.8 mg/mL 22.3 drps ophthalmic (eye) DAILY fluorometholone 0.1% 1 drp ophthalmic (eye) NEEDED fluticasone furoate 100 mcg/actuation (Arnuity Ellipta) 1 inh inhalation Q24H fluticasone propionate 50 mcg/actuation 2 sprays intranasal DAILY hydrocortisone-acetic acid 1-2 % 4 drps otic (ears) TID inhalational spacing device (BreatheRite MDI Spacer) As directed levothyroxine 88 mcg PO DAILY loteprednol etabonate 0.5% (Lotemax) 0.5 drps ophthalmic (eye) DAILY nebulizers (AeroEclipse II Nebulizer) As directed pantoprazole 40 mg PO DAILY polyethylene glycol 3350 17 grams PO BID prednisone 5 mg PO DAILY rosuvastatin 5 mg PO DAILY 3 months Ventolin HFA 90 mcg/actuation (albuterol sulfate) 2 puffs inhalation Q6H PRN NS Do you need a note to return to daycare/school/sports/work: Yes HPI EP-chest rash 2 HPI0 Details Chief Complaint Patient presents with a spreading rash on the chest with associated itching and concern for severity. - The patient is a 63-year-old female pr esenting with complaints of a widespread rash that developed subsequent to a recent hospitalization for a viral illness. - Symptoms first appeared as a single, s mall skin nodule area got bigger mostly on upper part of chest in the middle very pruritic - No fevers were reported, and gastroint estinal symptoms had subsided well before the rash's manifestation. - Her medical history is marked by autoi mmune disorders and previous breast cancer, affecting her current presentation and treatment considerations. - Dermatological intervention included u nsuccessful topical steroid application. - The patient's current therapeutic deangelo men involves systemic prednisone for ocular autoimmune issues, clarified alongside concerns of potential interaction with additional prescribed treatments. - Emotional distress concerning symptom progression and differential diagnoses contributed to an anxious demeanor throughout the consultation. Plan To manage the rash attributed to viral exanthem, an augmented dose of oral prednisone will be utilized, supplemented with hydroxyzine at night to address severe pruritus and aid sleep quality. The patient is instructed to procure and apply calamine lotion for topical relief of inflammation and itching. Her current prednisone regimen, related to autoimmune-associated eye conditions, was assessed as non-contraindicating for additional dosages. Emphasis was placed on maintaining vigilance and scheduling a primary care follow-up to monitor response and adjustments as necessary. Reassurance regarding the non- transmissible nature of the condition was crucial in alleviating patient distress. Patient Instructions - Take prescribed prednisone and hydroxy zine as directed for itching and inflammation. - Use calamine lotion for topical relief of rash symptoms. - Schedule follow-up with primary care michael lamar for further evaluation and management. - Avoid excessive scratching to mitigate irritation. - Practice general dermatologic care suc h as maintaining clean and dry skin. - Contact healthcare provider if symptom s worsen or new symptoms appear. Review of Systems - Dermatologic: Reports rash spreading w ith itching, denies fever. - Gastrointestinal: Denies current sympt oms, resolved post viral illness. - Ophthalmologic: Reports prior redness in right eye post-surgery. - Immunologic: History of autoimmune dis ease(s). - Miscellaneous: Reports anxiety related to symptoms and their progression. 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: No headache no blurring of vision skin: No rash extremities: As per history COUNT INCLUDES THE [facility] Medical History Cataract of right eye History of adenomatous polyp of colon Recurrent genital herpes Environmental and seasonal allergies Temporomandibular joint dysfunction Mixed dyslipidemia Immunization refused Hx of breast cancer History of COVID-19 Anxiety disorder Dyslipidemia Recurrent otitis media Retinal detachment Vini's thyroiditis Mild intermittent asthma Narrow angle glaucoma suspect of both eyes Vitamin D deficiency Acquired hypothyroidism Surgical History Hx of colonoscopy History of surgery H/O myringotomy History of hysterectomy History of eyelid surgery History of eye surgery Family History Father No problems noted. Mother Diabetes mellitus Heart disease Heart attack Brother No problems noted. Brother No problems noted. Brother No problems noted. Brother No problems noted. Brother No problems noted. Social History Household Members: None Housing: House Alcohol intake: current Alcohol intake frequency: a few times a week Patient Tobacco Use Status: Never used Tobacco e-Cigarette/Vaping Use: Never Used service: No Current occupational status: employed Cognitive needs: No Hearing needs: No Vision needs: No Physical Exam Vital Signs: Last Vital Signs Pulse 67 05/19/24 10:58 BP 126/68 05/19/24 10:58 Pulse Ox 97 05/19/24 10:58 Oxygen Delivery Method Room Air 05/19/24 10:58 BMI result Body Mass Index 19.9 Skin Full body images: 2 1. Maculopapular erythematous rash mostly in that area Assessment & Plan Assessment & Plan (1) Rash: Code(s): R21 - Rash and other nonspecific skin eruption Plan - The patient is a 63-year-old female presenting with complaints of a widespread rash that developed subsequent to a recent hospitalization for a viral illness. - Symptoms first appeared as a single, small skin nodule area got bigger mostly on upper part of chest in the middle very pruritic - No fevers were reported, and gastrointestinal symptoms had subsided well before the rash's manifestation. - Her medical history is marked by autoimmune disorders and previous breast cancer, affecting her current presentation and treatment considerations. - Dermatological intervention included unsuccessful topical steroid application. - The patient's current therapeutic regimen involves systemic prednisone for ocular autoimmune issues, clarified alongside concerns of potential interaction with additional prescribed treatments. - Emotional distress concerning symptom progression and differential diagnoses contributed to an anxious demeanor throughout the consultation. Plan To manage the rash attributed to viral exanthem, an augmented dose of oral prednisone will be utilized, supplemented with hydroxyzine at night to address severe pruritus and aid sleep quality. The patient is instructed to procure and apply calamine lotion for topical relief of inflammation and itching. Her current prednisone regimen, related to autoimmune-associated eye conditions, was assessed as non-contraindicating for additional dosages. Emphasis was placed on maintaining vigilance and scheduling a primary care follow-up to monitor response and adjustments as necessary. Reassurance regarding the non- transmissible nature of the condition was crucial in alleviating patient distress. Patient Instructions - Take prescribed prednisone and hydroxyzine as directed for itching and inflammation. - Use calamine lotion for topical relief of rash symptoms. - Schedule follow-up with primary care physician for further evaluation and management. - Avoid excessive scratching to mitigate irritation. - Practice general dermatologic care such as maintaining clean and dry skin. - Contact healthcare provider if symptoms worsen or new symptoms appear. Medications: New 2 prednisone 40 mg (2 x 20 mg) PO DAILY 5 days 10 tabs 0RF hydroxyzine HCl 50 mg (2 x 25 mg) PO BEDTIME 20 tabs 0RF Coding Level of Care Code Est Pt Level 3 (60781) Diagnoses Rash R21
== END 2024-05-19 11:32 | disposition home or self-care (01) ==
PROVIDERS: PCP Internal Medicine; Visit Provider Internal Medicine
DX: R21 Rash and other nonspecific skin eruption (principal)

== ENCOUNTER → 2024-05-19 10:36 | Outpatient (BNVA) | payer OTHER, SELFPAY | PROVIDERS: PCP Internal Medicine; Visit Provider Internal Medicine | DX: R21 Rash and other nonspecific skin eruption (principal) | CPT/HCPCS: 99212 ==

== ENCOUNTER 2024-05-31 09:23 | Outpatient (AMB) | payer OTHER, SELFPAY ==
[2024-05-31 09:42] VITALS: BP 104/62; PULSE 75; BMI 19.1
--- NOTE | 2024-05-31 09:42 | MHC.OFFVIS ---
Vital Signs 05/31/24 09:42 Height 5 ft 5 in Weight 115 lb BMI 19.1 BP 104/62 Blood Pressure Location Lt brachial Position Sitting Pulse 75 Intake Visit Reasons: 8 month follow up abdominal pain Intake Note: Patient in office today in follow up of abdominal bloating. CC: The patient stats that she is doing better after watching her diet. She reports that she feels she is not gaining much weight but she is also under a lot of stress. Drain Technician Required: No Accompanied by: Self / Same As Patient Allergies Opioids - Morphine Analogues Allergy (Severe, Verified 05/31/24 09:50) convultions sulfabenzamide Allergy (Severe, Verified 05/31/24 09:50) tongue swelled shut gluten [GLUTEN] Allergy (Intermediate, Verified 05/31/24 09:50) INFLAMMATION SYSTEMICALLY mold [MOLD] Allergy (Intermediate, Verified 05/31/24 09:50) UNKNOWN animal dander Allergy (Unknown, Verified 05/31/24 09:50) ASTHMA FLAIRUP Clindamycin HCl Allergy (Unknown, Verified 05/31/24 09:50) rash doxycycline [DOXYCYCLINE] Allergy (Unknown, Verified 05/31/24 09:50) RASH morphine [MORPHINE] Allergy (Unknown, Verified 05/31/24 09:50) SEIZURE LIKE EXPERIENCE - FELT TERRIBLE, convulsions penicillin V Allergy (Unknown, Verified 05/31/24 09:50) rash Penicillins [PENICILLINS] Allergy (Unknown, Verified 05/31/24 09:50) RASH HIVES soybean Allergy (Unknown, Verified 05/31/24 09:50) unknown Sulfa (Sulfonamide Antibiotics) [SULFA (SULFONAMIDE ANTIBIOTICS)] Allergy (Unknown, Verified 05/31/24 09:50) TONGUE SWELLING, swelling of mouth soy Adverse Reaction (Intermediate, Verified 05/31/24 09:50) UPSET STOMACH DAIRY PRODUCTS Allergy (Intermediate, Uncoded 04/26/24 14:20) INFLAMMATION cats, dogs Allergy (Unknown, Uncoded 04/26/24 14:20) Unknown mole,bread and diary Allergy (Unknown, Uncoded 04/26/24 14:20) Unknown cefdinir Adverse Reaction (Uncoded 04/26/24 14:20) Vomiting HPI HPI 8 month follow up abdominal pain: Details: 62 yr old f with thyoriditis anxiety, glaucoma, asthma, recurrent genital herpes called for f/u RECAP: She had went to the ED due to bloating and indigestion, and LUQ discomfort for [address] scan with abn antrum and stomach thickening she gets antibiotics she has constipation she is chronic pred 5 mg for grave opthalmoplegia she takes excedrin on regular basis for headaches she chokes and gags easily, if eats fast, but no dysphagia never had colonoscopy she has constipation, and takes sennakot, 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 VITAL SIGNS:see workflow HEENT: Nonicteric sclerae, PERRLA, EOMI. Oropharynx clear. Moist mucous membranes. Conjunctivae appear well perfused. No thyroid mass. CHEST: Chest wall is nontender. HEART: Regular rate and rhythm without murmurs. LUNGS: Clear to auscultation bilaterally. ABDOMEN: Soft, positive bowel sounds, nontender, no organomegaly.no flank tenderness SKIN: No rash, no excessive bruising, petechiae, or purpura. NEUROLOGIC: Cranial nerves II-XII intact without motor/sensory deficit. Psych: normal affect MS: scolisois CT 03/28: severe scoliosis, mild aetherosclerosis of aorta A/P: 1/ tubular adenomas 2/ erosive gastritis, esophagitis -on ppi PLAN: 1/ repeat colonoscopy in 1-2 yrs 2/ advised on high protein diet, and can try VSL #3 --if weight remains concern can repeat EGD given prior hx of erosive gastritis, as she is worried about this, cont with PPI meantime [facility] Medical History Cataract of right eye History of adenomatous polyp of colon Recurrent genital herpes Environmental and seasonal allergies Temporomandibular joint dysfunction Mixed dyslipidemia Immunization refused Hx of breast cancer History of COVID-19 Anxiety disorder Dyslipidemia Recurrent otitis media Retinal detachment Vini's thyroiditis Mild intermittent asthma Narrow angle glaucoma suspect of both eyes Vitamin D deficiency Acquired hypothyroidism Surgical History Hx of colonoscopy History of surgery H/O myringotomy History of hysterectomy History of eyelid surgery History of eye surgery Family History Father No problems noted. Mother Diabetes mellitus Heart disease Heart attack Brother No problems noted. Brother No problems noted. Brother No problems noted. Brother No problems noted. Brother No problems noted. Social History Household Members: None Housing: House Alcohol intake: current Alcohol intake frequency: a few times a week Patient Tobacco Use Status: Never used Tobacco e-Cigarette/Vaping Use: Never Used service: No Current occupational status: employed Cognitive needs: No Hearing needs: No Vision needs: No Physical Exam Vital Signs: Last Vital Signs Pulse 75 05/31/24 09:42 BP 104/62 05/31/24 09:42 BMI result Body Mass Index 19.1 Assessment & Plan Assessment & Plan (1) Peptic ulcer: Code(s): K27.9 - Peptic ulcer, site unspecified, unspecified as acute or chronic, without hemorrhage or perforation Category: Medical Plan: as above Coding Level of Care Code Est Pt Level 3 (19936) Diagnoses Peptic ulcer K27.9
--- OUTSIDE RECORDS SUMMARY | 2024-05-31 13:45 | XMS_ITS | Clinical Summary ---
Author Organization [facility] Address [address] [place] [address] Care Team Providers Care Director Of Women'S Services Name Role Phone Stephania Guaman MD Primary Care Provider Surgical History Surgery Date Site/Laterality Comments OTHER SURGICAL HISTORY 03/15 PROCEDURE: MAMMOGRAM Medical History Medical History Date Comments Asthma DX:Asthma Unspecified asthma(493.90) DX:Un specified asthma(493.90) Hypercholesteremia 06/13/2011 DX:Hyperchole steremia Family History Medical History Relation Name Comments Asthma Brother 1 Melanoma Father ? melanoma .... . bad skin cancer on his back Asthma Mother diabetes, CAD Relation Name Status Comments Brother 1 Brother 2 Alive Brother 3 Alive Brother 4 Alive Father Alive Healthy Maternal Grandfather Lung ca ncer Maternal Grandmother CHF Mother Alive Diabetes, CAD - s/p angioplasty Paternal Grandfather Emphyse ma from occupational exposure Paternal Grandmother Social History Tobacco Use Types Packs/Day Years Used Date Smoking Tobacco: Never Smokeless Tobacco: Never Alcohol Use Standard Drinks/Week Comments Yes 0 (1 standard drink = 0.6 oz pur e alcohol) Sex and Gender Information Value Date Recorded Sex Assigned at Not on file Gender Identity Not on file Sexual Orientation Not on file Obstetrics History Plan of Treatment Health Maintenance Due Date Last Done Comments Breast Cancer Screening 1962 Cervical Cancer Screening: P ap Smear 09/27/1983 Zoster Vaccines (1 of 2) 2012 DTaP,Tdap,and Td Vaccines (2 - Td or Tdap) 01/24/2021 01/24/2011 COVID-19 Vaccine (2023-2 5 season) 2024 Influenza Vaccine (#1) 2024 RSV Immunization Patients 60 + Years Old (1 - 1-dose 75+ series) 2037 HIB Vaccines Aged Out No longer eligi ble based on patient's age to complete this topic HPV Vaccines Aged Out No longer eligi ble based on patient's age to complete this topic Hepatitis A Vaccines Aged Out No long er eligible based on patient's age to complete this topic Hepatitis B Vaccines Aged Out No long er eligible based on patient's age to complete this topic IPV Vaccines Aged Out No longer eligi ble based on patient's age to complete this topic MMR Vaccines Aged Out No longer eligi ble based on patient's age to complete this topic Meningococcal ACWY Vaccine Aged Out N o longer eligible based on patient's age to complete this topic Pneumococcal Vaccine: Pediat rics (0 to 5 Years) and At-Risk Patients (6 to 64 Years) Aged Out No longer eligi ble based on patient's age to complete this topic RSV Immunization Patients Un es 20 months Aged Out No longer eligible b ased on patient's age to complete this topic Varicella Vaccines Aged Out No longer eligible based on patient's age to complete this topic Care Teams Director Of Women'S Services Relationship Specialty Start Date End Date Stephania Guaman MD [address] [place] [address] PCP - General Internal Medicine 03/14/17
--- OUTSIDE RECORDS SUMMARY | 2024-05-31 13:45 | XMS_ITS | Patient Health Record ---
Author Organization [facility] Address [address] [place] [address] Support Name Relationship Address Phone ALIE SIFUENTES Guarantor Unknown [phone] Reason For Referral No Information Medications Medication SIG (Take, Route, Fr equency, Duration) Notes Start Date End Date Status Vitamin D3 1000 IU ORAL daily for [facility] 09/10/2011 Active Levoxyl 75MCG 1 ORAL DAILY for [facility] 09/10/2011 Active Multivitamins 1 ORAL daily for [facility] 09/10/2011 Active Proventil HFA 108 MCG 2 Inhalation four times daily for [facility] 07/23/2011 Active Calcium-Carb 600 + D 1 ORAL daily for - [facility] 2 Active Claritin 10 MG 1 ORAL daily for -3 [facility] 09/10/2011 Active Fish Oil 1 ORAL daily for [facility] 09/10/2011 Active Flonase 50MCG 2 Nasal daily for [facility] 07/23/2011 Active Immunizations Vaccine Route Administration Date Status Comme nts Influenza, live, intranasal Intramuscular 07/22/2011 Jake patel Problems Problem Type SNOMED Code ICD Code Onset Dates Problem Status W/U Status Risk Notes Problem Benign neoplasm of skin (53528075) Benign neoplasm of skin, site unspecified (216.9) Active confirmed Diag Problem Hypothyroidism (18613340) Unspecified hypothyroidism (244.9) Active confirmed Major Problem Hyperlipidemia (02069956) Other and unspecified hyperlipidemia (272.4) Active confirmed Major Problem Asthma (disorder) (542973237) Asthma, unspecified, unspecified status (493.90) Active confirmed Major Problem Seborrheic keratosis (26513050) Other seborrheic keratosis (702.19) Active confirmed Diag Problem Joint pain (finding) (74356911) Pain in joint, site unspecified (719.40) Active confirmed Diag Problem General examination of patient (644260387) Routine general medical examination at health care facility (V70.0) Active confirmed Diag Plan Of Treatment No Information Insurance Providers Payer Name Payer Address Payer Phone Subscriber Number Group Number Insured Name Patient Relationship to Insured Coverage Start Date Coverage End Date [address] [place] [phone] [id number] BELLE SIFUENTES Spouse - patient is the spouse of the insured 2
--- OUTSIDE RECORDS SUMMARY | 2024-05-31 13:45 | XMS_ITS | Data Portability ---
Author Organization [facility], [address] Address [address] [place] [address] Care Team Providers Care Studio Control Operator Name Role Phone PINO ABREU Primary Care Provider [phone] Assessment No assessment recorded. Plan of Treatment Reminders Order Date Submit Date Provider Last Modified By Organization Details Last Modified Time Details Appointments None recorded. Lab None recorded. Referral None recorded. Procedures None recorded. Surgeries None recorded. Imaging None recorded. Medication Orders azithromyci n 250 mg tablet [email or web address] [facility] [address] [facility], [address] [facility] [place], [address], 3 16:15:28 albuterol sulfate 2.5 mg/3 mL (0.083 %) solution for nebulizatio n 2022 023 [email or web address] 247 Not available 3 18:49:45 ipratropium bromide 0.02 % solution for inhalation 2022 023 [email or web address] 247 Not available 3 17:51:30 ipratropium 20 mcg-albuter ol 100 mcg/actuati on mist for inhalation 2022 023 [facility], [address] [place], [address], 3 19:15:31 prednisone 20 mg tablet 2022 023 [facility], [address] [place], [address], 19:15:32 cephalexin 500 mg capsule 2022 023 [facility][id number], [address] [place], [address], 16:59:00 Patient TargetsNo targets recorded. Patient Instructions Encounter Date Encounter Id Patient Instructions Last Modified By Organization Details Last Modified Time 07/13/2022 [id number] cough: care instructions [id number] Not available 07/13/2022 17:51:30 peak flow* [email or web address] Not available 17:51:30 08/10/2022 [id number] head or face pain: care instructions Not available 08/10/2022 16:48:50 Rinse your mouth every 2 hours with salt water. This will help keep the area clean. Gently brush your teeth twice a day with a soft tooth brush. This will help keep the area clean. Eat soft foods as directed. Soft foods may cause less pain. Examples include applesauce, yogurt, and cooked pasta. Ask your healthcare provider how long to follow this instruction. Apply a warm compress to your tooth or gum. Use a cotton ball or gauze soaked in warm water. Remove the compress in 10 minutes or when it becomes cool. Repeat 3 times a day. Start antibiotics. Follow up with dentist as soon as possible. To the ED with any worsening symptoms. Not available 08/10/2022 16:48:49 complete antibiotic as prescribed. f/u with pcp in 1 week. return to clinic or go to ER if symptom worsening including fever, enlarged abscess, difficulty swallowing, difficulty in breathing, drooling. keep area clean and dry. Not available 08/10/2022 16:48:26 Reason for Referral None Reported. Results Created Date Observation Date Name Description Value Unit Range Abnormal Flag Note LastModifiedBy Organization Detail LastModifiedTime 07/14/19 23 07/13/2022 peak flow* Pre (L/min) 260 Not Available _ [email or web address] [address] [facility], [place], [address], 07/13/2022 17:03:05 07/14/19 23 07/13/2022 peak flow* Post (L/min) 410 Not Available que [address] [place], [address], 07/13/2022 17:03:05 07/14/19 23 07/13/2022 peak flow* Pulse 64 Not Available [address]am[address] [email or web address] [address] [place], [address], 07/13/2022 17:03:05 07/14/19 23 07/13/2022 peak flow* Oxygen Saturation 99 Not Available que [address] [place], [address], 07/13/2022 17:03:05 Result Notes None recorded. Problems Name Problem SNOMED Code Status Onset Date Resolution Date Notes Provider Name and Address Organization Details Recorded Time Graves' disease 366648188 Active 023 MONIKA QUINTANILLA null, PA - [facility] 3 16:33:30 Glaucoma 65203824 Active 023 MONIKA QUINTANILLA null, PA - [facility] 3 16:33:36 Malignant tumor of breast 182304919 Active 023 MONIKA QUINTANILLA null, PA - [facility] 3 16:35:57 Thyroid eye disease 178244052 Active 023 JAKE DANILO null, PA - [facility] 3 16:17:02 Problem Notes None recorded. Procedures Surgical History Date Name Laterality Status Provider Name and Address Organization Details Recorded Time 07/14/19 23 Nebulizer Treatment completed JAKE CARRASCO PA - [facility] 07/13/2022 17:40:01 subcutaneous mastectomy completed MONIKA QUINTANILLA PA - [facility] 07/13/2022 16:35:45 hysterectomy completed MONIKA QUINTANILLA PA - [facility] 07/13/2022 16:36:07 surgical procedure on eye proper using laser completed MONIKA QUINTANILLA PA - [facility] 07/13/2022 16:36:31 Imaging Results None recorded. Procedure Notes None recorded. Medical Equipment None Reported. Allergies Allergen ID Allergen Name Allergen Category Reaction Reaction Severity Criticality Documentation Date Start Date Code Code System Note Provider Name and Address Organization Details Recorded Time 737614 doxycycli ne Not available Not available Not available Not available 07/13/2022 3640 RxNorm MONIKA QUINTANILLA null, PA - [facility] 3 16:31:49 144681 clindamyc in Not available Not available Not available Not available 07/13/2022 2582 RxNorm MONIKA QUINTANILLA null, PA - [facility] 3 16:31:55 929431 Substance with sulfonami de structure and antibacte rial mechanism of action (substanc e) medicatio n Not available Not available Not available 07/13/2022 39893 8003 SNOMED MONIKA QUINTANILLA null, PA - [facility] 3 16:32:02 965049 Product containin g penicilli n and antibioti c (product) medicatio n Not available Not available Not available 07/13/2022 91934 05 SNOMED MONIKA QUINTANILLA null, PA - [facility] 3 16:32:09 Medications Name Sig Start Date Stop Date Status Note LastModified by Organization Details LastModified Time ipratropi um 0.5 mg-albute rol 3 mg (2.5 mg base)/3 mL nebulizat ion soln INHALE 3 ML (1 VIAL) VIA NEBULIZE R EVERY 6 HOURS NEEDED FOR WHEEZING active Not Available Not Available No t Available pilocarpi ne 1 % eye drops INSTILL 1 DROP INTO AFFECTED EYE(S) BY OPHTHALM IC ROUTE EVERY 12 HOURS active Not Available Not Available No t Available albuterol sulfate 2.5 mg/3 mL (0.083 %) solution for nebulizat ion Inhale 3 mL by nebuliza tion route. 2022 active Pt understo od use and tolerate d well. sc.ma. Not Available Not Available Not Available Vitamin C 500 mg tablet active Not Available Not Available Not Available azithromy albert 250 mg tablet TAKE 2 TABLETS BY MOUTH TODAY, THEN TAKE 1 TABLET DAILY FOR 4 DAYS 08/10 completed Not Available Not Available Not Available prednison e 20 mg tablet TAKE 3 TABLETS BY MOUTH EVERY DAY FOR 7 DAYS active Not Available Not Available No t Available prednison e 5 mg tablet active Not Available Not Available Not Available levothyro xine 88 mcg tablet active Not Available Not Available Not Available alprazola m 0.25 mg tablet active Not Available Not Available Not Available cephalexi n 500 mg capsule TAKE 1 CAPSULE BY MOUTH EVERY 8 HOURS WITH MEALS FOR 10 DAYS active Not Available Not Available No t Available fluoromet holone 0.1 % eye drops,finn pension active Not Available Not Available Not Available lotepredn ol etabonate 0.5 % eye drops,finn pension active Not Available Not Available Not Available fluticaso ne propionat e 50 mcg/actua tion nasal spray,finn pension active Not Available Not Available Not Available ipratropi um bromide 0.02 % solution for inhalatio n Inhale 2.5 mL by inhalati on route. 2022 active Not Available Not Available Not Avai lable Ventolin HFA 90 mcg/actua tion aerosol inhaler active Not Available Not Available Not Available Restasis 0.05 % eye drops in a dropperet te active Not Available Not Available Not Available Betoptic S 0.25 % eye drops,finn pension active Not Available Not Available Not Available rosuvasta tin 5 mg tablet active Not Available Not Available Not Available Flovent HFA 110 mcg/actua tion aerosol inhaler active Not Available Not Available Not Available levothyro xine 88 mcg active Not Available Not Available Not Available Combivent Respimat 20 mcg-100 mcg/actua tion solution for inhalatio n INHALE 2 PUFFS 3 TIMES A DAY BY INHALATI ON ROUTE FOR 7 DAYS. active Not Available Not Available No t Available Xiidra 5 % eye drops in a dropperet te active Not Available Not Available Not Available Cequa 0.09 % eye drops in a dropperet te active Not Available Not Available Not Available Rocklatan 0.02 %-0.005 % eye drops active Not Available Not Available No t Available Lubricati ng Tears 0.1 %-0.3 % eye drops active Not Available Not Available Not Available Vitals Date Recorded Body height Provider Name an d Address Organization Details Last Updated DateTime 08/10/2022 165.1 cm JAKE CARRASCO PA - [facility] 08/10/2022 16:14:16 Date Recorded Body mass index (BMI) Body weight Provider Name and Address Organization Details Last Updated DateTime 08/10/2022 20.3 kg/m2 94604.27 g JAKE CARRASCO PA - [facility] 08/10/2022 16:17:14 Date Recorded Pain severity - 0-10 verbal numeric rating [Score] - Reported Provider Name and Address Organization Details Last Updated DateTime 08/10/2022 5 JAKE CARRASCO PA - [facility] 08/10/2022 16:17:28 Date Recorded Oxygen saturation Oxygen saturation in Arterial blood by Pulse oximetry Provider Name and Address Organization Details Last Updated DateTime 08/10/2022 97 % 97 % JAKE CARRASCO PA - [facility] 08/10/2022 16:19:03 Date Recorded Heart rate Provider Name an d Address Organization Details Last Updated DateTime 08/10/2022 71 /min JAKE CARRASCO PA - [facility] 08/10/2022 16:19:14 Date Recorded Respiratory rate Provider Name a nd Address Organization Details Last Updated DateTime 08/10/2022 16 /min JAKE CARRASCO PA - [facility] 08/10/2022 16:19:16 Date Recorded Body temperature Provider Name a nd Address Organization Details Last Updated DateTime 08/10/2022 98.6 [degF] JAKE CARRASCO PA - [facility] 08/10/2022 16:19:42 Date Recorded Body height Provider Name an d Address Organization Details Last Updated DateTime 07/13/2022 165.1 cm MONIKA QUINTANILLA PA - [facility] 07/13/2022 16:31:07 Date Recorded Body mass index (BMI) Body weight Provider Name and Address Organization Details Last Updated DateTime 07/13/2022 20.5 kg/m2 89311.86 g MONIKA QUINTANILLA PA - [facility] 07/13/2022 16:31:11 Date Recorded Body temperature Provider Name a nd Address Organization Details Last Updated DateTime 07/13/2022 97 [degF] MONIKA LUPALEJANDRO PA - [facility] 07/13/2022 16:37:18 Date Recorded Oxygen saturation Oxygen saturation in Arterial blood by Pulse oximetry Provider Name and Address Organization Details Last Updated DateTime 07/13/2022 97 % 97 % MONIKA QUINTANILLA PA - [facility] 07/13/2022 16:37:25 Date Recorded Heart rate Provider Name an d Address Organization Details Last Updated DateTime 07/13/2022 59 /min MONIKA QUINTANILLA PA - [facility] 07/13/2022 16:37:28 Date Recorded Respiratory rate Provider Name a nd Address Organization Details Last Updated DateTime 07/13/2022 16 /min MONIKA QUINTANILLA PA - [facility] 07/13/2022 16:37:30 Date Recorded Systolic blood pressure Diastolic blood pressure Provider Name and Address Organization Details Last Updated DateTime 08/10/2022 131 mm[Hg] 82 mm[Hg] JAKE CARRASCO PA - [facility] 08/10/2022 16:18:59 Date Recorded Systolic blood pressure Diastolic blood pressure Provider Name and Address Organization Details Last Updated DateTime 07/13/2022 118 mm[Hg] 66 mm[Hg] MONIKA QUINTANILLA PA - [facility] 07/13/2022 16:39:15 Social History Question Answer Notes LastModified by Organizat ion Details LastModified Time Tobacco Smoking Status Never Smoker MONIKA QUINTANILLA kaye PA - [facility] 07/13/2022 16:35:19 What Is Your Level Of Alcohol Consumption? None Information not available 07/13/2022 Are You Currently Employed? Yes [email or web address] Information not available 08/10/2022 Do You Use Any Illicit Or Recreational Drugs? No Information not available 07/13/2022 Do You Or Have You Ever Used Any Other Forms Of Tobacco Or Nicotine? No [email or web address] Information not available 07/13/2022 Sex: Unknown Functional Status None recorded. Mental Status None recorded. Family History Relationship Description Onset Age of this Age Resolved Age Notes LastModified by Organization Details LastModified Time Mother Heart disease [email or web address] Not available 2022 16:34:31 Mother Diabetes mellitus [email or web address] Not available 2022 16:34:39 Father Chronic obstructive pulmonary disease Not available 03/11/ 2023 16:34:49 Father Malignant melanoma [email or web address] Not available 2022 16:35:00 Medical History No medical history recorded. Gynecological HistoryNo gynecological history recorded. Obstetrics History GPAL:G 0 P 0 0 0 0 Immunizations Vaccine Type Date Status Note Provider Nam e and Address Organization Details Recorded Time Td (adult), 2 Lf tetanus toxoid, preservative free, adsorbed 1 completed ARSEN Ratliff - [facility] 08/10/2022 16:14:26 Past Encounters Encounter ID Performer Location Encounter Start Date Encounter Closed Date Diagnosis/Indication Diagnosis SNOMED-CT Code Diagnosis ICD10 Code Diagnosis Note [id number] [address] [place] [address] 06/17/2017 10:02:30 06/17/2017 11:06:24 [id number] [address] [place] [address] 02/22/2018 15:31:18 02/22/2018 16:41:01 [id number] [address] [place] [address] 02/02/2018 08:03:24 02/02/2018 09:00:04 [id number] [address] [place] [address] 05/25/2017 11:23:18 05/25/2017 11:48:52 [id number] [address] [place] [address] 10/14/2016 10:56:11 10/14/2016 11:30:58 [id number] [address] [place] [address] 11/26/2020 16:42:53 11/26/2020 16:43:11 [id number] [address] [place] [address] 06/21/2017 11:53:31 06/21/2017 13:29:56 [id number] [address] [place] [address] 06/16/2019 08:48:18 06/16/2019 09:14:34 [id number] [address] [place] [address] 08/07/2016 19:08:06 08/07/2016 19:38:52 [id number] [address] [place] [place] [address] 06/23/2017 16:34:40 06/23/2017 18:33:44 [id number] [address] [place] [address] 07/11/2019 09:23:05 07/11/2019 11:04:58 [id number] [address] [place] [address] 03/30/2018 12:12:45 03/30/2018 13:33:52 [id number] [address] [place] [place] [address] 05/06/2015 15:03:33 05/06/2015 16:37:42 [id number] [address] [place] [place] [address] 08/11/2016 12:26:36 08/11/2016 13:19:33 [id number] [address] [place] [address] 04/01/2017 18:06:32 04/01/2017 19:35:58 [id number] [address] [place] [place] [address] 04/30/2019 18:38:30 04/30/2019 19:31:57 [id number] [address] [place] [place] [address] 10/10/2017 19:06:43 10/10/2017 20:39:06 [id number] BETTY NIXON MD [address] [place] [place] [address] 07/13/2022 12:04:22 07/13/2022 17:59:56 Exacerbation of intermittent asthma 058070795 J45.21 Acute left otitis media 698633090 H66.92 [id number] Jt Jeffries NP [address] [place] [address] 08/10/2022 15:55:34 08/10/2022 16:50:43 Abscess of face 385669807 L02.01 Health Concerns Section Related Observation LastModified by Organization Detai ls LastModified Time None Recorded Concern Status LastModified by Organization Details LastModified Time None Recorded Advance Directives Directive None Recorded Payers Encounter Date Sequence Insurance Name Policy Number Policy Kennedy Covered Member ID Kennedy Member ID Guarantor Name 07/13/2022 1 [facility] (MEDICAID HMO) ELODIA Julian [id number] Kaylynn Moyer 08/10/2022 1 [facility] PLAN (MEDICAID HMO) ELODIA Julian [id number] Kaylynn Moyer Notes Date Note Type Note Provider Name and Address Organization Details Recorded Time 07/13/2022 text/html HX of asthma. Co ugh and congestion x 6 days. She has been using her Albuterol inhaler more often than usual. She also has a flovent inhaler that she uses every day. She is not getting results with either. She also has increased pain in the left ear over last 2 days. Afebrile. No n/v/d/rash/headache or other symptoms. BETTY NIXON MD [address] [place], [address], [facility] 07/13/2022 19:16:11 08/10/2022 text/html Facial ProblemReported bypatient.Onset/Timin g:abrupt Location:face right;mandible right Quality:painful Duration:1days Severity:worsening; mild Alleviating factors:none Aggravating factors:none Associated Symptoms:facial painNotes:Mild swelling and tenderness along right side of jaw bone. Jt Jeffries NP [address] [place], [address], [place] - [facility] 08/10/2022 16:59:04 OBGyn Episode No OBEpisode recorded.
== END 2024-05-31 10:27 | disposition home or self-care (01) ==
PROVIDERS: PCP Internal Medicine; Visit Provider Internal Medicine Gastroenterology
DX: K27.9 Peptic ulcer, site unspecified, unspecified as acute or chronic, without hemorrhage or perforation (principal)
CPT/HCPCS: 99213

== ENCOUNTER → 2024-05-31 09:23 | Outpatient (BNVA) | payer OTHER, SELFPAY | PROVIDERS: PCP Internal Medicine; Visit Provider Internal Medicine Gastroenterology | DX: K27.9 Peptic ulcer, site unspecified, unspecified as acute or chronic, without hemorrhage or perforation (principal) | CPT/HCPCS: 99212 ==

== ENCOUNTER 2024-07-06 10:50 | Emergency (ER) | payer OTHER, SELFPAY ==
--- NOTE | ~2024-07-06 | CT_ITS ---
CLINICAL HISTORY: R ABD pain CT abdomen and pelvis with contrast Comparison: CT of the abdomen and pelvis from 03/26/2024 Findings: Mild bibasilar atelectasis, scarring, and emphysematous changes of the imaged lung bases. Gallbladder and solid abdominal organs are unremarkable. Nonenlarged lymphadenopathy. No small bowel obstruction. Severe stool burden present, including in the cecum. Imaged appendix is nondilated and within normal limits (image 23 of series 5). No free intraperitoneal air no drainable abscess by CT. Vascular calcifications noted, including phleboliths in the pelvis. The uterus is surgically absent. Urinary bladder is unremarkable. No adnexal soft tissue mass by CT. Transitional vertebral anatomy with diminutive 12th ribs and partial sacralization of the L5 for the purposes of this dictation only. Multifocal facet arthropathy including lumbar spine. Additional degenerative changes include mild-moderate osteoarthritis of the hips, left worse than right. IMPRESSION: 1. Severe stool burden, including the cecum. No small bowel obstruction. 2. No CT findings of acute appendicitis This document has been electronically signed by: Akhil Pickett MD on 07/06/2024 20:24:43
[2024-07-06 12:30] VITALS: BP 127/55; PULSE 68; RESP 16; TEMP 36.6; O2SAT 99; BMI 19.4
--- NOTE | 2024-07-06 12:33 | ED.ABDPAIN ---
HPI - Abdominal Pain General Chief Complaint: Abdominal Pain Stated Complaint: Abd pain R side Time Seen by Provider: 07/06/24 18:33 Source: patient Mode of arrival: ambulatory Limitations: no limitations History of Present Illness ED Provider: Angle Ruiz NP HPI narrative: Patient is a 63 year old female with past medical history of Vini thyroiditis acquired hypothyroidism, dyslipidemia, anxiety, asthma, retinal detachment, narrow angle glaucoma, history of breast cancer s/p right mastectomy/lumpectomy, history of hysterectomy presents emergency department for evaluation of right-sided abdominal pain. Reports initially starting right upper quadrant radiating down to the right lower quadrant severe and sharp in nature. Admits to having loose stools today associated with this. Abrupt onset at 10:30 while at work. Develop some nausea while here in the waiting room but denies any vomiting. Admits to exacerbation of pain while walking and with movement of her right lower leg. Has personal concern for appendicitis. Denies fevers, chills, chest pain, hematemesis, constipation, hematochezia, melena, dysuria, urinary frequency/urgency/hesitancy, hematuria. Denies pelvic pain or abnormal vaginal discharge. Related Data Home Medications ?Medication ?Instructions ?Recorded ?Confirmed fluorometholone 0.1 % eye 1 drp ophthalmic (eye) NEEDED 03/15/20 05/19/24 drops,suspension betaxolol 0.25 % eye 1 drp ophthalmic (eye) DAILY 02/15/21 05/19/24 drops,suspension (Betoptic S) carboxymethylcellulose 0.5 1 drp ophthalmic (eye) DAILY 02/15/21 05/19/24 %-glycerin 0.9 % (PF) eye drops,dropperette (Refresh Optive Sensitive (PF)) cyclosporine 0.05 % eye drops in a 1 drp ophthalmic (eye) DAILY 02/15/21 05/19/24 dropperette (Restasis) brimonidine 0.1 % eye drops 1 drp ophthalmic (eye) DAILY 03/16/21 05/19/24 (Alphagan P) dorzolamide 22.3 mg-timolol 6.8 22.3 drp ophthalmic (eye) DAILY 06/25/23 05/19/24 mg/mL eye drops loteprednol etabonate 0.5 % eye 0.5 drp ophthalmic (eye) DAILY 06/25/23 05/19/24 drops,suspension (Lotemax) prednisone 5 mg tablet 5 mg PO DAILY 12/16/23 05/19/24 hydroxyzine HCl 25 mg tablet 25 mg PO BEDTIME 05/31/24 Previous Rx's ?Medication ?Instructions ?Recorded inhalational spacing device #1 ea 07/18/22 (BreatheRite MDI Spacer) nebulizers (AeroEclipse II #1 ea 07/18/22 Nebulizer) levothyroxine 88 mcg tablet 88 mcg PO DAILY #90 caps 05/07/23 azelastine 137 mcg (0.1 %) nasal 1 spray intranasal BID #30 mL 06/13/23 spray rosuvastatin 5 mg tablet 5 mg PO DAILY 3 months #90 tabs 11/17/23 fluticasone propionate 50 2 spray intranasal DAILY #16 caps 12/08/23 mcg/actuation nasal spray,suspension polyethylene glycol 3350 17 17 g PO BID #510 grams 01/20/24 gram/dose oral powder hydrocortisone-acetic acid 1 %-2 % 4 drp otic (ears) TID #10 mL 04/20/24 ear drops ascorbic acid (vitamin C) 500 mg 500 mg PO DAILY #90 caps 05/04/24 tablet (Vitamin C) fluticasone furoate 100 1 inh inhalation Q24H #30 ea 05/31/24 mcg/actuation blister powder for inhalation (Arnuity Ellipta) alprazolam 0.25 mg tablet 0.25 mg PO DAILY PRN anxiety #14 06/16/24 tabs omeprazole 40 mg capsule,delayed 40 mg PO DAILY #90 caps 06/30/24 release Ventolin HFA 90 mcg/actuation 2 puff inhalation Q6H PRN for 07/02/24 aerosol inhaler (albuterol sulfate) wheezing #18 grams docusate sodium 100 mg capsule 100 mg PO BID #30 caps 07/06/24 polyethylene glycol 3350 17 17 g PO BID #119 grams 07/06/24 gram/dose oral powder (Miralax) Allergies Allergy/AdvReac Type Severity Reaction Status Date / Time Opioids - Morphine Analogues Allergy Severe convultions Verified 07/06/24 12:31 sulfabenzamide Allergy Severe tongue Verified 07/06/24 12:31 swelled shut gluten [GLUTEN] Allergy Intermediate INFLAMMATION Verified 07/06/24 12:31 SYSTEMICALLY mold [MOLD] Allergy Intermediate UNKNOWN Verified 07/06/24 12:31 animal dander Allergy Unknown ASTHMA Verified 07/06/24 12:31 FLAIRUP Clindamycin HCl Allergy Unknown rash Verified 07/06/24 12:31 doxycycline [DOXYCYCLINE] Allergy Unknown RASH Verified 07/06/24 12:31 morphine [MORPHINE] Allergy Unknown SEIZURE Verified 07/06/24 12:31 LIKE EXPERIENCE - FELT TERRIBLE, convulsions penicillin V Allergy Unknown rash Verified 07/06/24 12:31 Penicillins [PENICILLINS] Allergy Unknown RASH HIVES Verified 07/06/24 12:31 soybean Allergy Unknown unknown Verified 07/06/24 12:31 Sulfa (Sulfonamide Allergy Unknown TONGUE Verified 07/06/24 12:31 Antibiotics) SWELLING, [SULFA (SULFONAMIDE swelling ANTIBIOTICS)] of mouth soy AdvReac Intermediate UPSET Verified 07/06/24 12:31 STOMACH DAIRY PRODUCTS Allergy Intermediate INFLAMMATIO Uncoded 07/06/24 12:31 N cats, dogs Allergy Unknown Unknown Uncoded 07/06/24 12:31 mole,bread and diary Allergy Unknown Unknown Uncoded 07/06/24 12:31 cefdinir AdvReac Vomiting Uncoded 07/06/24 12:31 Review of Systems Review of Systems Yes all other systems are reviewed and are negative PMFSH Past Medical History Attestation statement: The following information was validated with the patient. Source: old records reviewed Medical History Cataract of right eye History of adenomatous polyp of colon Recurrent genital herpes Environmental and seasonal allergies Temporomandibular joint dysfunction Mixed dyslipidemia Immunization refused Hx of breast cancer History of COVID-19 Anxiety disorder Dyslipidemia Recurrent otitis media Retinal detachment Vini's thyroiditis Mild intermittent asthma Narrow angle glaucoma suspect of both eyes Vitamin D deficiency Acquired hypothyroidism Surgical History Hx of colonoscopy History of surgery H/O myringotomy History of hysterectomy History of eyelid surgery History of eye surgery Family History Family History Father No problems noted. Mother Diabetes mellitus Heart disease Heart attack Brother No problems noted. Brother No problems noted. Brother No problems noted. Brother No problems noted. Brother No problems noted. Social History Social History Household Members: None Housing: House Alcohol intake: current Alcohol intake frequency: a few times a week Patient Tobacco Use Status: Never used Tobacco Smoked in Last 30 Days: No e-Cigarette/Vaping Use: Never Used Use of substances other than those prescribed or required for medical reasons: No Advance Directives: No Advance Directives Information Provided: Yes Do you have a plan to hurt others: No Plan Patient : No service: No Current occupational status: employed Cognitive needs: No Hearing needs: No Vision needs: No Physical Exam ED Vital Signs: Vital Signs - 24 hr 07/06/24 12:30 07/06/24 19:16 07/06/24 19:17 Temperature 97.9 F 97.8 F Pulse Rate 68 59 Respiratory Rate 16 18 20 Blood Pressure 127/55 L 133/66 Pulse Oximetry 99 100 Oxygen Delivery Method Room Air Room Air BMI result Body Mass Index 19.4 Appearance: Alert.?Oriented to person, place and time. No acute distress.?Normal affect.?? Neck: Normal inspection.? Neck supple.?? CVS: Heart sounds normal. Normal heart rate and rhythm.? Pulses normal.?? Respiratory: No respiratory distress.? Lung sounds clear to auscultation bilaterally?? Abdomen: Soft with right upper and right lower quadrant tenderness upon palpation. Positive rebound tenderness at McBurney's point. positive psoas sign. Negative Rovsing sign. Negative Mcdaniels sign. No CVAT. Normoactive bowel sounds. No pulsatile mass.?? Skin: Skin warm and dry.? Normal skin color.? Extremities: No lower extremity edema.? Neuro: Moves all extremities spontaneously. Sensation intact bilaterally. Ambulates with normal steady gait. Course Course Course Narrative: 63 yo female with PMH of thyroiditis, anxiety, hypothyroidism, s/p hysterectomy here with c/o abrupt onset R sided lower abdominal pain up and down. She had some loose stools, no nausea or vomiting. No issues urinating. At this time will obtain urine and labs along with EKG. She notes it hurts to walk and move her leg. this is a RAPID medical screening exam the rest of the history and physical exam is to be done by the main provider. Reevaluation(s) Reevaluation #1: CT of the abdomen and pelvis is without evidence of acute appendicitis, no evidence of acute cholecystitis or cholelithiasis. There is however severe stool burden presence in the cecum, no evidence of bowel obstruction. Time: 20:45 Medical Decision Making Medical Decision Making [facility] Narrative: Patient is a 63 year old female with past medical history of Vini thyroiditis acquired hypothyroidism, dyslipidemia, anxiety, asthma, retinal detachment, narrow angle glaucoma, history of breast cancer s/p right mastectomy/lumpectomy, history of hysterectomy who presents for evaluation of right-sided abdominal pain as per HPI. On evaluation has right upper and lower quadrant tenderness upon palpation, positive psoas sign positive rebound tenderness at McBurney's point. Concern for acute appendicitis, obtaining CT of the abdomen and pelvis, given location and upper quadrant pain and tenderness concern also for acute hepatobiliary pathology; cholecystitis, choledocholithiasis, no fever jaundice to suggest acute cholangitis, however may additionally be biliary colic secondary to cholelithiasis. Denies associated chest pain, lower suspicion for ACS, no associated shortness of breath , recent URI symptoms, hypoxia, tachypnea to suggest acute respiratory pathology. No associated acid reflux or tenderness over the epigastrium and left upper quadrant to suggest gastritis. Left lower abdomen is benign lower suspicious for diverticulitis, colitis, bowel obstruction. No associated symptoms, lower suspicion for UTI/pyelonephritis, renal colic, hydronephrosis. Differential Diagnosis Differential Diagnoses: The differential diagnosis associated with the presentation includes (See narrative above) Admission/Observation Consideration of admission/observation: Escalation of care including admission/observation considered (See narrative above ) Lab Data [facility] Lab Attestation statement: I reviewed the patient's lab results. CBC is without leukocytosis anemia or thrombocytopenia. No electrolyte derangement. No ABELARDO. Minimally elevated AST/ALT at 39/34 respectively with normal lipase. Urinalysis without microscopic hematuria or signs of infection. 07/06/24 13:00 07/06/24 13:00 Labs: Lab Results 07/06/24 Range/Units 13:00 WBC 6.1 (4.8-10.8) X10*3/uL RBC 4.56 (4.20-5.50) X10*6/uL Hgb 14.1 (12.0-16.0) g/dl Hct 42.3 (37.0-47.0) % MCV 92.8 (80.0-98.0) fL MCH 30.9 (27.0-33.0) pg MCHC 33.3 (31.0-35.0) g/dl RDW 12.5 (11.0-16.0) % Plt Count 267 (160-400) X10*3/uL MPV 8.5 L (9.4-12.3) fL Immature Gran % (Auto) 0.2 (0.0-0.4) % Neut % (Auto) 81.6 H (45-73) % Lymph % (Auto) 11.3 L (20-40) % [place] % (Auto) 5.4 (2-11) % Eos % (Auto) 0.7 (0-4) % Baso % (Auto) 0.8 (0-2) % Lymph # (Auto) 0.7 L (1.2-4.9) X10*3/uL [place] # (Auto) 0.3 (0.1-1.2) X10*3/uL Eos # (Auto) 0.0 (0.0-0.4) X10*3/uL Baso # (Auto) 0.1 (0.0-0.2) X10*3/uL Abs Immat Gran (auto) 0.01 (0.00-0.03) X10*3/uL Absolute Neuts (auto) 5.0 (2.0-8.3) x10*3/uL Absolute Nucleated RBC 0.000 (0.0-0.012) X10*3/uL Nucleated RBC % (auto) 0.0 (0.0-0.2) /100WBC Sodium 141 (135-145) mmol/L Potassium 4.6 D (3.3-5.1) mmol/L Chloride 105 (96-108) mmol/L Carbon Dioxide 28 (22-29) mmol/L Anion Gap 13 (12-20) BUN 15 (9-16) mg/dL Creatinine 0.83 (0.5-1.4) mg/dL Estim Creat Clear Calc 59.4 Estimated GFR > 60 Random Glucose 117 H (60-115) mg/dL Calcium 9.5 (8.4-10.2) mg/dL Magnesium 2.5 (1.6-2.6) mg/dL Total Bilirubin 0.4 (0.0-1.0) mg/dL Direct Bilirubin 0.2 (0.0-0.5) mg/dL AST 39 H (5-31) U/L ALT 34 H (0-31) U/L Alkaline Phosphatase 96 (39-117) U/L Total Protein 8.1 H (6.5-8.0) g/dL Albumin 4.4 (3.5-5.0) g/dL Lipase 20 (8-78) U/L Urine Color Yellow Urine Appearance Clear Urine pH 7.0 (5.0-9.0) Ur Specific [place] <= 1.005 (1.005-1.025) Urine Protein Negative (Neg-Trace) mg/dL Urine Glucose (UA) Negative (Negative) mg/dL Urine Ketones Negative (Negative) mg/dL Urine Blood Negative (Negative) Urine Nitrite Negative (Negative) Ur Leukocyte Esterase Negative (Negative) Independent Interpretation I performed an independent interpretation of an: EKG (EKG revealing a normal sinus rhythm with ventricular rate of 60, QTC 420, no ST elevation, ) Radiology Impression Discussion of test interpretation with radiology: I have reviewed the radiologist's reading. Radiologist Impression: CT abdomen and pelvis with contrast Comparison: CT of the abdomen and pelvis from 03/26/2024 Findings: Mild bibasilar atelectasis, scarring, and emphysematous changes of the imaged lung bases. Gallbladder and solid abdominal organs are unremarkable. Nonenlarged lymphadenopathy. No small bowel obstruction. Severe stool burden present, including in the cecum. Imaged appendix is nondilated and within normal limits (image 23 of series 5). No free intraperitoneal air no drainable abscess by CT. Vascular calcifications noted, including phleboliths in the pelvis. The uterus is surgically absent. Urinary bladder is unremarkable. No adnexal soft tissue mass by CT. Transitional vertebral anatomy with diminutive 12th ribs and partial sacralization of the L5 for the purposes of this dictation only. Multifocal facet arthropathy including lumbar spine. Additional degenerative changes include mild-moderate osteoarthritis of the hips, left worse than right. IMPRESSION: 1. Severe stool burden, including the cecum. No small bowel obstruction. 2. No CT findings of acute appendicitis External Record Review External record reviewed: Outpatient record Medications Administered Discontinued Medications Generic Name Dose Route Start Last Admin Trade Name Briana PRN Reason Stop Dose Admin Sodium Chloride 1,000 mls @ 999 mls/hr 07/06/24 18:45 07/06/24 20:21 Ns IV 07/06/24 19:45 Infused .Q1H1M RAÚL Infusion Iohexol 100 ml 07/06/24 19:54 07/06/24 19:54 Iohexol 350 Mg/Ml 100 Ml Infus..Btl IV 07/06/24 19:55 70 ml ONCE ONE Administration Ketorolac Tromethamine 15 mg 07/06/24 19:21 07/06/24 19:34 Ketorolac Tromethamine 15 Mg/Ml Vial IVPUSH 07/06/24 19:22 15 mg ONCE ONE Administration Ondansetron HCl 4 mg 07/06/24 19:21 07/06/24 19:34 Ondansetron Hcl 4 Mg/2 Ml Vial IVPUSH 07/06/24 19:22 4 mg ONCE ONE Administration Discharge Plan Discharge Clinical Impression: Constipation Patient Disposition: Home, Self-Care Instructions: Constipation (ED), High Fiber Diet (ED) Additional Instructions: Imaging today does not show signs of appendicitis which is very reassuring, your blood work is overall unremarkable. However you were noted to be significantly constipated on the CT imaging, with great stool burden even on the right side she was likely the result of your pain that you were experiencing. Take MiraLax 1-2 times daily in 8 oz of water/liquid as prescribed in addition to Colace, follow a high-fiber diet. Follow up outpatient with your primary care doctor. Return with any new or worsening symptoms or concerns Prescriptions: New polyethylene glycol 3350 [Miralax] 17 gram/dose powder 17 g PO BID Qty: 119 0RF docusate sodium 100 mg capsule 100 mg PO BID Qty: 30 0RF No Action (DME) BreatheRite MDI Spacer Spacer See Rx Instructions .Route Qty: 1 0RF Rx Instructions: As directed (DME) nebulizers [AeroEclipse II Nebulizer] Misc See Rx Instructions .Route Qty: 1 0RF Rx Instructions: As directed levothyroxine 88 mcg tablet 88 mcg PO DAILY Qty: 90 1RF azelastine 137 mcg (0.1 %) aerosol,spray 1 spray intranasal BID Qty: 30 5RF fluticasone propionate 50 mcg/actuation spray,suspension 2 spray intranasal DAILY Qty: 16 1RF polyethylene glycol 3350 17 gram/dose powder 17 g PO BID Qty: 510 2RF ascorbic acid (vitamin C) [Vitamin C] 500 mg tablet 500 mg PO DAILY Qty: 90 3RF Arnuity Ellipta 100 mcg/actuation blister with device 1 inh inhalation Q24H Qty: 30 1RF alprazolam 0.25 mg tablet 0.25 mg PO DAILY PRN (Reason: anxiety) Qty: 14 0RF omeprazole 40 mg capsule,delayed release(DR/EC) 40 mg PO DAILY Qty: 90 3RF albuterol sulfate [Ventolin HFA] 90 mcg/actuation HFA aerosol inhaler 2 puff inhalation Q6H PRN (Reason: for wheezing) Qty: 18 2RF fluorometholone 0.1 % drops,suspension 1 drp ophthalmic (eye) NEEDED Alphagan P 0.1 % drops 1 drp ophthalmic (eye) DAILY Restasis 0.05 % dropperette 1 drp ophthalmic (eye) DAILY Betoptic S 0.25 % drops,suspension 1 drp ophthalmic (eye) DAILY Refresh Optive Sensitive (PF) 0.5-0.9 % dropperette 1 drp ophthalmic (eye) DAILY rosuvastatin 5 mg tablet 5 mg PO DAILY 90 Days Qty: 90 2RF dorzolamide-timolol 22.3-6.8 mg/mL drops 22.3 drp ophthalmic (eye) DAILY loteprednol etabonate [Lotemax] 0.5 % drops,suspension 0.5 drp ophthalmic (eye) DAILY prednisone 5 mg tablet 5 mg PO DAILY hydrocortisone-acetic acid 1-2 % drops 4 drp otic (ears) TID Qty: 10 0RF hydroxyzine HCl 25 mg tablet 25 mg PO BEDTIME Referrals: Stephania Guaman MD [Primary Care Provider] - Print Language: Greenlandic
--- NOTE | 2024-07-06 12:37 | ECG_ITS ---
Test Reason : abdomen pain right sided pain Blood Pressure : */* mmHG Vent. Rate : 60 BPM Atrial Rate : 60 BPM P-R Int : 138 ms QRS Dur : 70 ms QT Int : 420 ms P-R-T Axes : 55 25 29 degrees QTcB Int : 420 ms Normal sinus rhythm Nonspecific ST and T wave abnormality Abnormal ECG When compared with ECG of 03-Nov-2022 13:08, No significant change was found Referred By: Farnaz Majano Electronically Signed By: ALFREDO RUBALCAVA MD
[2024-07-06 13:06] LABS: MANUAL DIFF FLAG NO
[2024-07-06 13:07] LABS: Basophils Absolute Auto 0.1 X10*3/uL (0.0-0.2); Basophils Percent Auto 0.8 % (0-2); Eosinophils Percent Auto 0.7 % (0-4); Hematocrit 42.3 % (37.0-47.0); Hemoglobin 14.1 g/dl (12.0-16.0); Imm Gran Abs Auto 0.01 X10*3/uL (0.00-0.03); Imm Gran Pct Auto 0.2 % (0.0-0.4); Lymphocytes Absolute Auto 0.7 X10*3/uL (1.2-4.9); Lymphocytes Percent Auto 11.3 % (20-40); Mean Corpuscular HGB Conc 33.3 g/dl (31.0-35.0); Mean Corpuscular Hemoglobin 30.9 pg (27.0-33.0); Mean Corpuscular Volume 92.8 fL (80.0-98.0); Mean Platelet Volume 8.5 fL (9.4-12.3); Monocytes Absolute Auto 0.3 X10*3/uL (0.1-1.2); Monocytes Percent Auto 5.4 % (2-11); Neutrophils Percent Auto 81.6 % (45-73); Platelet Count 267 X10*3/uL (160-400); Red Blood Count 4.56 X10*6/uL (4.20-5.50); Red Cell Distribution Width 12.5 % (11.0-16.0); White Blood Count 6.1 X10*3/uL (4.8-10.8)
[2024-07-06 13:09] LABS: Appearance Urine Clear; Color Urine Yellow; Glucose Urine UA Negative (Negative); Leukocyte Esterase Urine Negative (Negative); Nitrite Urine Negative (Negative); Specific Gravity - Urine <= 1.005 (1.005-1.025); Urine Blood Negative (Negative); Urine Ketones Negative (Negative); Urine Protein Negative (Neg-Trace)
[2024-07-06 13:27] LABS: Alanine Aminotransferase 34 U/L (0-31); Albumin Level 4.4 g/dL (3.5-5.0); Alkaline Phosphatase 96 U/L (39-117); Anion Gap 13 (12-20); Aspartate Amino Transferase 39 U/L (5-31); Bilirubin Direct 0.2 mg/dL (0.0-0.5); Bilirubin Total 0.4 mg/dL (0.0-1.0); Blood Urea Nitrogen 15 mg/dL (9-16); Calcium 9.5 mg/dL (8.4-10.2); Carbon Dioxide 28 mmol/L (22-29); Chloride 105 mmol/L (96-108); Creatinine Clr Calc Pharmacy 59.4; Estimated Glomerular Filt Rate > 60; Glucose Random 117 mg/dL (60-115); Lipase 20 U/L (8-78); Magnesium 2.5 mg/dL (1.6-2.6); Potassium 4.6 mmol/L (3.3-5.1); Sodium 141 mmol/L (135-145); Total Protein 8.1 g/dL (6.5-8.0)
--- OUTSIDE RECORDS SUMMARY | 2024-07-06 16:08 | XMS_ITS | Patient Health Record ---
Author Organization [facility] Address [address] [place] [address] Support Name Relationship Address Phone ALIE SIFUENTES Guarantor Unknown [phone] Reason For Referral No Information Medications Medication SIG (Take, Route, Fr equency, Duration) Notes Start Date End Date Status Vitamin D3 1000 IU ORAL daily for [facility] 09/10/2011 Active Levoxyl 75MCG 1 ORAL DAILY for [facility] 09/10/2011 Active Multivitamins 1 ORAL daily for [facility] 09/10/2011 Active Proventil HFA 108 MCG 2 Inhalation four times daily for [facility] 07/23/2011 Active Calcium-Carb 600 + D 1 ORAL daily for - [facility] 2 Active Claritin 10 MG 1 ORAL daily for -3 [facility] 09/10/2011 Active Fish Oil 1 ORAL daily for [facility] 09/10/2011 Active Flonase 50MCG 2 Nasal daily for [facility] 07/23/2011 Active Immunizations Vaccine Route Administration Date Status Comme nts Influenza, live, intranasal Intramuscular 07/22/2011 Jake patel Problems Problem Type SNOMED Code ICD Code Onset Dates Problem Status W/U Status Risk Notes Problem Benign neoplasm of skin (63918322) Benign neoplasm of skin, site unspecified (216.9) Active confirmed Diag Problem Hypothyroidism (85096976) Unspecified hypothyroidism (244.9) Active confirmed Major Problem Hyperlipidemia (59733168) Other and unspecified hyperlipidemia (272.4) Active confirmed Major Problem Asthma (disorder) (942455490) Asthma, unspecified, unspecified status (493.90) Active confirmed Major Problem Seborrheic keratosis (65849916) Other seborrheic keratosis (702.19) Active confirmed Diag Problem Joint pain (finding) (11595259) Pain in joint, site unspecified (719.40) Active confirmed Diag Problem General examination of patient (285778476) Routine general medical examination at health care facility (V70.0) Active confirmed Diag Plan Of Treatment No Information Insurance Providers Payer Name Payer Address Payer Phone Subscriber Number Group Number Insured Name Patient Relationship to Insured Coverage Start Date Coverage End Date [address] [place] [id number] [id number] BELLE SIFUENTES Spouse - patient is the spouse of the insured 2
--- OUTSIDE RECORDS SUMMARY | 2024-07-06 16:08 | XMS_ITS | Clinical Summary ---
Author Organization [facility] it Address [address] [place] [address] Care Team Providers Care Accountant Controller Name Role Phone Stephania Guaman MD Primary [...] drink = 0.6 oz pur e alcohol) Comments Unknown Sex and Gender Information Value Date Recorded Sex Assigned at Not on file Legal Sex Female 5:14 AM EST Gender Identity Not on file Sexual Orientation Not on file Obstetrics History Plan of Treatment Health Maintenance Due Date Last Done Comments Breast Cancer Screening 1960 Cervical Cancer Screening: P ap Smear 09/27/1983 Pneumococcal Vaccine: 50+ Ye ars (1 of 1 - PCV) 2012 Zoster Vaccines (1 of 2) 2012 DTaP,Tdap,and Td Vaccines (2 - Td or Tdap) 01/24/2021 01/24/2011 COVID-19 Vaccine ( - 2023-2 5 season) 2024 Influenza Vaccine (#1) 2024 [...] patient's age to complete this topic Meningococcal B Vacine Aged Out No lo nger eligible based on patient's age to complete [...] age to complete this topic Care Teams Accountant Controller Relationship Specialty Start Date End Date Stephania Guaman MD [address] [place] [address] PCP - General Internal Medicine 03/14/17
[2024-07-06] MEDS: 0.9 % Sodium Chloride 1,000 ML 999 ML IV (19:15)
[2024-07-06 19:16] VITALS: BP 133/66; PULSE 59; RESP 18; TEMP 36.6; O2SAT 100
[2024-07-06 19:17] VITALS: RESP 20
[2024-07-06] MEDS: ondansetron HCL 4 MG/2 ML VIAL IVPUSH (19:34)
[2024-07-06] MEDS: Ketorolac Tromethamine 15 MG/ML VIAL IVPUSH (19:34)
[2024-07-06] MEDS: iohexoL 350 MG/ML 100 ML INFUS..BTL IV (19:54)
[2024-07-06 21:01] VITALS: BP 100/68; PULSE 65; RESP 18; TEMP 36.6; O2SAT 98
[2024-07-06 21:03] VITALS: BP 100/68; PULSE 65; RESP 18; TEMP 36.6; O2SAT 98
== END 2024-07-06 21:07 | disposition home or self-care (01) ==
PROVIDERS: Emergency Medicine; Emergency Provider Emergency Medicine Emergency Medical Services; PCP Internal Medicine
DX: K59.00 Constipation, unspecified (principal); R10.11 Right upper quadrant pain; R10.31 Right lower quadrant pain; R19.7 Diarrhea, unspecified; R94.31 Abnormal electrocardiogram [ECG] [EKG]; R11.0 Nausea; Z79.899 Other long term (current) drug therapy
CPT/HCPCS: 36415; 74177; 80048; 80076; 81003; 83690; 83735; 85025; 93005; 96361; 96374; 96375; 99284; 99285; J1885; J2405; Q9967

== ENCOUNTER → 2024-07-06 12:37 | Outpatient (BNV) | payer OTHER, SELFPAY | PROVIDERS: PCP Internal Medicine; Visit Provider Internal Medicine Cardiovascular Disease | DX: R94.31 Abnormal electrocardiogram [ECG] [EKG] (principal); R10.9 Unspecified abdominal pain | CPT/HCPCS: 93010 ==

== ENCOUNTER → 2024-07-06 18:34 | Outpatient (BNV) | payer OTHER, SELFPAY | PROVIDERS: Emergency Provider Emergency Medicine Emergency Medical Services; PCP Internal Medicine; Visit Provider Radiology Neuroradiology | DX: R10.31 Right lower quadrant pain (principal); R10.11 Right upper quadrant pain | CPT/HCPCS: 74177 ==

== ENCOUNTER 2024-07-10 09:48 | Outpatient (AMB) | payer OTHER, SELFPAY ==
--- OUTSIDE RECORDS SUMMARY | 2024-07-10 09:50 | XMS_ITS | Data Portability ---
Author Organization [facility], [address] Address [address] [place] [address] Care Team Providers Care Hospital Pharmacy Technician Name Role Phone PINO ABREU Primary Care Provider [phone] Assessment No assessment recorded. Plan of Treatment Reminders Order Date Submit Date Provider Last Modified By Organization Details Last Modified Time Details Appointments None recorded. Lab None recorded. Referral None recorded. Procedures None recorded. Surgeries None recorded. Imaging None recorded. Medication Orders cephalexin 500 mg capsule 2022 023 [facility] #[id number], [address] [facility] [place], [address], 3 16:59:00 azithromyci n 250 mg tablet [email or web address] [facility], [address] [place], [address], 3 16:15:28 albuterol sulfate 2.5 mg/3 mL (0.083 %) solution for nebulizatio n 2022 023 [email or web address] 247 Not available 3 18:49:45 ipratropium bromide 0.02 % solution for inhalation 2022 023 [email or web address] 247 Not available 3 17:51:30 ipratropium 20 mcg-albuter ol 100 mcg/actuati on mist for inhalation 2022 023 [facility], [address] [place], [address], 19:15:31 prednisone 20 mg tablet 2022 023 [facility], [address] [place], [address], 19:15:32 Patient TargetsNo targets recorded. Patient Instructions Encounter Date Encounter Id Patient Instructions Last Modified By Organization Details Last Modified Time 07/13/2022 [id number] cough: care instructions [id number] Not available 07/13/2022 17:51:30 peak flow* [email or web address] Not available 17:51:30 08/10/2022 [id number] head or face pain: care instructions Not [...] Abnormal Flag Note LastModifiedBy Organization Detail LastModifiedTime 07/14/1907/13/2022 peak flow* Pre (L/min) 260 Not Available [address], [address], 07/13/2022 17:03:05 07/14/19 23 07/13/2022 peak flow* Post (L/min) 410 Not Available que [address] [place], [address], 07/13/2022 17:03:05 07/14/19 23 07/13/2022 peak flow* Pulse 64 Not Available [address]amie christianson [address] [place], [address], 07/13/2022 17:03:05 07/14/19 23 07/13/2022 peak flow* Oxygen Saturation 99 Not Available que [address] [place], [address], 07/13/2022 17:03:05 Result Notes None recorded. Problems Name Problem SNOMED Code Status Onset Date Resolution Date Notes Provider Name and Address Organization Details Recorded Time Graves' disease 934774261 Active 023 MONIKA QUINTANILLA null, PA - [facility] 3 16:33:30 Glaucoma 57165281 Active 023 MONIKA QUINTANILLA null, PA - [facility] 3 16:33:36 Malignant tumor of breast 789745265 Active 023 MONIKA QUINTANILLA null, PA - [facility] 3 16:35:57 Thyroid eye disease 121746142 Active 023 JAKE DANILO null, PA - [...] Name and Address Organization Details Recorded Time 595207 doxycycli ne Not available Not available Not available Not available 07/13/2022 3640 RxNorm MONIKA QUINTANILLA null, PA - [facility] 16:31:49 491853 clindamyc in Not available Not available Not available Not available 07/13/2022 2582 RxNorm MONIKA QUINTANILLA null, PA - [facility] 16:31:55 617540 Substance with sulfonami de structure and antibacte rial mechanism of action (substanc e) medicatio n Not available Not available Not available 07/13/2022 07503 8003 SNOMED MONIKA QUINTANILLA null, PA - [facility] 16:32:02 552296 Product containin g penicilli n (product) medicatio n Not available Not available Not available 07/13/2022 73479 8001 SNOMED MONIKA QUINTANILLA null, PA - [facility] 16:32:09 Medications Name Sig Start Date Stop [...] Not Available Vitals Date Recorded Body height Body mass index (BMI) Body weight Pain severity - 0-10 verbal numeric rating [Score] - Reported Oxygen saturation Oxygen saturation in Arterial blood by Pulse oximetry Heart rate Respiratory rate Body temperature Systolic blood pressure Diastolic blood pressure Provider Name and Address Organization Details Last Updated DateTime 3 165.1 cm 20.3 kg/m2 98540.2 7 g 5 97 % 97 % 71 /min 16 /min 98.6 [degF] 131 mm[Hg] 82 mm[Hg] JAKE CARRASCO PA - [facility] 3 16:18:59 Date Recorded Body height Body mass index (BMI) Body weight Body temperature Oxygen saturation Oxygen saturation in Arterial blood by Pulse oximetry Heart rate Respiratory rate Systolic blood pressure Diastolic blood pressure Provider Name and Address Organization Details Last Updated DateTime 3 165.1 cm 20.5 kg/m2 00828.8 6 g 97 [degF] 97 % 97 % 59 /min 16 /min 118 mm[Hg] 66 mm[Hg] MONIKA QUINTANILLA PA - [facility] 16:39:15 Social History Question Answer Notes LastModified by Organizat ion Details LastModified Time Tobacco Smoking Status Never Smoker MONIKA DWIGHT restrepo, PA - [facility] 07/13/2022 16:35:19 What Is Your Level Of Alcohol Consumption? None Information not available 07/13/2022 Are You Currently Employed? Yes [email or web address] Information not available 08/10/2022 Do You Use Any Illicit Or Recreational Drugs? No [email or web address] Information not available 07/13/2022 Do You Or Have You Ever Used Any Other Forms Of Tobacco Or Nicotine? No [email or web address] Information not available 07/13/2022 Sex: Unknown Functional Status None recorded. Mental Status None recorded. Family History Relationship Description Onset Age of this Age Resolved Age Notes LastModified by Organization Details LastModified Time Mother Heart disease [email or web address] Not available 2022 16:34:31 Mother Diabetes mellitus [email or web address] Not available 2022 16:34:39 Father Chronic obstructive pulmonary disease [email or web address] Not available 2022 16:34:49 Father Malignant melanoma Not available 2022 16:35:00 Medical History No [...] SNOMED-CT Code Diagnosis ICD10 Code Diagnosis Note [id number] [address] [facility] [place] [address] 06/17/2017 10:02:30 06/17/2017 11:06:24 [id number] [address] [facility] [place] [address] 02/22/2018 15:31:18 02/22/2018 16:41:01 [id number] [address] [place] [address] 02/02/2018 08:03:24 02/02/2018 09:00:04 [id number] [address] [place] [address] 05/25/2017 11:23:18 05/25/2017 11:48:52 [id number] [address] [place] [address] 10/14/2016 10:56:11 10/14/2016 11:30:58 [id number] [address] [place] [address] 11/26/2020 16:42:53 11/26/2020 16:43:11 [id number] [address] [place] [address] 06/21/2017 11:53:31 06/21/2017 13:29:56 [id number] [address] [facility] [place] [address] 06/16/2019 08:48:18 06/16/2019 09:14:34 [id number] [address] [place] [place] [address] 08/07/2016 19:08:06 08/07/2016 19:38:52 [id number] [address] [place] [place] [address] 06/23/2017 16:34:40 06/23/2017 18:33:44 [id number] [address] [place] [place] [address] 07/11/2019 09:23:05 07/11/2019 11:04:58 [id number] [address] [place] [address] 03/30/2018 12:12:45 03/30/2018 13:33:52 [id number] [address] [place] [place] [address] 05/06/2015 15:03:33 05/06/2015 16:37:42 [id number] [address] [place] [place] [address] 08/11/2016 12:26:36 08/11/2016 13:19:33 [id number] [address] [place] [place] [address] 04/01/2017 18:06:32 04/01/2017 19:35:58 [id number] [address] [place] [place] [address] 04/30/2019 18:38:30 04/30/2019 19:31:57 [id number] [address] [place] [place] [address] 10/10/2017 19:06:43 10/10/2017 20:39:06 [id number] BETTY NIXON MD [address] [place] [place] [address] 07/13/2022 12:04:22 07/13/2022 17:59:56 Exacerbation of intermittent asthma 611793213 J45.21 Acute left otitis media 726037169 H66.92 [id number] Jt Jeffries NP [address] [place] [address] 08/10/2022 15:55:34 08/10/2022 16:50:43 Abscess of face 887197128 L02.01 Health Concerns Section Related Observation LastModified by Organization Detai ls LastModified Time None Recorded Concern Status LastModified by Organization Details LastModified Time None Recorded Advance Directives Directive None Recorded Payers Encounter Date Sequence Insurance Name Policy Number Policy Kennedy Covered Member ID Kennedy Member ID Guarantor Name 07/13/2022 1 [facility] [employer] [facility] PLAN (MEDICAID HMO) ELODIA Julian [id number] Kaylynn Moyer 08/10/2022 1 [facility] PLAN (MEDICAID HMO) ELODIA Julian [id number] Kaylynn Moyer Notes Date Note Type Note [...] BETTY NIXON MD [address] [place], [address], [place] - [facility] 07/13/2022 19:16:11 08/10/2022 text/html Facial ProblemReported bypatient.Onset/Timin g:abrupt Location:face right;mandible right Quality:painful Duration:1days Severity:worsening; mild Alleviating factors:none Aggravating factors:none Associated Symptoms:facial painNotes:Mild swelling and tenderness along right side of jaw bone. Jt Jeffries NP [address] [place], [address], [place] - [facility] 08/10/2022 16:59:04 OBGyn Episode No OBEpisode recorded.
--- OUTSIDE RECORDS SUMMARY | 2024-07-10 09:50 | XMS_ITS | Patient Health Record ---
Author Organization [facility] Address [address] [facility] [address] [place] [address] Support Name Relationship Address Phone ALIE SIFUENTES Guarantor Unknown [phone] Reason For Referral No Information Medications Medication SIG (Take, Route, Fr equency, Duration) Notes Start Date End Date Status Vitamin D3 1000 IU ORAL daily for [facility] 09/10/2011 Active Levoxyl 75MCG 1 ORAL DAILY for [facility] 09/10/2011 Active Multivitamins 1 ORAL daily for [facility] 09/10/2011 Active Proventil HFA 108 MCG 2 Inhalation four times daily for [facility] 07/23/2011 Active Calcium-Carb 600 + D 1 ORAL daily for - [facility] 2 Active Claritin 10 MG 1 ORAL daily for -3 [facility] 09/10/2011 Active Fish Oil 1 ORAL daily for [facility] 09/10/2011 Active Flonase 50MCG 2 Nasal daily for [facility] 07/23/2011 Active Immunizations Vaccine Route Administration Date Status Comme nts Influenza, live, intranasal Intramuscular 07/22/2011 Jake patel Problems Problem Type SNOMED Code ICD Code Onset Dates Problem Status W/U Status Risk Notes Problem Benign neoplasm of skin (29013947) Benign neoplasm of skin, site unspecified (216.9) Active confirmed Diag Problem Hypothyroidism (86395246) Unspecified hypothyroidism (244.9) Active confirmed Major Problem Hyperlipidemia (83185651) Other and unspecified hyperlipidemia (272.4) Active confirmed Major Problem Asthma (disorder) (819624734) Asthma, unspecified, unspecified status (493.90) Active confirmed Major Problem Seborrheic keratosis (07863798) Other seborrheic keratosis (702.19) Active confirmed Diag Problem Joint pain (finding) (70381718) Pain in joint, site unspecified (719.40) Active confirmed Diag Problem General examination of patient (468874767) Routine general medical examination at health care facility (V70.0) Active confirmed Diag Plan Of Treatment No Information Insurance Providers Payer Name Payer Address Payer Phone Subscriber Number Group Number Insured Name Patient Relationship to Insured Coverage Start Date Coverage End Date [address] [place] [phone] [id number] BELLE SIFUENTES Spouse - patient is the spouse of the insured 2
--- OUTSIDE RECORDS SUMMARY | 2024-07-10 09:50 | XMS_ITS | Clinical Summary ---
Author Organization [facility] Address [address] [place] [address] Care Team Providers Care Battery Engineer Name Role Phone Stephania Guaman MD Primary Care Provider [phone] Surgical History Surgery Date Site/Laterality Comments OTHER [...] age to complete this topic Care Teams Battery Engineer Relationship Specialty Start Date End Date Stephania Guaman MD [address] [place] [address] PCP - General Internal Medicine 03/14/17
[2024-07-10 10:00] VITALS: BP 112/62; PULSE 62; TEMP 36.7; O2SAT 99
--- NOTE | 2024-07-10 10:00 | MHC.OFFWIV ---
Intake Vital Signs 07/10/24 10:00 Height 5 ft 5 in Weight 120 lb BMI 20.0 BP 112/62 Blood Pressure Location Lt brachial Position Sitting Pulse 62 Pulse Source Pulse Oximeter Temp 98.1 F Temp Source Oral Pulse Oximetry (%) 99 Oxygen Delivery Method Room Air Intake Visit Reasons: EP-Lt \ear pain, dizziness Patient Tobacco Use Status: Never used Tobacco Allergies Opioids - Morphine Analogues Allergy (Severe, Verified 07/10/24 10:23) convultions sulfabenzamide Allergy (Severe, Verified 07/10/24 10:23) tongue swelled shut gluten [GLUTEN] Allergy (Intermediate, Verified 07/10/24 10:23) INFLAMMATION SYSTEMICALLY mold [MOLD] Allergy (Intermediate, Verified 07/10/24 10:23) UNKNOWN animal dander Allergy (Unknown, Verified 07/10/24 10:23) ASTHMA FLAIRUP Clindamycin HCl Allergy (Unknown, Verified 07/10/24 10:23) rash doxycycline [DOXYCYCLINE] Allergy (Unknown, Verified 07/10/24 10:23) RASH morphine [MORPHINE] Allergy (Unknown, Verified 07/10/24 10:23) SEIZURE LIKE EXPERIENCE - FELT TERRIBLE, convulsions penicillin V Allergy (Unknown, Verified 07/10/24 10:23) rash Penicillins [PENICILLINS] Allergy (Unknown, Verified 07/10/24 10:23) RASH HIVES soybean Allergy (Unknown, Verified 07/10/24 10:23) unknown Sulfa (Sulfonamide Antibiotics) [SULFA (SULFONAMIDE ANTIBIOTICS)] Allergy (Unknown, Verified 07/10/24 10:23) TONGUE SWELLING, swelling of mouth soy Adverse Reaction (Intermediate, Verified 07/10/24 10:23) UPSET STOMACH DAIRY PRODUCTS Allergy (Intermediate, Uncoded 07/10/24 10:23) INFLAMMATION cats, dogs Allergy (Unknown, Uncoded 07/10/24 10:23) Unknown mole,bread and diary Allergy (Unknown, Uncoded 07/10/24 10:23) Unknown cefdinir Adverse Reaction (Uncoded 07/10/24 10:23) Vomiting HPI HPI Comments History of Present Illness Details This is a 63-year-old female who presented to the walk-in clinic complaining of left-sided ear pain radiating into her left jaw and left neck. Patient also reports associated viral URI symptoms such as nasal congestion, rhinorrhea, sore throat, low-grade fever/chills, and myalgias. She states the symptoms have been going on for about 3 weeks now. She reports a history of frequent ear infections and has been seen at the walk-in clinic multiple times with similar symptoms. She was most recently seen in 04/2024 and she was given p.o. azithromycin 500 mg daily x5 days (due to multiple antibiotic allergies) as well as hydrocortisone/acetic acid drops and she states that these helped significantly. [facility] Medical History Cataract of right eye History of adenomatous polyp of colon Recurrent genital herpes Environmental and seasonal allergies Temporomandibular joint dysfunction Mixed dyslipidemia Immunization refused Hx of breast cancer History of COVID-19 Anxiety disorder Dyslipidemia Recurrent otitis media Retinal detachment Vini's thyroiditis Mild intermittent asthma Narrow angle glaucoma suspect of both eyes Vitamin D deficiency Acquired hypothyroidism Surgical History Hx of colonoscopy History of surgery H/O myringotomy History of hysterectomy History of eyelid surgery History of eye surgery Family History Father No problems noted. Mother Diabetes mellitus Heart disease Heart attack Brother No problems noted. Brother No problems noted. Brother No problems noted. Brother No problems noted. Brother No problems noted. Social History Household Members: None Housing: House Alcohol intake: current Alcohol intake frequency: a few times a week Patient Tobacco Use Status: Never used Tobacco e-Cigarette/Vaping Use: Never Used service: No Current occupational status: employed Cognitive needs: No Hearing needs: No Vision needs: No Review of Systems Const All systems reviewed & are unremarkable except as noted in HPI and below Reports no additional complaints Eyes Reports no additional complaints ENT Reports no additional complaints Card Reports no additional complaints Resp Reports no additional complaints GI Reports no additional complaints Reports no additional complaints Musc Reports no additional complaints Skin/Breast Reports system reviewed and no additional complaints, except as documented Neuro Reports no additional complaints Psych Reports no additional complaints Endo Reports no additional complaints Kiel/Lymph Reports no additional complaints Aller/Immun Reports no additional complaints Physical Exam Vital Signs: Last Vital Signs Temp 98.1 F 07/10/24 10:00 Pulse 62 07/10/24 10:00 BP 112/62 07/10/24 10:00 Pulse Ox 99 07/10/24 10:00 Oxygen Delivery Method Room Air 07/10/24 10:00 BMI result Body Mass Index 20.0 Const Other: Vital signs reviewed. Constitutional: Non-toxic appearing. No acute distress. Well-developed and well-nourished. HEENT: Normocephalic and atraumatic. Her left TM is erythematous and edematous with loss of landmarks with fluid behind TM. Her right TM and external auditory canal are within normal limits. Moist mucous membranes. No pharyngeal erythema or exudates. There is no postauricular swelling, erythema, or tenderness to palpation. Skin: Warm and dry. No rashes or lesions noted. Neck: Full and painless range of motion. No cervical lymphadenopathy. Cardio: Regular rate and rhythm. No murmurs, gallops, or rubs. No lower extremity edema. No JVD. Pulmonary: No respiratory distress. No accessory muscle usage. Clear to auscultation bilaterally without wheezing, crackles, or rhonchi. Musculoskeletal: Normal range of motion in joints throughout the body. No deformity or other signs of injury. Neuro: Alert and oriented x4. Cranial nerves 2-12 grossly intact. No focal deficits appreciated. Psych: Normal mood and affect. Assessment & Plan Assessment & Plan (1) Acute otitis media with effusion of left ear: Code(s): H65.192 - Other acute nonsuppurative otitis media, left ear Plan: This is a 63-year-old female with history of frequent ear infections who presented to the walk-in clinic complaining of left ear pain radiating into her jaw/neck. On physical examination, her left tympanic membrane is erythematous and edematous with loss of landmarks and fluid behind her tympanic membrane. There is no postauricular swelling, tenderness, or erythema to suggest acute mastoiditis. Given patient's multiple antibiotic allergies, she was given a prescription for p.o. azithromycin 500 mg daily x5 days (which helped her in the past) as well as a refill on the hydrocortisone/acetic acid drops. She was advised to follow-up with an ENT provider given her frequent ear infections. Patient advised to follow-up here or proceed to the emergency room if she were to develop persistent or worsening symptoms. Patient verbalized understanding and she is agreeable with the plan she was very appreciative of the help. Orders: Orders SARS-CoV2/FLU/RSV Today J06.9 - Acute upper respiratory infection, unspecified Medications: New azithromycin 500 mg (2 x 250 mg) PO DAILY 5 days 10 tabs 0RF Refilled hydrocortisone-acetic acid 1-2 % 4 drps otic (ears) TID 10 mL 0RF Coding Level of Care Code Est Pt Level 3 (11800) Diagnoses Acute otitis media with effusion of left ear H65.192
== END 2024-07-10 11:14 | disposition home or self-care (01) ==
LOC: HO.HMCWIC 09:48
PROVIDERS: PCP Internal Medicine; Visit Provider Physician Assistant Medical
DX: H65.192 Other acute nonsuppurative otitis media, left ear (principal)

== ENCOUNTER 2024-07-10 09:48 | Outpatient (REF) | payer OTHER, SELFPAY ==
--- OUTSIDE RECORDS SUMMARY | 2024-07-10 13:51 | XMS_ITS | Clinical Summary ---
Author Organization [facility] it Address [address] [place] [address] Care Team Providers Care Psychology Teacher Name Role Phone Stephania Guaman MD Primary [...] age to complete this topic Care Teams Psychology Teacher Relationship Specialty Start Date End Date Stephania Guaman MD [address] [place] [address] PCP - General Internal Medicine 03/14/17
[2024-07-10 14:48] LABS: Influenza A PCR NEGATIVE (Negative); Influenza B PCR NEGATIVE (Negative); Resp Syncy Virus RNA Qual PCR NEGATIVE (Negative); SARS COV2 PCR INHOUSE NEGATIVE (Negative)
== END 2024-07-10 09:49 | disposition home or self-care (01) ==
LOC: HO.LNP 09:48
PROVIDERS: PCP Internal Medicine; Visit Provider Physician Assistant Medical
DX: H65.192 Other acute nonsuppurative otitis media, left ear (principal); J06.9 Acute upper respiratory infection, unspecified
CPT/HCPCS: 0241U; 99212

== ENCOUNTER 2024-07-23 08:04 | Outpatient (AMB) | payer OTHER, SELFPAY ==
--- OUTSIDE RECORDS SUMMARY | 2024-07-23 08:06 | XMS_ITS | Patient Health Record ---
Author Organization [facility] Address [address] [facility] [address] [place] [address] Support Name Relationship Address Phone ALIE SIFUENTES Guarantor Unknown [phone] Reason For Referral No Information Medications Medication SIG (Take, Route, Fr equency, Duration) Notes Start Date End Date Status Vitamin D3 1000 IU ORAL daily for [facility] 09/10/2011 Active Levoxyl 75MCG 1 ORAL DAILY for [facility] 09/10/2011 Active Multivitamins 1 ORAL daily for [facility] 09/10/2011 Active Proventil HFA 108 MCG 2 Inhalation four times daily for [facility] 07/23/2011 Active Calcium-Carb 600 + D 1 ORAL daily for - [facility] 2 Active Claritin 10 MG 1 ORAL daily for -3 [facility] 09/10/2011 Active Fish Oil 1 ORAL daily for [facility] 09/10/2011 Active Flonase 50MCG 2 Nasal daily for [facility] 07/23/2011 Active Immunizations Vaccine Route Administration Date Status Comme nts Influenza, live, intranasal Intramuscular 07/22/2011 Jake patel Problems Problem Type SNOMED Code ICD Code Onset Dates Problem Status W/U Status Risk Notes Problem Benign neoplasm of skin (74821657) Benign neoplasm of skin, site unspecified (216.9) Active confirmed Diag Problem Hypothyroidism (61996795) Unspecified hypothyroidism (244.9) Active confirmed Major Problem Hyperlipidemia (10789312) Other and unspecified hyperlipidemia (272.4) Active confirmed Major Problem Asthma (disorder) (531177415) Asthma, unspecified, unspecified status (493.90) Active confirmed Major Problem Seborrheic keratosis (27735353) Other seborrheic keratosis (702.19) Active confirmed Diag Problem Joint pain (finding) (02938467) Pain in joint, site unspecified (719.40) Active confirmed Diag Problem General examination of patient (193025076) Routine general medical examination at health care facility (V70.0) Active confirmed Diag Plan Of Treatment No Information Insurance Providers Payer Name Payer Address Payer Phone Subscriber Number Group Number Insured Name Patient Relationship to Insured Coverage Start Date Coverage End Date [address] [place] [phone] [id number] BELLE SIFUENTES Spouse - patient is the spouse of the insured 2
--- OUTSIDE RECORDS SUMMARY | 2024-07-23 08:06 | XMS_ITS | Clinical Summary ---
Author Organization [facility] Address [address] [place] [address] Care Team Providers Care Spa Consultant Name Role Phone Stephania Guaman MD Primary [...] age to complete this topic Care Teams Spa Consultant Relationship Specialty Start Date End Date Stephania Guaman MD [address] [place] [address] PCP - General Internal Medicine 03/14/17
--- OUTSIDE RECORDS SUMMARY | 2024-07-23 08:06 | XMS_ITS | Data Portability ---
Author Organization [facility], [address] Address [address] [place] [address] Care Team Providers Care Rapid Extractor Operator Name Role Phone PINO ABREU Primary Care Provider Assessment No assessment recorded. Plan of Treatment Reminders Order Date Submit Date Provider Last Modified By Organization Details Last Modified Time Details Appointments None recorded. Lab None recorded. Referral None recorded. Procedures None recorded. Surgeries None recorded. Imaging None recorded. Medication Orders cephalexin 500 mg capsule 2022 023 [facility] #[id number], [address] [facility], [address], 3 16:59:00 azithromyci n 250 mg tablet [email or web address] [facility], [address] [place], [address], 3 16:15:28 albuterol sulfate 2.5 mg/3 mL (0.083 %) solution for nebulizatio n 2022 023 [email or web address] 247 Not available 3 18:49:45 ipratropium bromide 0.02 % solution for inhalation 2022 023 [email or web address] 247 Not available 3 17:51:30 ipratropium 20 mcg-albuter ol 100 mcg/actuati on mist for inhalation 2022 023 [facility], [address] [place], [address], 19:15:31 prednisone 20 mg tablet 2022 023 [facility], [address] [facility] [place], [address], 19:15:32 Patient TargetsNo targets recorded. Patient Instructions Encounter Date Encounter Id Patient Instructions Last Modified By Organization Details Last Modified Time 07/13/2022 [id number] cough: care instructions [email or web address] Not available 07/13/2022 17:51:30 peak flow* [email or web address] Not available 17:51:30 08/10/2022 [id number] head or face pain: care instructions Not [...] flow* Pre (L/min) 260 Not Available [address], [address], 07/13/2022 17:03:05 07/14/19 23 07/13/2022 peak flow* Post (L/min) 410 Not Available que [address] [place], [address], 07/13/2022 17:03:05 07/14/19 23 07/13/2022 peak flow* Pulse 64 Not Available [address]amie christianson [address] [place], [address], 07/13/2022 17:03:05 07/14/19 23 07/13/2022 peak flow* Oxygen Saturation 99 Not Available que [address] [place], [address], 07/13/2022 17:03:05 Result Notes None recorded. Problems Name Problem SNOMED Code Status Onset Date Resolution Date Notes Provider Name and Address Organization Details Recorded Time Graves' disease 217982158 Active 023 MONIKA QUINTANILLA null, PA - [facility] 3 16:33:30 Glaucoma 55603457 Active 023 MONIKA QUINTANILLA null, PA - [facility] 3 16:33:36 Malignant tumor of breast 917408696 Active 023 MONIKA QUINTANILLA null, PA - [facility] 3 16:35:57 Thyroid eye disease 434731689 Active 023 JAKE DANILO null, PA - [...] Name and Address Organization Details Recorded Time 489987 doxycycli ne Not available Not available Not available Not available 07/13/2022 3640 RxNorm MONIKA QUINTANILLA null, PA - [facility] 16:31:49 081940 clindamyc in Not available Not available Not available Not available 07/13/2022 2582 RxNorm MONIKA QUINTANILLA null, PA - [facility] 16:31:55 144665 Substance with sulfonami de structure and antibacte rial mechanism of action (substanc e) medicatio n Not available Not available Not available 07/13/2022 58348 8003 SNOMED MONIKA QUINTANILLA null, PA - [facility] 16:32:02 254550 Product containin g penicilli n (product) medicatio n Not available Not available Not available 07/13/2022 12583 8001 SNOMED MONIKA QUINTANILLA null, PA - [...] Updated DateTime 3 165.1 cm 20.3 kg/m2 97578.2 7 g 5 97 % 97 % [...] Updated DateTime 3 165.1 cm 20.5 kg/m2 98558.8 6 g 97 [degF] 97 % 97 % 59 /min 16 /min 118 mm[Hg] 66 mm[Hg] MONIKA QUINTANILLA PA - [facility] 16:39:15 Social History Question Answer Notes LastModified by Organizat ion Details LastModified Time Tobacco Smoking Status Never Smoker MONIKA DWIGHT restrepo, PA - [facility] 07/13/2022 16:35:19 What Is Your Level Of Alcohol Consumption? None [email or web address] Information not available 07/13/2022 Are You Currently Employed? Yes [email or web address] Information not available 08/10/2022 Do You Use Any Illicit Or Recreational Drugs? No Information not available 07/13/2022 Do You Or Have You Ever Used Any Other Forms Of Tobacco Or Nicotine? No [email or web address] Information not available 07/13/2022 Sex: Unknown Functional Status None recorded. Mental Status None recorded. Family History Relationship Description Onset Age of this Age Resolved Age Notes LastModified by Organization Details LastModified Time Mother Heart disease [email or web address] Not available 2022 16:34:31 Mother Diabetes mellitus [email or web address] Not available 2022 16:34:39 Father Chronic obstructive pulmonary disease [email or web address] Not available 2022 16:34:49 Father Malignant melanoma [email or web address] Not available 2022 16:35:00 Medical History No [...] SNOMED-CT Code Diagnosis ICD10 Code Diagnosis Note [id number] [address] [place] [address] 06/17/2017 10:02:30 06/17/2017 11:06:24 [id number] [address] [place] [address] 02/22/2018 15:31:18 02/22/2018 16:41:01 [id number] [address] [place] [address] 02/02/2018 08:03:24 02/02/2018 09:00:04 [id number] [address] [place] [address] 05/25/2017 11:23:18 05/25/2017 11:48:52 [id number] [address] [place] [address] 10/14/2016 10:56:11 10/14/2016 11:30:58 [id number] [address] [place] [address] 11/26/2020 16:42:53 11/26/2020 16:43:11 [id number] [address] [place] [address] 06/21/2017 11:53:31 06/21/2017 13:29:56 [id number] [address] [place] [address] 06/16/2019 08:48:18 06/16/2019 09:14:34 [id number] [address] [place] [place] [address] 08/07/2016 19:08:06 08/07/2016 19:38:52 [id number] [address] [place] [place] [address] 06/23/2017 16:34:40 06/23/2017 18:33:44 [id number] [address] [place] [place] [address] 07/11/2019 09:23:05 07/11/2019 11:04:58 [id number] [address] [place] [place] [address] 03/30/2018 12:12:45 03/30/2018 13:33:52 [id number] [address] [place] [place] [address] 05/06/2015 15:03:33 05/06/2015 16:37:42 [id number] [address] [place] [place] [address] 08/11/2016 12:26:36 08/11/2016 13:19:33 [id number] [address] [place] [place] [address] 04/01/2017 18:06:32 04/01/2017 19:35:58 [id number] [address] [place] [place] [address] 04/30/2019 18:38:30 04/30/2019 19:31:57 [id number] [address] [place] [place] [address] 10/10/2017 19:06:43 10/10/2017 20:39:06 [id number] BETTY NIXON MD [address] [place] [place] [address] 07/13/2022 12:04:22 07/13/2022 17:59:56 Exacerbation of intermittent asthma 857127202 J45.21 Acute left otitis media 711396091 H66.92 [id number] Jt Jeffries NP [address] [place] [address] 08/10/2022 15:55:34 08/10/2022 16:50:43 Abscess of face 402017957 L02.01 Health Concerns Section Related Observation LastModified by Organization Detai ls LastModified Time None Recorded Concern Status LastModified by Organization Details LastModified Time None Recorded Advance Directives Directive None Recorded Payers Encounter Date Sequence Insurance Name Policy Number Policy Kennedy Covered Member ID Kennedy Member ID Guarantor Name 07/13/2022 1 [facility] [email or web address] FORMERLY [facility] PLAN (MEDICAID HMO) ELODIA Julian [id number] Kaylynn Moyer 08/10/2022 1 [facility] PLAN (MEDICAID HMO) ELODIA Julian [id number] Kaylynn Moyer Notes Date Note Type Note [...] BETTY NIXON MD [address] [place], [address], [place] - [facility] 07/13/2022 19:16:11 08/10/2022 text/html Facial ProblemReported bypatient.Onset/Timin g:abrupt Location:face right;mandible right Quality:painful Duration:1days Severity:worsening; mild Alleviating factors:none Aggravating factors:none Associated Symptoms:facial painNotes:Mild swelling and tenderness along right side of jaw bone. Jt Jeffries NP [address] [place], [address], [place] - [facility] 08/10/2022 16:59:04 OBGyn Episode No OBEpisode recorded.
[2024-07-23 08:07] VITALS: BP 110/68; PULSE 64; O2SAT 96; BMI 19.5
--- NOTE | 2024-07-23 08:07 | AM.OFFWIN_ITS ---
Intake Vital Signs 07/23/24 08:07 Height 5 ft 5 in Weight 117 lb BMI 19.5 BP 110/68 Blood Pressure Location Lt brachial Position Sitting Pulse 64 Pulse Source Pulse Oximeter Pulse Oximetry (%) 96 Oxygen Delivery Method Room Air Intake Visit Reasons: EP swollen lypmh nodes, nausea Intake Note: Patient here for swollen lymph nodes that is going down the neck, back and down to breast which started about 2 weeks ago. Patient Tobacco Use Status: Never used Tobacco Allergies Opioids - Morphine Analogues Allergy (Severe, Verified 07/23/24 08:19) convultions sulfabenzamide Allergy (Severe, Verified 07/23/24 08:19) tongue swelled shut gluten [GLUTEN] Allergy (Intermediate, Verified 07/23/24 08:19) INFLAMMATION SYSTEMICALLY mold [MOLD] Allergy (Intermediate, Verified 07/23/24 08:19) UNKNOWN animal dander Allergy (Unknown, Verified 07/23/24 08:19) ASTHMA FLAIRUP Clindamycin HCl Allergy (Unknown, Verified 07/23/24 08:19) rash doxycycline [DOXYCYCLINE] Allergy (Unknown, Verified 07/23/24 08:19) RASH morphine [MORPHINE] Allergy (Unknown, Verified 07/23/24 08:19) SEIZURE LIKE EXPERIENCE - FELT TERRIBLE, convulsions penicillin V Allergy (Unknown, Verified 07/23/24 08:19) rash Penicillins [PENICILLINS] Allergy (Unknown, Verified 07/23/24 08:19) RASH HIVES soybean Allergy (Unknown, Verified 07/23/24 08:19) unknown Sulfa (Sulfonamide Antibiotics) [SULFA (SULFONAMIDE ANTIBIOTICS)] Allergy (Unknown, Verified 07/23/24 08:19) TONGUE SWELLING, swelling of mouth soy Adverse Reaction (Intermediate, Verified 07/23/24 08:19) UPSET STOMACH DAIRY PRODUCTS Allergy (Intermediate, Uncoded 07/23/24 08:19) INFLAMMATION cats, dogs Allergy (Unknown, Uncoded 07/23/24 08:19) Unknown mole,bread and diary Allergy (Unknown, Uncoded 07/23/24 08:19) Unknown Do you need a note to return to daycare/school/sports/work: Yes HPI HPI Comments History of Present Illness Details History - The patient is a 63-year-old female pr esenting with severe right sided neck tenderness and associated pain. - Recent exacerbation of lymph node swel ling on the left side of the neck with associated severe pain affecting voice modulation. - Complaints of associated right ear dis comfort suggest a recent or lingering ear infection. - The patient experienced thyroid-relate d complications, including Vini's Thyroiditis and Thyroid Eye Disease, and prednisone has been prescribed to manage these conditions.. - The patient has a notable history of a llergies including to penicillin and sulfa medications and reports a vomiting reaction to cefdinir, likely due to concurrent flu symptoms rather than true allergic response. Physical Exam General: Cooperative, healthy appearing, comfortable and no acute distress Orientation/consciousness: Patient oriented x3 Limitations: No limitations Head: Normal to inspection Ears: Hearing grossly normal bilaterally, external ears normal. Right TM with erythema and purulence, left TM with some fluid Nose: Normal external nose present, Normal nares present and No nasal discharge present Face and sinus: Normal facial exam and Yes sinuses nontender Mouth: Normal oral and palatal mucosa present and moist mucous membranes Throat: Yes uvula midline. Posterior oropharynx slight erythema, no exudates noted Eyes: Appearance normal, both eyes and all related structures Neck: cervical right sided lymphadenopathy & ttp Respiratory: Normal respiratory effort, able to speak in complete sentences, no respiratory distress, not tachypneic, no tripod positioning and no use of accessory muscles Skin: No rashes or lesions noted Neuro: Patient oriented x3 Extremities: Normal to inspection and Yes no clubbing, cyanosis or edema PFSH Medical History Cataract of right eye History of adenomatous polyp of colon Recurrent genital herpes Environmental and seasonal allergies Temporomandibular joint dysfunction Mixed dyslipidemia Immunization refused Hx of breast cancer History of COVID-19 Anxiety disorder Dyslipidemia Recurrent otitis media Retinal detachment Vini's thyroiditis Mild intermittent asthma Narrow angle glaucoma suspect of both eyes Vitamin D deficiency Acquired hypothyroidism Surgical History Hx of colonoscopy History of surgery H/O myringotomy History of hysterectomy History of eyelid surgery History of eye surgery Family History Father No problems noted. Mother Diabetes mellitus Heart disease Heart attack Brother No problems noted. Brother No problems noted. Brother No problems noted. Brother No problems noted. Brother No problems noted. Social History Household Members: None Housing: House Alcohol intake: current Alcohol intake frequency: a few times a week Patient Tobacco Use Status: Never used Tobacco e-Cigarette/Vaping Use: Never Used service: No Current occupational status: employed Cognitive needs: No Hearing needs: No Vision needs: No Review of Systems Const All systems reviewed & are unremarkable except as noted in HPI and below Physical Exam Vital Signs: Last Vital Signs Pulse 64 07/23/24 08:07 BP 110/68 07/23/24 08:07 Pulse Ox 96 07/23/24 08:07 Oxygen Delivery Method Room Air 07/23/24 08:07 BMI result Body Mass Index 19.5 Assessment & Plan Assessment & Plan (1) Otitis media of right ear: Code(s): H66.91 - Otitis media, unspecified, right ear Qualifiers: Otitis media type: suppurative Chronicity: acute Recurrence: recurrent Spontaneous tympanic membrane rupture: without spontaneous rupture Qualified Code(s): H66.004 - Acute suppurative otitis media without spontaneous rupture of ear drum, recurrent, right ear Plan: Pt was treated with Zpak for OM on 07/10 which she took, now has OM of the other ear. The patient will commence a 7 day course of Cefdinir to treat the OM, addressing both the swollen lymph nodes and inflammation of the ear. Given the patient?s history of antibiotic allergies, she will be advised of the minimal risk of allergic reactions and observed during the course. She will also be encouraged to maintain high fluid intake to facilitate lymphatic drainage. Continued use of prednisone therapy for her thyroid conditions is validated to manage inflammation. In case of persisting lymphadenopathy after 3 weeks of resolved illness, follow up with PCP. The patient is advised about potential adverse medication reactions and reassured about the safety of proposed interventions. Patient was informed and verbally consented to the use of an ambient scribe for clinic note documentation during this visit Medications: New cefdinir 300 mg PO Q12H 14 caps 0RF Coding Level of Care Code Est Pt Level 3 (67250) Diagnoses Recurrent acute suppurative otitis media of right ear without spontaneous rupture of tympanic membrane H66.004 Otitis media type: suppurative Chronicity: acute Recurrence: recurrent Spontaneous tympanic membrane rupture: without spontaneous rupture
== END 2024-07-23 09:07 | disposition home or self-care (01) ==
PROVIDERS: PCP Internal Medicine; Visit Provider Physician Assistant
DX: H66.004 Acute suppurative otitis media without spontaneous rupture of ear drum, recurrent, right ear (principal)

== ENCOUNTER → 2024-07-23 08:04 | Outpatient (BNVA) | payer OTHER, SELFPAY | PROVIDERS: PCP Internal Medicine; Visit Provider Physician Assistant | DX: H66.004 Acute suppurative otitis media without spontaneous rupture of ear drum, recurrent, right ear (principal) | CPT/HCPCS: 99212 ==

== ENCOUNTER 2024-09-10 08:25 | Outpatient (AMB) | payer OTHER, SELFPAY ==
[2024-09-10 08:32] VITALS: BP 112/70; PULSE 64; TEMP 36.9; O2SAT 98; BMI 19.5
--- NOTE | 2024-09-10 08:32 | MHC.OFFWIV ---
Intake Vital Signs 09/10/24 08:32 Height 5 ft 5 in Weight 117 lb BMI 19.5 BP 112/70 Blood Pressure Location Lt brachial Position Sitting Pulse 64 Pulse Source Pulse Oximeter Temp 98.4 F Temp Source Oral Pulse Oximetry (%) 98 Intake Visit Reasons: EP-burning feeling in face Patient Tobacco Use Status: Never used Tobacco Allergies Opioids - Morphine Analogues Allergy (Severe, Verified 09/10/24 08:32) convultions sulfabenzamide Allergy (Severe, Verified 09/10/24 08:32) tongue swelled shut gluten [GLUTEN] Allergy (Intermediate, Verified 09/10/24 08:32) INFLAMMATION SYSTEMICALLY mold [MOLD] Allergy (Intermediate, Verified 09/10/24 08:32) UNKNOWN animal dander Allergy (Unknown, Verified 09/10/24 08:32) ASTHMA FLAIRUP Clindamycin HCl Allergy (Unknown, Verified 09/10/24 08:32) rash doxycycline [DOXYCYCLINE] Allergy (Unknown, Verified 09/10/24 08:32) RASH morphine [MORPHINE] Allergy (Unknown, Verified 09/10/24 08:32) SEIZURE LIKE EXPERIENCE - FELT TERRIBLE, convulsions penicillin V Allergy (Unknown, Verified 09/10/24 08:32) rash Penicillins [PENICILLINS] Allergy (Unknown, Verified 09/10/24 08:32) RASH HIVES soybean Allergy (Unknown, Verified 09/10/24 08:32) unknown Sulfa (Sulfonamide Antibiotics) [SULFA (SULFONAMIDE ANTIBIOTICS)] Allergy (Unknown, Verified 09/10/24 08:32) TONGUE SWELLING, swelling of mouth soy Adverse Reaction (Intermediate, Verified 09/10/24 08:32) UPSET STOMACH DAIRY PRODUCTS Allergy (Intermediate, Uncoded 07/23/24 08:19) INFLAMMATION cats, dogs Allergy (Unknown, Uncoded 07/23/24 08:19) Unknown mole,bread and diary Allergy (Unknown, Uncoded 07/23/24 08:19) Unknown Do you need a note to return to daycare/school/sports/work: Yes HPI EP-burning feeling in face HPI Details This is a 63 year old female patient who presents to the walk-in clinic today with nasal pain, dryness, burning, and sinus pressure. She has a history of Vini's, and was seen in the ED earlier this week, and is havinga flare. 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 Patient reports that with flares, she tends to be at greater risk for infections, and has been having these sinus symptoms For the last several days. She denies any fevers / chills. [facility]LY [facility] Medical History Cataract of right eye History of adenomatous polyp of colon Recurrent genital herpes Environmental and seasonal allergies Temporomandibular joint dysfunction Mixed dyslipidemia Immunization refused Hx of breast cancer History of COVID-19 Anxiety disorder Dyslipidemia Recurrent otitis media Retinal detachment Vini's thyroiditis Mild intermittent asthma Narrow angle glaucoma suspect of both eyes Vitamin D deficiency Acquired hypothyroidism Surgical History Hx of colonoscopy History of surgery H/O myringotomy History of hysterectomy History of eyelid surgery History of eye surgery Family History Father No problems noted. Mother Diabetes mellitus Heart disease Heart attack Brother No problems noted. Brother No problems noted. Brother No problems noted. Brother No problems noted. Brother No problems noted. Social History Household Members: None Housing: House Alcohol intake: current Alcohol intake frequency: a few times a week Patient Tobacco Use Status: Never used Tobacco e-Cigarette/Vaping Use: Never Used service: No Current occupational status: employed Cognitive needs: No Hearing needs: No Vision needs: No Review of Systems Const All systems reviewed & are unremarkable except as noted in HPI and below Physical Exam Vital Signs: Last Vital Signs Temp 98.4 F 09/10/24 08:32 Pulse 64 09/10/24 08:32 BP 112/70 09/10/24 08:32 Pulse Ox 98 09/10/24 08:32 BMI result Body Mass Index 19.5 Const General: cooperative, healthy appearing and no acute distress Limitations: no limitations HEENT Head: Yes normal to inspection Ears: hearing grossly normal bilaterally General nose exam: Normal external nose present and Abnormal mucous membranes and turbinates present erythematous (very dry nares) bilateral Face and sinus: Yes sinus tenderness (frontal/maxillary) Mouth: Normal oral and palatal mucosa present Throat: Yes posterior oropharynx normal Neck Neck: Yes no lymphadenopathy Resp Effort & Inspection: normal respiratory effort Auscultation: clear to auscultation bilaterally Cardio Rate: regular rate Rhythm: regular rhythm Skin General skin exam: no rashes or lesions noted Extrem General: Yes capillary refill normal and Yes no clubbing, cyanosis or edema Psych Appearance: grossly normal Mental Status: mental status grossly normal Speech and movement: Normal speech and movement present Assessment & Plan Assessment & Plan (1) Acute sinusitis: Code(s): J01.90 - Acute sinusitis, unspecified Qualifiers: Sinusitis location: maxillary Plan: Patient is on low-dose of daily prednisone for her Vini's. Multiple antibiotic allergies. I am going to start her on azithromycin, as she has done well on this previously, however does require increased doses. We reviewed indications, use, possible side effects of this medication. She can utilize small amounts of bacitracin in her nares due to the dryness. If she does not improve with treatment, or if symptoms worsen/ new symptoms develop, she can return to the clinic as needed. 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 Medications: New azithromycin 500 mg (2 x 250 mg) PO DAILY 5 days 10 tabs 0RF J01.90 - Acute sinusitis, unspecified Coding Level of Care Code Est Pt Level 4 (41404) Diagnoses Acute sinusitis J01.90 Sinusitis location: maxillary
--- OUTSIDE RECORDS SUMMARY | 2024-09-10 08:36 | XMS_ITS | Data Portability ---
Author Organization [facility], [address] Address [address] [place] [address] Care Team Providers Care Data Entry Operator Name Role Phone PINO ABREU Primary Care Provider [phone] Assessment No assessment recorded. Plan of Treatment Reminders Order Date Submit Date Provider Last Modified By Organization Details Last Modified Time Details Appointments None recorded. Lab None recorded. Referral None recorded. Procedures None recorded. Surgeries None recorded. Imaging None recorded. Medication Orders cephalexin 500 mg capsule 2022 023 [facility]/Pharmacy #[id number], [address] [facility] [place], [address], 3 16:59:00 azithromyci n 250 mg tablet [email or web address] [facility] [address] [facility], [address] [place], [address], 3 16:15:28 albuterol sulfate 2.5 mg/3 mL (0.083 %) solution for nebulizatio n 2022 023 [email or web address] 247 Not available 3 18:49:45 ipratropium bromide 0.02 % solution for inhalation 2022 023 [email or web address] 247 Not available 3 17:51:30 ipratropium 20 mcg-albuter ol 100 mcg/actuati on mist for inhalation [address] [facility], [address] [place], [address], 19:15:31 prednisone 20 mg tablet 2022 023 [facility], [address] [place], [address], 19:15:32 Patient TargetsNo targets recorded. Patient Instructions Encounter Date Encounter Id Patient Instructions Last Modified By Organization Details Last Modified Time 07/13/2022 [id number] cough: care instructions [id number] Not available 07/13/2022 17:51:30 peak flow* [id number] Not available 17:51:30 08/10/2022 [id number] head or face pain: care instructions Not [...] flow* Pre (L/min) 260 Not Available [address], [address], 07/13/2022 17:03:05 07/14/19 23 07/13/2022 peak flow* Post (L/min) 410 Not Available que [address] [place], [address], 07/13/2022 17:03:05 07/14/19 23 07/13/2022 peak flow* Pulse 64 Not Available [address]99amie christianson [address] [place], [address], 07/13/2022 17:03:05 07/14/19 23 07/13/2022 peak flow* Oxygen Saturation 99 Not Available que [address] [place], [address], 07/13/2022 17:03:05 Result Notes None recorded. Problems Name Problem SNOMED Code Status Onset Date Resolution Date Notes Provider Name and Address Organization Details Recorded Time Graves' disease 913267905 Active 023 MONIKA QUINTANILLA null, PA - [facility] 3 16:33:30 Glaucoma 52024472 Active 023 MONIKA QUINTANILLA null, PA - [facility] 3 16:33:36 Malignant tumor of breast 027905256 Active 023 MONIKA QUINTANILLA null, PA - [facility] 3 16:35:57 Thyroid eye disease 010459271 Active 023 JAKE DANILO null, PA - [...] Name and Address Organization Details Recorded Time 888053 doxycycli ne Not available Not available Not available Not available 07/13/2022 3640 RxNorm MONIKA QUINTANILLA null, PA - [facility] 16:31:49 239509 clindamyc in Not available Not available Not available Not available 07/13/2022 2582 RxNorm MONIKA QUINTANILLA null, PA - [facility] 16:31:55 257714 Substance with sulfonami de structure and antibacte rial mechanism of action (substanc e) medicatio n Not available Not available Not available 07/13/2022 29448 8003 SNOMED MONIKA QUINTANILLA null, PA - [facility] 16:32:02 468579 Product containin g penicilli n (product) medicatio n Not available Not available Not available 07/13/2022 95075 8001 SNOMED MONIKA QUINTANILLA null, PA - [...] Updated DateTime 3 165.1 cm 20.3 kg/m2 87883.2 7 g 5 97 % 97 % [...] Updated DateTime 3 165.1 cm 20.5 kg/m2 66830.8 6 g 97 [degF] 97 % 97 % 59 /min 16 /min 118 mm[Hg] 66 mm[Hg] MONIKA QUINTANILLA PA - [facility] 16:39:15 Social History Question Answer Notes LastModified by Organizat ion Details LastModified Time Tobacco Smoking Status Never Smoker MONIKA DWIGHT restrepo, [place] - [facility] 07/13/2022 16:35:19 What Is Your Level Of Alcohol Consumption? None [email or web address] Information not available 07/13/2022 Are You Currently Employed? Yes [email or web address] Information not available 08/10/2022 Do You Use Any Illicit Or Recreational Drugs? No [email or web address] Information not available 07/13/2022 Do You Or Have You Ever Used Any Other Forms Of Tobacco Or Nicotine? No [email or web address] Information not available 07/13/2022 Sex: Unknown Functional Status None recorded. Mental Status None recorded. Family History Relationship Description Onset Age of this Age Resolved Age Notes LastModified by Organization Details LastModified Time Mother Heart disease [email or web address] Not available 2022 16:34:31 Mother Diabetes mellitus [email or web address] Not available 2022 16:34:39 Father Chronic obstructive pulmonary disease [email or web address] Not available 2022 16:34:49 Father Malignant melanoma [email or web address] Not available 2022 16:35:00 Medical History No [...] SNOMED-CT Code Diagnosis ICD10 Code Diagnosis Note [id number] [address] [place] [address] 06/17/2017 10:02:30 06/17/2017 11:06:24 [id number] [address] [place] [address] 02/22/2018 15:31:18 02/22/2018 16:41:01 [id number] [address] [place] [address] 02/02/2018 08:03:24 02/02/2018 09:00:04 [id number] [address] [place] [address] 05/25/2017 11:23:18 05/25/2017 11:48:52 [id number] [address] [place] [address] 10/14/2016 10:56:11 10/14/2016 11:30:58 [id number] [address] [place] [address] 11/26/2020 16:42:53 11/26/2020 16:43:11 [id number] [address] [place] [address] 06/21/2017 11:53:31 06/21/2017 13:29:56 [id number] [address] [place] [address] 06/16/2019 08:48:18 06/16/2019 09:14:34 [id number] [address] [place] [address] 08/07/2016 19:08:06 08/07/2016 19:38:52 [id number] [address] [place] [address] 06/23/2017 16:34:40 06/23/2017 18:33:44 [id number] [address] [place] [address] 07/11/2019 09:23:05 07/11/2019 11:04:58 [id number] [address] [place] [address] 03/30/2018 12:12:45 03/30/2018 13:33:52 [id number] [address] [place] [address] 05/06/2015 15:03:33 05/06/2015 16:37:42 [id number] [address] [place] [address] 08/11/2016 12:26:36 08/11/2016 13:19:33 [id number] [address] [place] [address] 04/01/2017 18:06:32 04/01/2017 19:35:58 [id number] [address] [facility] [place] [address] 04/30/2019 18:38:30 04/30/2019 19:31:57 [id number] [address] [facility] [place] [address] 10/10/2017 19:06:43 10/10/2017 20:39:06 [id number] BETTY NIXON MD [address] [facility] [place] [address] 07/13/2022 12:04:22 07/13/2022 17:59:56 Exacerbation of intermittent asthma 292635896 J45.21 Acute left otitis media 107043024 H66.92 [id number] Jt Jeffries [place] [address] [facility] [place] [address] 08/10/2022 15:55:34 08/10/2022 16:50:43 Abscess of face 121826088 L02.01 Health Concerns Section Related Observation LastModified by Organization Detai ls LastModified Time None Recorded Concern Status LastModified by Organization Details LastModified Time None Recorded Advance Directives Directive None Recorded Payers Insurance Date Sequence Insurance Name Policy Number Policy Kennedy Covered Member ID Kennedy Member ID Guarantor Name 10/06/2022 1 [facility] HEALTH NET [facility] (MEDICAID HMO) [employer] Kaylynn Julian [id number] Kaylynn Moyer 07/13/2022 1 [facility] (HMO) [id number] Kaylynn Moyer [id number] Kaylynn Moyer Notes Date Note Type Note [...] n/v/d/rash/headache or other symptoms. BETTY NIXON [place], [address], [facility] 07/13/2022 19:16:11 08/10/2022 text/html Facial ProblemReported bypatient.Onset/Timin g:abrupt Location:face right;mandible right Quality:painful Duration:1days Severity:worsening; mild Alleviating factors:none Aggravating factors:none Associated Symptoms:facial painNotes:Mild swelling and tenderness along right side of jaw bone. Jt Jeffries NP [address] [place], [address], [facility] - [employer] [facility] 08/10/2022 16:59:04 OBGyn Episode No OBEpisode recorded.
--- OUTSIDE RECORDS SUMMARY | 2024-09-10 08:37 | XMS_ITS | Patient Health Record ---
Author Organization [facility] Address [address] [facility] [address] [place] [address] Support Name Relationship Address Phone ALIE SIFUENTES Guarantor Unknown [phone] Reason For Referral No Information Medications Medication SIG (Take, Route, Fr equency, Duration) Notes Start Date End Date Status Vitamin D3 1000 IU ORAL daily for [facility] 09/10/2011 Active Levoxyl 75MCG 1 ORAL DAILY for [facility] 09/10/2011 Active Multivitamins 1 ORAL daily for [facility] 09/10/2011 Active Proventil HFA 108 MCG 2 Inhalation four times daily for [facility] 07/23/2011 Active Calcium-Carb 600 + D 1 ORAL daily for - [facility] 2 Active Claritin 10 MG 1 ORAL daily for -3 [facility] 09/10/2011 Active Fish Oil 1 ORAL daily for [facility] 09/10/2011 Active Flonase 50MCG 2 Nasal daily for [facility] 07/23/2011 Active Immunizations Vaccine Route Administration Date Status Comme nts Influenza, live, intranasal Intramuscular 07/22/2011 Jake patel Problems Problem Type SNOMED Code ICD Code Onset Dates Problem Status W/U Status Risk Notes Problem Benign neoplasm of skin (67663895) Benign neoplasm of skin, site unspecified (216.9) Active confirmed Diag Problem Hypothyroidism (61710641) Unspecified hypothyroidism (244.9) Active confirmed Major Problem Hyperlipidemia (90042174) Other and unspecified hyperlipidemia (272.4) Active confirmed Major Problem Asthma (disorder) (274115907) Asthma, unspecified, unspecified status (493.90) Active confirmed Major Problem Seborrheic keratosis (43658950) Other seborrheic keratosis (702.19) Active confirmed Diag Problem Joint pain (24530706) Pain in joint, site unspecified (719.40) Active confirmed Diag Problem General examination of patient (535206951) Routine general medical examination at health care facility (V70.0) Active confirmed Diag Plan Of Treatment No Information Insurance Providers Payer Name Payer Address Payer Phone Subscriber Number Group Number Insured Name Patient Relationship to Insured Coverage Start Date Coverage End Date [address] [place] [phone] [id number] BELLE SIFUENTES Spouse - patient is the spouse of the insured 2
--- OUTSIDE RECORDS SUMMARY | 2024-09-10 08:37 | XMS_ITS | Clinical Summary ---
Author Organization [facility] it Address [address] [place] [address] Care Team Providers Care Asset Specialist Name Role Phone Stephania Guaman MD Primary [...] - 2023-2 5 season) 2024 Influenza Vaccine (Season Ended) 2025 RSV Immunization Adult Patie nts (1 - 1-dose 75+ series) 2037 HIB [...] age to complete this topic Meningococcal B Vaccine Aged Out No l onger eligible based on patient's age to complete [...] age to complete this topic Care Teams Asset Specialist Relationship Specialty Start Date End Date Stephania Guaman MD [address] [place] [address] PCP - General Internal Medicine 03/14/17
== END 2024-09-10 08:52 | disposition home or self-care (01) ==
PROVIDERS: PCP Internal Medicine; Visit Provider Nurse Practitioner Family
DX: J01.90 Acute sinusitis, unspecified (principal)

== ENCOUNTER → 2024-09-10 08:25 | Outpatient (BNVA) | payer OTHER, SELFPAY | PROVIDERS: PCP Internal Medicine; Visit Provider Nurse Practitioner Family | DX: J01.90 Acute sinusitis, unspecified (principal) | CPT/HCPCS: 99212 ==

== ENCOUNTER 2024-09-20 06:34 | Outpatient (REF) | payer OTHER, SELFPAY ==
--- OUTSIDE RECORDS SUMMARY | 2024-09-20 06:37 | XMS_ITS | Patient Health Record ---
Author Organization [facility] Address [address] [facility] [address] [place] [address] Support Name Relationship Address Phone ALIE SIFUENTES Guarantor Unknown [phone] Reason For Referral No Information Medications Medication SIG (Take, Route, Fr equency, Duration) Notes Start Date End Date Status Vitamin D3 1000 IU ORAL daily for [facility] 09/10/2011 Active Levoxyl 75MCG 1 ORAL DAILY for [facility] 09/10/2011 Active Multivitamins 1 ORAL daily for [facility] 09/10/2011 Active Proventil HFA 108 MCG 2 Inhalation four times daily for [facility] 07/23/2011 Active Calcium-Carb 600 + D 1 ORAL daily for - [facility] 2 Active Claritin 10 MG 1 ORAL daily for -3 [facility] 09/10/2011 Active Fish Oil 1 ORAL daily for [facility] 09/10/2011 Active Flonase 50MCG 2 Nasal daily for [facility] 07/23/2011 Active Immunizations Vaccine Route Administration Date Status Comme nts Influenza, live, intranasal Intramuscular 07/22/2011 Jake patel Problems Problem Type SNOMED Code ICD Code Onset Dates Problem Status W/U Status Risk Notes Problem Benign neoplasm of skin (10896583) Benign neoplasm of skin, site unspecified (216.9) Active confirmed Diag Problem Hypothyroidism (94449124) Unspecified hypothyroidism (244.9) Active confirmed Major Problem Hyperlipidemia (69679233) Other and unspecified hyperlipidemia (272.4) Active confirmed Major Problem Asthma (disorder) (900960879) Asthma, unspecified, unspecified status (493.90) Active confirmed Major Problem Seborrheic keratosis (10395783) Other seborrheic keratosis (702.19) Active confirmed Diag Problem Joint pain (60171245) Pain in joint, site unspecified (719.40) Active confirmed Diag Problem General examination of patient (280145997) Routine general medical examination at health care facility (V70.0) Active confirmed Diag Plan Of Treatment No Information Insurance Providers Payer Name Payer Address Payer Phone Subscriber Number Group Number Insured Name Patient Relationship to Insured Coverage Start Date Coverage End Date [address] [place] [phone] [id number] BELLE SIFUENTES Spouse - patient is the spouse of the insured 2
--- OUTSIDE RECORDS SUMMARY | 2024-09-20 06:37 | XMS_ITS | Clinical Summary ---
Author Organization [facility] it Address [address] [place] [address] Care Team Providers Care Health Service Coordinator Name Role Phone Stephania Guaman MD Primary [...] age to complete this topic Care Teams Health Service Coordinator Relationship Specialty Start Date End Date Stephania Guaman MD [address] [place] [address] PCP - General Internal Medicine 03/14/17
[2024-09-20 10:52] LABS: Alanine Aminotransferase 20 U/L (0-31); Aspartate Amino Transferase 36 U/L (5-31); Cholesterol 261 mg/dL (<200); HDL Cholesterol 108 mg/dL (>40); LDL Cholesterol Calculated 141 mg/dL (<100); Triglycerides 62 mg/dL (<150)
[2024-09-20 11:12] LABS: Free T4 (Free Thyroxine) 1.09 ng/dL (0.71-1.85); Thyroid Stimulating Hormone 1.53 uIU/mL (0.32-4.0); Vitamin D 25-OH Total 60.7 ng/mL (>30)
[2024-09-20 11:16] LABS: Vitamin B12 631 pg/mL (200-900)
[2024-09-21 21:53] LABS: Thyroid Peroxidase Antibodies <1 IU/mL (<9)
[2024-09-24 17:58] LABS: Vitamin B6 38.4 ng/mL (2.1-21.7)
[2024-09-29 15:02] LABS: Vitamin B1 12 nmol/L (8-30)
== END 2024-09-20 06:35 | disposition home or self-care (01) ==
LOC: HO.HMGCLDS 06:34
PROVIDERS: PCP Internal Medicine; Visit Provider Internal Medicine
DX: R10.11 Right upper quadrant pain (principal); Z23 Encounter for immunization; E78.2 Mixed hyperlipidemia; E06.3 Autoimmune thyroiditis; E55.9 Vitamin D deficiency, unspecified; R53.83 Other fatigue; R25.3 Fasciculation
CPT/HCPCS: 36415; 80061; 82306; 82607; 82746; 84207; 84425; 84439; 84443; 84450; 84460; 86376; 90471; 90714; 99212

== ENCOUNTER 2024-09-20 14:30 | Outpatient (AMB) | payer OTHER, SELFPAY ==
--- NOTE | 2024-09-20 14:34 | A.OFFVIS_ITS ---
Vital Signs 09/20/24 14:35 Height 5 ft 5 in Weight 114 lb 10.246 oz BMI 19.1 BP 98/65 Blood Pressure Location Lt brachial Position Sitting Pulse 77 Intake Visit Reasons: Evaluate Abdominal Bump Intake Note: Kaylynn presents in the office as a follow up to evaluate her abdominal bump. CC: She states that she has a little bump but it has gotten a lot better but she wants you to exam to be on the safe side. Workers Compensation Defense Attorney Required: No Allergies Opioids - Morphine Analogues Allergy (Severe, Verified 09/20/24 14:35) convultions sulfabenzamide Allergy (Severe, Verified 09/20/24 14:35) tongue swelled shut gluten [GLUTEN] Allergy (Intermediate, Verified 09/20/24 14:35) INFLAMMATION SYSTEMICALLY mold [MOLD] Allergy (Intermediate, Verified 09/20/24 14:35) UNKNOWN animal dander Allergy (Unknown, Verified 09/20/24 14:35) ASTHMA FLAIRUP Clindamycin HCl Allergy (Unknown, Verified 09/20/24 14:35) rash doxycycline [DOXYCYCLINE] Allergy (Unknown, Verified 09/20/24 14:35) RASH morphine [MORPHINE] Allergy (Unknown, Verified 09/20/24 14:35) SEIZURE LIKE EXPERIENCE - FELT TERRIBLE, convulsions penicillin V Allergy (Unknown, Verified 09/20/24 14:35) rash Penicillins [PENICILLINS] Allergy (Unknown, Verified 09/20/24 14:35) RASH HIVES soybean Allergy (Unknown, Verified 09/20/24 14:35) unknown Sulfa (Sulfonamide Antibiotics) [SULFA (SULFONAMIDE ANTIBIOTICS)] Allergy (Unknown, Verified 09/20/24 14:35) TONGUE SWELLING, swelling of mouth soy Adverse Reaction (Intermediate, Verified 09/20/24 14:35) UPSET STOMACH DAIRY PRODUCTS Allergy (Intermediate, Uncoded 09/20/24 14:35) INFLAMMATION cats, dogs Allergy (Unknown, Uncoded 09/20/24 14:35) Unknown mole,bread and diary Allergy (Unknown, Uncoded 09/20/24 14:35) Unknown HPI HPI Evaluate Abdominal Bump: Details: 63 yr old f with thyoriditis anxiety, glaucoma, asthma, recurrent genital herpes seen for f/u RECAP: She had went to the ED due to bloating and indigestion, and LUQ discomfort for [address] scan with abn antrum and stomach thickening she gets antibiotics she has constipation she is chronic pred 5 mg for grave opthalmoplegia she takes excedrin on regular basis for headaches she chokes and gags easily, if eats fast, but no dysphagia never had colonoscopy she has constipation, and takes sennakot, 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 just started omeprazole brother and still trying to recover labs: 07/2023-- nml HGB and CMP EGD/[place]- 07/25 Endoscopy Findings: erosive gastritis duodenitis Colonoscopy Findings: diverticulosis colon polyps internal hemorrhoids path: moderate inflammation GEJ, TA polyps- [address] 03/28: severe scoliosis, mild atherosclerosis of aorta INTERIM: she feels stressed, lost another brother she has been noting less pain she feels some swelling in mid and right upper abdomen no link with food denies constipation no nausea or vomiting LABS: mild recent AST, ALT elevations, CT 07/27- constipation, thickened stomach EXAM: GENERAL: The patient is well developed and nontoxic. VITAL SIGNS:see workflow HEENT: Nonicteric sclerae, PERRLA, EOMI. Oropharynx clear. Moist mucous membranes. Conjunctivae appear well perfused. No thyroid mass. CHEST: Chest wall is nontender. HEART: Regular rate and rhythm without murmurs. LUNGS: Clear to auscultation bilaterally. ABDOMEN: Soft, positive bowel sounds, tender RUQ, no organomegaly.no flank tenderness SKIN: No rash, no excessive bruising, petechiae, or purpura. NEUROLOGIC: Cranial nerves II-XII intact without motor/sensory deficit. Psych: normal affect MS: beckiolisois A/P: 1/ tubular adenomas 2/ erosive gastritis, esophagitis -on ppi 3/ constipation maybe causing swelling and pain PLAN: 1/ repeat colonoscopy now or later this year and add EGD 2/ US abdomen 3/ miralax BID 4/ she wants to hold on PPI, worried abt SE can use maalox [facility] Medical History Cataract of right eye History of adenomatous polyp of colon Recurrent genital herpes Environmental and seasonal allergies Temporomandibular joint dysfunction Mixed dyslipidemia Immunization refused Hx of breast cancer History of COVID-19 Anxiety disorder Dyslipidemia Recurrent otitis media Retinal detachment Vini's thyroiditis Mild intermittent asthma Narrow angle glaucoma suspect of both eyes Vitamin D deficiency Acquired hypothyroidism Surgical History Hx of colonoscopy History of surgery H/O myringotomy History of hysterectomy History of eyelid surgery History of eye surgery Family History Father No problems noted. Mother Diabetes mellitus Heart disease Heart attack Brother No problems noted. Brother No problems noted. Brother No problems noted. Brother No problems noted. Brother No problems noted. Social History Household Members: None Housing: House Alcohol intake: current Alcohol intake frequency: a few times a week Patient Tobacco Use Status: Never used Tobacco e-Cigarette/Vaping Use: Never Used service: No Current occupational status: employed Cognitive needs: No Hearing needs: No Vision needs: No Physical Exam Vital Signs: Last Vital Signs Pulse 77 09/20/24 14:35 BP 98/65 09/20/24 14:35 BMI result Body Mass Index 19.1 Assessment & Plan Assessment & Plan (1) RUQ pain: Code(s): R10.11 - Right upper quadrant pain Category: Medical Plan: as above Orders: Orders US abdomen complete Today R10.11 - Right upper quadrant pain Medications: New sodium,potassium,mag sulfates 17.5-3.13-1.6 gram (Suprep Bowel Prep Kit) DILUTE; drink 1/2 at 6-8 pm and half at 11 PM- 1AM 354 mL 0RF Coding Level of Care Code Est Pt Level 3 (89351) Diagnoses RUQ pain R10.11
--- OUTSIDE RECORDS SUMMARY | 2024-09-20 14:34 | XMS_ITS | Data Portability ---
Author Organization [facility], [address] Address [address] [place] [address] Care Team Providers Care Ems Instructor Name Role Phone PINO ABREU Primary Care Provider [phone] Assessment No assessment recorded. Plan of Treatment Reminders Order Date Submit Date Provider Last Modified By Organization Details Last Modified Time Details Appointments None recorded. Lab None recorded. Referral None recorded. Procedures None recorded. Surgeries None recorded. Imaging None recorded. Medication Orders cephalexin 500 mg capsule 2022 023 [facility]/Pharmacy #0693, [address] [facility] [place], [address], 3 16:59:00 azithromyci n 250 mg tablet [email or web address] [facility] [address], [address] [place], [address], 3 16:15:28 albuterol sulfate 2.5 mg/3 mL (0.083 %) solution for nebulizatio n 2022 023 [email or web address] 247 Not available 3 18:49:45 ipratropium bromide 0.02 % solution for inhalation 2022 023 [email or web address] 247 Not available 3 17:51:30 ipratropium 20 mcg-albuter ol 100 mcg/actuati on mist for inhalation 2022 023 [facility], [address] [place], [address], 19:15:31 prednisone 20 mg tablet 2022 023 [facility], [address] [facility] [place], [address], 19:15:32 Patient TargetsNo targets recorded. Patient Instructions Encounter Date Encounter Id Patient Instructions Last Modified By Organization Details Last Modified Time 07/13/2022 [id number] cough: care instructions [id number] Not available 07/13/2022 17:51:30 peak flow* [id number] Not available 17:51:30 08/10/2022 [id number] head or face pain: care instructions Not [...] flow* Pre (L/min) 260 Not Available [address], [address], 07/13/2022 17:03:05 07/14/19 23 07/13/2022 peak flow* Post (L/min) 410 Not Available que [address] [place], [address], 07/13/2022 17:03:05 07/14/19 23 07/13/2022 peak flow* Pulse 64 Not Available [address]amie christianson [address] [place], [address], 07/13/2022 17:03:05 07/14/19 23 07/13/2022 peak flow* Oxygen Saturation 99 Not Available que [address] [place], [address], 07/13/2022 17:03:05 Result Notes None recorded. Problems Name Problem SNOMED Code Status Onset Date Resolution Date Notes Provider Name and Address Organization Details Recorded Time Graves' disease 142216778 Active 023 MONIKA QUINTANILLA null, PA - [facility] 3 16:33:30 Glaucoma 70436178 Active 023 MONIKA QUINTANILLA null, PA - [facility] 3 16:33:36 Malignant tumor of breast 711461918 Active 023 MONIKA QUINTANILLA null, PA - [facility] 3 16:35:57 Thyroid eye disease 019332396 Active 023 JAKE DANILO null, PA - [...] Name and Address Organization Details Recorded Time 541523 doxycycli ne Not available Not available Not available Not available 07/13/2022 3640 RxNorm MONIKA QUINTANILLA null, PA - [facility] 16:31:49 194432 clindamyc in Not available Not available Not available Not available 07/13/2022 2582 RxNorm MONIKA QUINTANILLA null, PA - [facility] 16:31:55 586200 Substance with sulfonami de structure and antibacte rial mechanism of action (substanc e) medicatio n Not available Not available Not available 07/13/2022 68178 8003 SNOMED MONIKA QUINTANILLA null, PA - [facility] 16:32:02 559601 Product containin g penicilli n (product) medicatio n Not available Not available Not available 07/13/2022 47488 8001 SNOMED MONIKA QUINTANILLA null, PA - [...] height Body mass index (BMI) Body weight Oxygen saturation Oxygen saturation in Arterial blood by Pulse oximetry Heart rate Respiratory rate Body temperature Systolic blood pressure Diastolic blood pressure Provider Name and Address Organization Details Last Updated DateTime 3 165.1 cm 20.3 kg/m2 69729.2 7 g 97 % 97 % 71 /min 16 [...] Updated DateTime 3 165.1 cm 20.5 kg/m2 23382.8 6 g 97 [degF] 97 % 97 % 59 /min 16 /min 118 mm[Hg] 66 mm[Hg] MONIKA QUINTANILLA PA - [facility] 3 16:39:15 Social History None recorded. Functional Status Question Answer Note LastModified by Organizat ion Details LastModified Time Do you use any illicit or recreational drugs? No Information not available 07/13/2022 Do you or have you ever used any other forms of tobacco or nicotine? No [email or web address] Information not available 07/13/2022 What is your level of alcohol consumption? None [email or web address] Information not available 07/13/2022 Are you currently employed? Yes [email or web address] Information not available 08/10/2022 Mental Status None recorded. Family History Relationship Description Onset Age of this Age Resolved Age Notes LastModified by Organization Details LastModified Time Mother Heart disease [email or web address] Not available 2022 16:34:31 Mother Diabetes mellitus [email or web address] Not available 2022 16:34:39 Father Chronic obstructive pulmonary disease [email or web address] Not available 2022 16:34:49 Father Malignant melanoma [...] SNOMED-CT Code Diagnosis ICD10 Code Diagnosis Note [id number] [address] [place] [address] 06/17/2017 10:02:30 06/17/2017 11:06:24 [id number] [address] [place] [address] 02/22/2018 15:31:18 02/22/2018 16:41:01 [id number] [address] [place] [address] 02/02/2018 08:03:24 02/02/2018 09:00:04 [id number] [address] [place] [address] 05/25/2017 11:23:18 05/25/2017 11:48:52 [id number] [address] [place] [address] 10/14/2016 10:56:11 10/14/2016 11:30:58 [id number] [address] [place] [address] 11/26/2020 16:42:53 11/26/2020 16:43:11 [id number] [address] [place] [address] 06/21/2017 11:53:31 06/21/2017 13:29:56 [id number] [address] [place] [address] 06/16/2019 08:48:18 06/16/2019 09:14:34 [id number] [address] [place] [address] 08/07/2016 19:08:06 08/07/2016 19:38:52 [id number] [address] [place] [address] 06/23/2017 16:34:40 06/23/2017 18:33:44 [id number] [address] [place] [address] 07/11/2019 09:23:05 07/11/2019 11:04:58 [id number] [address] [place] [address] 03/30/2018 12:12:45 03/30/2018 13:33:52 [id number] [address] [place] [address] 05/06/2015 15:03:33 05/06/2015 16:37:42 [id number] [address] [place] [address] 08/11/2016 12:26:36 08/11/2016 13:19:33 [id number] [address] [place] [address] 04/01/2017 18:06:32 04/01/2017 19:35:58 [id number] [address] [place] [address] 04/30/2019 18:38:30 04/30/2019 19:31:57 [id number] [address] [place] [address] 10/10/2017 19:06:43 10/10/2017 20:39:06 [id number] BETTY NIXON MD [address] [place] [address] 07/13/2022 12:04:22 07/13/2022 17:59:56 Exacerbation of intermittent asthma 228231880 J45.21 Acute left otitis media 326710290 H66.92 [id number] Jt Jeff[place] [address] [place] [address] 08/10/2022 15:55:34 08/10/2022 16:50:43 Abscess of face 056404512 L02.01 Health Concerns Section Related Observation LastModified by Organization Detai ls LastModified Time None Recorded Concern Status LastModified by Organization Details LastModified Time None Recorded Advance Directives Directive None Recorded Payers Insurance Date Sequence Insurance Name Policy Number Policy Kennedy Covered Member ID Kennedy Member ID Guarantor Name 10/06/2022 1 [facility] - HEALTH NET PLAN (MEDICAID HMO) [employer] Kaylynn Julian [id number] Kaylynn Moyer 07/13/2022 1 [facility] (HMO) [id number] Kaylynn Moyer [id number] Kaylynn Moyer Notes Date Note Type Note [...] n/v/d/rash/headache or other symptoms. BETTY NIXON MD [address] [place] [address] [place], [address], [place] - [facility] 07/13/2022 19:16:11 08/10/2022 text/html Facial ProblemReported bypatient.Onset/Timin g:abrupt Location:face right;mandible right Quality:painful Duration:1days Severity:worsening; mild Alleviating factors:none Aggravating factors:none Associated Symptoms:facial painNotes:Mild swelling and tenderness along right side of jaw bone. Jt Jeffries NP [address] [place], [address], [place] - [facility] 08/10/2022 16:59:04 OBGyn Episode No OBEpisode recorded.
--- OUTSIDE RECORDS SUMMARY | 2024-09-20 14:34 | XMS_ITS | Clinical Summary ---
Author Organization [facility] it Address [address] [place] [address] Care Team Providers Care Grey Stock Recorder Name Role Phone Stephania Guaman MD Primary [...] age to complete this topic Care Teams Grey Stock Recorder Relationship Specialty Start Date End Date Stephania Guaman MD [address] [place] [address] PCP - General Internal Medicine 03/14/17
[2024-09-20 14:35] VITALS: BP 98/65; PULSE 77; BMI 19.1
== END 2024-09-20 15:17 | disposition home or self-care (01) ==
LOC: HO.HGI 14:31
PROVIDERS: PCP Internal Medicine; Visit Provider Internal Medicine Gastroenterology
DX: R10.11 Right upper quadrant pain (principal)
CPT/HCPCS: 99213

== ENCOUNTER 2024-09-20 15:51 | Outpatient (AMB) | payer OTHER, SELFPAY ==
--- OUTSIDE RECORDS SUMMARY | 2024-09-20 15:53 | XMS_ITS | Clinical Summary ---
Author Organization [facility] it Address [address] [place] [address] Care Team Providers Care Fly Fishing Guide Name Role Phone Stephania Guaman MD Primary Care Provider [phone] Surgical History Surgery Date Site/Laterality Comments OTHER [...] age to complete this topic Care Teams Fly Fishing Guide Relationship Specialty Start Date End Date Stephania Guaman MD [address] [place] [address] PCP - General Internal Medicine 03/14/17
--- NOTE | 2024-09-20 16:07 | AM.OFFVISNUR ---
Intake Visit Reasons: TD booster. Allergies Opioids - Morphine Analogues Allergy (Severe, Verified 09/20/24 14:35) convultions sulfabenzamide Allergy (Severe, Verified 09/20/24 14:35) tongue swelled shut gluten [GLUTEN] Allergy (Intermediate, Verified 09/20/24 14:35) INFLAMMATION SYSTEMICALLY mold [MOLD] Allergy (Intermediate, Verified 09/20/24 14:35) UNKNOWN animal dander Allergy (Unknown, Verified 09/20/24 14:35) ASTHMA FLAIRUP Clindamycin HCl Allergy (Unknown, Verified 09/20/24 14:35) rash doxycycline [DOXYCYCLINE] Allergy (Unknown, Verified 09/20/24 14:35) RASH morphine [MORPHINE] Allergy (Unknown, Verified 09/20/24 14:35) SEIZURE LIKE EXPERIENCE - FELT TERRIBLE, convulsions penicillin V Allergy (Unknown, Verified 09/20/24 14:35) rash Penicillins [PENICILLINS] Allergy (Unknown, Verified 09/20/24 14:35) RASH HIVES soybean Allergy (Unknown, Verified 09/20/24 14:35) unknown Sulfa (Sulfonamide Antibiotics) [SULFA (SULFONAMIDE ANTIBIOTICS)] Allergy (Unknown, Verified 09/20/24 14:35) TONGUE SWELLING, swelling of mouth soy Adverse Reaction (Intermediate, Verified 09/20/24 14:35) UPSET STOMACH DAIRY PRODUCTS Allergy (Intermediate, Uncoded 09/20/24 14:35) INFLAMMATION cats, dogs Allergy (Unknown, Uncoded 09/20/24 14:35) Unknown mole,bread and diary Allergy (Unknown, Uncoded 09/20/24 14:35) Unknown Nursing Note Pt came in for TD booster to left deltoid. Pt tolerated well. Pt stated that she stepped on a rusted tack yesterday. Immunizations Tenivac (PF) 5 Lf unit-2 Lf unit/0.5 mL intramuscular syringe Performing Provider: Stephania Guaman MD Performing Location: [facility] Administered by: eHaven Baig on 09/20/24 16:09 Dose Route Admin Location Dispensed Lot Number Expiration Date [facility] [address] [employer] 0.5 mL IM Left Deltoid 0.5 mL [id number] 07/22/26 [id number] [employer] VIS Given Date VIS Provided VIS Publication Date 09/20/24 Single Vaccine 20 Eligibility Eligibility Date Funding Source Not [facility] Eligible 09/20/24 Private Assessment & Plan Assessment & Plan Orders: Orders Td Immunization Today Z23 - Encounter for immunization Medications: New Tenivac (PF) (tetanus and diphther. tox (PF)) 0.5 mL IM ONCE 0.5 mL 0RF NS Z23 - Encounter for immunization Coding
== END 2024-09-20 16:13 | disposition home or self-care (01) ==
LOC: HO.HMCC 15:51
PROVIDERS: PCP Internal Medicine; Visit Provider Internal Medicine
DX: Z23 Encounter for immunization (principal)

== ENCOUNTER 2024-09-23 15:58 | Outpatient (AMB) | payer OTHER, SELFPAY ==
--- NOTE | 2024-09-23 15:59 | A.OFFPC_ITS ---
Vital Signs 09/23/24 16:01 Height 5 ft 5 in Weight 113 lb BMI 18.8 BP 124/72 Blood Pressure Location Lt brachial Position Sitting Respiration 16 Pulse 76 Pulse Source Pulse Oximeter Temp 98.1 F Temp Source Oral Pulse Oximetry (%) 99 Oxygen Delivery Method Room Air Intake Visit Reasons: ER f/u/ labs Allergies Opioids - Morphine Analogues Allergy (Severe, Verified 09/23/24 16:14) convultions sulfabenzamide Allergy (Severe, Verified 09/23/24 16:14) tongue swelled shut gluten [GLUTEN] Allergy (Intermediate, Verified 09/23/24 16:14) INFLAMMATION SYSTEMICALLY mold [MOLD] Allergy (Intermediate, Verified 09/23/24 16:14) UNKNOWN animal dander Allergy (Unknown, Verified 09/23/24 16:14) ASTHMA FLAIRUP Clindamycin HCl Allergy (Unknown, Verified 09/23/24 16:14) rash doxycycline [DOXYCYCLINE] Allergy (Unknown, Verified 09/23/24 16:14) RASH morphine [MORPHINE] Allergy (Unknown, Verified 09/23/24 16:14) SEIZURE LIKE EXPERIENCE - FELT TERRIBLE, convulsions penicillin V Allergy (Unknown, Verified 09/23/24 16:14) rash Penicillins [PENICILLINS] Allergy (Unknown, Verified 09/23/24 16:14) RASH HIVES soybean Allergy (Unknown, Verified 09/23/24 16:14) unknown Sulfa (Sulfonamide Antibiotics) [SULFA (SULFONAMIDE ANTIBIOTICS)] Allergy (Unknown, Verified 09/23/24 16:14) TONGUE SWELLING, swelling of mouth soy Adverse Reaction (Intermediate, Verified 09/23/24 16:14) UPSET STOMACH cefdinir Allergy (Severe, Uncoded 09/23/24 16:18) Severe vomiting DAIRY PRODUCTS Allergy (Intermediate, Uncoded 09/23/24 16:14) INFLAMMATION cats, dogs Allergy (Unknown, Uncoded 09/23/24 16:14) Unknown mole,bread and diary Allergy (Unknown, Uncoded 09/23/24 16:14) Unknown Medication List - Last Reconciled 09/23/24 by Stephania Guaman MD alprazolam 0.25 mg PO DAILY PRN ascorbic acid (vitamin C) (Vitamin C) 500 mg PO DAILY azelastine 1 spray intranasal BID betaxolol 0.25% (Betoptic S) 1 drp ophthalmic (eye) DAILY brimonidine 0.1% (Alphagan P) 1 drp ophthalmic (eye) DAILY carboxymethylcell-glycerin(PF) 0.5-0.9 % (Refresh Optive Sensitive (PF)) 1 drp ophthalmic (eye) DAILY cyclosporine 0.05% (Restasis) 1 drp ophthalmic (eye) DAILY docusate sodium 100 mg PO BID estradiol 10 mcg vaginal 2XW fluorometholone 0.1% 1 drp ophthalmic (eye) NEEDED fluticasone furoate 100 mcg/actuation (Arnuity Ellipta) 1 inh inhalation Q24H fluticasone propionate 50 mcg/actuation 2 sprays intranasal DAILY inhalational spacing device (BreatheRite MDI Spacer) As directed levothyroxine 88 mcg PO DAILY loteprednol etabonate 0.5% (Lotemax) 0.5 drps ophthalmic (eye) DAILY nebulizers (AeroEclipse II Nebulizer) As directed omeprazole 40 mg PO DAILY polyethylene glycol 3350 (Miralax) 17 grams PO BID prednisone 5 mg PO DAILY rosuvastatin 5 mg PO DAILY sodium,potassium,mag sulfates 17.5-3.13-1.6 gram (Suprep Bowel Prep Kit) DILUTE; drink 1/2 at 6-8 pm and half at 11 PM- 1AM Ventolin HFA 90 mcg/actuation (albuterol sulfate) 2 puffs inhalation Q6H PRN NS Tobacco use date assessed: 09/23/24 Dental Screening Dental Screen Date: 09/23/24 Did you have a dental visit in the last 12 months?: Yes Did you have a dental problem in the last 6 months where you did not have access to dental care?: Yes Was dental information given to patient?: Patient has dentist HPI ER f/u/ labs HPI Details 64-year-old lady here today for follow-u p on her lipids. Had recent fasting labs done which showed elevated total cholesterol and LDL cholesterol with normal triglycerides. Patient currently taking 5 mg of rosuvastatin daily. She has been compliant with healthy eating habits and has been exercising regularly at the gym. [facility] Medical History (Updated 10/03/24 @ 18:08 by Stephania Guaman MD) Dyslipidemia Cataract of right eye History of adenomatous polyp of colon Recurrent genital herpes Environmental and seasonal allergies Temporomandibular joint dysfunction Immunization refused Hx of breast cancer History of COVID-19 Anxiety disorder Recurrent otitis media Retinal detachment Vini's thyroiditis Mild intermittent asthma Narrow angle glaucoma suspect of both eyes Vitamin D deficiency Acquired hypothyroidism Surgical History Hx of colonoscopy History of surgery H/O myringotomy History of hysterectomy History of eyelid surgery History of eye surgery Family History Father No problems noted. Mother Diabetes mellitus Heart disease Heart attack Brother No problems noted. Brother No problems noted. Brother No problems noted. Brother No problems noted. Brother No problems noted. Social History Household Members: None Housing: House Alcohol intake: current Alcohol intake frequency: a few times a week Patient Tobacco Use Status: Never used Tobacco e-Cigarette/Vaping Use: Never Used service: No Current occupational status: employed Cognitive needs: No Hearing needs: No Vision needs: No Questionnaire Thrive Questionnaire Date Thrive assessed: 04/26/24 I am a: Patient What is your living situation today?: I choose not to answer this question Within the past 12 months, did the food you bought not last and you didn't have the money to get more?: I choose not to answer this question Within the past 12 months, did you worry whether your food would run out before you got money to buy more?: I choose not to answer this question Do you have trouble paying for medicines?: I choose not to answer this question Do you have trouble getting transportation to medical appointments?: I choose not to answer this question Do you have trouble paying your heating and electricity bill?: I choose not to answer this question Do you have trouble taking care of your child, family member or friend?: I choose not to answer this question Do you have trouble with day-to-day activities such as bathing, preparing meals, shopping, managing finances, etc.?: I choose not to answer this question Are you currently unemployed and looking for a job?: I choose not to answer this question Are you interested in more education?: I choose not to answer this question Please select the resources that you would like help with: None Currently or been in a relationship where the following occur: I choose not to answer THRIVE Score: 0 PASCUAL-7 AMB Questionnaire PASCUAL-7 Date PASCUAL - 7 assessed: 06/09/23 Source: Developed by Drs. Angel Allen, Manuela Gardner, Emre Palacios and colleagues, with an educational cresencio from [employer]. Review of Systems Const All systems reviewed & are unremarkable except as noted in HPI and below Physical exam (Primary Care) Vital Signs: Last Vital Signs Temp 98.1 F 09/23/24 16:01 Pulse 76 09/23/24 16:01 Resp 16 09/23/24 16:01 BP 124/72 09/23/24 16:01 Pulse Ox 99 09/23/24 16:01 Oxygen Delivery Method Room Air 09/23/24 16:01 BMI result Body Mass Index 18.8 Tobacco/Smoking Status: Tobacco use Status Tobacco use date assessed 09/23/24 09/23/24 16:07 Patient Tobacco Use Status Never used Tobacco 09/23/24 16:07 e-Cigarette/Vaping Use Never Used 09/23/24 16:07 Thrive Assessment: Date of Thrive Assessment Date Thrive assessed 04/26/24 09/23/24 16:07 Currently or been in a relationship where the following occur: I choose not to answer Const Other: Alert oriented x3, no acute distress noted, ambulatory normal gait HENMT Mouth: Normal oral and palatal mucosa present, oropharynx normal and moist mucous membranes Eyes General: appearance normal, both eyes and all related structures Neck Neck: Yes full ROM, Yes no lymphadenopathy and Yes supple Thyroid: Thyroid normal (Nonpalpable) and nontender Resp Effort & Inspection: normal respiratory effort and able to speak in complete sentences Auscultation: clear to auscultation bilaterally Cardio Other: S1-S2 present regular rate and rhythm GI Palpation (GI): Soft to palpation, nontender, no guarding and no masses Auscultation: normal bowel sounds Skin General skin exam: no rashes or lesions noted Neuro General: gait normal, tone normal, moves all extremities and no focal motor deficits Extrem General: Yes full ROM, Yes no joint enlargement, Yes no clubbing, cyanosis or edema and Yes normal gait Results Reviewed Results Reviewed: Name: Kaylynn Julian Age/Sex: 63/F : 1960 [id number] Unit#: [id number] Attend Dr: Stephania Guaman MD Re09/20/24 Status: DEP REF Location: [facility] Disch: SPEC : [id number] BECKY: 09/20/24 STATUS: COMP REQ : [id number] RECD: 09/20/[address]: Stephania Guaman MD COMP: 09/20/24 ENTERED: 09/20/[address] [facility] [address]: ORDERED: AST, ALT, Lipid Panel, Vitamin D 25-OH, Free T4, TSH Test Result Flag Reference AST (GOT) 36 H 5-31 U/L ALT (GPT) 20 0-31 U/L Triglyceride 62 <150 mg/dL Desirable Triglyceride: less than 150 mg/dL Borderline High Triglyceride 150-199 mg/dL High Triglyceride: 200-499 mg/dL Very High Triglyceride: greater than or equal to 5OO mg/dL Cholesterol 261 H <200 mg/dL Desirable Cholesterol: less than 200 mg/dL Borderline High Cholesterol: 200-239 mg/dL High Cholesterol: greater than 239 mg/dL LDL Calculated 141 H <100 mg/dL Desirable LDL: less than 100 mg/dL Near Optimal/Above Optimal LDL: 110-129 mg/dL Borderline High LDL: 130-159 mg/dL High LDL: 160-189 mg/dL Very High LDL: greater than or equal to 190 mg/dL HDL 108 >40 mg/dL Desirable HDL: greater than 40 mg/dL Note: This HDL assay may give artificially low results in patients with liver disease. Vitamin D 25-OH 60.7 >30 ng/mL Health Based Reference Values* < 20 ng/mL Deficient 20-30 ng/mL Insufficient > 30 ng/mL Sufficient *Aleshia CEDENO. N Engl J Med. 2007;357:266-280 There is no well-established upper level of normal vitamin D levels. Some laboratories use 50 ng/mL as an upper limit of normal. However, toxicity is patient-dependent and may occur at any level. Careful correlation with the patient's presentation is necessary and, if there is concern for vitamin D toxicity, treatment should be considered irrespective of the serum level. Care must be taken in interpreting Vitamin D results from different laboratories and methodologies. Published data demonstrated that results from patients undergoing hemodialysis may show a negative bias when tested with various automated 25-OH vitamin D assays when compared to LC-MS/MS. When testing samples from patients whose predominant form of Vitamin D is Vitamin D2, such as patients receiving Vitamin D2 supplementation, results that are subtherapeutic should be confirmed with another method such as LC-MS/MS. Free T4 1.09 0.71-1.85 ng/dL TSH 3rd Gen. 1.53 0.32-4.0 uIU/mL Coding Level of Care Code Est Pt Level 4 (56488) Diagnoses Dyslipidemia E78.5 Assessment & Plan Assessment & Plan (1) Dyslipidemia: Code(s): E78.5 - Hyperlipidemia, unspecified Category: Medical Plan: Latest fasting labs showed LDL cholesterol is higher than last check. Forced importance of following a low-cholesterol diet and getting regular exercise, continued on 5 mg rosuvastatin daily
[2024-09-23 16:01] VITALS: BP 124/72; PULSE 76; RESP 16; TEMP 36.7; O2SAT 99; BMI 18.8
--- OUTSIDE RECORDS SUMMARY | 2024-09-23 16:01 | XMS_ITS | Data Portability ---
Author Organization [facility]RSEN [facility], [address] Address [address] [place] [address] Care Team Providers Care Bumboater Name Role Phone PINO ABREU Primary Care Provider [phone] Assessment No assessment recorded. Plan of Treatment Reminders Order Date Submit Date Provider Last Modified By Organization Details Last Modified Time Details Appointments None recorded. Lab None recorded. Referral None recorded. Procedures None recorded. Surgeries None recorded. Imaging None recorded. Medication Orders cephalexin 500 mg capsule 2022 023 [facility]/Pharmacy #[id number], [address] [facility] [place], [address], 3 16:59:00 azithromyci n 250 mg tablet [email or web address] [facility] [address] [facility], [address] [place], [address], 3 16:15:28 albuterol sulfate 2.5 mg/3 mL (0.083 %) solution for nebulizatio n 2022 023 [email or web address] 247 Not available 3 18:49:45 ipratropium bromide 0.02 % solution for inhalation 2022 023 [email or web address] 247 Not available 3 17:51:30 ipratropium 20 mcg-albuter ol 100 mcg/actuati on mist for inhalation 2022 023 [facility] # 50, [address] [place], [address], 19:15:31 prednisone 20 mg tablet 2022 023 [facility], [address] [facility] [place], [address], 19:15:32 Patient TargetsNo targets recorded. Patient Instructions Encounter Date Encounter Id Patient Instructions Last Modified By Organization Details Last Modified Time 07/13/2022 [id number] cough: care instructions [id number] Not available 07/13/2022 17:51:30 peak flow* [id number] Not available 17:51:30 08/10/2022 [id number] head or face pain: care instructions Not [...] flow* Pre (L/min) 260 Not Available [address], [address], 07/13/2022 17:03:05 07/14/19 23 07/13/2022 peak flow* Post (L/min) 410 Not Available que red[address] [place], [address], 07/13/2022 17:03:05 07/14/19 23 07/13/2022 peak flow* Pulse 64 Not Available [address]99amie christianson [address] [place], [address], 07/13/2022 17:03:05 07/14/19 23 07/13/2022 peak flow* Oxygen Saturation 99 Not Available que [address] [place], [address], 07/13/2022 17:03:05 Result Notes None recorded. Problems Name Problem SNOMED Code Status Onset Date Resolution Date Notes Provider Name and Address Organization Details Recorded Time Graves' disease 259774436 Active 023 MONIKA QUINTANILLA null, PA - [facility] 3 16:33:30 Glaucoma 43133572 Active 023 MONIKA QUINTANILLA null, PA - [facility] 3 16:33:36 Malignant tumor of breast 266626293 Active 023 MONIKA QUINTANILLA null, PA - [facility] 3 16:35:57 Thyroid eye disease 946659680 Active 023 JAKE DANILO null, PA - [...] Name and Address Organization Details Recorded Time 337805 doxycycli ne Not available Not available Not available Not available 07/13/2022 3640 RxNorm MONIKA QUINTANILLA null, PA - [facility] 16:31:49 939412 clindamyc in Not available Not available Not available Not available 07/13/2022 2582 RxNorm MONIKA QUINTANILLA null, PA - [facility] 16:31:55 364561 Substance with sulfonami de structure and antibacte rial mechanism of action (substanc e) medicatio n Not available Not available Not available 07/13/2022 33572 8003 SNOMED MONIKA QUINTANILLA null, PA - [facility] 16:32:02 301905 Product containin g penicilli n (product) medicatio n Not available Not available Not available 07/13/2022 75625 8001 SNOMED MONIKA QUINTANILLA null, PA - [...] Updated DateTime 3 165.1 cm 20.3 kg/m2 59307.2 7 g 97 % 97 % 71 [...] Updated DateTime 3 165.1 cm 20.5 kg/m2 82286.8 6 g 97 [degF] 97 % 97 % 59 /min 16 /min 118 mm[Hg] 66 mm[Hg] MONIKA QUINTANILLA PA - [facility] 3 16:39:15 Social History None recorded. Functional Status Question Answer Note LastModified by Organizat ion Details LastModified Time Do you use any illicit or recreational drugs? No [email or web address] Information not available 07/13/2022 Do you or have you ever used any other forms of tobacco or nicotine? No [email or web address] Information not available 07/13/2022 What is your level of alcohol consumption? 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 Family History Relationship Description Onset Age of this Age Resolved Age Notes LastModified by Organization Details LastModified Time Mother Heart disease [email or web address] Not available 2022 16:34:31 Mother Diabetes mellitus [email or web address] Not available 2022 16:34:39 Father Chronic obstructive pulmonary disease [email or web address] Not available 2022 16:34:49 Father Malignant melanoma [email or web address] Not available 2022 16:35:00 Medical History No [...] SNOMED-CT Code Diagnosis ICD10 Code Diagnosis Note [id number] [address] [place] [address] 06/17/2017 10:02:30 06/17/2017 11:06:24 [id number] [address] [place] [address] 02/22/2018 15:31:18 02/22/2018 16:41:01 [id number] [address] [place] [address] 02/02/2018 08:03:24 02/02/2018 09:00:04 [id number] [address] [place] [address] 05/25/2017 11:23:18 05/25/2017 11:48:52 [id number] [address] [place] [address] 10/14/2016 10:56:11 10/14/2016 11:30:58 [id number] [address] [place] [address] 11/26/2020 16:42:53 11/26/2020 16:43:11 [id number] [address] [place] [address] 06/21/2017 11:53:31 06/21/2017 13:29:56 [id number] [address] [place] [address] 06/16/2019 08:48:18 06/16/2019 09:14:34 [id number] [address] [place] [address] 08/07/2016 19:08:06 08/07/2016 19:38:52 [id number] [address] [place] [address] 06/23/2017 16:34:40 06/23/2017 18:33:44 [id number] [address] [place] [address] 07/11/2019 09:23:05 07/11/2019 11:04:58 [id number] [address] [place] [address] 03/30/2018 12:12:45 03/30/2018 13:33:52 [id number] [address] [place] [address] 05/06/2015 15:03:33 05/06/2015 16:37:42 [id number] [address] [place] [address] 08/11/2016 12:26:36 08/11/2016 13:19:33 [id number] [address] [place] [address] 04/01/2017 18:06:32 04/01/2017 19:35:58 [id number] [address] [place] [address] 04/30/2019 18:38:30 04/30/2019 19:31:57 [id number] [address] [place] [address] 10/10/2017 19:06:43 10/10/2017 20:39:06 [id number] BETTY NIXON MD [address] [place] [address] 07/13/2022 12:04:22 07/13/2022 17:59:56 Exacerbation of intermittent asthma 111909170 J45.21 Acute left otitis media 973924054 H66.92 [id number] Jt Jeffries [place] [address] [place] [address] 08/10/2022 15:55:34 08/10/2022 16:50:43 Abscess of face 305087609 L02.01 Health Concerns Section Related Observation LastModified by Organization Detai ls LastModified Time None Recorded Concern Status LastModified by Organization Details LastModified Time None Recorded Advance Directives Directive None Recorded Payers Insurance Date Sequence Insurance Name Policy Number Policy Kennedy Covered Member ID Kennedy Member ID Guarantor Name 10/06/2022 1 [facility] - HEALTH NET PLAN (MEDICAID HMO) [employer] Kaylynn Julian [id number] Kaylynn Moyer 07/13/2022 1 [facility] (HMO) [id number] Kaylynn Moyer [id number] Kaylynn Moyer Notes Date Note Type Note [...] n/v/d/rash/headache or other symptoms. BETTY NIXON MD [address] [place] [address] [place], [address], [place] - [facility] 07/13/2022 19:16:11 08/10/2022 text/html Facial ProblemReported bypatient.Onset/Timin g:abrupt Location:face right;mandible right Quality:painful Duration:1days Severity:worsening; mild Alleviating factors:none Aggravating factors:none Associated Symptoms:facial painNotes:Mild swelling and tenderness along right side of jaw bone. Jt Jeffries NP [address] [place], [address], [place] - [facility] 08/10/2022 16:59:04 OBGyn Episode No OBEpisode recorded.
== END 2024-09-23 16:56 | disposition home or self-care (01) ==
LOC: HO.HMCC 15:59
PROVIDERS: PCP Internal Medicine; Visit Provider Internal Medicine
DX: E78.5 Hyperlipidemia, unspecified (principal)

== ENCOUNTER → 2024-09-23 15:58 | Outpatient (BNVA) | payer OTHER, SELFPAY | PROVIDERS: PCP Internal Medicine; Visit Provider Internal Medicine | DX: E78.5 Hyperlipidemia, unspecified (principal); Z79.899 Other long term (current) drug therapy | CPT/HCPCS: 99212 ==

== ENCOUNTER 2024-10-04 10:44 | Outpatient (AMB) | payer OTHER, SELFPAY ==
--- OUTSIDE RECORDS SUMMARY | 2024-10-04 11:49 | XMS_ITS | Data Portability ---
Author Organization ARSEN Stark [facility], [address] Address [address] [place] [address] Care Team Providers Care V Belt Builder Name Role Phone PINO ABREU Primary Care Provider Assessment No assessment recorded. Plan of Treatment Reminders Order Date Submit Date Provider Last Modified By Organization Details Last Modified Time Details Appointments None recorded. Lab None recorded. Referral None recorded. Procedures None recorded. Surgeries None recorded. Imaging None recorded. Medication Orders cephalexin 500 mg capsule 2022 023 [facility]/Pharmacy #[id number], [address] [facility] [place], [address], 3 16:59:00 azithromyci n 250 mg tablet [email or web address] [facility] [address], [address] [place], [address], 3 16:15:28 albuterol sulfate 2.5 mg/3 mL (0.083 %) solution for nebulizatio n 2022 023 [email or web address] 247 Not available 3 18:49:45 ipratropium bromide 0.02 % solution for inhalation 2022 023 [email or web address] 247 Not available 3 17:51:30 ipratropium 20 mcg-albuter ol 100 mcg/actuati on mist for inhalation 2022 023 [facility] # 50, [address] [place], [address], 19:15:31 prednisone 20 mg tablet 2022 023 [facility], [address] [facility] [place], [address], 19:15:32 Patient TargetsNo targets recorded. Patient Instructions Encounter Date Encounter Id Patient Instructions Last Modified By Organization Details Last Modified Time 07/13/2022 [id number] cough: care instructions [id number] Not available 07/13/2022 17:51:30 peak flow* [id number] Not available 17:51:30 08/10/2022 [id number] head or face pain: care instructions Not [...] flow* Pre (L/min) 260 Not Available [address], [address], 07/13/2022 17:03:05 07/14/19 23 07/13/2022 peak flow* Post (L/min) 410 Not Available que [address] [place], [address], 07/13/2022 17:03:05 07/14/19 23 07/13/2022 peak flow* Pulse 64 Not Available [address]amie christianson [address] [place], [address], 07/13/2022 17:03:05 07/14/19 23 07/13/2022 peak flow* Oxygen Saturation 99 Not Available que [address] [place], [address], 07/13/2022 17:03:05 Result Notes None recorded. Problems Name Problem SNOMED Code Status Onset Date Resolution Date Notes Provider Name and Address Organization Details Recorded Time Graves' disease 567327236 Active 023 MONIKA QUINTANILLA null, PA - [facility] 3 16:33:30 Glaucoma 42883965 Active 023 MONIKA QUINTANILLA null, PA - [facility] 3 16:33:36 Malignant tumor of breast 356666489 Active 023 MONIKA QUINTANILLA null, PA - [facility] 3 16:35:57 Thyroid eye disease 288385316 Active 023 JAKE DANILO null, PA - [...] Name and Address Organization Details Recorded Time 164106 doxycycli ne Not available Not available Not available Not available 07/13/2022 3640 RxNorm MONIKA QUINTANILLA null, PA - [facility] 16:31:49 619304 clindamyc in Not available Not available Not available Not available 07/13/2022 2582 RxNorm MONIKA QUINTANILLA null, PA - [facility] 16:31:55 341987 Substance with sulfonami de structure and antibacte rial mechanism of action (substanc e) medicatio n Not available Not available Not available 07/13/2022 25521 8003 SNOMED MONIKA QUINTANILLA null, PA - [facility] 16:32:02 349401 Product containin g penicilli n (product) medicatio n Not available Not available Not available 07/13/2022 13625 8001 SNOMED MONIKA QIUNTANILLA null, PA - [facility] 16:32:09 Medications [...] ne propionat e 50 mcg/actua tion nasal spray,ifnn pension active Not Available Not Available Not [...] Updated DateTime 3 165.1 cm 20.5 kg/m2 17787.8 6 g 97 [degF] 97 % 97 % 59 /min 16 /min 118 mm[Hg] 66 mm[Hg] MONIKA QUINTANILLA PA - [facility] 3 16:39:15 Date Recorded Body height Body mass index (BMI) Body weight Oxygen saturation Oxygen saturation in Arterial blood by Pulse oximetry Heart rate Respiratory rate Body temperature Systolic blood pressure Diastolic blood pressure Provider Name and Address Organization Details Last Updated DateTime 3 165.1 cm 20.3 kg/m2 56789.2 7 g 97 % 97 % 71 /min 16 /min 98.6 [degF] 131 mm[Hg] 82 mm[Hg] JAKE CARRASCO PA - [facility] 3 16:18:59 Social History None recorded. Functional Status Question Answer Note LastModified by Organizat ion Details LastModified Time Do you use any illicit or recreational drugs? No [email or web address] Information not available 07/13/2022 Do you or have you ever used any other forms of tobacco or nicotine? No Information not available 07/13/2022 What is your level of alcohol consumption? 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 Family History Relationship Description Onset Age of this Age Resolved Age Notes LastModified by Organization Details LastModified Time Mother Heart disease [email or web address] Not available 2022 16:34:31 Mother Diabetes mellitus [email or web address] Not available 2022 16:34:39 Father Chronic obstructive pulmonary disease [email or web address] Not available 2022 16:34:49 Father Malignant melanoma [email or web address] Not available 2022 16:35:00 Medical History No [...] SNOMED-CT Code Diagnosis ICD10 Code Diagnosis Note [id number] [address] [place] [address] 06/17/2017 10:02:30 06/17/2017 11:06:24 [id number] [address] [place] [address] 02/22/2018 15:31:18 02/22/2018 16:41:01 [id number] [address] [place] [address] 02/02/2018 08:03:24 02/02/2018 09:00:04 [id number] [address] [place] [address] 05/25/2017 11:23:18 05/25/2017 11:48:52 [id number] [address] [place] [address] 10/14/2016 10:56:11 10/14/2016 11:30:58 [id number] [address] [place] [address] 11/26/2020 16:42:53 11/26/2020 16:43:11 [id number] [address] [place] [address] 06/21/2017 11:53:31 06/21/2017 13:29:56 [id number] [address] [place] [address] 06/16/2019 08:48:18 06/16/2019 09:14:34 [id number] [address] [place] [address] 08/07/2016 19:08:06 08/07/2016 19:38:52 [id number] [address] [place] [address] 06/23/2017 16:34:40 06/23/2017 18:33:44 [id number] [address] [place] [address] 07/11/2019 09:23:05 07/11/2019 11:04:58 [id number] [address] [place] [address] 03/30/2018 12:12:45 03/30/2018 13:33:52 [id number] [address] [place] [address] 05/06/2015 15:03:33 05/06/2015 16:37:42 [id number] [address] [place] [address] 08/11/2016 12:26:36 08/11/2016 13:19:33 [id number] [address] [place] [address] 04/01/2017 18:06:32 04/01/2017 19:35:58 [id number] [address] [place] [address] 04/30/2019 18:38:30 04/30/2019 19:31:57 [id number] [address] [place] [address] 10/10/2017 19:06:43 10/10/2017 20:39:06 [id number] BETTY NIXON MD [address] [place] [address] 07/13/2022 12:04:22 07/13/2022 17:59:56 Exacerbation of intermittent asthma 601338961 J45.21 Acute left otitis media 466297692 H66.92 [id number] Jt Jeffries [place] [address] [place] [address] 08/10/2022 15:55:34 08/10/2022 16:50:43 Abscess of face 236518032 L02.01 Health Concerns Section Related Observation LastModified by Organization Detai ls LastModified Time None Recorded Concern Status LastModified by Organization Details LastModified Time None Recorded Advance Directives Directive None Recorded Payers Insurance Date Sequence Insurance Name Policy Number Policy Kennedy Covered Member ID Kennedy Member ID Guarantor Name 10/06/2022 1 [facility] - HEALTH NET PLAN (MEDICAID HMO) [employer] Kaylynn Julian [id number] Kaylynn Moyer 07/13/2022 1 [facility] (HMO) [id number] Kaylynn Moyer [id number] Kaylynn Moyer Notes Date Note Type Note [...] n/v/d/rash/headache or other symptoms. BETTY NIXON MD [address] [place] [address] [place], [address], [place] - [facility] 07/13/2022 19:16:11 08/10/2022 text/html Facial ProblemReported bypatient.Onset/Timin g:abrupt Location:face right;mandible right Quality:painful Duration:1days Severity:worsening; mild Alleviating factors:none Aggravating factors:none Associated Symptoms:facial painNotes:Mild swelling and tenderness along right side of jaw bone. Jt Jeffries NP [address] [place], [address], [place] - [facility] 08/10/2022 16:59:04 OBGyn Episode No OBEpisode recorded.
--- NOTE | 2024-10-04 12:35 | AM.OFFWIN_ITS ---
Intake Vital Signs 10/04/24 12:44 Weight 114 lb BP 110/74 Blood Pressure Location Lt brachial Position Sitting Pulse 61 Pulse Source Pulse Oximeter Temp 98.5 F Temp Source Oral Pulse Oximetry (%) 98 Oxygen Delivery Method Room Air Intake Visit Reasons: EP-sore throat, rt eye [id number] Intake Note: Patient here for dry raspy voice, which radiates up to the right eye, joint pain and fatigue that started about 4 days ago. Patient Tobacco Use Status: Never used Tobacco Allergies Opioids - Morphine Analogues Allergy (Severe, Verified 10/04/24 12:44) convultions sulfabenzamide Allergy (Severe, Verified 10/04/24 12:44) tongue swelled shut gluten [GLUTEN] Allergy (Intermediate, Verified 10/04/24 12:44) INFLAMMATION SYSTEMICALLY mold [MOLD] Allergy (Intermediate, Verified 10/04/24 12:44) UNKNOWN animal dander Allergy (Unknown, Verified 10/04/24 12:44) ASTHMA FLAIRUP Clindamycin HCl Allergy (Unknown, Verified 10/04/24 12:44) rash doxycycline [DOXYCYCLINE] Allergy (Unknown, Verified 10/04/24 12:44) RASH morphine [MORPHINE] Allergy (Unknown, Verified 10/04/24 12:44) SEIZURE LIKE EXPERIENCE - FELT TERRIBLE, convulsions penicillin V Allergy (Unknown, Verified 10/04/24 12:44) rash Penicillins [PENICILLINS] Allergy (Unknown, Verified 10/04/24 12:44) RASH HIVES soybean Allergy (Unknown, Verified 10/04/24 12:44) unknown Sulfa (Sulfonamide Antibiotics) [SULFA (SULFONAMIDE ANTIBIOTICS)] Allergy (Unknown, Verified 10/04/24 12:44) TONGUE SWELLING, swelling of mouth soy Adverse Reaction (Intermediate, Verified 10/04/24 12:44) UPSET STOMACH cefdinir Allergy (Severe, Uncoded 10/04/24 12:44) Severe vomiting DAIRY PRODUCTS Allergy (Intermediate, Uncoded 10/04/24 12:44) INFLAMMATION cats, dogs Allergy (Unknown, Uncoded 10/04/24 12:44) Unknown mole,bread and diary Allergy (Unknown, Uncoded 10/04/24 12:44) Unknown Do you need a note to return to daycare/school/sports/work: Yes HPI HPI Comments History of Present Illness Details 64 y/o Female patient who presents to [facility] walk [facility] with c/o dry raspy voice, right eye pain and multiple joint pain and fatigue that started about 4 days ago. which radiates up to the right eye, joint pain and fatigue that started about 4 days ago. Pt has multiple visits to the Walk in clinic in the past 5 months - always receiving Abx with minimal relief. Reports chronic Sinusitis - Last Sinus Xray done 2022 Unremarkable. States that ENT Specialists do not help her wanted to do CT scan Sinus but refused , no clear reasoning for refusal. Pt does not want to see ENT anymore. [facility] Medical History (Updated 10/04/24 @ 13:29 by Sophy Santiago NP) Acute respiratory disease Dyslipidemia Cataract of right eye History of adenomatous polyp of colon Recurrent genital herpes Environmental and seasonal allergies Temporomandibular joint dysfunction Immunization refused Hx of breast cancer History of COVID-19 Anxiety disorder Recurrent otitis media Retinal detachment Vini's thyroiditis Mild intermittent asthma Narrow angle glaucoma suspect of both eyes Vitamin D deficiency Acquired hypothyroidism Surgical History Hx of colonoscopy History of surgery H/O myringotomy History of hysterectomy History of eyelid surgery History of eye surgery Family History Father No problems noted. Mother Diabetes mellitus Heart disease Heart attack Brother No problems noted. Brother No problems noted. Brother No problems noted. Brother No problems noted. Brother No problems noted. Social History Household Members: None Housing: House Alcohol intake: current Alcohol intake frequency: a few times a week Patient Tobacco Use Status: Never used Tobacco e-Cigarette/Vaping Use: Never Used service: No Current occupational status: employed Cognitive needs: No Hearing needs: No Vision needs: No Physical Exam Vital Signs: Last Vital Signs Temp 98.5 F 10/04/24 12:44 Pulse 61 10/04/24 12:44 BP 110/74 10/04/24 12:44 Pulse Ox 98 10/04/24 12:44 Oxygen Delivery Method Room Air 10/04/24 12:44 Const General: no acute distress Nutritional Appearance: overweight Orientation/consciousness: patient oriented x3 HEENT Head: Yes normocephalic Ears: external ears normal and TM abnormal with fluid behind the TM bilateral General nose exam: Abnormal mucous membranes and turbinates present boggy and erythematous Face and sinus: Yes sinuses nontender Mouth: moist mucous membranes and Abnormal oral and palatal mucosa present erythematous; no hematomas, no palatal petechiae and no white patches Throat: Yes uvula midline Neck Neck: Yes full ROM Lymphatic: lymphadenopathy (right Submandibular Lymph node.) Resp Effort & Inspection: normal respiratory effort and able to speak in complete sentences Auscultation: clear to auscultation bilaterally, no crackles, no rales, no rhonchi and no wheezes Cardio Rhythm: regular rhythm Heart sounds: S1 normal heart sound present and S2 normal heart sound present Neuro General: patient oriented x3 Results AMB Rapid Strep AMB Rapid Strep Negative Last Edit by CHRIS Lowe on 10/04/24 13:03 Results Reviewed Results Reviewed: Laboratory Last Values Strep Scn Rapid Clinic Negative 10/04/24 13:02 Assessment & Plan Assessment & Plan (1) Acute respiratory disease: Code(s): J06.9 - Acute upper respiratory infection, unspecified Plan: Rapid Strep Negative. OTC sinus/cold remedies Acetaminophen for pain relief. No indication for Abx at this point. Orders: Orders AMB Rapid Strep Screen Today Z13.9 - Encounter for screening, unspecified Coding Level of Care Code Est Pt Level 4 (45775) Diagnoses Acute respiratory disease J06.9 Time Spent (min) 20
[2024-10-04 12:44] VITALS: BP 110/74; PULSE 61; TEMP 36.9; O2SAT 98
== END 2024-10-04 13:28 | disposition home or self-care (01) ==
PROVIDERS: PCP Internal Medicine; Visit Provider Nurse Practitioner Family
DX: Z13.9 Encounter for screening, unspecified (principal); J06.9 Acute upper respiratory infection, unspecified

== ENCOUNTER → 2024-10-04 10:44 | Outpatient (BNVA) | payer OTHER, SELFPAY | PROVIDERS: PCP Internal Medicine; Visit Provider Nurse Practitioner Family | DX: J06.9 Acute upper respiratory infection, unspecified (principal) | CPT/HCPCS: 87880; 99212 ==

== ENCOUNTER 2024-10-27 08:31 | Outpatient (REF) | payer OTHER, SELFPAY ==
--- NOTE | ~2024-10-27 | US_ITS ---
EXAMINATION: US ABDOMEN HISTORY: R10.11 - Right upper quadrant pain TECHNIQUE: Real-time grayscale ultrasound imaging of the abdomen was performed and images were reviewed. COMPARISON: Correlation is made with a CT of the abdomen and pelvis with contrast dated 07/06/2024. FINDINGS: Liver: The liver is normal in size. The liver demonstrates normal homogeneous echotexture. No focal mass or intrahepatic biliary ductal dilatation is identified. There is normal hepatopedal flow in the portal vein. Gallbladder and biliary tree: The gallbladder is unremarkable, without evidence of calculi, wall thickening, or pericholecystic fluid. There is no sonographic Mcdaniels sign. The common bile duct is normal in caliber measuring 3 mm. Kidneys: The right kidney measures 10.0 cm in length. The left kidney measures 10.3 cm in length. The kidneys are unremarkable, without evidence of masses, hydronephrosis, or calculi. Pancreas: The pancreatic head, neck, and body are unremarkable. The pancreatic tail is obscured by bowel gas. Spleen: The spleen is normal in size and contour, measuring 8.9 cm in length. Abdominal aorta and inferior vena cava: The visualized portions of the abdominal aorta and inferior vena cava are normal in caliber. There is no free fluid in the abdomen. No hernia is visualized. US/US abdomen complete IMPRESSION: Unremarkable abdominal ultrasound. Electronically signed by: Angel Montilla MD 10/27/2024 09:21 AM EDT
== END 2024-10-27 08:32 | disposition home or self-care (01) ==
LOC: HO.HMGCX 08:31
PROVIDERS: PCP Internal Medicine; Visit Provider Internal Medicine Gastroenterology
DX: R10.11 Right upper quadrant pain (principal)
CPT/HCPCS: 76700

== ENCOUNTER → 2024-10-27 08:34 | Outpatient (BNV) | payer OTHER, SELFPAY | PROVIDERS: PCP Internal Medicine; Visit Provider Radiology Diagnostic Radiology | DX: R10.11 Right upper quadrant pain (principal) | CPT/HCPCS: 76700 ==

== ENCOUNTER 2024-11-10 08:59 | Outpatient (REF) | payer OTHER, SELFPAY ==
--- OUTSIDE RECORDS SUMMARY | 2024-11-10 09:18 | XMS_ITS | Clinical Summary ---
Author Organization [facility] it Address [address] [place] [address] Care Team Providers Care Process Improvement Analyst Name Role Phone Stephania Guaman MD Primary [...] Td or Tdap) 01/24/2021 01/24/2011 COVID-19 Vaccine (1 - 2023-2 5 season) 2024 Influenza Vaccine (#1) 2025 RSV Immunization Adult Patie nts (1 [...] 5 Years) and At-Risk Patients (6 to 49 Years) Aged Out No longer eligi ble based on patient's age to complete this topic RSV Immunization Patients Un es 20 months Aged Out No longer eligible b ased on patient's age to complete this topic Varicella Vaccines Aged Out No longer eligible based on patient's age to complete this topic Care Teams Process Improvement Analyst Relationship Specialty Start Date End Date Stephania Guaman MD [address] [place] [address] PCP - General Internal Medicine 03/14/17
--- OUTSIDE RECORDS SUMMARY | 2024-11-10 09:18 | XMS_ITS | Data Portability ---
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 Plan of Treatment Reminders Order Date Submit Date Provider Last Modified By Organization Details Last Modified Time Details Appointments None recorded. Lab None recorded. Referral None recorded. Procedures None recorded. Surgeries None recorded. Imaging None recorded. Medication Orders cephalexin 500 mg capsule 2022 023 [id number], [address] [place], [address], 3 16:59:00 azithromyci n 250 mg tablet [address] [facility] [address] [facility] [address] [place], [address], 3 16:15:28 albuterol sulfate 2.5 mg/3 mL (0.083 %) solution for nebulizatio n 2022 023 [email or web address] 247 Not available 3 18:49:45 ipratropium bromide 0.02 % solution for inhalation 2022 023 [email or web address] 247 Not available 3 17:51:30 ipratropium 20 mcg-albuter ol 100 mcg/actuati on mist for inhalation 2022 023 [facility], [address] [place], [address], 19:15:31 prednisone 20 mg tablet 2022 023 [facility], [address] [place], [address], 19:15:32 Patient TargetsNo targets recorded. Patient Instructions Encounter Date Encounter Id Patient Instructions Last Modified By Organization Details Last Modified Time 07/13/2022 [id number] cough: care instructions [id number] Not available 07/13/2022 17:51:30 peak flow* [id number] Not available 17:51:30 08/10/2022 [id number] head or face pain: care instructions Not [...] peak flow* Pre (L/min) 260 Not Available [address] [address] [place] [address], [address], 07/13/2022 17:03:05 07/14/19 23 07/13/2022 peak flow* Post (L/min) 410 Not Available que franklin[address] [place], [address], 07/13/2022 17:03:05 07/14/19 23 07/13/2022 peak flow* Pulse 64 Not Available amie christianson [address], [address], 07/13/2022 17:03:05 07/14/19 23 07/13/2022 peak flow* Oxygen Saturation 99 Not Available que frank[address], [address], 07/13/2022 17:03:05 Result Notes None recorded. Problems Name Problem SNOMED Code Status Onset Date Resolution Date Notes Provider Name and Address Organization Details Recorded Time Graves' disease 006702048 Active 023 MONIKA QUINTANILLA null, [place] - [facility] 16:33:30 Glaucoma 03377894 Active 023 MONIKA QUINTANILLA null, PA - [facility] 16:33:36 Malignant tumor of breast 997542672 Active 023 MONIKA QUINTANILLA null, PA - [facility] 3 16:35:57 Thyroid eye disease 808056898 Active 023 JAKE DANILO null, PA - [...] Name and Address Organization Details Recorded Time 422373 doxycycli ne Not available Not available Not available Not available 07/13/2022 3640 RxNorm MONIKA QUINTANILLA null, PA - [facility] 3 16:31:49 684764 clindamyc in Not available Not available Not available Not available 07/13/2022 2582 RxNorm MONIKA QUINTANILLA null, PA - [facility] 3 16:31:55 651589 Substance with sulfonami de structure and antibacte rial mechanism of action (substanc e) medicatio n Not available Not available Not available 07/13/2022 15049 8003 SNOMED MONIKA QUINTANILLA null, PA - [facility] 3 16:32:02 119119 Product containin g penicilli n (product) medicatio n Not available Not available Not available 07/13/2022 63134 8001 SNOMED MONIKA QUINTANILLA null, PA - [...] Pulse oximetry Heart rate Respiratory rate Systolic And Diastolic Provider Name and Address Organization Details Last Updated DateTime 3 165.1 cm 20.5 kg/m2 30620.8 6 g 97 [degF] 97 % 97 % 59 /min 16 /min 118/66 mm[Hg] MONIKA QUINTANILLA PA - [facility] 3 16:39:15 Date Recorded Body height Body mass index (BMI) Body weight Oxygen saturation Oxygen saturation in Arterial blood by Pulse oximetry Heart rate Respiratory rate Body temperature Systolic And Diastolic Provider Name and Address Organization Details Last Updated DateTime 3 165.1 cm 20.3 kg/m2 01088.2 7 g 97 % 97 % 71 /min 16 /min 98.6 [degF] 131/82 mm[Hg] JAKE CARRASCO PA - [facility] 3 16:18:59 Social History None recorded. Functional Status Question Answer Note LastModified by Organizat ion Details LastModified Time Do you use any illicit or recreational drugs? No Information not available 07/13/2022 Do you or have you ever used any other forms of tobacco or nicotine? No [email or web address] Information not available 07/13/2022 What is your level of alcohol consumption? None [email or web address] Information not available 07/13/2022 Are you currently employed? Yes [facility] Information not available 08/10/2022 Mental Status None recorded. Family History Relationship Description Onset Age of this Age Resolved Age Notes LastModified by Organization Details LastModified Time Mother Heart disease [email or web address] Not available 2022 16:34:31 Mother Diabetes mellitus Not available 2022 16:34:39 Father Chronic obstructive pulmonary disease [email or web address] Not available 2022 16:34:49 Father Malignant melanoma [email or web address] Not available 2022 16:35:00 Medical History No medical history recorded. Gynecological HistoryNo gynecological history recorded. Obstetrics History GPAL:G 0 P 0 0 0 0 Immunizations Vaccine Type Date Status Note Provider Nam e and Address Organization Details Recorded Time Td (adult), 2 Lf tetanus toxoid, preservative free, adsorbed 1 completed ARSEN Ratliff [facility] 08/10/2022 16:14:26 Past Encounters Encounter ID Performer Location Encounter Start Date Encounter Closed Date Diagnosis/Indication Diagnosis SNOMED-CT Code Diagnosis ICD10 Code Diagnosis Note [id number] [address] [place] [address] 06/17/2017 10:02:30 06/17/2017 11:06:24 [id number] [address] [place] [address] 02/22/2018 15:31:18 02/22/2018 16:41:01 [id number] [address] [place] [address] 02/02/2018 08:03:24 02/02/2018 09:00:04 [id number] [address] [place] [address] 05/25/2017 11:23:18 05/25/2017 11:48:52 [id number] [address] [place] [address] 10/14/2016 10:56:11 10/14/2016 11:30:58 [id number] [address] [place] [address] 11/26/2020 16:42:53 11/26/2020 16:43:11 [id number] [address] [place] [address] 06/21/2017 11:53:31 06/21/2017 13:29:56 [id number] [address] [place] [address] 06/16/2019 08:48:18 06/16/2019 09:14:34 [id number] [address] [place] [address] 08/07/2016 19:08:06 08/07/2016 19:38:52 [id number] [address] [place] [address] 06/23/2017 16:34:40 06/23/2017 18:33:44 [id number] [address] [place] [address] 07/11/2019 09:23:05 07/11/2019 11:04:58 [id number] [address] [place] [address] 03/30/2018 12:12:45 03/30/2018 13:33:52 [id number] [address] [place] [address] 05/06/2015 15:03:33 05/06/2015 16:37:42 [id number] [address] [place] [address] 08/11/2016 12:26:36 08/11/2016 13:19:33 [id number] [address] [place] [address] 04/01/2017 18:06:32 04/01/2017 19:35:58 [id number] [address] [place] [address] 04/30/2019 18:38:30 04/30/2019 19:31:57 [id number] [address] [place] [address] 10/10/2017 19:06:43 10/10/2017 20:39:06 [id number] BETTY NIXON MD [address] [facility] [place] [address] 07/13/2022 12:04:22 07/13/2022 17:59:56 Exacerbation of intermittent asthma 995583539 J45.21 Acute left otitis media 007351142 H66.92 [id number] Jt Jeffries [place] [address] [place] [address] 08/10/2022 15:55:34 08/10/2022 16:50:43 Abscess of face 132730778 L02.01 Health Concerns Section Related Observation LastModified by Organization Detai ls LastModified Time None Recorded Concern Status LastModified by Organization Details LastModified Time None Recorded Advance Directives Directive None Recorded Payers Insurance Date Sequence Insurance Name Policy Number Policy Kennedy Covered Member ID Kennedy Member ID Guarantor Name 10/06/2022 1 [facility] (MEDICAID HMO) [employer] Kaylynn Julian [id number] Kaylynn Moyer 07/13/2022 1 [facility] (HMO) [id number] Kaylynn Moyer [id number] Kaylynn Moyer Notes Date Note Type Note [...] n/v/d/rash/headache or other symptoms. BETTY NIXON MD [facility] [place], [address], [place] - [facility] 07/13/2022 19:16:11 08/10/2022 text/html Facial ProblemReported bypatient.Onset/Timin g:abrupt Location:face right;mandible right Quality:painful Duration:1days Severity:worsening; mild Alleviating factors:none Aggravating factors:none Associated Symptoms:facial painNotes:Mild swelling and tenderness along right side of jaw bone. Jt Jeffries NP [address] [place], [address], [place] - [facility] 08/10/2022 16:59:04 OBGyn Episode No OBEpisode recorded.
--- OUTSIDE RECORDS SUMMARY | 2024-11-10 09:18 | XMS_ITS | Patient Health Record ---
Author Organization [facility] Address [address] [place] [address] Support Name Relationship Address Phone ALIE SIFUENTES Guarantor Unknown [phone] Reason For Referral No Information Medications Medication SIG (Take, Route, Fr equency, Duration) Notes Start Date End Date Status Vitamin D3 1000 IU ORAL daily; Duration: -3 [facility] 2011 Active Levoxyl 75MCG 1 ORAL DAILY; Duration: -3 [facility] 2 Active Multivitamins 1 ORAL daily; Duration: -3 [facility] 2 Active Proventil HFA 108 MCG 2 Inhalation four times daily; Duration: -3 [facility] 07/23/2011 Active Calcium-Carb 600 + D 1 ORAL daily; Duration: -3 [facility]- Active Claritin 10 MG 1 ORAL daily; Duration: -3 [facility]- 09/10/19 12 Active Fish Oil 1 ORAL daily; Duration: -3 [facility]- 09/10/2011 Active Flonase 50MCG 2 Nasal daily; Duration: -3 [facility]- 07/23/19 12 Active Immunizations Vaccine Route Administration Date Status Comme nts Influenza, live, intranasal Intramuscular 07/22/2011 Jake patel Problems Problem Type SNOMED Code ICD Code Onset Dates Problem Status W/U Status Risk Notes Problem Benign neoplasm of skin (24963053) Benign neoplasm of skin, site unspecified (216.9) Active confirmed Diag Problem Hypothyroidism (71220321) Unspecified hypothyroidism (244.9) Active confirmed Major Problem Hyperlipidemia (30132287) Other and unspecified hyperlipidemia (272.4) Active confirmed Major Problem Asthma (disorder) (382775666) Asthma, unspecified, unspecified status (493.90) Active confirmed Major Problem Seborrheic keratosis (70563885) Other seborrheic keratosis (702.19) Active confirmed Diag Problem Joint pain (59617262) Pain in joint, site unspecified (719.40) Active confirmed Diag Problem General examination of patient (488875921) Routine general medical examination at health care facility (V70.0) Active confirmed Diag Plan Of Treatment No Information Insurance Providers Payer Name Payer Address Payer Phone Subscriber Number Group Number Insured Name Patient Relationship to Insured Coverage Start Date Coverage End Date [address] [place] [phone] [id number] BELLE SIFUENTES Spouse - patient is the spouse of the insured 2
== END 2024-11-10 09:00 | disposition home or self-care (01) ==
LOC: HO.HMGCLDS 08:59
PROVIDERS: PCP Internal Medicine; Visit Provider Internal Medicine
DX: E67.2 Megavitamin-B6 syndrome (principal)
CPT/HCPCS: 36415; 84207

== ENCOUNTER 2024-11-22 13:32 | Outpatient (AMB) | payer OTHER, SELFPAY ==
[2024-11-22 14:01] VITALS: BP 100/70; PULSE 72; RESP 16; TEMP 36.7; O2SAT 97; BMI 19.6
--- NOTE | 2024-11-22 14:01 | A.OFFPC_ITS ---
Vital Signs 11/22/24 14:01 Height 5 ft 5 in Weight 118 lb BMI 19.6 BP 100/70 Blood Pressure Location Lt brachial Position Sitting Respiration 16 Pulse 72 Pulse Source Pulse Oximeter Temp 98.1 F Temp Source Oral Pulse Oximetry (%) 97 Oxygen Delivery Method Room Air Intake Visit Reasons: Annual Intake Note: Pt is here today for her PE: Last mammogram 03/12/24, colonoscopy 07/16/23 Allergies Opioids - Morphine Analogues Allergy (Severe, Verified 11/28/24 01:40) convultions sulfabenzamide Allergy (Severe, Verified 11/28/24 01:40) tongue swelled shut gluten (GLUTEN) Allergy (Intermediate, Verified 11/28/24 01:40) INFLAMMATION SYSTEMICALLY mold (MOLD) Allergy (Intermediate, Verified 11/28/24 01:40) UNKNOWN animal dander Allergy (Unknown, Verified 11/28/24 01:40) ASTHMA FLAIRUP Clindamycin HCl Allergy (Unknown, Verified 11/28/24 01:40) rash doxycycline (DOXYCYCLINE) Allergy (Unknown, Verified 11/28/24 01:40) RASH morphine (MORPHINE) Allergy (Unknown, Verified 11/28/24 01:40) SEIZURE LIKE EXPERIENCE - FELT TERRIBLE, convulsions penicillin V Allergy (Unknown, Verified 11/28/24 01:40) rash Penicillins (PENICILLINS) Allergy (Unknown, Verified 11/28/24 01:40) RASH HIVES soybean Allergy (Unknown, Verified 11/28/24 01:40) unknown Sulfa (Sulfonamide Antibiotics) (SULFA (SULFONAMIDE ANTIBIOTICS)) Allergy (Unknown, Verified 11/28/24 01:40) TONGUE SWELLING, swelling of mouth soy Adverse Reaction (Intermediate, Verified 11/28/24 01:40) UPSET STOMACH cefdinir Allergy (Severe, Uncoded 11/28/24 01:40) Severe vomiting DAIRY PRODUCTS Allergy (Intermediate, Uncoded 11/28/24 01:40) INFLAMMATION cats, dogs Allergy (Unknown, Uncoded 11/28/24 01:40) Unknown mole,bread and diary Allergy (Unknown, Uncoded 11/28/24 01:40) Unknown Medication List - Last Reconciled 11/28/24 by Stephania Guaman MD alprazolam 0.25 mg PO DAILY PRN ascorbic acid (vitamin C) (Vitamin C) 500 mg PO DAILY azelastine 1 spray intranasal BID betaxolol 0.25% (Betoptic S) 1 drp ophthalmic (eye) DAILY brimonidine 0.1% (Alphagan P) 1 drp ophthalmic (eye) DAILY carboxymethylcell-glycerin(PF) 0.5-0.9 % (Refresh Optive Sensitive (PF)) 1 drp ophthalmic (eye) DAILY cyclosporine 0.05% (Restasis) 1 drp ophthalmic (eye) DAILY docusate sodium 100 mg PO BID estradiol 10 mcg vaginal 2XW fluorometholone 0.1% 1 drp ophthalmic (eye) NEEDED fluticasone furoate 100 mcg/actuation (Arnuity Ellipta) 1 inh inhalation Q24H fluticasone propionate 50 mcg/actuation 2 sprays intranasal DAILY inhalational spacing device (BreatheRite MDI Spacer) As directed levothyroxine 88 mcg PO DAILY loteprednol etabonate 0.5% (Lotemax) 0.5 drps ophthalmic (eye) DAILY nebulizers (AeroEclipse II Nebulizer) As directed omeprazole 40 mg PO DAILY polyethylene glycol 3350 (Miralax) 17 grams PO BID rosuvastatin 5 mg PO DAILY sodium,potassium,mag sulfates 17.5-3.13-1.6 gram (Suprep Bowel Prep Kit) DILUTE; drink 1/2 at 6-8 pm and half at 11 PM- 1AM Ventolin HFA 90 mcg/actuation (albuterol sulfate) 2 puffs inhalation Q6H PRN NS Tobacco use date assessed: 11/22/24 Dental Screening Dental Screen Date: 11/22/24 Did you have a dental visit in the last 12 months?: Yes Did you have a dental problem in the last 6 months where you did not have access to dental care?: No Was dental information given to patient?: Patient has dentist HPI Annual HPI Details 64-year-old lady with past medical histo ry significant for Vini's thyroiditis with subsequent hypothyroidism, mild intermittent asthma, narrow angle glaucoma suspect in both eyes, environmental seasonal allergies, and history of recurrent genital herpes, here today for her physical exam. She was recently seen by her eye doctor who noted her to have dry eyes despite using artificial tears. Advised to be checked for Sjogren's. She is up-to-date with her screening mammogram which came back with benign finding and and colon cancer screening was also done in 2023 with removal of several tubular adenoma polyps, repeat colonoscopy due again in 1-2 years per her GI [facility] Medical History (Updated 11/22/24 @ 14:32 by Stephania Guaman MD) Dry mouth and eyes Acute respiratory disease Dyslipidemia Cataract of right eye History of adenomatous polyp of colon Recurrent genital herpes Environmental and seasonal allergies Temporomandibular joint dysfunction Immunization refused Hx of breast cancer History of COVID-19 Anxiety disorder Recurrent otitis media Retinal detachment Vini's thyroiditis Mild intermittent asthma Narrow angle glaucoma suspect of both eyes Vitamin D deficiency Acquired hypothyroidism Surgical History Hx of colonoscopy History of surgery H/O myringotomy History of hysterectomy History of eyelid surgery History of eye surgery Family History Father No problems noted. Mother Diabetes mellitus Heart disease Heart attack Brother No problems noted. Brother No problems noted. Brother No problems noted. Brother No problems noted. Brother No problems noted. Social History Household Members: None Housing: House Alcohol intake: current Alcohol intake frequency: a few times a week Patient Tobacco Use Status: Never used Tobacco e-Cigarette/Vaping Use: Never Used service: No Current occupational status: employed Cognitive needs: No Hearing needs: No Vision needs: No Questionnaire PHQ-9 Over the last 2 weeks, how often have you been bothered by any of the following problems? 1. Little interest or pleasure in doing things: not at all 2. Feeling down, depressed, or hopeless: not at all 3. Trouble falling or staying asleep, or sleeping too much: not at all 4. Feeling tired or having little energy: several days 5. Poor appetite or overeating: not at all 6. Feeling bad about yourself - or that you are a failure or have let yourself or your family down: not at all 7. Trouble concentrating on things, such as reading the newspaper or watching television: not at all 8. Moving or speaking so slowly that other people could have noticed. Or the opposite - being so fidgety or restless that you have been moving around a lot more than usual: not at all 9. Thoughts that you would be better off or of hurting yourself in some way: not at all Total score: 1 Depression Screening Interpretation: Negative Depression Screening Done: Yes 13966 - PHQ-9 Billing: Yes Source: Developed by Drs. Angel Allen, Manuela Gardner, Emre Palacios and colleagues, with an educational cresencio from [employer] Thrive Questionnaire Date Thrive assessed: 11/22/24 Currently or been in a relationship where the following occur: I choose not to answer THRIVE Score: 0 PASCUAL-7 AMB Questionnaire PASCUAL-7 Date PASCUAL - 7 assessed: 06/09/23 Source: Developed by Drs. Angel Allen, Manuela Gardner, Emre Palacios and colleagues, with an educational cresencio from [employer] Review of Systems Const Denies fever(s) and Denies headache(s) Eyes Reports as per HPI ENT Denies headache(s), Denies sinus pressure and Denies sore throat Card Denies chest pain, Denies pedal edema, Denies irregular heart rhythm and Denies dyspnea Resp Denies chest congestion, Denies cough and Denies dyspnea GI Denies abdominal pain, Denies melena, Denies hematochezia and Denies change in bowel habits Reports no additional complaints Musc Denies arthralgias and Reports stiffness Skin/Breast Denies lesions, Denies erythema, Denies rash and Denies unusual bruising Neuro Denies headache(s) Psych Reports no additional complaints Endo Reports no additional complaints Kiel/Lymph Reports no additional complaints Aller/Immun Reports seasonal rhinorrhea Physical exam (Primary Care) Vital Signs: Last Vital Signs Temp 98.1 F 11/22/24 14:01 Pulse 72 11/22/24 14:01 Resp 16 11/22/24 14:01 BP 100/70 11/22/24 14:01 Pulse Ox 97 11/22/24 14:01 Oxygen Delivery Method Room Air 11/22/24 14:01 BMI result Body Mass Index 19.6 Tobacco/Smoking Status: Tobacco use Status Tobacco use date assessed 11/22/24 11/22/24 14:02 Patient Tobacco Use Status Never used Tobacco 11/22/24 14:02 e-Cigarette/Vaping Use Never Used 11/22/24 14:02 Depression Screening Interpretation: Negative Thrive Assessment: Date of Thrive Assessment Date Thrive assessed 11/22/24 11/22/24 14:02 Currently or been in a relationship where the following occur: I choose not to answer Const Other: Alert oriented x3, no acute distress noted, ambulatory normal gait HENMT Mouth: Normal oral and palatal mucosa present, oropharynx normal and moist mucous membranes Eyes General: appearance normal, both eyes and all related structures Neck Neck: Yes full ROM, Yes no lymphadenopathy and Yes supple Thyroid: Thyroid normal (Nonpalpable) and nontender Resp Effort & Inspection: normal respiratory effort and able to speak in complete sentences Auscultation: clear to auscultation bilaterally Cardio Other: S1-S2 present regular rate and rhythm GI Palpation (GI): Soft to palpation, nontender, no guarding and no masses Auscultation: normal bowel sounds General: Yes no CVA tenderness Back/Spine/Pelvis Back: no CVA tenderness and No back tenderness Skin General skin exam: no rashes or lesions noted Neuro General: gait normal, tone normal, moves all extremities and no focal motor deficits Extrem General: Yes full ROM, Yes no joint enlargement, Yes no clubbing, cyanosis or edema and Yes normal gait Psych Appearance: grossly normal and well kempt Mental Status: mental status grossly normal Speech and movement: Normal speech and movement present Affect: normal affect Results Reviewed Results Reviewed: Laboratory Tests 11/10/24 09:06 Vitamin B6 15.0 RUN: 11/28/24 0146 PAGE 1 [facility] [address] [place] [id number] Yarn Mercerizer Operator Helper: Ra Lee M.D. Specimen Inquiry Name: Kaylynn Julian Age/Sex: 63/F : 1960 Unit#: [id number] Attend Dr: Stephania Guaman MD Re09/20/24 Status: DEP REF Location: [id number] Disch: SPEC : [id number] BECYK: 09/20/24 STATUS: COMP REQ : [id number] RECD: 09/20/24-[address]: Stephania Guaman MD COMP: 09/20/24-1112 ENTERED: 09/20/[address]: ORDERED: AST, ALT, Lipid Panel, Vitamin D 25-OH, Free T4, TSH Test Result Flag Reference AST (GOT) 36 H 5-31 U/L ALT (GPT) 20 0-31 U/L Triglyceride 62 <150 mg/dL Desirable Triglyceride: less than 150 mg/dL Borderline High Triglyceride 150-199 mg/dL High Triglyceride: 200-499 mg/dL Very High Triglyceride: greater than or equal to 5OO mg/dL Cholesterol 261 H <200 mg/dL Desirable Cholesterol: less than 200 mg/dL Borderline High Cholesterol: 200-239 mg/dL High Cholesterol: greater than 239 mg/dL LDL Calculated 141 H <100 mg/dL Desirable LDL: less than 100 mg/dL Near Optimal/Above Optimal LDL: 110-129 mg/dL Borderline High LDL: 130-159 mg/dL High LDL: 160-189 mg/dL Very High LDL: greater than or equal to 190 mg/dL HDL 108 >40 mg/dL Desirable HDL: greater than 40 mg/dL Note: This HDL assay may give artificially low results in patients with liver disease. Vitamin D 25-OH 60.7 >30 ng/mL Health Based Reference Values* < 20 ng/mL Deficient 20-30 ng/mL Insufficient > 30 ng/mL Sufficient *Aleshia CEDENO. N Engl J Med. 2007;357:266-280 There is no well-established upper level of normal vitamin D levels. Some laboratories use 50 ng/mL as an upper limit of normal. However, toxicity is patient-dependent and may occur at any level. Careful correlation with the patient's presentation is necessary and, if there is concern for vitamin D toxicity, treatment should be considered irrespective of the serum level. Care must be taken in interpreting Vitamin D results from different laboratories and methodologies. Published data demonstrated that results from patients undergoing hemodialysis may show a negative bias when tested with various automated 25-OH vitamin D assays when compared to LC-MS/MS. When testing samples from patients whose predominant form of Vitamin D is Vitamin D2, such as patients receiving Vitamin D2 supplementation, results that are subtherapeutic should be confirmed with another method such as LC-MS/MS. Free T4 1.09 0.71-1.85 ng/dL TSH 3rd Gen. 1.53 0.32-4.0 uIU/mL TSH 3rd Generation ([facility]) Coding Level of Care Code Est Pt Prev Care 40-64y(43437) Diagnoses Annual visit for general adult medical examination with abnormal findings Z00.01 Dry mouth and eyes R68.2; H04.123 Vini's thyroiditis E06.3 Acquired hypothyroidism E03.9 Dyslipidemia E78.5 Generalized anxiety disorder F41.1 Anxiety disorder type: generalized anxiety disorder Mild intermittent asthma without complication J45.20 Asthma complication type: uncomplicated Additional Codes PHQ-9 - 47167 - PHQ-9 Billing: Yes ([id number]) Assessment & Plan Assessment & Plan (1) Annual visit for general adult medical examination with abnormal findings: Code(s): Z00.01 - Encounter for general adult medical examination with abnormal findings Plan: Reviewed recent fasting lab results with patient. Reminded to get dental cleaning every six-months, currently up-to-date, and sees her client services representative on a regular basis. Up-to-date with her screening mammogram, and colonoscopy. Has had Tdap and Prevnar 20 but does not want to get any further vaccines. (2) Dry mouth and eyes: Code(s): R68.2 - Dry mouth, unspecified; H04.123 - Dry eye syndrome of bilateral lacrimal glands Category: Medical Plan: Ordered comprehensive metabolic panel, total CK level, CRP, sed rate, Sjogren's antibodies, thyroid peroxidase antibody and complement C3 (3) Vini's thyroiditis: Code(s): E06.3 - Autoimmune thyroiditis Category: Medical Plan: Last thyroid levels are within normal limits, continue with current dose of levothyroxine at 88 mcg daily. (4) Acquired hypothyroidism: Code(s): E03.9 - Hypothyroidism, unspecified Category: Medical Plan: Continue current dose of levothyroxine (5) Dyslipidemia: Code(s): E78.5 - Hyperlipidemia, unspecified Category: Medical Plan: Latest fasting lipids showed elevated triglycerides and LDL cholesterol. Reinforced importance of following a low-cholesterol diet and getting regular exercise. Continue rosuvastatin 5 mg 1 tablet daily (6) Anxiety disorder: Code(s): F41.9 - Anxiety disorder, unspecified Category: Medical Qualifiers: Anxiety disorder type: generalized anxiety disorder Qualified Code(s): F41.1 - Generalized anxiety disorder Plan: Takes alprazolam as needed (7) Mild intermittent asthma: Code(s): J45.20 - Mild intermittent asthma, uncomplicated Category: Medical Qualifiers: Asthma complication type: uncomplicated Qualified Code(s): J45.20 - Mild intermittent asthma, uncomplicated Plan: Currently on Arnuity Ellipta 1 inhalation every 12 hours and uses Ventolin inhaler as needed for episodes of wheezing and bronchospasm. Orders: Orders Comprehensive [facility]. Panel Fast 11/22/24 E03.9 - Hypothyroidism, unspecified, E06.3 - Autoimmune thyroiditis, E78.5 - Hyperlipidemia, unspecified, F41.1 - Generalized anxiety disorder, H04.123 - Dry eye syndrome of bilateral lacrimal glands, J45.20 - Mild intermittent asthma, uncomplicated, R68.2 - Dry mouth, un specified Creatine Kinase Total 11/22/24 E03.9 - Hypothyroidism, unspecified, E06.3 - Autoimmune thyroiditis, E78.5 - Hyperlipidemia, unspecified, F41.1 - Generalized anxiety disorder, H04.123 - Dry eye syndrome of bilateral lacrimal glands, J45.20 - Mild intermittent asthma, uncomplicated, R68.2 - Dry mouth, unspecified CRP High Sensitivity 11/22/24 E03.9 - Hypothyroidism, unspecified, E06.3 - Autoimmune thyroiditis, E78.5 - Hyperlipidemia, unspecified, F41.1 - Generalized anxiety disorder, H04.123 - Dry eye syndrome of bilateral lacrimal glands, J45.20 - Mild intermittent asthma, uncomplicated, R68.2 - Dry mouth, unspecified Erythrocyte Sedimentation Rate 11/22/24 E03.9 - Hypothyroidism, unspecified, E06.3 - Autoimmune thyroiditis, E78.5 - Hyperlipidemia, unspecified, F41.1 - Generalized anxiety disorder, H04.123 - Dry eye syndrome of bilateral lacrimal glands, J45.20 - Mild intermittent asthma, uncomplicated, R68.2 - Dry mouth, unspecified Complement C3 11/22/24 E03.9 - Hypothyroidism, unspecified, E06.3 - Autoimmune thyroiditis, E78.5 - Hyperlipidemia, unspecified, F41.1 - Generalized anxiety disorder, H04.123 - Dry eye syndrome of bilateral lacrimal glands, J45.20 - Mild intermittent asthma, uncomplicated, R68.2 - Dry mouth, unspecified Thyroid Peroxidase Antibodies 11/22/24 E03.9 - Hypothyroidism, unspecified, E06.3 - Autoimmune thyroiditis, E78.5 - Hyperlipidemia, unspecified, F41.1 - Generalized anxiety disorder, H04.123 - Dry eye syndrome of bilateral lacrimal glands, J45.20 - Mild intermittent asthma, uncomplicated, R68.2 - Dry mouth, unspecified Sjogren's Antibodies 11/22/24 H04.123 - Dry eye syndrome of bilateral lacrimal glands, R68.2 - Dry mouth, unspecified Complement C4 11/22/24 H04.123 - Dry eye syndrome of bilateral lacrimal glands, R68.2 - Dry mouth, unspecified
--- OUTSIDE RECORDS SUMMARY | 2024-11-22 14:19 | XMS_ITS | Data Portability ---
Author Organization [facility], [address] Address [address] [place] [address] Care Team Providers Care Jeep Driver Name Role Phone PINO ABREU Primary Care Provider [phone] Assessment No assessment recorded. Plan of Treatment Reminders Order Date Submit Date Provider Last Modified By Organization Details Last Modified Time Details Appointments None recorded. Lab None recorded. Referral None recorded. Procedures None recorded. Surgeries None recorded. Imaging None recorded. Medication Orders cephalexin 500 mg capsule 2022 023 [facility][id number], [address] [place], [address], 3 16:59:00 azithromyci n 250 mg tablet 20[address] [facility] [address] [facility] [address] [facility] [address] [place], [address], 3 16:15:28 albuterol sulfate 2.5 mg/3 mL (0.083 %) solution for nebulizatio n 2022 023 [email or web address] 247 Not available 3 18:49:45 ipratropium bromide 0.02 % solution for inhalation 2022 023 [email or web address] 247 Not available 3 17:51:30 ipratropium 20 mcg-albuter ol 100 mcg/actuati on mist for inhalation 2022 023 [facility], [address] [place], [address], 19:15:31 prednisone 20 mg tablet 2022 023 [facility], [address] [place], [address], 19:15:32 Patient TargetsNo targets recorded. Patient Instructions Encounter Date Encounter Id Patient Instructions Last Modified By Organization Details Last Modified Time 07/13/2022 [id number] cough: care instructions [id number] Not available 07/13/2022 17:51:30 peak flow* [id number] Not available 17:51:30 08/10/2022 [id number] head or face pain: care instructions Not [...] flow* Pre (L/min) 260 Not Available [address] [address] [place] [address], [address], 07/13/2022 17:03:05 07/14/19 23 07/13/2022 peak flow* Post (L/min) 410 Not Available que franklin[address] [place], [address], 07/13/2022 17:03:05 07/14/19 23 07/13/2022 peak flow* Pulse 64 Not Available amie christianson [address], [address], 07/13/2022 17:03:05 07/14/19 23 07/13/2022 peak flow* Oxygen Saturation 99 Not Available que frank[address], [address], 07/13/2022 17:03:05 Result Notes None recorded. Problems Name Problem SNOMED Code Status Onset Date Resolution Date Notes Provider Name and Address Organization Details Recorded Time Graves' disease 027855408 Active 023 MONIKA QUINTANILLA null, PA - [facility] 16:33:30 Glaucoma 89692544 Active 023 MONIKA QUINTANILLA null, PA - [facility] 16:33:36 Malignant tumor of breast 363686138 Active 023 MONIKA QUINTANILLA null, PA - [facility] 3 16:35:57 Thyroid eye disease 514978480 Active 023 JAKE DANILO null, PA - [...] Name and Address Organization Details Recorded Time 675164 doxycycli ne Not available Not available Not available Not available 07/13/2022 3640 RxNorm MONIKA QUINTANILLA null, PA - [facility] 3 16:31:49 079438 clindamyc in Not available Not available Not available Not available 07/13/2022 2582 RxNorm MONIKA QUINTANILLA null, PA - [facility] 3 16:31:55 907628 Substance with sulfonami de structure and antibacte rial mechanism of action (substanc e) medicatio n Not available Not available Not available 07/13/2022 66087 8003 SNOMED MONIKA QUINTANILLA null, PA - [facility] 3 16:32:02 120437 Product containin g penicilli n (product) medicatio n Not available Not available Not available 07/13/2022 04948 8001 SNOMED MONIKA QUINTANILLA null, PA - [...] Updated DateTime 3 165.1 cm 20.5 kg/m2 15158.8 6 g 97 [degF] 97 % 97 [...] Updated DateTime 3 165.1 cm 20.3 kg/m2 43475.2 7 g 97 % 97 % 71 [...] other forms of tobacco or nicotine? No [email or web address] Information not available 07/13/2022 What is your level of alcohol consumption? None [email or web address] Information not available 07/13/2022 Are you currently employed? Yes [employer] Information not available 08/10/2022 Mental Status None recorded. Family History Relationship Description Onset Age of this Age Resolved Age Notes LastModified by Organization Details LastModified Time Mother Heart disease [email or web address] Not available 2022 16:34:31 Mother Diabetes mellitus [email or web address] Not available 2022 16:34:39 Father Chronic obstructive pulmonary disease Not available 2022 16:34:49 Father Malignant melanoma [email or web address] Not available 2022 16:35:00 Medical History No [...] SNOMED-CT Code Diagnosis ICD10 Code Diagnosis Note [id number] [address] [place] [address] 06/17/2017 10:02:30 06/17/2017 11:06:24 [id number] [address] [place] [address] 02/22/2018 15:31:18 02/22/2018 16:41:01 [id number] [address] [place] [address] 02/02/2018 08:03:24 02/02/2018 09:00:04 [id number] [address] [place] [address] 05/25/2017 11:23:18 05/25/2017 11:48:52 [id number] [address] [place] [address] 10/14/2016 10:56:11 10/14/2016 11:30:58 [id number] [address] [place] [address] 11/26/2020 16:42:53 11/26/2020 16:43:11 [id number] [address] [place] [address] 06/21/2017 11:53:31 06/21/2017 13:29:56 [id number] [address] [place] [address] 06/16/2019 08:48:18 06/16/2019 09:14:34 [id number] [address] [place] [address] 08/07/2016 19:08:06 08/07/2016 19:38:52 [id number] [address] [place] [address] 06/23/2017 16:34:40 06/23/2017 18:33:44 [id number] [address] [place] [address] 07/11/2019 09:23:05 07/11/2019 11:04:58 [id number] [address] [place] [address] 03/30/2018 12:12:45 03/30/2018 13:33:52 [id number] [address] [place] [address] 05/06/2015 15:03:33 05/06/2015 16:37:42 [id number] [address] [place] [address] 08/11/2016 12:26:36 08/11/2016 13:19:33 [id number] [address] [place] [address] 04/01/2017 18:06:32 04/01/2017 19:35:58 [id number] [address] [place] [address] 04/30/2019 18:38:30 04/30/2019 19:31:57 [id number] [address] [place] [address] 10/10/2017 19:06:43 10/10/2017 20:39:06 [id number] BETTY NXION MD [address] [facility] [place] [address] 07/13/2022 12:04:22 07/13/2022 17:59:56 Exacerbation of intermittent asthma 605943123 J45.21 Acute left otitis media 404211871 H66.92 [id number] Jt Jeffries [place] [address] [place] [address] 08/10/2022 15:55:34 08/10/2022 16:50:43 Abscess of face 537132229 L02.01 Health Concerns Section Related Observation LastModified by Organization Detai ls LastModified Time None Recorded Concern Status LastModified by Organization Details LastModified Time None Recorded Advance Directives Directive None Recorded Payers Insurance Date Sequence Insurance Name Policy Number Policy Kennedy Covered Member ID Kennedy Member ID Guarantor Name 10/06/2022 1 [facility] - [facility] NET PLAN (MEDICAID HMO) [place] Kaylynn Julian [id number] Kaylynn Moyer 07/13/2022 1 [facility] (HMO) [id number] Kaylynn Moyer [id number] Kaylynn Moyer Notes Date Note Type Note [...] n/v/d/rash/headache or other symptoms. BETTY NIXON MD [facility] [place], [address], [place] - [facility] 07/13/2022 19:16:11 08/10/2022 text/html Facial ProblemReported bypatient.Onset/Timin g:abrupt Location:face right;mandible right Quality:painful Duration:1days Severity:worsening; mild Alleviating factors:none Aggravating factors:none Associated Symptoms:facial painNotes:Mild swelling and tenderness along right side of jaw bone. Jt Jeffries NP [address] [place], [address], [place] - [facility] 08/10/2022 16:59:04 OBGyn Episode No OBEpisode recorded.
--- OUTSIDE RECORDS SUMMARY | 2024-11-22 14:20 | XMS_ITS | Patient Health Record ---
Author Organization [facility] Address [address] [place] [address] Support Name Relationship Address Phone ALIE SIFUENTES Guarantor Unknown [phone] Reason For Referral No Information Medications Medication SIG (Take, Route, Fr equency, Duration) Notes Start Date End Date Status Vitamin D3 1000 IU ORAL daily; Duration: -3 [facility] 2011 Active Levoxyl 75MCG 1 ORAL DAILY; Duration: -3 [facility] 2 Active Multivitamins 1 ORAL daily; Duration: -3 [facility] 2 Active Proventil HFA 108 MCG 2 Inhalation four times daily; Duration: -3 [facility] 07/23/2011 Active Calcium-Carb 600 + D 1 ORAL daily; Duration: -3 [facility] Claritin 10 MG 1 ORAL daily; Duration: -3 [facility] 09/10/19 12 Active Fish Oil 1 ORAL daily; Duration: -3 [facility] 09/10/2011 Active Flonase 50MCG 2 Nasal daily; Duration: -3 [facility] 07/23/19 12 Active Immunizations Vaccine Route Administration Date Status Comme nts Influenza, live, intranasal Intramuscular 07/22/2011 Jake patel Problems Problem Type SNOMED Code ICD Code Onset Dates Problem Status W/U Status Risk Notes Problem Benign neoplasm of skin (11092383) Benign neoplasm of skin, site unspecified (216.9) Active confirmed Diag Problem Hypothyroidism (30028768) Unspecified hypothyroidism (244.9) Active confirmed Major Problem Hyperlipidemia (19750224) Other and unspecified hyperlipidemia (272.4) Active confirmed Major Problem Asthma (disorder) (602738984) Asthma, unspecified, unspecified status (493.90) Active confirmed Major Problem Seborrheic keratosis (47021521) Other seborrheic keratosis (702.19) Active confirmed Diag Problem Joint pain (82250558) Pain in joint, site unspecified (719.40) Active confirmed Diag Problem General examination of patient (967582704) Routine general medical examination at health care facility (V70.0) Active confirmed Diag Plan Of Treatment No Information Insurance Providers Payer Name Payer Address Payer Phone Subscriber Number Group Number Insured Name Patient Relationship to Insured Coverage Start Date Coverage End Date [address] [place] [phone] [id number] BELLE SIFUENTES Spouse - patient is the spouse of the insured 2
--- OUTSIDE RECORDS SUMMARY | 2024-11-22 14:20 | XMS_ITS | Clinical Summary ---
Author Organization [facility] it Address [address] [place] [address] Care Team Providers Care Dredge Engineer Name Role Phone Stephania Guaman MD Primary Care Provider [phone] Surgical History Surgery Date Site/Laterality Comments OTHER [...] Vaccine (1 - 2023-2 5 season) 2024 Depression Screening 05/05/2024 Influenza Vaccine (#1) 2025 RSV Immunization Adult [...] age to complete this topic Care Teams Dredge Engineer Relationship Specialty Start Date End Date Stephania Guaman MD [address] [place] [address] PCP - General Internal Medicine 03/14/17
== END 2024-11-22 16:46 | disposition home or self-care (01) ==
LOC: HO.HMCC 13:33
PROVIDERS: PCP Internal Medicine; Visit Provider Internal Medicine
DX: Z00.01 Encounter for general adult medical examination with abnormal findings (principal); R68.2 Dry mouth, unspecified; H04.123 Dry eye syndrome of bilateral lacrimal glands; E06.3 Autoimmune thyroiditis; E03.9 Hypothyroidism, unspecified; E78.5 Hyperlipidemia, unspecified; F41.1 Generalized anxiety disorder; J45.20 Mild intermittent asthma, uncomplicated

== ENCOUNTER → 2024-11-22 13:32 | Outpatient (BNVA) | payer OTHER, SELFPAY | PROVIDERS: PCP Internal Medicine; Visit Provider Internal Medicine | DX: Z00.01 Encounter for general adult medical examination with abnormal findings (principal); E06.3 Autoimmune thyroiditis; E03.9 Hypothyroidism, unspecified; R68.2 Dry mouth, unspecified; H04.123 Dry eye syndrome of bilateral lacrimal glands; F41.1 Generalized anxiety disorder; E78.5 Hyperlipidemia, unspecified; J45.20 Mild intermittent asthma, uncomplicated | CPT/HCPCS: 96127; 99396 ==

== ENCOUNTER 2024-12-21 07:21 | Outpatient (AMB) | payer OTHER, SELFPAY ==
[2024-12-21 07:23] VITALS: BP 124/70; PULSE 72; TEMP 36.5; O2SAT 97; BMI 19.6
--- NOTE | 2024-12-21 07:23 | AM.OFFWIN_ITS ---
Intake Vital Signs 12/21/24 07:23 Height 5 ft 5 in Weight 118 lb BMI 19.6 BP 124/70 Blood Pressure Location Lt brachial Position Sitting Pulse 72 Pulse Source Pulse Oximeter Temp 97.7 F Temp Source Oral Pulse Oximetry (%) 97 Oxygen Delivery Method Room Air Intake Visit Reasons: EP-rt hip pain Intake Note: pt presents with right hip pain since yesterday Patient Tobacco Use Status: Never used Tobacco Allergies Opioids - Morphine Analogues Allergy (Severe, Verified 12/21/24 07:27) convultions sulfabenzamide Allergy (Severe, Verified 12/21/24 07:27) tongue swelled shut gluten (GLUTEN) Allergy (Intermediate, Verified 12/21/24 07:27) INFLAMMATION SYSTEMICALLY mold (MOLD) Allergy (Intermediate, Verified 12/21/24 07:27) UNKNOWN animal dander Allergy (Unknown, Verified 12/21/24 07:27) ASTHMA FLAIRUP Clindamycin HCl Allergy (Unknown, Verified 12/21/24 07:27) rash doxycycline (DOXYCYCLINE) Allergy (Unknown, Verified 12/21/24 07:27) RASH morphine (MORPHINE) Allergy (Unknown, Verified 12/21/24 07:27) SEIZURE LIKE EXPERIENCE - FELT TERRIBLE, convulsions penicillin V Allergy (Unknown, Verified 12/21/24 07:27) rash Penicillins (PENICILLINS) Allergy (Unknown, Verified 12/21/24 07:27) RASH HIVES soybean Allergy (Unknown, Verified 12/21/24 07:27) unknown Sulfa (Sulfonamide Antibiotics) (SULFA (SULFONAMIDE ANTIBIOTICS)) Allergy (Unknown, Verified 12/21/24 07:27) TONGUE SWELLING, swelling of mouth soy Adverse Reaction (Intermediate, Verified 12/21/24 07:27) UPSET STOMACH cefdinir Allergy (Severe, Uncoded 11/28/24 01:40) Severe vomiting DAIRY PRODUCTS Allergy (Intermediate, Uncoded 11/28/24 01:40) INFLAMMATION cats, dogs Allergy (Unknown, Uncoded 11/28/24 01:40) Unknown mole,bread and diary Allergy (Unknown, Uncoded 11/28/24 01:40) Unknown Do you need a note to return to daycare/school/sports/work: Yes HPI HPI Comments History of Present Illness Details History - The patient is a 64-year-old female pr esenting with right hip pain and inability to bear weight. - The hip pain began last night after li fting heavy objects over the weekend, including a heavy steel table. - The pain is severe, preventing weight- bearing on the affected side and causing significant discomfort. - The patient attempted to alleviate the pain with ksrt-rlr-tqzbqgn medications such as Aleve, but reported no relief. - The patient has a history of scoliosis , which may contribute to the current symptoms. - The patient engages in regular physica TiVUS activity, including walking 2 miles and lifting and exercises such as squats and dips, which may have exacerbated the condition. Physical Exam General: Cooperative, healthy appearing, comfortable, no acute distress and well developed Orientation: Patient oriented x3 Limitations: Limited ability to bear weight on the right hip Head: Normal to inspection Ears: Hearing grossly normal bilaterally Nose: Normal External nose present Face and sinus: Normal facial exam Mouth: normal, moist oral mucosa Eyes: Appearance normal, both eyes and all related structures Neck: Normal visual inspection and Yes full ROM Respiratory: Normal respiratory effort and able to speak in complete sentences. Skin: no rashes or lesions noted Neuro: Patient oriented x3, limping gait Extremities: Right hip will full ROM but pain with external rotation and abduction. no TTP lateral right hip. [facility] Medical History (Updated 12/21/24 @ 07:40 by Rosa Simpson PA-C) Dry mouth and eyes Acute respiratory disease Dyslipidemia Cataract of right eye History of adenomatous polyp of colon Recurrent genital herpes Environmental and seasonal allergies Temporomandibular joint dysfunction Immunization refused Hx of breast cancer History of COVID-19 Anxiety disorder Recurrent otitis media Retinal detachment Vini's thyroiditis Mild intermittent asthma Narrow angle glaucoma suspect of both eyes Vitamin D deficiency Acquired hypothyroidism Surgical History Hx of colonoscopy History of surgery H/O myringotomy History of hysterectomy History of eyelid surgery History of eye surgery Family History Father No problems noted. Mother Diabetes mellitus Heart disease Heart attack Brother No problems noted. Brother No problems noted. Brother No problems noted. Brother No problems noted. Brother No problems noted. Social History Household Members: None Housing: House Alcohol intake: current Alcohol intake frequency: a few times a week Patient Tobacco Use Status: Never used Tobacco e-Cigarette/Vaping Use: Never Used service: No Current occupational status: employed Cognitive needs: No Hearing needs: No Vision needs: No Review of Systems Const All systems reviewed & are unremarkable except as noted in HPI and below Physical Exam Vital Signs: Last Vital Signs Temp 97.7 F 12/21/24 07:23 Pulse 72 12/21/24 07:23 BP 124/70 12/21/24 07:23 Pulse Ox 97 12/21/24 07:23 Oxygen Delivery Method Room Air 12/21/24 07:23 BMI result Body Mass Index 19.6 Assessment & Plan Assessment & Plan (1) Acute right hip pain: Code(s): M25.551 - Pain in right hip Plan: Plan Patient was informed and verbally consented to the use of an ambient scribe for clinic note documentation during this visit Musculoskeletal Pain - An x-ray of the right hip was ordered to rule out any fractures or significant injuries. - Diclofenac was prescribed as an anti-inflammatory medication to manage pain and inflammation. - A muscle relaxant was prescribed to be taken at night to help alleviate muscle tension. - The patient was advised to refrain from lower body exercises for at least a week to allow for recovery. Orders: Orders XR hip RT min 2V Today M25.551 - Pain in right hip Medications: New diclofenac sodium 50 mg PO Q12H PRN 10 tabs 0RF pain cyclobenzaprine 5 mg PO Q8H PRN 15 tabs 0RF Muscle Spasm Coding Level of Care Code Est Pt Level 4 (02620) Diagnoses Acute right hip pain M25.551
--- OUTSIDE RECORDS SUMMARY | 2024-12-21 07:23 | XMS_ITS | Patient Health Record ---
Author Organization [facility] Address [address] [place] [address] Support Name Relationship Address Phone ALIE SIFUENTES Guarantor Unknown [phone] Reason For Referral No Information Medications Medication SIG (Take, Route, Fr equency, Duration) Notes Start Date End Date Status Vitamin D3 1000 IU ORAL daily; Duration: -3 [facility] 2011 Active Levoxyl 75MCG 1 ORAL DAILY; Duration: -3 [facility] 2 Active Multivitamins 1 ORAL daily; Duration: -3 [facility] 2 Active Proventil HFA 108 MCG 2 Inhalation four times daily; Duration: -3 [facility] 07/23/2011 Active Calcium-Carb 600 + D 1 ORAL daily; Duration: -3 [facility] [place] Claritin 10 MG 1 ORAL daily; Duration: -3 [facility] [place] [facility] 09/10/19 12 Active Fish Oil 1 ORAL daily; Duration: -3 [facility] [place] 09/10/2011 Active Flonase 50MCG 2 Nasal daily; Duration: -3 [facility] [place] 07/23/19 12 Active Immunizations Vaccine Route Administration Date Status Comme nts Influenza, live, intranasal Intramuscular 07/22/2011 Jake patel Problems Problem Type SNOMED Code ICD Code Onset Dates Problem Status W/U Status Risk Notes Problem Benign neoplasm of skin (81003349) Benign neoplasm of skin, site unspecified (216.9) Active confirmed Diag Problem Hypothyroidism (58594439) Unspecified hypothyroidism (244.9) Active confirmed Major Problem Hyperlipidemia (58471914) Other and unspecified hyperlipidemia (272.4) Active confirmed Major Problem Asthma (disorder) (727175312) Asthma, unspecified, unspecified status (493.90) Active confirmed Major Problem Seborrheic keratosis (22732770) Other seborrheic keratosis (702.19) Active confirmed Diag Problem Joint pain (37343780) Pain in joint, site unspecified (719.40) Active confirmed Diag Problem General examination of patient (446929699) Routine general medical examination at health care facility (V70.0) Active confirmed Diag Plan Of Treatment No Information Insurance Providers Payer Name Payer Address Payer Phone Subscriber Number Group Number Insured Name Patient Relationship to Insured Coverage Start Date Coverage End Date [address] [place] [phone] [id number] BELLE SIFUETNES Spouse - patient is the spouse of the insured 2
--- OUTSIDE RECORDS SUMMARY | 2024-12-21 07:23 | XMS_ITS | Clinical Summary ---
Author Organization [facility] Address [address] [place] [address] Care Team Providers Care Graphic Engineer Name Role Phone Stephania Guaman MD [...] age to complete this topic Care Teams Graphic Engineer Relationship Specialty Start Date End Date Stephania Guaman MD [address] [place] [address] PCP - General Internal Medicine 03/14/17
== END 2024-12-21 08:17 | disposition home or self-care (01) ==
PROVIDERS: PCP Internal Medicine; Visit Provider Physician Assistant
DX: M25.551 Pain in right hip (principal)

== ENCOUNTER 2024-12-21 07:21 | Outpatient (REF) | payer OTHER, SELFPAY ==
--- NOTE | ~2024-12-21 | XR_ITS ---
EXAMINATION: XR HIP 2 OR MORE VIEWS RIGHT HISTORY: M25.551 - Pain in right hip COMPARISON: Comparison is made with the prior examination dated 12/12/2014. FINDINGS: Two views of the right hip are submitted. Osseous mineralization is normal. There is no fracture or dislocation. There is mild joint space narrowing. The soft tissues are unremarkable. XR/XR hip RT min 2V IMPRESSION: Mild joint space narrowing. Electronically signed by: Angel Montilla MD 12/21/2024 08:54 AM EDT
[2024-12-21 11:06] LABS: Alanine Aminotransferase 17 U/L (0-31); Albumin Level 4.1 g/dL (3.5-5.0); Alkaline Phosphatase 77 U/L (39-117); Anion Gap 12 (12-20); Aspartate Amino Transferase 29 U/L (5-31); Blood Urea Nitrogen 13 mg/dL (9-16); Calcium 9.2 mg/dL (8.4-10.2); Carbon Dioxide 28 mmol/L (22-29); Chloride 107 mmol/L (96-108); Cholesterol 239 mg/dL (<200); Estimated Glomerular Filt Rate > 60; HDL Cholesterol 103 mg/dL (>40); Potassium 3.8 mmol/L (3.3-5.1); Sodium 143 mmol/L (135-145); Total Protein 6.7 g/dL (6.5-8.0); Triglycerides 55 mg/dL (<150)
[2024-12-21 11:11] LABS: Free T4 (Free Thyroxine) 1.04 ng/dL (0.71-1.85); Thyroid Stimulating Hormone 1.19 uIU/mL (0.32-4.0)
[2024-12-22 07:18] LABS: Lyme Abs Screen <0.90 index
[2024-12-22 15:04] LABS: Antibody to SS-A Antigen <1.0 NEG AI (<1.0 NEG); Antibody to SS-B Antigen <1.0 NEG AI (<1.0 NEG)
== END 2024-12-21 07:22 | disposition home or self-care (01) ==
LOC: HO.HMGCX 07:21
PROVIDERS: PCP Internal Medicine; Visit Provider Physician Assistant
DX: M25.551 Pain in right hip (principal); E06.3 Autoimmune thyroiditis; E78.5 Hyperlipidemia, unspecified; E03.9 Hypothyroidism, unspecified; H04.123 Dry eye syndrome of bilateral lacrimal glands; F41.1 Generalized anxiety disorder; J45.20 Mild intermittent asthma, uncomplicated; R68.2 Dry mouth, unspecified; Z01.84 Encounter for antibody response examination; W57.XXXA Bitten or stung by nonvenomous insect and other nonvenomous arthropods, initial encounter
CPT/HCPCS: 36415; 73502; 80053; 80061; 82550; 84439; 84443; 85652; 86141; 86160; 86235; 86376; 86617; 86618; 99212

== ENCOUNTER → 2024-12-21 08:35 | Outpatient (BNV) | payer OTHER, SELFPAY | PROVIDERS: PCP Internal Medicine; Visit Provider Radiology Diagnostic Radiology | DX: M16.11 Unilateral primary osteoarthritis, right hip (principal) | CPT/HCPCS: 73502 ==

== ENCOUNTER 2024-12-23 08:25 | Outpatient (AMB) | payer OTHER, SELFPAY ==
[2024-12-23 08:34] VITALS: BP 116/80; PULSE 68; RESP 16; TEMP 36.6; O2SAT 98; BMI 20.1
--- NOTE | 2024-12-23 08:34 | A.OFFPC_ITS ---
Vital Signs 12/23/24 08:34 Height 5 ft 5 in Weight 121 lb BMI 20.1 BP 116/80 Blood Pressure Location Lt brachial Position Sitting Respiration 16 Pulse 68 Pulse Source Pulse Oximeter Temp 97.8 F Temp Source Oral Pulse Oximetry (%) 98 Oxygen Delivery Method Room Air Intake Visit Reasons: ED follow up w/ labs - [facility] ED Allergies Opioids - Morphine Analogues Allergy (Severe, Verified 12/23/24 08:55) convultions sulfabenzamide Allergy (Severe, Verified 12/23/24 08:55) tongue swelled shut gluten (GLUTEN) Allergy (Intermediate, Verified 12/23/24 08:55) INFLAMMATION SYSTEMICALLY mold (MOLD) Allergy (Intermediate, Verified 12/23/24 08:55) UNKNOWN animal dander Allergy (Unknown, Verified 12/23/24 08:55) ASTHMA FLAIRUP Clindamycin HCl Allergy (Unknown, Verified 12/23/24 08:55) rash doxycycline (DOXYCYCLINE) Allergy (Unknown, Verified 12/23/24 08:55) RASH morphine (MORPHINE) Allergy (Unknown, Verified 12/23/24 08:55) SEIZURE LIKE EXPERIENCE - FELT TERRIBLE, convulsions penicillin V Allergy (Unknown, Verified 12/23/24 08:55) rash Penicillins (PENICILLINS) Allergy (Unknown, Verified 12/23/24 08:55) RASH HIVES soybean Allergy (Unknown, Verified 12/23/24 08:55) unknown Sulfa (Sulfonamide Antibiotics) (SULFA (SULFONAMIDE ANTIBIOTICS)) Allergy (Unknown, Verified 12/23/24 08:55) TONGUE SWELLING, swelling of mouth soy Adverse Reaction (Intermediate, Verified 12/23/24 08:55) UPSET STOMACH cefdinir Allergy (Severe, Uncoded 12/23/24 08:55) Severe vomiting DAIRY PRODUCTS Allergy (Intermediate, Uncoded 12/23/24 08:55) INFLAMMATION cats, dogs Allergy (Unknown, Uncoded 12/23/24 08:55) Unknown mole,bread and diary Allergy (Unknown, Uncoded 12/23/24 08:55) Unknown Medication List - Last Reconciled 12/23/24 by Stephania Guaman MD alprazolam 0.25 mg PO DAILY PRN ascorbic acid (vitamin C) (Vitamin C) 500 mg PO DAILY azelastine 1 spray intranasal BID betaxolol 0.25% (Betoptic S) 1 drp ophthalmic (eye) DAILY brimonidine 0.1% (Alphagan P) 1 drp ophthalmic (eye) DAILY carboxymethylcell-glycerin(PF) 0.5-0.9 % (Refresh Optive Sensitive (PF)) 1 drp ophthalmic (eye) DAILY cyclobenzaprine 5 mg PO Q8H PRN cyclosporine 0.05% (Restasis) 1 drp ophthalmic (eye) DAILY diclofenac sodium 50 mg PO Q12H PRN docusate sodium 100 mg PO BID estradiol 10 mcg vaginal 2XW fluorometholone 0.1% 1 drp ophthalmic (eye) NEEDED fluticasone furoate 100 mcg/actuation (Arnuity Ellipta) 1 inh inhalation Q24H fluticasone propionate 50 mcg/actuation 2 sprays intranasal DAILY inhalational spacing device (BreatheRite MDI Spacer) As directed levothyroxine 88 mcg PO DAILY loteprednol etabonate 0.5% (Lotemax) 0.5 drps ophthalmic (eye) DAILY nebulizers (AeroEclipse II Nebulizer) As directed omeprazole 40 mg PO DAILY polyethylene glycol 3350 (Miralax) 17 grams PO BID rosuvastatin 5 mg PO DAILY sodium,potassium,mag sulfates 17.5-3.13-1.6 gram (Suprep Bowel Prep Kit) DILUTE; drink 1/2 at 6-8 pm and half at 11 PM- 1AM Ventolin HFA 90 mcg/actuation (albuterol sulfate) 2 puffs inhalation Q6H PRN NS Tobacco use date assessed: 12/23/24 Dental Screening Dental Screen Date: 12/23/24 Did you have a dental visit in the last 12 months?: Yes Did you have a dental problem in the last 6 months where you did not have access to dental care?: No Was dental information given to patient?: Patient has dentist HPI ED follow up w/ labs - [facility] ED HPI Details - The patient is a 64-year-old female pr esenting today for follow-up after recent ER visit, complaining of right hip pain and paresthesia in the left arm. - Hip pain began after lifting heavy obj ects with her brother, with the onset of symptoms occurring , four days prior to the visit. She described pain as severe, with difficulty bearing weight on right foot and a jabbing sensation, particularly in the right posterior thigh. - The patient has been using a cane for ambulation . She has been taking cyclobenzaprine and diclofenac 12 hours, in addition to applying alternating ice and warm compresses to affected hip, which affords temporary - Paresthesia in the left arm was noted with numbness and tingling, initially thought to be related to anxiety. Reviewed ER note and all testing done came back within normal limits -recent Laboratory results showed elevat ed cholesterol levels, but are nor compared to previous measurements. [facility] Medical History (Updated 12/23/24 @ 09:00 by Stephania Guaman MD) Arm paresthesia, left Dry mouth and eyes Acute respiratory disease Dyslipidemia Cataract of right eye History of adenomatous polyp of colon Recurrent genital herpes Environmental and seasonal allergies Temporomandibular joint dysfunction Immunization refused Hx of breast cancer History of COVID-19 Anxiety disorder Recurrent otitis media Retinal detachment Vini's thyroiditis Mild intermittent asthma Narrow angle glaucoma suspect of both eyes Vitamin D deficiency Acquired hypothyroidism Surgical History Hx of colonoscopy History of surgery H/O myringotomy History of hysterectomy History of eyelid surgery History of eye surgery Family History Father No problems noted. Mother Diabetes mellitus Heart disease Heart attack Brother No problems noted. Brother No problems noted. Brother No problems noted. Brother No problems noted. Brother No problems noted. Social History Household Members: None Housing: House Alcohol intake: current Alcohol intake frequency: a few times a week Patient Tobacco Use Status: Never used Tobacco e-Cigarette/Vaping Use: Never Used service: No Current occupational status: employed Cognitive needs: No Hearing needs: No Vision needs: No Questionnaire Thrive Questionnaire Date Thrive assessed: 11/22/24 PASCUAL-7 AMB Questionnaire PASCUAL-7 Date PASCUAL - 7 assessed: 06/09/23 Source: Developed by Drs. Angel Allen, Manulea Gardner, Emre Palacios and colleagues, with an educational cresencio from [employer] Review of Systems Const All systems reviewed & are unremarkable except as noted in HPI and below Eyes Reports dry eyes ENT Reports dry mouth and Denies mouth lesions Physical exam (Primary Care) Vital Signs: Last Vital Signs Temp 97.8 F 12/23/24 08:34 Pulse 68 12/23/24 08:34 Resp 16 12/23/24 08:34 BP 116/80 12/23/24 08:34 Pulse Ox 98 12/23/24 08:34 Oxygen Delivery Method Room Air 12/23/24 08:34 BMI result Body Mass Index 20.1 Tobacco/Smoking Status: Tobacco use Status Tobacco use date assessed 12/23/24 12/23/24 08:35 Patient Tobacco Use Status Never used Tobacco 12/23/24 08:35 e-Cigarette/Vaping Use Never Used 12/23/24 08:35 Thrive Assessment: Date of Thrive Assessment Date Thrive assessed 11/22/24 12/23/24 08:35 Const General: no acute distress, alert and anxious Nutritional Appearance: average body habitus Orientation/consciousness: patient oriented x3 Limitations: physical limitations HENMT Mouth: Normal oral and palatal mucosa present, oropharynx normal and moist mucous membranes Eyes General: appearance normal, both eyes and all related structures Neck Neck: Yes full ROM, Yes no lymphadenopathy and Yes supple Thyroid: Thyroid normal (Nonpalpable) and nontender Chest Chest palpation & inspection: normal inspection of the chest Resp Effort & Inspection: normal respiratory effort and able to speak in complete sentences Auscultation: clear to auscultation bilaterally Cardio Other: S1-S2 present regular rate and rhythm GI Palpation (GI): Soft to palpation, nontender, no guarding and no masses Auscultation: normal bowel sounds General: Yes no CVA tenderness Back/Spine/Pelvis Back: no CVA tenderness and No back tenderness Skin General skin exam: no rashes or lesions noted Neuro Other: Antalgic gait General: patient oriented x3, tone normal, moves all extremities and no focal motor deficits Extrem Other: Decreased range of motion right hip joint especially on abduction due to pain, no gross bone deformity joint Psych Appearance: grossly normal and well kempt Mental Status: mental status grossly normal Speech and movement: Normal speech and movement present Affect: Anxious affect present Coding Level of Care Code Est Pt Level 4 (99922) Diagnoses Arm paresthesia, left R20.2 Acute right hip pain M25.551 Dry mouth and eyes R68.2; H04.123 Dry eyes H04.123 Dry mouth R68.2 Assessment & Plan Assessment & Plan (1) Arm paresthesia, left: Code(s): R20.2 - Paresthesia of skin Category: Medical (2) Acute right hip pain: Code(s): M25.551 - Pain in right hip Category: Medical (3) Dry mouth and eyes: Code(s): R68.2 - Dry mouth, unspecified; H04.123 - Dry eye syndrome of bilateral lacrimal glands Category: Medical (4) Dry eyes: Code(s): H04.123 - Dry eye syndrome of bilateral lacrimal glands (5) Dry mouth: Code(s): R68.2 - Dry mouth, unspecified Plan Referred to physical therapy for further evaluation evaluation of acute right hip pain hip pain, which is suspected to be due to a strain from lifting heavy objects. An x-ray has already been performed, showing mild joint space narrowing, and further imaging such as an MRI will be considered if symptoms do not improve with therapy. For the paresthesia in the left arm, a nerve conduction study is planned to assess for any nerve involvement. The patient is advised to continue with cyclobenzaprine and diclofenac for pain management, ensuring to take the medication with food to avoid gastrointestinal discomfort. The patient is also advised to follow up with a jewelry polisher for further evaluation of dry mouth and eyes, which may be related to thyroid eye disease. Recent labs showed normal TSH and free T4 levels. Regular monitoring of cholesterol levels is recommended, given the recent improvement in lipid profile. Patient was informed and verbally consented to the use of an ambient scribe for clinic note documentation during this visit. Orders: Orders NE nerve conduction velocity 12/23/24 R20.2 - Paresthesia of skin PT Evaluation and Treatment 12/23/24 M25.551 - Pain in right hip Referrals Rheumatology Referral H04.123 - Dry eye syndrome of bilateral lacrimal glands, R68.2 - Dry mouth, unspecified
--- OUTSIDE RECORDS SUMMARY | 2024-12-23 09:16 | XMS_ITS | Patient Health Record ---
Author Organization [facility] Address [address] [place] [address] Support Name Relationship Address Phone ALIE SIFUENTES Guarantor Unknown [phone] Reason For Referral No Information Medications Medication SIG (Take, Route, Fr equency, Duration) Notes Start Date End Date Status Vitamin D3 1000 IU ORAL daily; Duration: -3 [facility] 2011 Active Levoxyl 75MCG 1 ORAL DAILY; Duration: -3 [facility] 2 Active Multivitamins 1 ORAL daily; Duration: -3 [facility] 2 Active Proventil HFA 108 MCG 2 Inhalation four times daily; Duration: -3 [facility] 07/23/2011 Active Calcium-Carb 600 + D 1 ORAL daily; Duration: -3 [facility]- Active Claritin 10 MG 1 ORAL daily; Duration: -3 [facility]- 09/10/19 12 Active Fish Oil 1 ORAL daily; Duration: -3 [facility]- 09/10/2011 Active Flonase 50MCG 2 Nasal daily; Duration: -3 [facility]- 07/23/19 12 Active Immunizations Vaccine Route Administration Date Status Comme nts Influenza, live, intranasal Intramuscular 07/22/2011 Jake patel Problems Problem Type SNOMED Code ICD Code Onset Dates Problem Status W/U Status Risk Notes Problem Benign neoplasm of skin (79188418) Benign neoplasm of skin, site unspecified (216.9) Active confirmed Diag Problem Hypothyroidism (02717878) Unspecified hypothyroidism (244.9) Active confirmed Major Problem Hyperlipidemia (33932194) Other and unspecified hyperlipidemia (272.4) Active confirmed Major Problem Asthma (disorder) (565266197) Asthma, unspecified, unspecified status (493.90) Active confirmed Major Problem Seborrheic keratosis (46892145) Other seborrheic keratosis (702.19) Active confirmed Diag Problem Joint pain (81074150) Pain in joint, site unspecified (719.40) Active confirmed Diag Problem General examination of patient (173870230) Routine general medical examination at health care facility (V70.0) Active confirmed Diag Plan Of Treatment No Information Insurance Providers Payer Name Payer Address Payer Phone Subscriber Number Group Number Insured Name Patient Relationship to Insured Coverage Start Date Coverage End Date [address] [place] [id number] [id number] BELLE SIFUENTES Spouse - patient is the spouse of the insured 2
--- OUTSIDE RECORDS SUMMARY | 2024-12-23 09:16 | XMS_ITS | Clinical Summary ---
Author Organization [facility] it Address [address] [place] [address] Care Team Providers Care General Scrap Worker Name Role Phone Stephania Guaman MD Primary [...] age to complete this topic Care Teams General Scrap Worker Relationship Specialty Start Date End Date Stephania Guaman MD [address] [place] [address] PCP - General Internal Medicine 03/14/17
== END 2024-12-23 09:14 | disposition home or self-care (01) ==
LOC: HO.HMCC 08:26
PROVIDERS: PCP Internal Medicine; Visit Provider Internal Medicine
DX: R20.2 Paresthesia of skin (principal); M25.551 Pain in right hip; R68.2 Dry mouth, unspecified; H04.123 Dry eye syndrome of bilateral lacrimal glands

== ENCOUNTER → 2024-12-23 08:25 | Outpatient (BNVA) | payer OTHER, SELFPAY | PROVIDERS: PCP Internal Medicine; Visit Provider Internal Medicine | DX: M25.551 Pain in right hip (principal); R20.2 Paresthesia of skin; R68.2 Dry mouth, unspecified; H04.123 Dry eye syndrome of bilateral lacrimal glands | CPT/HCPCS: 99212 ==

== ENCOUNTER → 2025-03-18 07:45 | Outpatient (BNV) | payer OTHER, SELFPAY | PROVIDERS: PCP Internal Medicine; Visit Provider Internal Medicine | DX: Z12.31 Encounter for screening mammogram for malignant neoplasm of breast (principal) | CPT/HCPCS: 77063; 77067 ==

== ENCOUNTER 2025-03-18 07:52 | Outpatient (REF) | payer OTHER, SELFPAY ==
--- NOTE | ~2025-03-18 | MM_ITS ---
EXAMINATION: MM SCREENING DIGITAL BREAST TOMOSYNTHESIS, LEFT CLINICAL INFORMATION: Screening. Asymptomatic. COMPARISON: Mammography: This study is compared with prior exams dating back to TECHNIQUE: Digital breast tomosynthesis is performed in both the craniocaudal and mediolateral oblique views along with computer-aided detection (CAD). Synthesized 2D images are generated from the tomosynthesis. FINDINGS: The breasts are heterogeneously dense, which may obscure small masses. Left: Asymmetry lateral breast far posterior depth on CC view with questioned architectural distortion. Left marker clip. No suspicious calcifications or other abnormal findings. MM/MM tomosynthesis screening LT IMPRESSION: Additional imaging recommended. Patient describes left breast pain which is off and on. Patient does not have pain today. Recommend clinical evaluation and if there is focal pain or if deemed clinically significant a diagnostic workup can be ordered and performed. ASSESSMENT: BI-RADS Category 0: Incomplete - Need additional Imaging Evaluation RECOMMENDATION: 1. Additional views of the left breast. 2. Targeted ultrasound if warranted after review of the additional views. 3. Radiology department staff will contact the patient for additional imaging. Additional Imaging required . Electronically signed by: Maria Isabel Pace DO 03/21/2025 03:09 PM MATTHEW
--- OUTSIDE RECORDS SUMMARY | 2025-03-18 07:55 | XMS_ITS | Data Portability ---
Author Organization [facility], [address] Address [address] [place] [address] Care Team Providers Care Crew Foreman Name Role Phone PINO ABREU Primary Care Provider Assessment No assessment recorded. Plan of Treatment Reminders Order Date Submit Date Provider Last Modified By Organization Details Last Modified Time Details Appointments None recorded. Lab None recorded. Referral None recorded. Procedures None recorded. Surgeries None recorded. Imaging None recorded. Medication Orders cephalexin 500 mg capsule 2022 023 [id number], [address] [place], [address], 3 16:59:00 azithromyci n 250 mg tablet [address] [facility] [address] [facility] [address] [place], [address], 3 16:15:28 albuterol sulfate 2.5 mg/3 mL (0.083 %) solution for nebulizatio n 2022 023 [email or web address] 247 Not available 3 18:49:45 ipratropium bromide 0.02 % solution for inhalation 2022 023 [email or web address] 247 Not available 3 17:51:30 ipratropium 20 mcg-albuter ol 100 mcg/actuati on mist for inhalation [address] [facility], [address] [place], [address], 19:15:31 prednisone 20 mg tablet 2022 023 [facility], [address] [place], [address], 19:15:32 Patient TargetsNo targets recorded. Patient Instructions Encounter Date Encounter Id Patient Instructions Last Modified By Organization Details Last Modified Time 07/13/2022 [id number] cough: care instructions [email or web address] Not available 07/13/2022 17:51:30 peak flow* [email or web address] Not available 17:51:30 08/10/2022 [id number] head or face pain: care instructions Not [...] flow* Pre (L/min) 260 Not Available [facility] [address] [place] [address], [address], 07/13/2022 17:03:05 07/14/19 23 07/13/2022 peak flow* Post (L/min) 410 Not Available que franklin[address] [place], [address], 07/13/2022 17:03:05 07/14/19 23 07/13/2022 peak flow* Pulse 64 Not Available amie christianson [address], [address], 07/13/2022 17:03:05 07/14/19 23 07/13/2022 peak flow* Oxygen Saturation 99 Not Available que franklin[address], [address], 07/13/2022 17:03:05 Result Notes None recorded. 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 Active 023 JAKE DANILO null, PA - [...] Name and Address Organization Details Recorded Time 376805 doxycycli ne Not available Not available Not available Not available 07/13/2022 3640 RxNorm MONIKA QUINTANILLA null, [place] - [facility] 3 16:31:49 256832 clindamyc in Not available Not available Not available Not available 07/13/2022 2582 RxNorm MONIKA QUINTANILLA null, [place] - [facility] 3 16:31:55 267076 Substance with sulfonami de structure and antibacte rial mechanism of action (substanc e) medicatio n Not available Not available Not available 07/13/2022 23499 8003 SNOMED MONIKA QUINTANILLA null, [place] - [facility] 3 16:32:02 856540 Product containin g penicilli n (product) medicatio n Not available Not available Not available 07/13/2022 45428 8001 SNOMED MONIKA QUINTANILLA null, PA - [...] Updated DateTime 3 165.1 cm 20.5 kg/m2 42341.8 6 g 97 [degF] 97 % 97 [...] Updated DateTime 3 165.1 cm 20.3 kg/m2 33037.2 7 g 5 97 % 97 % 71 /min 16 /min 98.6 [degF] 131/82 mm[Hg] JAKE CARRAS[place] - [facility] 3 16:18:59 Social History None recorded. Functional Status Question Answer Note LastModified by Organizat ion Details LastModified Time Do you use any illicit or recreational drugs? No [email or web address] Information not available 07/13/2022 Do you or have you ever used any other forms of tobacco or nicotine? No [email or web address] Information not available 07/13/2022 What is your level of alcohol consumption? None Information not available 07/13/2022 Are you currently employed? Yes [email or web address] Information not available 08/10/2022 Mental Status None recorded. Family History Relationship Description Onset Age of this Age Resolved Age Notes LastModified by Organization Details LastModified Time Mother Heart disease [email or web address] Not available 2022 16:34:31 Mother Diabetes mellitus [email or web address] Not available 2022 16:34:39 Father Chronic obstructive pulmonary disease [email or web address] Not available 2022 16:34:49 Father Malignant melanoma [email or web address] Not available 2022 16:35:00 Medical History No [...] Diagnosis SNOMED-CT Code Diagnosis ICD10 Code Diagnosis IMO Codes Diagnosis Note [id number] [address] [address] [place] [address] 06/17/2017 10:02:30 06/17/2017 11:06:24 [id number] [address] [place] [address] 02/22/2018 15:31:18 02/22/2018 16:41:01 [id number] [address] [place] [address] 02/02/2018 08:03:24 02/02/2018 09:00:04 [id number] [address] [facility] [place] [address] 05/25/2017 11:23:18 05/25/2017 11:48:52 [id number] [address] [facility] [address] [place] [address] 10/14/2016 10:56:11 10/14/2016 11:30:58 [id number] [address] [place] [address] 11/26/2020 16:42:53 11/26/2020 16:43:11 [id number] [address] [facility] [address] [place] [address] 06/21/2017 11:53:31 06/21/2017 13:29:56 [id number] [address] [place] [address] 06/16/2019 08:48:18 06/16/2019 09:14:34 [id number] [address] [facility] [place] [address] 08/07/2016 19:08:06 08/07/2016 19:38:52 [id number] [address] [facility] [facility] [place] [address] 06/23/2017 16:34:40 06/23/2017 18:33:44 [id number] [address] [address] [facility] [place] [address] 07/11/2019 09:23:05 07/11/2019 11:04:58 [id number] [address] [facility] [address] 03/30/2018 12:12:45 03/30/2018 13:33:52 [id number] [address] [place] [address] 05/06/2015 15:03:33 05/06/2015 16:37:42 [id number] [address] [facility] [address] 08/11/2016 12:26:36 08/11/2016 13:19:33 [id number] [address] [facility] [address] 04/01/2017 18:06:32 04/01/2017 19:35:58 [id number] [address] [facility] [address] 04/30/2019 18:38:30 04/30/2019 19:31:57 [id number] [address] [facility] [address] [place] [address] 10/10/2017 19:06:43 10/10/2017 20:39:06 [id number] BETTY NIXON MD [address] [facility] [place] [address] 07/13/2022 12:04:22 07/13/2022 17:59:56 Exacerbation of intermittent asthma 647693740 J45.21 Acute left otitis media 936911204 H66.92 [id number] Jt Jeffries [place] [address] [place] [address] 08/10/2022 15:55:34 08/10/2022 16:50:43 Abscess of face 543353604 L02.01 Health Concerns Section Related Observation LastModified by Organization Detai ls LastModified Time None Recorded Concern Status LastModified by Organization Details LastModified Time None Recorded Advance Directives Directive None Recorded Payers Insurance Date Sequence Insurance Name Policy Number Policy Kennedy Covered Member ID Kennedy Member ID Guarantor Name 10/06/2022 1 [facility] NET PLAN (MEDICAID HMO) [place] Kaylynn Julian [id number] Kaylynn Moyer 07/13/2022 1 [facility] (HMO) [id number] Kaylynn Moyer [id number] Kaylynn Moyer Notes Date Note Type Note Provider Name and Address Organization Details Recorded Time 3 text/html ROS as noted in the HPI HX of asthma. Cough and congestion x 6 days. She has been using her Albuterol inhaler more often than usual. She also has a flovent inhaler that she uses every day. She is not getting results with either. She also has increased pain in the left ear over last 2 days. Afebrile. No n/v/d/rash/headache or other symptoms. BETTY NIXON MD [address] [place], [address], [place] - [facility] 07/13/2022 19:16:11 04/08/202 3 text/html Facial ProblemReported by PatientHPIFor location, patient reportsface rightandmandible right. For severity, patient reportsworseningbut reportsmild. For associated symptoms, patient reportsfacial pain. For onset/timing, patient reportsabrupt. For quality, patient reportspainful. For duration, patient [id number]. For alleviating factors, patient reportsnone. For aggravating factors, patient reportsnone.Mild swelling and tenderness along right side of jaw bone. Jt Jeffries NP [address] [place], [address], [place] - [facility] 08/10/2022 16:59:04 OBGyn Episode No OBEpisode recorded.
--- OUTSIDE RECORDS SUMMARY | 2025-03-18 07:55 | XMS_ITS | Clinical Summary ---
Author Organization [facility] it Address [address] [place] [address] Care Team Providers Care Direct Marketing Analyst Name Role Phone Stephania Guaman MD Primary Care Provider [phone] Surgical History Surgery Date Site/Laterality Comments OTHER [...] (2 - Td or Tdap) 01/24/2021 01/24/2011 Depression Screening 05/05/2024 COVID-19 Vaccine (1 - 2024-2 6 season) 2025 Influenza Vaccine (#1) 2025 RSV Immunization Adult [...] age to complete this topic Care Teams Direct Marketing Analyst Relationship Specialty Start Date End Date Stephania Guaman MD [address] [place] [address] PCP - General Internal Medicine 03/14/17
--- OUTSIDE RECORDS SUMMARY | 2025-03-18 07:55 | XMS_ITS | Patient Health Record ---
Author Organization [facility] Address [address] [facility] [address] [place] [address] Support Name Relationship Address Phone ALIE SIFUENTES Guarantor Unknown [phone] Reason For Referral No Information Medications Medication SIG (Take, Route, Fr equency, Duration) Notes Start Date End Date Status Vitamin D3 1000 IU ORAL daily; Duration: -3 [facility] 2011 Active Levoxyl 75MCG 1 ORAL DAILY; Duration: -3 [facility] 2 Active Multivitamins 1 ORAL daily; Duration: -3 [facility] 2 Active Proventil HFA 108 MCG 2 Inhalation four times daily; Duration: -3 [facility] 07/23/2011 Active Calcium-Carb 600 + D 1 ORAL daily; Duration: -3 [facility]- Active Claritin 10 MG 1 ORAL daily; Duration: -3 [facility]- 09/10/19 12 Active Fish Oil 1 ORAL daily; Duration: -3 [facility]- 09/10/2011 Active Flonase 50MCG 2 Nasal daily; Duration: -3 [facility]- 07/23/19 12 Active Immunizations Vaccine Route Administration Date Status Comme nts Influenza, live, intranasal Intramuscular 07/22/2011 Jake patel Problems Problem Type SNOMED Code ICD Code Onset Dates Problem Status W/U Status Risk Notes Problem Benign neoplasm of skin (14787005) Benign neoplasm of skin, site unspecified (216.9) Active confirmed Diag Problem Hypothyroidism (40607880) Unspecified hypothyroidism (244.9) Active confirmed Major Problem Hyperlipidemia (92646425) Other and unspecified hyperlipidemia (272.4) Active confirmed Major Problem Asthma (disorder) (879007914) Asthma, unspecified, unspecified status (493.90) Active confirmed Major Problem Seborrheic keratosis (04243664) Other seborrheic keratosis (702.19) Active confirmed Diag Problem Joint pain (16835914) Pain in joint, site unspecified (719.40) Active confirmed Diag Problem General examination of patient (662775047) Routine general medical examination at health care facility (V70.0) Active confirmed Diag Plan Of Treatment No Information Insurance Providers Payer Name Payer Address Payer Phone Subscriber Number Group Number Insured Name Patient Relationship to Insured Coverage Start Date Coverage End Date [address] [place] [phone] [id number] BELLE SIFUENTES Spouse - patient is the spouse of the insured 2
== END 2025-03-18 07:53 | disposition home or self-care (01) ==
LOC: HO.MAMMO 07:52
PROVIDERS: PCP Internal Medicine; Visit Provider Internal Medicine
DX: Z12.31 Encounter for screening mammogram for malignant neoplasm of breast (principal)
CPT/HCPCS: 77063; 77067

== ENCOUNTER 2025-03-24 09:26 | Outpatient (AMB) | payer OTHER, SELFPAY ==
--- NOTE | 2025-03-24 09:29 | A.OFFPC_ITS ---
Vital Signs 03/24/25 09:33 Height 5 ft 5 in Weight 113 lb BMI 18.8 BP 90/60 Blood Pressure Location Lt brachial Position Sitting Respiration 16 Pulse 62 Pulse Source Pulse Oximeter Temp 97.8 F Temp Source Oral Pulse Oximetry (%) 96 Oxygen Delivery Method Room Air Intake Visit Reasons: right hip pain Intake Note: Pt is here today c/o Rt hip pain: no injury noted: Currently attending physical therapy Microchip Specialist Required: No Allergies Opioids - Morphine Analogues Allergy (Severe, Verified 03/24/25 09:39) convultions sulfabenzamide Allergy (Severe, Verified 03/24/25 09:39) tongue swelled shut gluten (GLUTEN) Allergy (Intermediate, Verified 03/24/25 09:39) INFLAMMATION SYSTEMICALLY mold (MOLD) Allergy (Intermediate, Verified 03/24/25 09:39) UNKNOWN animal dander Allergy (Unknown, Verified 03/24/25 09:39) ASTHMA FLAIRUP Clindamycin HCl Allergy (Unknown, Verified 03/24/25 09:39) rash doxycycline (DOXYCYCLINE) Allergy (Unknown, Verified 03/24/25 09:39) RASH morphine (MORPHINE) Allergy (Unknown, Verified 03/24/25 09:39) SEIZURE LIKE EXPERIENCE - FELT TERRIBLE, convulsions penicillin V Allergy (Unknown, Verified 03/24/25 09:39) rash Penicillins (PENICILLINS) Allergy (Unknown, Verified 03/24/25 09:39) RASH HIVES soybean Allergy (Unknown, Verified 03/24/25 09:39) unknown Sulfa (Sulfonamide Antibiotics) (SULFA (SULFONAMIDE ANTIBIOTICS)) Allergy (Unknown, Verified 03/24/25 09:39) TONGUE SWELLING, swelling of mouth soy Adverse Reaction (Intermediate, Verified 03/24/25 09:39) UPSET STOMACH cefdinir Allergy (Severe, Uncoded 03/24/25 09:39) Severe vomiting DAIRY PRODUCTS Allergy (Intermediate, Uncoded 03/24/25 09:39) INFLAMMATION cats, dogs Allergy (Unknown, Uncoded 03/24/25 09:39) Unknown mole,bread and diary Allergy (Unknown, Uncoded 03/24/25 09:39) Unknown Medication List - Last Reconciled 03/24/25 by Stephania Guaman MD alprazolam 0.25 mg PO DAILY PRN ascorbic acid (vitamin C) (Vitamin C) 500 mg PO DAILY azelastine 1 spray intranasal BID betaxolol 0.25% (Betoptic S) 1 drp ophthalmic (eye) DAILY brimonidine 0.1% (Alphagan P) 1 drp ophthalmic (eye) DAILY carboxymethylcell-glycerin(PF) 0.5-0.9 % (Refresh Optive Sensitive (PF)) 1 drp ophthalmic (eye) DAILY cyclobenzaprine 5 mg PO BEDTIME PRN cyclosporine 0.05% (Restasis) 1 drp ophthalmic (eye) DAILY diclofenac sodium 50 mg PO Q12H PRN estradiol 10 mcg vaginal 2XW fluorometholone 0.1% 1 drp ophthalmic (eye) NEEDED fluticasone furoate 100 mcg/actuation (Arnuity Ellipta) 1 inh inhalation Q24H fluticasone propionate 50 mcg/actuation 2 sprays intranasal DAILY inhalational spacing device (BreatheRite MDI Spacer) As directed levothyroxine 88 mcg PO DAILY loteprednol etabonate 0.5% (Lotemax) 0.5 drps ophthalmic (eye) DAILY nebulizers (AeroEclipse II Nebulizer) As directed omeprazole 40 mg PO DAILY polyethylene glycol 3350 17 grams PO BID prednisone 5 mg PO DAILY rosuvastatin 5 mg PO DAILY sodium,potassium,mag sulfates 17.5-3.13-1.6 gram (Suprep Bowel Prep Kit) DILUTE; drink 1/2 at 6-8 pm and half at 11 PM- 1AM valacyclovir 500 mg PO Q12H 3 days Ventolin HFA 90 mcg/actuation (albuterol sulfate) 2 puffs inhalation Q6H PRN NS Tobacco use date assessed: 12/23/24 Dental Screening Dental Screen Date: 03/24/25 Did you have a dental visit in the last 12 months?: Yes Did you have a dental problem in the last 6 months where you did not have access to dental care?: No Was dental information given to patient?: Patient has dentist HPI right hip pain HPI Details The patient is a 64 year old individual presenting with persistent right hip pain. The patient is currently in the second round of physical therapy, with only one or two sessions remaining. While the exercises provide some temporary relief, the pain has not resolved. The patient reports being unable to turn in a certain way due to severe pain and mentions that the area is very swollen. The patient was diagnosed with scoliosis and was advised by the physical therapist to request an MRI to investigate a possible tear. HPI Comments History of Present Illness Details Chief Complaint The patient presents with persistent right hip pain that has not improved with physical therapy. History of Present Illness The patient is a 64 year old individual presenting with persistent right hip pain. The patient is currently in the second round of physical therapy, with only one or two sessions remaining. While the exercises provide some temporary relief, the pain has not resolved. The patient reports being unable to turn in a certain way due to severe pain and mentions that the area is very swollen. The patient was diagnosed with scoliosis and was advised by the physical therapist to request an MRI to investigate a possible tear. [facility] Medical History Chronic right hip pain Arm paresthesia, left Dry mouth and eyes Acute respiratory disease Dyslipidemia Cataract of right eye History of adenomatous polyp of colon Recurrent genital herpes Environmental and seasonal allergies Temporomandibular joint dysfunction Immunization refused Hx of breast cancer History of COVID-19 Anxiety disorder Recurrent otitis media Retinal detachment Vini's thyroiditis Mild intermittent asthma Narrow angle glaucoma suspect of both eyes Vitamin D deficiency Acquired hypothyroidism Surgical History Hx of colonoscopy History of surgery H/O myringotomy History of hysterectomy History of eyelid surgery History of eye surgery Family History Father No problems noted. Mother Diabetes mellitus Heart disease Heart attack Brother No problems noted. Brother No problems noted. Brother No problems noted. Brother No problems noted. Brother No problems noted. Social History Household Members: None Housing: House Alcohol intake: current Alcohol intake frequency: a few times a week Patient Tobacco Use Status: Never used Tobacco e-Cigarette/Vaping Use: Never Used service: No Current occupational status: employed Cognitive needs: No Hearing needs: No Vision needs: No Questionnaire PHQ-9 Over the last 2 weeks, how often have you been bothered by any of the following problems? 1. Little interest or pleasure in doing things: not at all 2. Feeling down, depressed, or hopeless: not at all 3. Trouble falling or staying asleep, or sleeping too much: not at all 4. Feeling tired or having little energy: several days 5. Poor appetite or overeating: not at all 6. Feeling bad about yourself - or that you are a failure or have let yourself or your family down: not at all 7. Trouble concentrating on things, such as reading the newspaper or watching television: not at all 8. Moving or speaking so slowly that other people could have noticed. Or the opposite - being so fidgety or restless that you have been moving around a lot more than usual: not at all 9. Thoughts that you would be better off or of hurting yourself in some way: not at all Total score: 1 Source: Developed by Drs. Angel Allen, Manuela Gardenr, Emre Palacios and colleagues, with an educational cresencio from [employer]. Thrive Questionnaire Date Thrive assessed: 11/22/24 I am a: Patient What is your living situation today?: I have a steady place to live Within the past 12 months, did the food you bought not last and you didn't have the money to get more?: Never true Within the past 12 months, did you worry whether your food would run out before you got money to buy more?: Never true Do you have trouble paying for medicines?: No Do you have trouble getting transportation to medical appointments?: No Do you have trouble paying your heating and electricity bill?: No Do you have trouble taking care of your child, family member or friend?: No Do you have trouble with day-to-day activities such as bathing, preparing meals, shopping, managing finances, etc.?: No Are you currently unemployed and looking for a job?: No Are you interested in more education?: No THRIVE Score: 0 AUDIT C Alcohol Use Questionnaire (AUDIT-C) 1. How often do you have a drink containing alcohol?: Never Total Score: 0 PASCUAL-7 AMB Questionnaire PASCUAL-7 Date PASCUAL - 7 assessed: 03/24/25 Feeling nervous, anxious, or on edge: 0 = Not at all Not being able to stop or control worryin = Not at all Worrying too much about different things: 0 = Not at all Trouble relaxin = Not at all Being so restless that it is hard to sit still: 0 = Not at all Becoming easily annoyed or irritable: 0 = Not at all Feeling afraid as if something awful might happen: 0 = Not at all Total PASCUAL-7 score (0-4 normal; 5-9 mild; 10-14 moderate; 15-21 severe): 0 Source: Developed by Drs. Angel Allen, Manuela Gardner, Emre Palacios and colleagues, with an educational cresencio from [employer]. PASCUAL-7 Assessment Billing PASCUAL-7 Assessment Tool: PASCUAL-7 Assessment 17655 Review of Systems Narrative Review of Systems - Musculoskeletal: Reports right hip pain with limited range of motion. - Integumentary: Reports swelling in the right hip area. Const All systems reviewed & are unremarkable except as noted in HPI and below Physical exam (Primary Care) Vital Signs: Last Vital Signs Temp 97.8 F 03/24/25 09:33 Pulse 62 03/24/25 09:33 Resp 16 03/24/25 09:33 BP 90/60 03/24/25 09:33 Pulse Ox 96 03/24/25 09:33 Oxygen Delivery Method Room Air 03/24/25 09:33 BMI result Body Mass Index 18.8 Tobacco/Smoking Status: Tobacco use Status Tobacco use date assessed 12/23/24 03/24/25 09:31 Patient Tobacco Use Status Never used Tobacco 03/24/25 09:31 e-Cigarette/Vaping Use Never Used 03/24/25 09:31 PHQ-9: PHQ-9 Score PHQ-9: Total score 1 03/24/25 09:31 Thrive Assessment: Date of Thrive Assessment Date Thrive assessed 11/22/24 03/24/25 09:31 Narrative Physical Exam Const General: alert Nutritional Appearance: average body habitus Orientation/consciousness: patient oriented x3 Neck Neck: Yes full ROM, Yes no lymphadenopathy and Yes supple Thyroid: Thyroid normal (Nonpalpable) and nontender General: Yes no CVA tenderness Back/Spine/Pelvis Back: no CVA tenderness and No back tenderness Neuro General: patient oriented x3, tone normal, moves all extremities and no focal motor deficits Extrem Other: Decreased range of motion right hip joint especially on abduction due to pain, no gross bone deformity joint Coding Level of Care Code Est Pt Level 4 (74210) Diagnoses Chronic right hip pain M25.551; G89.29 Additional Codes PASCUAL-7 Assessment Billing - PASCUAL-7 Assessment Tool: PASCUAL-7 Assessment 27529 ([id number]) Assessment & Plan Assessment & Plan (1) Chronic right hip pain: Code(s): M25.551 - Pain in right hip; G89.29 - Other chronic pain Category: Medical Plan: Physical therapy only affording temporary relief, patient has been taking diclofenac and cyclobenzaprine as needed again affording only temporary relief of pain. Ordered an MRI of right hip joint without contrast for further evaluation management and will refer to orthopedics if indicated Plan Assessment and Plan Patient was informed and verbally consented to the use of an ambient scribe for clinic note documentation during this visit. Discussion Notes Patient was informed and verbally consented to the use of an ambient scribe for clinic note documentation during this visit. Orders: Orders MR hip RT wo con Today G89.29 - Other chronic pain, M25.551 - Pain in right hip Medications: New cyclobenzaprine 5 mg PO BEDTIME PRN 14 tabs 0RF muscle spasm Refilled diclofenac sodium 50 mg PO Q12H PRN 10 tabs 0RF pain
[2025-03-24 09:33] VITALS: BP 90/60; PULSE 62; RESP 16; TEMP 36.6; O2SAT 96; BMI 18.8
--- OUTSIDE RECORDS SUMMARY | 2025-03-24 13:04 | XMS_ITS | Data Portability ---
Author Organization [facility], [address] Address [address] [place] [address] Care Team Providers Care Resource Specialist Name Role Phone PINO ABREU Primary Care Provider Assessment No assessment recorded. Plan of Treatment Reminders Order Date Submit Date Provider Last Modified By Organization Details Last Modified Time Details Appointments None recorded. Lab None recorded. Referral None recorded. Procedures None recorded. Surgeries None recorded. Imaging None recorded. Medication Orders cephalexin 500 mg capsule 2022 023 [facility] #[id number], [address] [place], [address], 3 16:59:00 azithromyci n 250 mg tablet [address] [facility] [address] [place], [address], 3 16:15:28 albuterol sulfate 2.5 mg/3 mL (0.083 %) solution for nebulizatio n 2022 023 [email or web address] 247 Not available 3 18:49:45 ipratropium bromide 0.02 % solution for inhalation 2022 023 [email or web address] 247 Not available 3 17:51:30 ipratropium 20 mcg-albuter ol 100 mcg/actuati on mist for inhalation 2022 023 [facility], [address] [place], [address], 19:15:31 prednisone 20 mg tablet 2022 023 [facility], [address] [place], [address], 19:15:32 Patient TargetsNo targets recorded. Patient Instructions Encounter Date Encounter Id Patient Instructions Last Modified By Organization Details Last Modified Time 07/13/2022 [id number] cough: care instructions [email or web address] Not available 07/13/2022 17:51:30 peak flow* [email or web address] Not available 17:51:30 08/10/2022 [id number] head or face pain: care instructions Not [...] flow* Pre (L/min) 260 Not Available [address] [facility] [address] [place] [address], [address], 07/13/2022 17:03:05 07/14/19 23 07/13/2022 peak flow* Post (L/min) 410 Not Available que franklin[address] [place], [address], 07/13/2022 17:03:05 07/14/19 23 07/13/2022 peak flow* Pulse 64 Not Available amie christianson [address], [address], 07/13/2022 17:03:05 07/14/19 23 07/13/2022 peak flow* Oxygen Saturation 99 Not Available que frank[address], [address], 07/13/2022 17:03:05 Result Notes None recorded. Problems Name Problem SNOMED Code Status Onset Date Resolution Date Notes Provider Name and Address Organization Details Recorded Time Graves' disease 414470852 Active 023 MONIKA QUINTANILLA null, PA - [facility] 16:33:30 Glaucoma 66258136 Active 023 MONIKA QUINTANILLA null, PA - [facility] 16:33:36 Malignant neoplasm of breast 056696074 Active 023 MONIKA QUINTANILLA null, PA - [facility] 16:35:57 Thyroid eye disease 897671580 Active 023 JAKE DANILO null, PA - [...] Name and Address Organization Details Recorded Time 746456 doxycycli ne Not available Not available Not available Not available 07/13/2022 3640 RxNorm MONIKA QUINTANILLA null, PA - [facility] 3 16:31:49 120509 clindamyc in Not available Not available Not available Not available 07/13/2022 2582 RxNorm MONIKA QUINTANILLA null, PA - [facility] 3 16:31:55 362452 Substance with sulfonami de structure and antibacte rial mechanism of action (substanc e) medicatio n Not available Not available Not available 07/13/2022 48078 8003 SNOMED MONIKA QUINTANILLA null, PA - [facility] 3 16:32:02 562568 Product containin g penicilli n (product) medicatio n Not available Not available Not available 07/13/2022 89188 8001 SNOMED MONIKA QUINTANILLA null, PA - [...] (BMI) Body weight Body temperature Oxygen saturation Heart rate Respiratory rate Systolic And Diastolic Provider Name and Address Organization Details Last Updated DateTime 3 165.1 cm 20.5 kg/m2 22261.8 6 g 97 [degF] 97 % 59 /min 16 /min 118/66 mm[Hg] MONIKA QUINTANILLA PA - [facility] 3 16:39:15 Date Recorded Body height Body mass index (BMI) Body weight Pain severity - 0-10 verbal numeric rating [Score] - Reported Oxygen saturation Heart rate Respiratory rate Body temperature Systolic And Diastolic Provider Name and Address Organization Details Last Updated DateTime 3 165.1 cm 20.3 kg/m2 53580.2 7 g 5 97 % 71 /min 16 /min 98.6 [degF] 131/82 mm[Hg] JAKE CARRASCO PA - [facility] 3 16:18:59 Social History None recorded. Functional Status Question Answer Note LastModified by Organizat ion Details LastModified Time Do you use any illicit or recreational drugs? No [email or web address] Information not available 07/13/2022 Do you or have you ever used any other forms of tobacco or nicotine? No [email or web address] Information not available 07/13/2022 What is your level of alcohol consumption? None [email or web address] Information not available 07/13/2022 Are you currently employed? Yes [email or web address] Information not available 08/10/2022 Mental Status None recorded. Family History Relationship Description Onset Age of this Age Resolved Age Notes LastModified by Organization Details LastModified Time Mother Heart disease [email or web address] Not available 2022 16:34:31 Mother Diabetes mellitus [email or web address] Not available 2022 16:34:39 Father Chronic obstructive pulmonary disease [email or web address] Not available 2022 16:34:49 Father Malignant melanoma [email or web address] Not available 2022 16:35:00 Medical History No medical history recorded. Gynecological HistoryNo gynecological history recorded. Obstetrics History GPAL:G 0 P 0 0 0 0 Immunizations Vaccine Type Date Status Note Provider Nam e and Address Organization Details Recorded Time Td (adult), 2 Lf tetanus toxoid, preservative free, adsorbed 1 completed JAKE restrepo PA - [facility] 08/10/2022 16:14:26 Past Encounters Encounter ID Performer Location Encounter Start Date Encounter Closed Date Diagnosis/Indication Diagnosis SNOMED-CT Code Diagnosis ICD10 Code Diagnosis IMO Codes Diagnosis Note [id number] [address] [place] [address] 06/17/2017 10:02:30 06/17/2017 11:06:24 [id number] [address] [place] [address] 02/22/2018 15:31:18 02/22/2018 16:41:01 [id number] [address] [place] [address] 02/02/2018 08:03:24 02/02/2018 09:00:04 [id number] [address] [place] [address] 05/25/2017 11:23:18 05/25/2017 11:48:52 [id number] [address] [place] [address] 10/14/2016 10:56:11 10/14/2016 11:30:58 [id number] [address] [place] [address] 11/26/2020 16:42:53 11/26/2020 16:43:11 [id number] [address] [place] [address] 06/21/2017 11:53:31 06/21/2017 13:29:56 [id number] [address] [place] [address] 06/16/2019 08:48:18 06/16/2019 09:14:34 [id number] [address] [place] [address] 08/07/2016 19:08:06 08/07/2016 19:38:52 [id number] [address] [place] [address] 06/23/2017 16:34:40 06/23/2017 18:33:44 [id number] [address] [place] [address] 07/11/2019 09:23:05 07/11/2019 11:04:58 [id number] [address] [place] [address] 03/30/2018 12:12:45 03/30/2018 13:33:52 [id number] [address] [place] [address] 05/06/2015 15:03:33 05/06/2015 16:37:42 [id number] [address] [place] [address] 08/11/2016 12:26:36 08/11/2016 13:19:33 [id number] [address] [place] [address] 04/01/2017 18:06:32 04/01/2017 19:35:58 [id number] [address] [place] [address] 04/30/2019 18:38:30 04/30/2019 19:31:57 [id number] [address] [facility] [place] [address] 10/10/2017 19:06:43 10/10/2017 20:39:06 [id number] BETTY NIXON MD [address] [facility] [place] [address] 07/13/2022 12:04:22 07/13/2022 17:59:56 Exacerbation of intermittent asthma 025027546 J45.21 Acute left otitis media 536482379 H66.92 [id number] Jt Jeffries NP [address] [facility] [address] 08/10/2022 15:55:34 08/10/2022 16:50:43 Abscess of face 682659270 L02.01 Health Concerns Section Related Observation LastModified by Organization Detai ls LastModified Time None Recorded Concern Status LastModified by Organization Details LastModified Time None Recorded Advance Directives Directive None Recorded Payers Insurance Date Sequence Insurance Name Policy Number Policy Kennedy Covered Member ID Kennedy Member ID Guarantor Name 10/06/2022 1 [facility] PLAN (MEDICAID HMO) [place] Kaylynn Julian [id number] Kaylynn Moyer 07/13/2022 1 [facility] (HMO) [id number] Kaylynn Moyer [id number] Kaylynn Moyer Notes Date Note Type Note [...] n/v/d/rash/headache or other symptoms. BETTY NIXON MD [address] [place], [place] [address], [address], PA - [facility] 07/13/2022 19:16:11 3 text/html Facial ProblemReported by PatientHPIFor location, patient reportsface rightandmandible right. For severity, patient reportsworseningbut reportsmild. For associated symptoms, patient reportsfacial pain. For onset/timing, patient reportsabrupt. For quality, patient reportspainful. For duration, patient [id number]. For alleviating factors, patient reportsnone. For aggravating factors, patient reportsnone.Mild swelling and tenderness along right side of jaw bone. Jt Jeffries NP [address] [place], [address], [place] - [facility] 08/10/2022 16:59:04 OBGyn Episode No OBEpisode recorded.
== END 2025-03-24 11:33 | disposition home or self-care (01) ==
LOC: HO.HMCC 09:27
PROVIDERS: PCP Internal Medicine; Visit Provider Internal Medicine
DX: M25.551 Pain in right hip (principal); G89.29 Other chronic pain

== ENCOUNTER → 2025-03-24 09:26 | Outpatient (BNVA) | payer OTHER, SELFPAY | PROVIDERS: PCP Internal Medicine; Visit Provider Internal Medicine | DX: M25.551 Pain in right hip (principal); G89.29 Other chronic pain; Z13.31 Encounter for screening for depression; Z13.39 Encounter for screening examination for other mental health and behavioral disorders | CPT/HCPCS: 96127; 99212 ==

== ENCOUNTER 2025-03-28 08:30 | Outpatient (REF) | payer OTHER, SELFPAY ==
--- NOTE | ~2025-03-28 | MM_ITS ---
EXAMINATION(S): MM DIAGNOSTIC DIGITAL BREAST TOMOSYNTHESIS, LEFT CLINICAL INFORMATION: Callback from screening for asymmetry is seen in the lateral breast posterior depth on the CC view with questioned architectural distortion. History of right mastectomy. When asked about the right breast pain today , the patient states no pain per se, it is soreness throughout her breast on and off . COMPARISON: Comparison made to multiple prior, most recent March 18, 2025, and most remote November 06, 2017. TECHNIQUE: Digital breast tomosynthesis is performed in full-field ML 90 and XCCL views along with computer-aided detection (CAD). Synthesized 2D images are generated from the tomosynthesis. Spot compression tomosynthesis were obtained. FINDINGS: BREAST COMPOSITION: The breasts are heterogeneously dense, which may obscure small masses. LEFT BREAST: Previously suggested asymmetry in the lateral breast posterior depth correlates with the asymmetry seen in the upper breast on MLO view posterior depth. This focal asymmetry is pliable with spot compression and on today's images, has similar appearance as far back as 2017, therefore, most likely represents overlapping fibroglandular breast tissue. MM/MM tomosynthesis added views L IMPRESSION: LEFT BREAST: Negative, no mammographic evidence of malignancy. Patient may return to routine screening mammogram in 12 months. ASSESSMENT: BI-RADS: Category 1: Negative RECOMMENDATION: 1 year F/U Results were provided to the patient at time of visit by the technologist. This patient's information was entered into a reminder system with a target due date for their next mammogram. Electronically signed by: Kimberly Brown MD 03/28/2025 09:26 AM [facility]
--- OUTSIDE RECORDS SUMMARY | 2025-03-28 08:43 | XMS_ITS | Clinical Summary ---
Author Organization [facility] it Address [address] [place] [address] Care Team Providers Care Hims Clerk Name Role Phone Stephania Guaman MD Primary Care Provider [phone] Surgical History Surgery Date Site/Laterality Comments OTHER [...] age to complete this topic Care Teams Hims Clerk Relationship Specialty Start Date End Date Stephania Guaman MD [address] [place] [address] PCP - General Internal Medicine 03/14/17
--- OUTSIDE RECORDS SUMMARY | 2025-03-28 08:43 | XMS_ITS | Patient Health Record ---
Author Organization [facility] Address [address] [facility] [address] [place] [address] Support Name Relationship Address Phone ALIE SIFUENTES Guarantor Unknown [phone] Reason For Referral No Information Medications Medication SIG (Take, Route, Fr equency, Duration) Notes Start Date End Date Status Vitamin D3 1000 IU ORAL daily; Duration: -3 [facility] 2011 Active Levoxyl 75MCG 1 ORAL DAILY; Duration: -3 [facility] 2 Active Multivitamins 1 ORAL daily; Duration: -3 [facility] 2 Active Proventil HFA 108 MCG 2 Inhalation four times daily; Duration: -3 [facility] 07/23/2011 Active Calcium-Carb 600 + D 1 ORAL daily; Duration: -3 [facility]- Active Claritin 10 MG 1 ORAL daily; Duration: -3 [facility]- 09/10/19 12 Active Fish Oil 1 ORAL daily; Duration: -3 [facility]- 09/10/2011 Active Flonase 50MCG 2 Nasal daily; Duration: -3 [facility]- 07/23/19 12 Active Immunizations Vaccine Route Administration Date Status Comme nts Influenza, live, intranasal Intramuscular 07/22/2011 Jake patel Problems Problem Type SNOMED Code ICD Code Onset Dates Problem Status W/U Status Risk Notes Problem Benign neoplasm of skin (33647762) Benign neoplasm of skin, site unspecified (216.9) Active confirmed Diag Problem Hypothyroidism (65256096) Unspecified hypothyroidism (244.9) Active confirmed Major Problem Hyperlipidemia (75102820) Other and unspecified hyperlipidemia (272.4) Active confirmed Major Problem Asthma (disorder) (441756284) Asthma, unspecified, unspecified status (493.90) Active confirmed Major Problem Seborrheic keratosis (94851902) Other seborrheic keratosis (702.19) Active confirmed Diag Problem Joint pain (47107416) Pain in joint, site unspecified (719.40) Active confirmed Diag Problem General examination of patient (663875469) Routine general medical examination at health care facility (V70.0) Active confirmed Diag Plan Of Treatment No Information Insurance Providers Payer Name Payer Address Payer Phone Subscriber Number Group Number Insured Name Patient Relationship to Insured Coverage Start Date Coverage End Date [address] [place] [phone] [id number] BELLE SIFUENTES Spouse - patient is the spouse of the insured 2
== END 2025-03-28 08:31 | disposition home or self-care (01) ==
LOC: HO.MAMMO 08:30
PROVIDERS: PCP Internal Medicine; Visit Provider Internal Medicine
DX: N64.89 Other specified disorders of breast (principal)
CPT/HCPCS: 77061; 77065

== ENCOUNTER → 2025-03-28 08:30 | Outpatient (BNV) | payer OTHER, SELFPAY | PROVIDERS: PCP Internal Medicine; Visit Provider Radiology Body Imaging | DX: N64.4 Mastodynia (principal); R92.8 Other abnormal and inconclusive findings on diagnostic imaging of breast | CPT/HCPCS: 77061; 77065 ==

== ENCOUNTER 2025-03-30 07:55 | Outpatient (AMB) | payer OTHER, SELFPAY ==
[2025-03-30 08:03] VITALS: BP 100/70; PULSE 71; TEMP 36.9; O2SAT 97; BMI 19.0
--- NOTE | 2025-03-30 08:03 | MHC.OFFWIV ---
Intake Vital Signs 03/30/25 08:03 Height 5 ft 5 in Weight 114 lb BMI 19.0 BP 100/70 Blood Pressure Location Lt brachial Position Sitting Pulse 71 Pulse Source Pulse Oximeter Temp 98.4 F Temp Source Oral Pulse Oximetry (%) 97 Oxygen Delivery Method Room Air Intake Visit Reasons: EP Sinus congestion, fatigue Intake Note: Patient presents c/o sinus congestion, mild swelling under both eyes, nose is inflamed x2 weeks. Patient Tobacco Use Status: Never used Tobacco Allergies Opioids - Morphine Analogues Allergy (Severe, Verified 03/30/25 08:07) convultions sulfabenzamide Allergy (Severe, Verified 03/30/25 08:07) tongue swelled shut gluten (GLUTEN) Allergy (Intermediate, Verified 03/30/25 08:07) INFLAMMATION SYSTEMICALLY mold (MOLD) Allergy (Intermediate, Verified 03/30/25 08:07) UNKNOWN animal dander Allergy (Unknown, Verified 03/30/25 08:07) ASTHMA FLAIRUP Clindamycin HCl Allergy (Unknown, Verified 03/30/25 08:07) rash doxycycline (DOXYCYCLINE) Allergy (Unknown, Verified 03/30/25 08:07) RASH morphine (MORPHINE) Allergy (Unknown, Verified 03/30/25 08:07) SEIZURE LIKE EXPERIENCE - FELT TERRIBLE, convulsions penicillin V Allergy (Unknown, Verified 03/30/25 08:07) rash Penicillins (PENICILLINS) Allergy (Unknown, Verified 03/30/25 08:07) RASH HIVES soybean Allergy (Unknown, Verified 03/30/25 08:07) unknown Sulfa (Sulfonamide Antibiotics) (SULFA (SULFONAMIDE ANTIBIOTICS)) Allergy (Unknown, Verified 03/30/25 08:07) TONGUE SWELLING, swelling of mouth soy Adverse Reaction (Intermediate, Verified 03/30/25 08:07) UPSET STOMACH cefdinir Allergy (Severe, Uncoded 03/30/25 08:07) Severe vomiting DAIRY PRODUCTS Allergy (Intermediate, Uncoded 03/30/25 08:07) INFLAMMATION cats, dogs Allergy (Unknown, Uncoded 03/30/25 08:07) Unknown mole,bread and diary Allergy (Unknown, Uncoded 03/30/25 08:07) Unknown HPI HPI Comments History of Present Illness Details She presents to office with concern sinusitis She said ongoing x a few weeks (approx 3) She said she has autoimmune disease and gets infected She is now to the point of nasal tenderness to palpation Admits to L gland swollen LN, L ear burning, congestion and sinus pressure No fever but + chills + fatigue Feels like swollen under eyes Patient has tried nasal spray which she takes at baseline, tried saline, natural herbs, vitamins without relief No cough, CP or SOB (has asthma so sometimes gets irritated) PFSH Medical History Chronic right hip pain Arm paresthesia, left Dry mouth and eyes Acute respiratory disease Dyslipidemia Cataract of right eye History of adenomatous polyp of colon Recurrent genital herpes Environmental and seasonal allergies Temporomandibular joint dysfunction Immunization refused Hx of breast cancer History of COVID-19 Anxiety disorder Recurrent otitis media Retinal detachment Vini's thyroiditis Mild intermittent asthma Narrow angle glaucoma suspect of both eyes Vitamin D deficiency Acquired hypothyroidism Surgical History Hx of colonoscopy History of surgery H/O myringotomy History of hysterectomy History of eyelid surgery History of eye surgery Family History Father No problems noted. Mother Diabetes mellitus Heart disease Heart attack Brother No problems noted. Brother No problems noted. Brother No problems noted. Brother No problems noted. Brother No problems noted. Social History Household Members: None Housing: House Alcohol intake: current Alcohol intake frequency: a few times a week Patient Tobacco Use Status: Never used Tobacco e-Cigarette/Vaping Use: Never Used service: No Current occupational status: employed Cognitive needs: No Hearing needs: No Vision needs: No Review of Systems Const Reports chills, Reports fatigue, Denies fever(s) and Reports headache(s) Eyes Denies change in vision ENT Denies dizziness, Reports headache(s), Denies mouth pain, Reports nasal congestion, Reports nasal obstruction, Reports sinus pressure, Denies sore throat, Denies throat swelling and Denies tongue swelling Card Denies chest pain, Denies syncope and Denies dyspnea Resp Denies cough and Denies dyspnea Skin/Breast Denies rash Neuro Denies confusion, Denies dizziness, Denies syncope and Reports headache(s) Psych Denies confusion Endo Reports fatigue Aller/Immun Denies throat swelling and Denies tongue swelling Physical Exam Exam Exam: General: Non-toxic, NAD. Speaking full sentences. Skin: Warm dry throughout Eye: EOMI, PERRLA HENT: Airway patent. Uvula midline. No pharyngeal erythema or edema. No SOFTWARE SYSTEMS ARCHITECT. +sinus ttp maxillary and frontal sinuses. Bilateral canals clear. TM non-erythematous, non-bulging. No TM perforation or hemotympanum noted. Respiratory: CTA bilaterally. No wheezes, rales or rhonchi Cardiac: RRR. No murmur MSK: Full ROM extremities. Neurology: Alert. No aphasia or facial droop. Gait without abnormality Psych: Good mood and affect Vital Signs: Last Vital Signs Temp 98.4 F 03/30/25 08:03 Pulse 71 03/30/25 08:03 BP 100/70 03/30/25 08:03 Pulse Ox 97 03/30/25 08:03 Oxygen Delivery Method Room Air 03/30/25 08:03 BMI result Body Mass Index 19.0 Const General: No confusion Orientation/consciousness: No confusion Neuro General: No confusion Assessment & Plan Assessment & Plan (1) Sinusitis: Code(s): J32.9 - Chronic sinusitis, unspecified Qualifiers: Sinusitis location: maxillary Chronicity: acute Recurrence: non-recurrent Qualified Code(s): J01.00 - Acute maxillary sinusitis, unspecified Plan: Patient seen and evaluated. Outside timeframe for viral swab symptoms x 3 weeks Azithromycin and prednisone No alcohol with meds No nsaids Take with food and early in day F/U with PCP Patient gave verbal understanding and had no additional questions or concerns at time of discharge All questions answered Medications: New azithromycin start on day 2 of therapy 250 mg PO DAILY 6 tabs 0RF 6 days prednisone take 2 pills together daily with food early. No alcohol or NSAIDs 40 mg (2 x 20 mg) PO DAILY 10 tabs 0RF 5 days Coding Level of Care Code Est Pt Level 3 (34726) Diagnoses Acute non-recurrent maxillary sinusitis J01.00 Sinusitis location: maxillary Chronicity: acute Recurrence: non-recurrent
--- OUTSIDE RECORDS SUMMARY | 2025-03-30 08:04 | XMS_ITS | Clinical Summary ---
Author Organization [facility] it Address [address] [place] [address] Care Team Providers Care Water Filterer Name Role Phone Stephania Guaman MD Primary [...] age to complete this topic Care Teams Water Filterer Relationship Specialty Start Date End Date Stephania Guaman MD [address] [place] [address] PCP - General Internal Medicine 03/14/17
--- OUTSIDE RECORDS SUMMARY | 2025-03-30 08:04 | XMS_ITS | Patient Health Record ---
Author Organization [facility] Address [address] [facility] [address] [place] [address] Support Name Relationship Address Phone ALIE SIFUENTES Guarantor Unknown [phone] Reason For Referral No Information Medications Medication SIG (Take, Route, Fr equency, Duration) Notes Start Date End Date Status Vitamin D3 1000 IU ORAL daily; Duration: -3 [facility] 2011 Active Levoxyl 75MCG 1 ORAL DAILY; Duration: -3 [facility] 2 Active Multivitamins 1 ORAL daily; Duration: -3 [facility] 2 Active Proventil HFA 108 MCG 2 Inhalation four times daily; Duration: -3 [facility] 07/23/2011 Active Calcium-Carb 600 + D 1 ORAL daily; Duration: -3 [facility]- Active Claritin 10 MG 1 ORAL daily; Duration: -3 [facility]- 09/10/19 12 Active Fish Oil 1 ORAL daily; Duration: -3 [facility]- 09/10/2011 Active Flonase 50MCG 2 Nasal daily; Duration: -3 [facility]- 07/23/19 12 Active Immunizations Vaccine Route Administration Date Status Comme nts Influenza, live, intranasal Intramuscular 07/22/2011 Jake patel Problems Problem Type SNOMED Code ICD Code Onset Dates Problem Status W/U Status Risk Notes Problem Benign neoplasm of skin (13375776) Benign neoplasm of skin, site unspecified (216.9) Active confirmed Diag Problem Hypothyroidism (93507039) Unspecified hypothyroidism (244.9) Active confirmed Major Problem Hyperlipidemia (32446042) Other and unspecified hyperlipidemia (272.4) Active confirmed Major Problem Asthma (disorder) (076932333) Asthma, unspecified, unspecified status (493.90) Active confirmed Major Problem Seborrheic keratosis (27330723) Other seborrheic keratosis (702.19) Active confirmed Diag Problem Joint pain (73621346) Pain in joint, site unspecified (719.40) Active confirmed Diag Problem General examination of patient (587223985) Routine general medical examination at health care facility (V70.0) Active confirmed Diag Plan Of Treatment No Information Insurance Providers Payer Name Payer Address Payer Phone Subscriber Number Group Number Insured Name Patient Relationship to Insured Coverage Start Date Coverage End Date [address] [place] [phone] [id number] BELLE SFIUENTES Spouse - patient is the spouse of the insured 2
== END 2025-03-30 09:14 | disposition home or self-care (01) ==
PROVIDERS: PCP Internal Medicine; Visit Provider Physician Assistant
DX: J01.00 Acute maxillary sinusitis, unspecified (principal)

== ENCOUNTER 2025-03-30 07:55 | Outpatient (REF) | payer OTHER, SELFPAY ==
[2025-03-30 12:09] LABS: Resp Syncy Virus RNA Qual PCR NEGATIVE (Negative); SARS COV2 PCR INHOUSE NEGATIVE (Negative)
--- OUTSIDE RECORDS SUMMARY | 2025-03-30 12:39 | XMS_ITS | Data Portability ---
Author Organization [facility] [address] Address [address] [place] [address] Care Team Providers Care Biochemistry Professor Name Role Phone PINO ABREU Primary Care Provider Assessment No assessment recorded. Plan of Treatment Reminders Order Date Submit Date Provider Last Modified By Organization Details Last Modified Time Details Appointments None recorded. Lab None recorded. Referral None recorded. Procedures None recorded. Surgeries None recorded. Imaging None recorded. Medication Orders cephalexin 500 mg capsule 2022 023 [facility][id number], [address] [place], [address], 3 16:59:00 azithromyci n 250 mg tablet 2022 023 [facility] [address] [facility] [address] [place], [address], 3 16:15:28 albuterol sulfate 2.5 mg/3 mL (0.083 %) solution for nebulizatio n 2022 023 [email or web address] 247 Not available 3 18:49:45 ipratropium bromide 0.02 % solution for inhalation 2022 023 [email or web address] 247 Not available 3 17:51:30 ipratropium 20 mcg-albuter ol 100 mcg/actuati on mist for inhalation 2022 023 [facility], [address] [place], [address], 19:15:31 prednisone 20 mg tablet 2022 023 [facility], [address] [place], [address], 19:15:32 Patient TargetsNo targets recorded. Patient Instructions Encounter Date Encounter Id Patient Instructions Last Modified By Organization Details Last Modified Time 07/13/2022 [id number] cough: care instructions [email or web address] Not available 07/13/2022 17:51:30 peak flow* [id number] Not available 17:51:30 08/10/2022 [id number] head or face pain: care instructions Not [...] flow* Pre (L/min) 260 Not Available [address] [facility] [address] [place] [address], [address], 07/13/2022 17:03:05 07/14/19 23 07/13/2022 peak flow* Post (L/min) 410 Not Available [address] [place], [address], 07/13/2022 17:03:05 07/14/19 23 07/13/2022 peak flow* Pulse 64 Not Available amie christianson [address], [address], 07/13/2022 17:03:05 07/14/19 23 07/13/2022 peak flow* Oxygen Saturation 99 Not Available que [address], [address], 07/13/2022 17:03:05 Result Notes None recorded. Problems Name Problem SNOMED Code Status Onset Date Resolution Date Notes Provider Name and Address Organization Details Recorded Time Graves' disease 814472583 Active 023 MONIKA QUINTANILLA null, [place] - [facility] 16:33:30 Glaucoma 53142227 Active 023 MONIKA QUINTANILLA null, PA - [facility] 16:33:36 Malignant neoplasm of breast 272973060 Active 023 MONIKA QUINTANILLA null, PA - [facility] 16:35:57 Thyroid eye disease 743821316 Active 023 JAKE DANILO null, PA - [...] Name and Address Organization Details Recorded Time 821631 doxycycli ne Not available Not available Not available Not available 07/13/2022 3640 RxNorm MONIKA QUINTANILLA null, PA - [facility] 3 16:31:49 076534 clindamyc in Not available Not available Not available Not available 07/13/2022 2582 RxNorm MONIKA QUINTANILLA null, PA - [facility] 3 16:31:55 714863 Substance with sulfonami de structure and antibacte rial mechanism of action (substanc e) medicatio n Not available Not available Not available 07/13/2022 34576 8003 SNOMED MONIKA QUINTANILLA null, PA - [facility] 3 16:32:02 788890 Product containin g penicilli n (product) medicatio n Not available Not available Not available 07/13/2022 86844 8001 SNOMED MONIKA QUINTANILLA null, PA - [...] Updated DateTime 3 165.1 cm 20.5 kg/m2 39317.8 6 g 97 [degF] 97 % 59 /min 16 /min 118/66 mm[Hg] MONIKA QUINTANILLA PA - [facility] 3 16:39:15 Date Recorded Body height Body mass index (BMI) Body weight Pain severity - 0-10 verbal numeric rating [Score] - Reported Oxygen saturation Heart rate Respiratory rate Body temperature Systolic And Diastolic Provider Name and Address Organization Details Last Updated DateTime 3 165.1 cm 20.3 kg/m2 85237.2 7 g 5 97 % 71 /min 16 /min 98.6 [degF] 131/82 mm[Hg] JAKE CARRASCO PA - [facility] 3 16:18:59 Social History None recorded. Functional Status Question Answer Note LastModified by Organizat ion Details LastModified Time Do you use any illicit or recreational drugs? No [email or web address] Information not available 07/13/2022 Do you or have you ever used any other forms of tobacco or nicotine? No Information not available 07/13/2022 What is your level of alcohol consumption? None [email or web address] Information not available 07/13/2022 Are you currently employed? Yes [facility] Information not available 08/10/2022 Mental Status None recorded. Family History Relationship Description Onset Age of this Age Resolved Age Notes LastModified by Organization Details LastModified Time Mother Heart disease [email or web address] Not available 2022 16:34:31 Mother Diabetes mellitus [email or web address] Not available 2022 16:34:39 Father Chronic obstructive pulmonary disease [email or web address] Not available 2022 16:34:49 Father Malignant melanoma [email or web address] Not available 2022 16:35:00 Medical History No [...] ICD10 Code Diagnosis IMO Codes Diagnosis Note [id number] [address] [address] [place] [address] 06/17/2017 10:02:30 06/17/2017 11:06:24 [id number] [address] [address] [place] [address] 02/22/2018 15:31:18 02/22/2018 16:41:01 [id number] [address] [place] [address] 02/02/2018 08:03:24 02/02/2018 09:00:04 [id number] [address] [place] [address] 05/25/2017 11:23:18 05/25/2017 11:48:52 [id number] [address] [facility] [place] [address] 10/14/2016 10:56:11 10/14/2016 11:30:58 [id number] [address] [place] [address] 11/26/2020 16:42:53 11/26/2020 16:43:11 [id number] [address] [place] [address] 06/21/2017 11:53:31 06/21/2017 13:29:56 [id number] [address] [place] [address] 06/16/2019 08:48:18 06/16/2019 09:14:34 [id number] [address] [place] [address] 08/07/2016 19:08:06 08/07/2016 19:38:52 [id number] [address] [place] [address] 06/23/2017 16:34:40 06/23/2017 18:33:44 [id number] [address] [place] [address] 07/11/2019 09:23:05 07/11/2019 11:04:58 [id number] [address] [place] [address] 03/30/2018 12:12:45 03/30/2018 13:33:52 [id number] [address] [facility] [place] [address] 05/06/2015 15:03:33 05/06/2015 16:37:42 [id number] [address] [facility] [facility] [place] [address] 08/11/2016 12:26:36 08/11/2016 13:19:33 [id number] [address] [facility] [place] [address] 04/01/2017 18:06:32 04/01/2017 19:35:58 [id number] [address] [facility] [place] [address] 04/30/2019 18:38:30 04/30/2019 19:31:57 [id number] [address] [facility] [place] [address] 10/10/2017 19:06:43 10/10/2017 20:39:06 [id number] BETTY NIXON MD [address] [facility] [place] [address] 07/13/2022 12:04:22 07/13/2022 17:59:56 Exacerbation of intermittent asthma 895984034 J45.21 Acute left otitis media 383688209 H66.92 [id number] Jt Jeffries [facility] [address] [facility] [place] [address] 08/10/2022 15:55:34 08/10/2022 16:50:43 Abscess of face 104776808 L02.01 Health Concerns Section Related Observation LastModified by Organization Detai ls LastModified Time None Recorded Concern Status LastModified by Organization Details LastModified Time None Recorded Advance Directives Directive None Recorded Payers Insurance Date Sequence Insurance Name Policy Number Policy Kennedy Covered Member ID Kennedy Member ID Guarantor Name 10/06/2022 1 [facility] (MEDICAID HMO) [place] Kaylynn Julian [id number] Kaylynn Moyer 07/13/2022 1 [facility] (HMO) [id number] Kaylynn Moyer [id number] Kaylynn Moyer Notes Date Note Type Note [...] n/v/d/rash/headache or other symptoms. BETTY NIXON MD [address] [place], [place] [address], [address], [place] - [facility] 07/13/2022 19:16:11 3 text/html Facial ProblemReported by PatientHPIFor location, patient reportsface rightandmandible right. For severity, patient reportsworseningbut reportsmild. For associated symptoms, patient reportsfacial pain. For onset/timing, patient reportsabrupt. For quality, patient reportspainful. For duration, patient [id number]. For alleviating factors, patient reportsnone. For aggravating factors, patient reportsnone.Mild swelling and tenderness along right side of jaw bone. Jt Jeffries NP [address] [place], [address], [place] - [facility] 08/10/2022 16:59:04 OBGyn Episode No OBEpisode recorded.
== END 2025-03-30 07:56 | disposition home or self-care (01) ==
LOC: HO.LNP 07:55
PROVIDERS: PCP Internal Medicine; Visit Provider Physician Assistant
DX: R09.89 Other specified symptoms and signs involving the circulatory and respiratory systems (principal); J01.00 Acute maxillary sinusitis, unspecified
CPT/HCPCS: 87637; 99212

== ENCOUNTER 2025-04-07 08:00 | Outpatient (RCR) | payer OTHER, SELFPAY ==
--- NOTE | 2025-02-08 08:43 | MHC.PT.EP ---
[facility] [place] [facility] [place] [facility] [place] [facility] [address] Taurus Hoffmann [address] [phone] F: [phone] F: [phone] F: [phone] F: [phone] Physical Therapy Plan of Care Date of Evaluation: 02/08/25 Date of Surgery: n/a Diagnosis: pain in R hip Assessment: Patient is a 64 year old female presenting to PT with complaints of pain in her R hip. Pt reports onset of pain began about 1 month ago due to overdoing it . She presents today with impairments in pain, hip strength, gait mechanics. 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 Pt expresses medical terminologist goal of reducing pain, and is motivated to work towards this in PT. Clinical presentation today is most consistent with signs and sx associated with R hip pain and pt will benefit from skilled PT 1 week x 4 weeks to address the following problems and impairments noted upon evaluation: ambulating, stair negotiation, ADLs. These problems limit the patient with the following functional activities: ambulating, stair negotiation, ADLs. The prescribed treatment plan of care is medically necessary. Co-morbidities of hx breast cancer, anxiety disorder were identified and taken into considerations of plan of care. Pt was educated on HEP, role of PT, prognosis, POC. Frequency and Duration: The patient will be seen 1 x week x 4 weeks Short Term Goals: Pt will demonstrate to move through available ROM with min to no pain in 2 weeks. Pt will demonstrate improved R hip MMT strength by 1/3 grade in 2 weeks. Shelter Goals: Pt will demonstrate improved LEFI score by 9 points in 4 weeks for improved functional mobility. Pt will demonstrate ability to ambulate with normal mechanics and min to no pain in 4 weeks for improved access to the community. Pt will demonstrate ability to negotiate stairs with min to no pain in 4 weeks for return to PLOF. Treatment Plan: Modalities to reduce pain, spasms and effusion. Manual therapy to restore motion and function. Therapeutic exercise to improve strength and flexibility. Neuromuscular re-education for posture and balance. Therapeutic activities to return to functional activities of daily living. Electronically signed by: Daisy Waldron, PT, DPT, ATC Please sign and return to therapist. Thank you for your referral.
--- NOTE | 2025-04-07 09:04 | MHC.PT.DC ---
[facility] [place] [facility] [place] Office [address] Taurus Hoffmann [address] [phone] F: [phone] F: [phone] F: [phone] F: [phone] Physical Therapy Discharge Report Diagnosis: pain in R hip Date of Surgery: n/a Date of Evaluation: 02/08/25 Date of Discharge: 04/07/25 Treatments to Date: 8 Cancellations to Date: 2 No Shows to Date: 0 Discharge Status: Independent with HEP Recommend MD Follow-up Discharge Summary: 04/07/2025: Pt has made some progress since start of care but it does not appear to be consistently better, instead she continues to have varying days of relief followed by days of quite a bit of pain. Various manual, stretching, and strengthening techniques in PT have not given consistent relief. She also has been to PT multiple times for this and each time it does not appear to get significantly better. At this time I recommend she follow up with her provider for possibility of higher level imaging and management of pain. She informed me today she is waiting for a call to schedule an MRI. I encouraged her to follow up with on this to facilitate quicker appointment and she verbalizes understanding. I also encouraged continuing with HEP at home to maintain strength gains. At this point max benefits of PT have been provided and skilled PT is no longer indicated. She is in agreement with d/c today. Electronically signed by: Daisy Waldron, PT, DPT, ATC Please sign and return to therapist. Thank you for your referral.
== END 2025-04-07 09:05 | disposition home or self-care (01) ==
LOC: HO.PTCHIC 08:00
PROVIDERS: PCP Internal Medicine; Visit Provider Internal Medicine
DX: M25.551 Pain in right hip (principal); R26.89 Other abnormalities of gait and mobility
CPT/HCPCS: 97110; 97140; 97162

== ENCOUNTER 2025-04-07 13:47 | Outpatient (AMB) | payer OTHER, SELFPAY ==
--- NOTE | 2025-04-07 13:52 | MHC.OFFWIV ---
Intake Vital Signs 04/07/25 13:53 Height 5 ft 5 in Weight 116 lb BMI 19.3 BP 116/78 Blood Pressure Location Lt brachial Position Sitting Pulse 67 Pulse Source Pulse Oximeter Temp 98.3 F Temp Source Oral Pulse Oximetry (%) 98 Oxygen Delivery Method Room Air Intake Visit Reasons: EP LT ear pain Intake Note: pt presents with LT ear pain traveling down neck and headaches after recent treatment for sinus infection Patient Tobacco Use Status: Never used Tobacco Allergies Opioids - Morphine Analogues Allergy (Severe, Verified 04/07/25 13:55) convultions sulfabenzamide Allergy (Severe, Verified 04/07/25 13:55) tongue swelled shut gluten (GLUTEN) Allergy (Intermediate, Verified 04/07/25 13:55) INFLAMMATION SYSTEMICALLY mold (MOLD) Allergy (Intermediate, Verified 04/07/25 13:55) UNKNOWN animal dander Allergy (Unknown, Verified 04/07/25 13:55) ASTHMA FLAIRUP Clindamycin HCl Allergy (Unknown, Verified 04/07/25 13:55) rash doxycycline (DOXYCYCLINE) Allergy (Unknown, Verified 04/07/25 13:55) RASH morphine (MORPHINE) Allergy (Unknown, Verified 04/07/25 13:55) SEIZURE LIKE EXPERIENCE - FELT TERRIBLE, convulsions penicillin V Allergy (Unknown, Verified 04/07/25 13:55) rash Penicillins (PENICILLINS) Allergy (Unknown, Verified 04/07/25 13:55) RASH HIVES soybean Allergy (Unknown, Verified 04/07/25 13:55) unknown Sulfa (Sulfonamide Antibiotics) (SULFA (SULFONAMIDE ANTIBIOTICS)) Allergy (Unknown, Verified 04/07/25 13:55) TONGUE SWELLING, swelling of mouth soy Adverse Reaction (Intermediate, Verified 04/07/25 13:55) UPSET STOMACH cefdinir Allergy (Severe, Uncoded 04/07/25 13:55) Severe vomiting DAIRY PRODUCTS Allergy (Intermediate, Uncoded 04/07/25 13:55) INFLAMMATION cats, dogs Allergy (Unknown, Uncoded 04/07/25 13:55) Unknown mole,bread and diary Allergy (Unknown, Uncoded 04/07/25 13:55) Unknown Do you need a note to return to daycare/school/sports/work: No HPI HPI Comments History of Present Illness Details 64-year-old female presents to the walk-in clinic with left ear pain radiating to the left lower neck. Symptoms began around the time she had a sinus infection on 03/30, for which she was treated with Azithromycin. She reports the sinus symptoms have resolved; however, she continues to experience severe left ear pain. Patient has a history of recurrent ear infections and has undergone previous ear surgeries (details not provided). She reports having multiple drug allergies, which makes treatment selection difficult. Denies fever, chills, drainage from the ear, hearing loss, dizziness, sore throat, cough, or upper respiratory symptoms. [facility] Medical History Chronic right hip pain Arm paresthesia, left Dry mouth and eyes Acute respiratory disease Dyslipidemia Cataract of right eye History of adenomatous polyp of colon Recurrent genital herpes Environmental and seasonal allergies Temporomandibular joint dysfunction Immunization refused Hx of breast cancer History of COVID-19 Anxiety disorder Recurrent otitis media Retinal detachment Vini's thyroiditis Mild intermittent asthma Narrow angle glaucoma suspect of both eyes Vitamin D deficiency Acquired hypothyroidism Surgical History Hx of colonoscopy History of surgery H/O myringotomy History of hysterectomy History of eyelid surgery History of eye surgery Family History Father No problems noted. Mother Diabetes mellitus Heart disease Heart attack Brother No problems noted. Brother No problems noted. Brother No problems noted. Brother No problems noted. Brother No problems noted. Social History Household Members: None Housing: House Alcohol intake: current Alcohol intake frequency: a few times a week Patient Tobacco Use Status: Never used Tobacco e-Cigarette/Vaping Use: Never Used service: No Current occupational status: employed Cognitive needs: No Hearing needs: No Vision needs: No Review of Systems Const All systems reviewed & are unremarkable except as noted in HPI and below Physical Exam Vital Signs: Last Vital Signs Temp 98.3 F 04/07/25 13:53 Pulse 67 04/07/25 13:53 BP 116/78 04/07/25 13:53 Pulse Ox 98 04/07/25 13:53 Oxygen Delivery Method Room Air 12/04/25 13:53 BMI result Body Mass Index 19.3 Const General: no acute distress Nutritional Appearance: well nourished Orientation/consciousness: patient oriented x3 HEENT Head: Yes normocephalic Ears: external ears normal and TM abnormal bulging on the left, wth effusion serous on the left, erythematous on the left, with fluid behind the TM on the right and retracted on the left General nose exam: Normal external nose present Face and sinus: Yes sinuses nontender Mouth: moist mucous membranes and Abnormal oral and palatal mucosa present erythematous Throat: Yes uvula midline Neck Other: Tenderness to left upper neck/SCM region. No cervical lymphadenopathy. Full ROM. Resp Effort & Inspection: normal respiratory effort Cardio Rate: regular rate Neuro General: patient oriented x3, gait normal and moves all extremities Psych Speech and movement: Normal speech and movement present Assessment & Plan Assessment & Plan (1) Otitis media: Code(s): H66.90 - Otitis media, unspecified, unspecified ear Qualifiers: Chronicity: chronic Laterality: left Otitis media type: suppurative Suppurative otitis media location: unspecified location Qualified Code(s): H66.3X2 - Other chronic suppurative otitis media, left ear Plan: History of recurrent ear infections with prior ear surgeries ? increases complexity of assessment. Multiple drug allergies ? this limit antibiotic choices - ordered Topic/Otic Cipro Recommend acetaminophen or NSAIDs for pain control. Strongly Advised ENT referral given recurrent history, previous surgeries, and persistent otalgia. Red flags discussed: Worsening pain, fever, hearing loss, ear drainage, vertigo. Medications: New ciprofloxacin-dexamethasone 0.3-0.1 % 4 drps otic (ears) BID 7.5 mL 0RF 7 days H66.3X2 - Other chronic suppurative otitis media, left ear Coding Level of Care Code Est Pt Level 4 (13459) Diagnoses Otitis media H66.3X2 Chronicity: chronic Laterality: left Otitis media type: suppurative Suppurative otitis media location: unspecified location Time Spent (min) 20
[2025-04-07 13:53] VITALS: BP 116/78; PULSE 67; TEMP 36.8; O2SAT 98; BMI 19.3
== END 2025-04-07 14:29 | disposition home or self-care (01) ==
PROVIDERS: PCP Internal Medicine; Visit Provider Nurse Practitioner Family
DX: H66.3X2 Other chronic suppurative otitis media, left ear (principal)

== ENCOUNTER → 2025-04-07 13:47 | Outpatient (BNVA) | payer OTHER, SELFPAY | PROVIDERS: PCP Internal Medicine; Visit Provider Nurse Practitioner Family | DX: H66.3X2 Other chronic suppurative otitis media, left ear (principal) | CPT/HCPCS: 99212 ==

== ENCOUNTER → 2025-05-01 10:27 | Outpatient (BNV) | payer OTHER, SELFPAY | PROVIDERS: PCP Internal Medicine; Visit Provider Radiology Diagnostic Radiology | DX: M24.151 Other articular cartilage disorders, right hip (principal); M25.451 Effusion, right hip; M67.28 Synovial hypertrophy, not elsewhere classified, other site | CPT/HCPCS: 73721 ==

== ENCOUNTER 2025-05-01 10:29 | Outpatient (REF) | payer OTHER, SELFPAY ==
--- NOTE | ~2025-05-01 | MR_ITS ---
EXAMINATION: MR HIP WITHOUT CONTRAST, RIGHT CLINICAL INFORMATION: 64-year-old female complaining of Right hip pain, unresponsive to 3 weeks of physical therapy and stretching. COMPARISON: No prior available. Correlation made with radiographs of the right hip 12/21/2024. TECHNIQUE: MRI of the right hip was obtained using routine sequences on a high-field strength magnet. FINDINGS: There is a pattern of subchondral bone marrow edema throughout the anterosuperior femoral head, not classic for, however concerning for possible AVN. There is no subchondral collapse. There is a moderate-sized joint effusion present in the right hip. There is notable cartilage loss in the predominantly superior joint compartment, where there is significant near full-thickness cartilage loss of both the acetabulum and femoral head. There are small subcapital osteophytes and small marginal osteophytes of the acetabulum. There is minor subchondral edema in the superior acetabulum, without gross cystic changes. No gross periarticular erosions present. There is notable synovial hypertrophy throughout the right hip joint, which is mildly hypointense on T2-weighted imaging, and isointense to muscle on T1-weighted imaging. The labrum is poorly identified and obscured by the extensive synovial hypertrophy throughout the hip joint. The ligamentum teres is grossly intact. The joint capsule is grossly intact. The iliofemoral ligament appears intact. There is a multiloculated small fluid collection abutting the posterior distal aspect of the iliacus muscle, measuring approximately 1.6 x 1.3 x 3.6 cm (series 4, image 8; series 7, image 18), either a multiloculated ganglion cyst or related to proximal iliopsoas bursitis. The lesser trochanter and iliopsoas insertional site are unremarkable in appearance. The gluteus medius and minimus tendons are intact. There is mild edema abutting the lateral greater trochanter, consistent with mild greater trochanteric bursitis. The hamstrings insertion is unremarkable in appearance. The anterior inferior iliac spine, and anterior superior iliac spines are unremarkable in appearance. Grossly the SI joints have a normal appearance. There is a right convex scoliosis with mild degenerative spondylosis of the lower lumbar spine. MR/MR hip RT wo con IMPRESSION: 1. Unusual marrow edema pattern in the anterosuperior right femoral head which is concerning for, but not definitive for, developing AVN. There is no subchondral collapse. 2. There is significant arthropathy of the right hip joint with extensive presumably reactive synovial hypertrophy, a joint effusion, and thinning of superior articular cartilage. There are no definitive erosions evident. Cannot definitively exclude early PVNS although the lack of erosions would argue against this possibility. 3. Small multiloculated fluid collection abutting the posterior aspect of the iliacus muscle, just superior to the hip joint, most likely a ganglion cyst related to the arthritic process in the right hip joint. 4. Mild to moderate right greater trochanteric bursitis. 5. Given the above findings, orthopedic referral recommended. Electronically signed by: Ayaan Finch MD 05/03/2025 09:04 AM MATTHEW
--- OUTSIDE RECORDS SUMMARY | 2025-05-01 10:40 | XMS_ITS | Clinical Summary ---
Author Organization [facility] Address [address] [place] [address] Care Team Providers Care Clinic Scheduler Name Role Phone Stephania Guaman MD Primary [...] on file Sexual Orientation Not on file Plan of Treatment Health Maintenance Due Date [...] age to complete this topic Care Teams Clinic Scheduler Relationship Specialty Start Date End Date Stephania Guaman MD [address] [place] [address] PCP - General Internal Medicine 03/14/17
--- OUTSIDE RECORDS SUMMARY | 2025-05-01 10:40 | XMS_ITS | Patient Health Record ---
Author Organization [facility] Address [address] [place] [address] Support Name Relationship Address Phone ALIE SIFUENTES Guarantor Unknown [phone] Reason For Referral No Information Medications Medication SIG (Take, Route, Fr equency, Duration) Notes Start Date End Date Status Vitamin D3 1000 IU ORAL daily; Duration: -3 [facility] 2011 Active Levoxyl 75MCG 1 ORAL DAILY; Duration: -3 [facility] 2 Active Multivitamins 1 ORAL daily; Duration: -3 [facility] 2 Active Proventil HFA 108 MCG 2 Inhalation four times daily; Duration: -3 [facility] 07/23/2011 Active Calcium-Carb 600 + D 1 ORAL daily; Duration: -3 [facility] Active Claritin 10 MG 1 ORAL daily; Duration: -3 [facility] 09/10/19 12 Active Fish Oil 1 ORAL daily; Duration: -3 [facility] 09/10/2011 Active Flonase 50MCG 2 Nasal daily; Duration: -3 [facility] 07/23/19 12 Active Immunizations Vaccine Route Administration Date Status Comme nts Influenza, live, intranasal Intramuscular 07/22/2011 Jake patel Problems Problem Type SNOMED Code ICD Code Onset Dates Problem Status W/U Status Risk Notes Problem Benign neoplasm of skin (64388566) Benign neoplasm of skin, site unspecified (216.9) Active confirmed Diag Problem Hypothyroidism (68602293) Unspecified hypothyroidism (244.9) Active confirmed Major Problem Hyperlipidemia (23603197) Other and unspecified hyperlipidemia (272.4) Active confirmed Major Problem Asthma (disorder) (877164366) Asthma, unspecified, unspecified status (493.90) Active confirmed Major Problem Seborrheic keratosis (31464756) Other seborrheic keratosis (702.19) Active confirmed Diag Problem Joint pain (60605114) Pain in joint, site unspecified (719.40) Active confirmed Diag Problem General examination of patient (217620312) Routine general medical examination at health care facility (V70.0) Active confirmed Diag Plan Of Treatment No Information Insurance Providers Payer Name Payer Address Payer Phone Subscriber Number Group Number Insured Name Patient Relationship to Insured Coverage Start Date Coverage End Date [address] [place] [phone] [id number] BELLE SIFUENTES Spouse - patient is the spouse of the insured 2
--- OUTSIDE RECORDS SUMMARY | 2025-05-01 10:40 | XMS_ITS | Data Portability ---
Author Organization [facility] [address] Address [address] [place] [address] Care Team Providers Care Fixed Income Trading Vice President Name Role Phone PINO ABREU Primary Care Provider Assessment No assessment recorded. Plan of Treatment Reminders Order Date Submit Date Provider Last Modified By Organization Details Last Modified Time Details Appointments None recorded. Lab None recorded. Referral None recorded. Procedures None recorded. Surgeries None recorded. Imaging None recorded. Medication Orders cephalexin 500 mg capsule 2022 023 [id number], [address] [place], [address], 3 16:59:00 azithromyci n 250 mg tablet [address] [facility], [address] [place], [address], 3 16:15:28 albuterol sulfate 2.5 mg/3 mL (0.083 %) solution for nebulizatio n 2022 023 [email or web address] 247 Not available 3 18:49:45 ipratropium bromide 0.02 % solution for inhalation 2022 023 [email or web address] 247 Not available 3 17:51:30 ipratropium 20 mcg-albuter ol 100 mcg/actuati on mist for inhalation 2022 023 [facility], [address] [place], [address], 19:15:31 prednisone 20 mg tablet 2022 023 [facility], [address] [place], [address], 19:15:32 Patient TargetsNo targets recorded. Patient Instructions Encounter Date Encounter Id Patient Instructions Last Modified By Organization Details Last Modified Time 07/13/2022 [id number] cough: care instructions [id number] Not available 07/13/2022 17:51:30 peak flow* [email or web address] Not available 17:51:30 08/10/2022 [id number] head or face pain: care instructions Not [...] Pre (L/min) 260 Not Available [address] [address] [place] [address], [address], 07/13/2022 17:03:05 07/14/19 23 07/13/2022 peak flow* Post (L/min) 410 Not Available que [address] [place], [address], 07/13/2022 17:03:05 07/14/19 23 07/13/2022 peak flow* Pulse 64 Not Available amie christianson [address], [address], 07/13/2022 17:03:05 07/14/19 23 07/13/2022 peak flow* Oxygen Saturation 99 Not Available [address], [address], 07/13/2022 17:03:05 Result Notes None recorded. Problems Name Problem SNOMED Code Status Onset Date Resolution Date Notes Provider Name and Address Organization Details Recorded Time Graves' disease 600389522 Active 023 MONIKA QUINTANILLA null, [place] - [facility] 16:33:30 Glaucoma 98642635 Active 023 MONIKA QUINTANILLA null, PA - [facility] 16:33:36 Malignant neoplasm of breast 319728781 Active 023 MONIKA QUINTANILLA null, PA - [facility] 16:35:57 Thyroid eye disease 257214106 Active 023 JAKE DANILO null, PA - [...] Name and Address Organization Details Recorded Time 947031 doxycycli ne Not available Not available Not available Not available 07/13/2022 3640 RxNorm MONIKA QUINTANILLA null, PA - [facility] 3 16:31:49 287930 clindamyc in Not available Not available Not available Not available 07/13/2022 2582 RxNorm MONIKA QUINTANILLA null, PA - [facility] 3 16:31:55 163773 Substance with sulfonami de structure and antibacte rial mechanism of action (substanc e) medicatio n Not available Not available Not available 07/13/2022 40373 8003 SNOMED MONIKA QUINTANILLA null, PA - [facility] 3 16:32:02 069991 Product containin g penicilli n (product) medicatio n Not available Not available Not available 07/13/2022 24726 8001 SNOMED MONIKA QUINTANILLA null, PA - [...] Updated DateTime 3 165.1 cm 20.5 kg/m2 94397.8 6 g 97 [degF] 97 % 59 /min 16 /min 118/66 mm[Hg] MONIKA QUINTANILLA PA - [facility] 3 16:39:15 Date Recorded Body height Body mass index (BMI) Body weight Pain severity - 0-10 verbal numeric rating [Score] - Reported Oxygen saturation Heart rate Respiratory rate Body temperature Systolic And Diastolic Provider Name and Address Organization Details Last Updated DateTime 3 165.1 cm 20.3 kg/m2 16916.2 7 g 5 97 % 71 /min 16 /min 98.6 [degF] 131/82 mm[Hg] JAKE CARRASCO PA - [facility] 3 16:18:59 Social History None recorded. Functional Status Question Answer Note LastModified by Organizat ion Details LastModified Time Do you use any illicit or recreational drugs? No [email or web address] Information not available 07/13/2022 Do you or have you ever used any other forms of tobacco or nicotine? No [email or web address] Information not available 07/13/2022 What is your level of alcohol consumption? None [email or web address] Information not available 07/13/2022 Are you currently employed? Yes [email or web address] Information not available 08/10/2022 Mental Status None recorded. Family History Relationship Description Onset Age of this Age Resolved Age Notes LastModified by Organization Details LastModified Time Mother Heart disease Not available 2022 16:34:31 Mother Diabetes mellitus [email or web address] Not available 2022 16:34:39 Father Chronic obstructive pulmonary disease [email or web address] Not available 2022 16:34:49 Father Malignant melanoma [email or web address] Not available 2022 16:35:00 Medical History No [...] ICD10 Code Diagnosis IMO Codes Diagnosis Note [id number] [facility] [address] [address] [place] [address] 06/17/2017 10:02:30 06/17/2017 11:06:24 [id number] [address] [address] [place] [address] 02/22/2018 15:31:18 02/22/2018 16:41:01 [id number] [address] [address] [address] [place] [address] 02/02/2018 08:03:24 02/02/2018 09:00:04 [id number] [address] [address] [place] [address] 05/25/2017 11:23:18 05/25/2017 11:48:52 [id number] [address] [address] [place] [address] 10/14/2016 10:56:11 10/14/2016 11:30:58 [id number] [address] [address] [place] [address] 11/26/2020 16:42:53 11/26/2020 16:43:11 [id number] [address] [address] [place] [address] 06/21/2017 11:53:31 06/21/2017 13:29:56 [id number] [address] [address] [place] [address] 06/16/2019 08:48:18 06/16/2019 09:14:34 [id number] [address] [address] [place] [address] 08/07/2016 19:08:06 08/07/2016 19:38:52 [id number] [address] [address] [place] [address] 06/23/2017 16:34:40 06/23/2017 18:33:44 [id number] [address] [address] [address] [place] [address] 07/11/2019 09:23:05 07/11/2019 11:04:58 [id number] [address] [address] [place] [address] 03/30/2018 12:12:45 03/30/2018 13:33:52 [id number] [address] [address] [place] [address] 05/06/2015 15:03:33 05/06/2015 16:37:42 [id number] [address] [address] [address] [place] [address] 08/11/2016 12:26:36 08/11/2016 13:19:33 [id number] [address] [address] [address] [place] [address] 04/01/2017 18:06:32 04/01/2017 19:35:58 [id number] [address] [address] [address] [place] [address] 04/30/2019 18:38:30 04/30/2019 19:31:57 [id number] [address] [address] [place] [address] 10/10/2017 19:06:43 10/10/2017 20:39:06 [id number] BETTY NIXON MD [address] [facility] [place] [address] 07/13/2022 12:04:22 07/13/2022 17:59:56 Exacerbation of intermittent asthma 867618137 J45.21 Acute left otitis media 599001620 H66.92 [id number] Jt Jeffries NP [address] [place] [address] 08/10/2022 15:55:34 08/10/2022 16:50:43 Abscess of face 825218921 L02.01 Health Concerns Section Related Observation LastModified by Organization Detai ls LastModified Time None Recorded Concern Status LastModified by Organization Details LastModified Time None Recorded Advance Directives Directive None Recorded Payers Insurance Date Sequence Insurance Name Policy Number Policy Kennedy Covered Member ID Kennedy Member ID Guarantor Name 10/06/2022 1 [facility] (MEDICAID HMO) [employer] Kaylynn Julian [id number] Kaylynn Moyer 07/13/2022 1 [facility] (HMO) [id number] Kaylynn Moyer [id number] Kaylynn Moyer Notes Date Note Type Note [...] n/v/d/rash/headache or other symptoms. BETTY NIXON MD [address] [place], [place] [address], [address], [place] - [facility] 07/13/2022 19:16:11 3 text/html Facial ProblemReported by PatientHPIFor location, patient reportsface rightandmandible right. For severity, patient reportsworseningbut reportsmild. For associated symptoms, patient reportsfacial pain. For onset/timing, patient reportsabrupt. For quality, patient reportspainful. For duration, patient [id number]. For alleviating factors, patient reportsnone. For aggravating factors, patient reportsnone.Mild swelling and tenderness along right side of jaw bone. Jt Jeffries NP [address] [place], [address], [place] - [facility] 08/10/2022 16:59:04 OBGyn Episode No OBEpisode recorded.
== END 2025-05-01 10:30 | disposition home or self-care (01) ==
LOC: HO.MRI 10:29
PROVIDERS: PCP Internal Medicine; Visit Provider Internal Medicine
DX: G89.29 Other chronic pain (principal); M25.551 Pain in right hip
CPT/HCPCS: 73721

== ENCOUNTER 2025-05-03 12:11 | Emergency (ER) | payer OTHER, SELFPAY ==
--- NOTE | 2025-05-03 12:35 | ECG_ITS ---
Test Reason : CP Blood Pressure : */* mmHG Vent. Rate : 58 BPM Atrial Rate : 58 BPM P-R Int : 136 ms QRS Dur : 72 ms QT Int : 422 ms P-R-T Axes : 44 -6 46 degrees QTcB Int : 414 ms Sinus bradycardia Low voltage QRS Cannot rule out Anterior infarct , age undetermined Abnormal ECG When compared with ECG of 06-Jul-2024 12:51, No significant change was found Referred By: Generic ED Physician Electronically Signed By: GRISELDA JUAREZ
--- NOTE | 2025-05-03 13:35 | ED_ITS ---
HPI - Abdominal Pain General Chief Complaint: Abdominal Pain Stated Complaint: abd pain Related Data Home Medications ?Medication ?Instructions ?Recorded ?Confirmed fluorometholone 0.1 % eye 1 drp ophthalmic (eye) NE EDED 03/15/20 03/24/25 drops,suspension betaxolol 0.25 % eye 1 drp ophthalmic (eye) DAILY 02/15/21 03/24/25 drops,suspension (Betoptic S) carboxymethylcellulose 0.5 1 drp ophthalmic (eye) EFREM Y 02/15/21 03/24/25 %-glycerin 0.9 % (PF) eye drops,dropperette (Refresh Optive Sensitive (PF)) cyclosporine 0.05 % eye drops in a 1 drp ophthalmic (e ye) DAILY 02/15/21 03/24/25 dropperette (Restasis) brimonidine 0.1 % eye drops 1 drp ophthalmic (eye) ADAL LY 03/16/21 03/24/25 (Alphagan P) loteprednol etabonate 0.5 % eye 0.5 drp ophthalmic (ey e) DAILY 06/25/23 03/24/25 drops,suspension (Lotemax) estradiol 10 mcg vaginal tablet 10 mcg vaginal 2XW 01/2703/24/25 levothyroxine 88 mcg tablet 88 mcg PO DAILY 09/10/24 1 05/24/24 prednisone 5 mg tablet 5 mg PO DAILY 01/31/2503/24 Previous Rx's ?Medication ?Instructions ?Recorded inhalational spacing device #1 ea 07/18/22 (BreatheRite MDI Spacer) nebulizers (AeroEclipse II #1 ea 07/18/22 Nebulizer) azelastine 137 mcg (0.1 %) nasal 1 spray intranasal BI D #30 mL 06/13/23 spray omeprazole 40 mg capsule,delayed 40 mg PO DAILY #90 ca ps 06/30/24 release valacyclovir 500 mg tablet 500 mg PO Q12H 3 days #6 ta bs 01/11/25 fluticasone furoate 100 1 inh inhalation Q24H #30 ea 01/19/25 mcg/actuation blister powder for inhalation (Arnuity Ellipta) polyethylene glycol 3350 17 17 g PO BID #510 grams 12/27 gram/dose oral powder fluticasone propionate 50 2 spray intranasal DAILY #48 grams 10/19/25 mcg/actuation nasal spray,suspension Ventolin HFA 90 mcg/actuation 2 puff inhalation Q6H OH N for 02/27/25 aerosol inhaler (albuterol sulfate) wheezing #18 grams cyclobenzaprine 5 mg tablet 5 mg PO BEDTIME PRN muscle spasm 03/24/25 #14 tabs diclofenac sodium 50 mg 50 mg PO Q12H PRN pain #10 t abs 03/24/25 tablet,delayed release ascorbic acid (vitamin C) 500 mg 500 mg PO DAILY #90 c aps 05/03/25 tablet (Vitamin C) rosuvastatin 5 mg tablet 5 mg PO DAILY #90 tabs 05/03 azithromycin 250 mg tablet See Rx Instructions PO .COM PLEX #6 05/06/25 tabs alprazolam 0.25 mg tablet 0.25 mg PO DAILY PRN anxiety #14 05/10/25 tabs Allergies Allergy/AdvReac Type Severity Reaction Status Date / Time Opioids - Morphine Analogues Allergy Severe convultions Verified 05/04/25 12:16 sulfabenzamide Allergy Severe tongue Verified 05/04/25 12:16 swelled shut gluten (GLUTEN) Allergy Intermediate INFLAMMATION Verified 05/04/25 12:16 SYSTEMICALLY mold (MOLD) Allergy Intermediate UNKNOWN Verified 05/04/25 12:16 animal dander Allergy Unknown ASTHMA Verified 05/04/25 12:16 FLAIRUP Clindamycin HCl Allergy Unknown rash Verified 05/04/25 12:16 doxycycline (DOXYCYCLINE) Allergy Unknown RASH Verified 05/04/25 12:16 morphine (MORPHINE) Allergy Unknown SEIZURE Verified 05/04/25 12:16 LIKE EXPERIENCE - FELT TERRIBLE, convulsions penicillin V Allergy Unknown rash Verified 05/04/25 12:16 Penicillins (PENICILLINS) Allergy Unknown RASH HIVES Verified 05/04/25 12:16 soybean Allergy Unknown unknown Verified 05/04/25 12:16 Sulfa (Sulfonamide Allergy Unknown TONGUE Verified 05/04/25 12:16 Antibiotics) (SULFA SWELLING, (SULFONAMIDE ANTIBIOTICS)) swelling of mouth soy AdvReac Intermediate UPSET Verified 05/04/25 12:16 STOMACH cefdinir Allergy Severe Severe Uncoded 05/04/25 12:16 vomiting DAIRY PRODUCTS Allergy Intermediate INFLAMMATIO Uncoded 05/04/25 12:16 N cats, dogs Allergy Unknown Unknown Uncoded 05/04/25 12:16 mole,bread and diary Allergy Unknown Unknown Uncoded 05/04/25 12:16 [facility] Past Medical History Medical History (Updated 05/14/25 @ 17:38 by ARSEN Martinez) Arthritis of right hip Avascular necrosis of bone of right hip Chronic right hip pain Arm paresthesia, left Dry mouth and eyes Acute respiratory disease Dyslipidemia Cataract of right eye History of adenomatous polyp of colon Recurrent genital herpes Environmental and seasonal allergies Temporomandibular joint dysfunction Immunization refused Hx of breast cancer History of COVID-19 Anxiety disorder Recurrent otitis media Retinal detachment Vini's thyroiditis Mild intermittent asthma Narrow angle glaucoma suspect of both eyes Vitamin D deficiency Acquired hypothyroidism Surgical History Hx of colonoscopy History of surgery H/O myringotomy History of hysterectomy History of eyelid surgery History of eye surgery Family History Family History Father No problems noted. Mother Diabetes mellitus Heart disease Heart attack Brother No problems noted. Brother No problems noted. Brother No problems noted. Brother No problems noted. Brother No problems noted. Social History Social History Household Members: None Housing: House Alcohol intake: current Alcohol intake frequency: a few times a week Patient Tobacco Use Status: Never used Tobacco e-Cigarette/Vaping Use: Never Used service: No Current occupational status: employed Cognitive needs: No Hearing needs: No Vision needs: No Physical Exam ED Vital Signs: BMI result Body Mass Index 19.2 Course Course Course Narrative: This is a Rapid Medical Exam performed in triage by Halie Gloria PA-C. Full HPI, ROS and PE to be performed by primary ED provider. 64 yo F w/PMHx Vini's, asthma, breast CA, HLD presenting to the ED c/o Took Valtrex this AM & since has been having sharp epigastric abdominal pain radiating to back. denies N/V/D. Described as stabbing. +blaoting PE: abdomen soft w/epigastric ttp. mildly distended Plan: EKG, labs, UA Medical Decision Making Lab Data 05/03/25 14:08 05/03/25 14:08 Labs: Lab Results 05/03/25 Range/Units 14:08 WBC 5.3 (4.8-10.8) X10*3/uL RBC 4.73 (4.20-5.50) X10*6/uL Hgb 14.4 (12.0-16.0) g/dl Hct 43.8 (37.0-47.0) % MCV 92.6 (80.0-98.0) fL MCH 30.4 (27.0-33.0) pg MCHC 32.9 (31.0-35.0) g/dl RDW 12.1 (11.0-16.0) % Plt Count 255 (160-400) X10*3/uL MPV 8.4 L (9.4-12.3) fL Immature Gran % (Auto) 0.4 (0.0-0.4) % Neut % (Auto) 59.0 (45-73) % Lymph % (Auto) 28.3 (20-40) % Hawkins % (Auto) 9.0 (2-11) % Eos % (Auto) 2.4 (0-4) % Baso % (Auto) 0.9 (0-2) % Lymph # (Auto) 1.5 (1.2-4.9) X10*3/uL Hawkins # (Auto) 0.5 (0.1-1.2) X10*3/uL Eos # (Auto) 0.1 (0.0-0.4) X10*3/uL Baso # (Auto) 0.1 (0.0-0.2) X10*3/uL Abs Immat Gran (auto) 0.02 (0.00-0.03) X10*3/uL Absolute Neuts (auto) 3.1 (2.0-8.3) x10*3/uL Absolute Nucleated RBC 0.000 (0.0-0.012) X10*3/uL Nucleated RBC % (auto) 0.0 (0.0-0.2) /100WBC Sodium 142 (135-145) mmol/L Potassium 3.9 (3.3-5.1) mmol/L Chloride 104 (96-108) mmol/L Carbon Dioxide 30 H (22-29) mmol/L Anion Gap 12 (12-20) BUN 15 (9-16) mg/dL Creatinine 0.93 (0.5-1.4) mg/dL Estim Creat Clear Calc 51.8 Estimated GFR > 60 Random Glucose 98 (60-115) mg/dL Calcium 10.1 D (8.4-10.2) mg/dL Magnesium 2.4 (1.6-2.6) mg/dL Total Bilirubin 0.4 (0.0-1.0) mg/dL Direct Bilirubin 0.2 (0.0-0.5) mg/dL AST 32 H (5-31) U/L ALT 28 (0-31) U/L Alkaline Phosphatase 84 (39-117) U/L Troponin I High Sens < 2.7 (<3.5-17.0) ng/L Total Protein 7.1 (6.5-8.0) g/dL Albumin 4.5 (3.5-5.0) g/dL Lipase 19 (8-78) U/L Discharge Plan Discharge Clinical Impression: Abdominal pain Patient Disposition: Left W/O Completing Treatment Prescriptions: No Action (DME) BreatheRite MDI Spacer Spacer See Rx Instructions .Route Qty: 1 0RF Rx Instructions: As directed (DME) nebulizers [AeroEclipse II Nebulizer] [facility] [place] Rx Instructions .Route Qty: 1 0RF Rx Instructions: As directed azelastine 137 mcg (0.1 %) aerosol,spray 1 spray intranasal BID Qty: 30 5RF omeprazole 40 mg capsule,delayed release(DR/EC) 40 mg PO DAILY Qty: 90 3RF valacyclovir 500 mg tablet 500 mg PO Q12H 3 Days Qty: 6 3RF Rx Instructions: Take within 48 hours at the onset of symptom Arnuity Ellipta 100 mcg/actuation blister with device 1 inh inhalation Q24H Qty: 30 3RF polyethylene glycol 3350 17 gram/dose powder 17 g PO BID Qty: 510 2RF fluticasone propionate 50 mcg/actuation spray,suspension 2 spray intranasal DAILY Qty: 48 1RF albuterol sulfate [Ventolin HFA] 90 mcg/actuation HFA aerosol inhaler 2 puff inhalation Q6H PRN (Reason: for wheezing) Qty: 18 2RF rosuvastatin 5 mg tablet 5 mg PO DAILY Qty: 90 2RF ascorbic acid (vitamin C) [Vitamin C] 500 mg tablet 500 mg PO DAILY Qty: 90 3RF azithromycin 250 mg tablet See Rx Instructions PO .COMPLEX Qty: 6 0RF Rx Instructions: For 250 mg dose pack: take 500 mg today (day 1), then 250 mg for 4 days (days 2-5) PO alprazolam 0.25 mg tablet 0.25 mg PO DAILY PRN (Reason: anxiety) Qty: 14 0RF fluorometholone 0.1 % drops,suspension 1 drp ophthalmic (eye) NEEDED Alphagan P 0.1 % drops 1 drp ophthalmic (eye) DAILY Restasis 0.05 % dropperette 1 drp ophthalmic (eye) DAILY Betoptic S 0.25 % drops,suspension 1 drp ophthalmic (eye) DAILY Refresh Optive Sensitive (PF) 0.5-0.9 % dropperette 1 drp ophthalmic (eye) DAILY loteprednol etabonate [Lotemax] 0.5 % drops,suspension 0.5 drp ophthalmic (eye) DAILY levothyroxine 88 mcg tablet 88 mcg PO DAILY Rx Instructions: 6 days out of week and 7th day is 2 doses of 88 mcg estradiol 10 mcg tablet 10 mcg vaginal 2XW prednisone 5 mg tablet 5 mg PO DAILY diclofenac sodium 50 mg tablet,delayed release (DR/EC) 50 mg PO Q12H PRN (Reason: pain) Qty: 10 0RF cyclobenzaprine 5 mg tablet 5 mg PO BEDTIME PRN (Reason: muscle spasm) Qty: 14 0RF Discharge Date/Time: 05/03/25 21:03
[2025-05-03 13:36] VITALS: BP 161/75; PULSE 69; RESP 16; TEMP 36.7; O2SAT 99; BMI 19.2
[2025-05-03 14:14] LABS: MANUAL DIFF FLAG NO
[2025-05-03 14:16] LABS: Hematocrit 43.8 % (37.0-47.0); Hemoglobin 14.4 g/dl (12.0-16.0); Imm Gran Abs Auto 0.02 X10*3/uL (0.00-0.03); Imm Gran Pct Auto 0.4 % (0.0-0.4); Lymphocytes Absolute Auto 1.5 X10*3/uL (1.2-4.9); Mean Corpuscular HGB Conc 32.9 g/dl (31.0-35.0); Mean Corpuscular Hemoglobin 30.4 pg (27.0-33.0); Mean Corpuscular Volume 92.6 fL (80.0-98.0); NRBC Abs Auto 0.000 X10*3/uL (0.0-0.012); NRBC Pct Auto 0.0 /100WBC (0.0-0.2); Platelet Count 255 X10*3/uL (160-400); Red Blood Count 4.73 X10*6/uL (4.20-5.50); White Blood Count 5.3 X10*3/uL (4.8-10.8)
[2025-05-03 14:31] LABS: Alanine Aminotransferase 28 U/L (0-31); Albumin Level 4.5 g/dL (3.5-5.0); Alkaline Phosphatase 84 U/L (39-117); Anion Gap 12 (12-20); Aspartate Amino Transferase 32 U/L (5-31); Blood Urea Nitrogen 15 mg/dL (9-16); Calcium 10.1 mg/dL (8.4-10.2); Carbon Dioxide 30 mmol/L (22-29); Chloride 104 mmol/L (96-108); Creatinine Clr Calc Pharmacy 51.8; Estimated Glomerular Filt Rate > 60; Lipase 19 U/L (8-78); Magnesium 2.4 mg/dL (1.6-2.6); Potassium 3.9 mmol/L (3.3-5.1); Sodium 142 mmol/L (135-145); Total Protein 7.1 g/dL (6.5-8.0)
[2025-05-03 14:40] LABS: Troponin-I High Sensitivity < 2.7 ng/L (<3.5-17.0)
--- OUTSIDE RECORDS SUMMARY | 2025-05-03 19:23 | XMS_ITS | Patient Health Record ---
Author Organization [facility] Address [address] [facility] [place] [address] Support Name Relationship Address Phone ALIE SIFUENTES Guarantor Unknown [phone] Reason For Referral No Information Medications Medication SIG (Take, Route, Fr equency, Duration) Notes Start Date End Date Status Vitamin D3 1000 IU ORAL daily; Duration: -3 [facility] 2011 Active Levoxyl 75MCG 1 ORAL DAILY; Duration: -3 [facility] 2 Active Multivitamins 1 ORAL daily; Duration: -3 [facility] 2 Active Proventil HFA 108 MCG 2 Inhalation four times daily; Duration: -3 [facility] 07/23/2011 Active Calcium-Carb 600 + D 1 ORAL daily; Duration: -3 [facility] [place]- [place] Claritin 10 MG 1 ORAL daily; Duration: -3 [facility] [place]- 09/10/19 12 Active Fish Oil 1 ORAL daily; Duration: -3 [facility] [place]- 09/10/2011 Active Flonase 50MCG 2 Nasal daily; Duration: -3 [facility] [place]- 07/23/19 12 Active Immunizations Vaccine Route Administration Date Status Comme nts Influenza, live, intranasal Intramuscular 07/22/2011 Jake patel Problems Problem Type SNOMED Code ICD Code Onset Dates Problem Status W/U Status Risk Notes Problem Benign neoplasm of skin (12097293) Benign neoplasm of skin, site unspecified (216.9) Active confirmed Diag Problem Hypothyroidism (28005828) Unspecified hypothyroidism (244.9) Active confirmed Major Problem Hyperlipidemia (93143560) Other and unspecified hyperlipidemia (272.4) Active confirmed Major Problem Asthma (disorder) (216410023) Asthma, unspecified, unspecified status (493.90) Active confirmed Major Problem Seborrheic keratosis (26055313) Other seborrheic keratosis (702.19) Active confirmed Diag Problem Joint pain (98799901) Pain in joint, site unspecified (719.40) Active confirmed Diag Problem General examination of patient (437725383) Routine general medical examination at health care facility (V70.0) Active confirmed Diag Plan Of Treatment No Information Insurance Providers Payer Name Payer Address Payer Phone Subscriber Number Group Number Insured Name Patient Relationship to Insured Coverage Start Date Coverage End Date [address] [place] [phone] [id number] BELLE SIFUENTES Spouse - patient is the spouse of the insured 2
--- OUTSIDE RECORDS SUMMARY | 2025-05-03 19:23 | XMS_ITS | Clinical Summary ---
Author Organization [facility] Address [address] [place] [address] Care Team Providers Care Rn Emergency Room Name Role Phone Stephania Guaman MD Primary [...] age to complete this topic Care Teams Rn Emergency Room Relationship Specialty Start Date End Date Stephania Guaman MD [address] [place] [address] PCP - General Internal Medicine 03/14/17
--- OUTSIDE RECORDS SUMMARY | 2025-05-03 19:23 | XMS_ITS | Data Portability ---
Author Organization [facility], [address] Address [address] [place] [address] Care Team Providers Care Sociocultural Anthropology Professor Name Role Phone PINO ABREU Primary Care Provider Assessment No assessment recorded. Plan of Treatment Reminders Order Date Submit Date Provider Last Modified By Organization Details Last Modified Time Details Appointments None recorded. Lab None recorded. Referral None recorded. Procedures None recorded. Surgeries None recorded. Imaging None recorded. Medication Orders cephalexin 500 mg capsule 2022 023 [id number], [address] [place], [address], 3 16:59:00 azithromyci n 250 mg tablet [address] [facility], [address] [place], [address], 3 16:15:28 albuterol sulfate 2.5 mg/3 mL (0.083 %) solution for nebulizatio n 2022 023 [email or web address] Not available 3 18:49:45 ipratropium bromide 0.02 % solution for inhalation 2022 023 [email or web address] 247 Not available 3 17:51:30 ipratropium 20 mcg-albuter ol 100 mcg/actuati on mist for inhalation 2022 023 [facility], [address] [place], [address], 19:15:31 prednisone 20 mg tablet 2022 023 [facility], [address] [place], [address], 19:15:32 Patient TargetsNo targets recorded. Patient Instructions Encounter Date Encounter Id Patient Instructions Last Modified By Organization Details Last Modified Time 07/13/2022 [id number] cough: care instructions [email or web address] Not available 07/13/2022 17:51:30 peak flow* [email or web address] Not available 17:51:30 08/10/2022 [id number] head or face pain: care instructions Not [...] flow* Pre (L/min) 260 Not Available [address] [facility] [address] [place] [address], [address], 07/13/2022 17:03:05 07/14/19 23 07/13/2022 peak flow* Post (L/min) 410 Not Available que franklin[address] [place], [address], 07/13/2022 17:03:05 07/14/19 23 07/13/2022 peak flow* Pulse 64 Not Available amie christianson [address], [address], 07/13/2022 17:03:05 07/14/19 23 07/13/2022 peak flow* Oxygen Saturation 99 Not Available que frank[address], [address], 07/13/2022 17:03:05 Result Notes None recorded. Problems Name Problem SNOMED Code Status Onset Date Resolution Date Notes Provider Name and Address Organization Details Recorded Time Graves' disease 046760326 Active 023 MONIKA QUINTANILLA null, PA - [facility] 16:33:30 Glaucoma 46187990 Active 023 MONIKA QUINTANILLA null, PA - [facility] 16:33:36 Malignant neoplasm of breast 579929067 Active 023 MONIKA QUINTANILLA null, PA - [facility] 16:35:57 Thyroid eye disease 419158135 Active 023 JAKE DANILO null, PA - [...] Name and Address Organization Details Recorded Time 959538 doxycycli ne Not available Not available Not available Not available 07/13/2022 3640 RxNorm MONIKA QUINTANILLA null, PA - [facility] 3 16:31:49 943852 clindamyc in Not available Not available Not available Not available 07/13/2022 2582 RxNorm MONIKA QUINTANILLA null, PA - [facility] 3 16:31:55 546031 Substance with sulfonami de structure and antibacte rial mechanism of action (substanc e) medicatio n Not available Not available Not available 07/13/2022 85431 8003 SNOMED MONIKA QUINTANILLA null, PA - [facility] 3 16:32:02 931550 Product containin g penicilli n (product) medicatio n Not available Not available Not available 07/13/2022 39947 8001 SNOMED MONIKA QUINTANILLA null, PA - [...] Updated DateTime 3 165.1 cm 20.5 kg/m2 66358.8 6 g 97 [degF] 97 % 59 /min 16 /min 118/66 mm[Hg] MONIKA QUINTANILLA PA - [facility] 3 16:39:15 Date Recorded Body height Body mass index (BMI) Body weight Pain severity - 0-10 verbal numeric rating [Score] - Reported Oxygen saturation Heart rate Respiratory rate Body temperature Systolic And Diastolic Provider Name and Address Organization Details Last Updated DateTime 3 165.1 cm 20.3 kg/m2 25259.2 7 g 5 97 % 71 /min 16 /min 98.6 [degF] 131/82 mm[Hg] JAKE CARRASCO PA - [facility] 3 16:18:59 Social History None recorded. Functional Status Question Answer Note LastModified by Organizat ion Details LastModified Time Do you use any illicit or recreational drugs? No [email or web address] Information not available 07/13/2022 Do you or have you ever used any other forms of tobacco or nicotine? No [email or web address] Information not available 07/13/2022 What is your level of alcohol consumption? None [email or web address] Information not available 07/13/2022 Are you currently employed? [email or web address] Information not available 08/10/2022 Mental Status None recorded. Family History Relationship Description Onset Age of this Age Resolved Age Notes LastModified by Organization Details LastModified Time Mother Heart disease [email or web address] Not available 2022 16:34:31 Mother Diabetes mellitus [email or web address] Not available 2022 16:34:39 Father Chronic obstructive pulmonary disease [email or web address] Not available 2022 16:34:49 Father Malignant melanoma [email or web address] Not available 2022 16:35:00 Medical History No [...] ICD10 Code Diagnosis IMO Codes Diagnosis Note [id number] [address] [place] [address] 06/17/2017 10:02:30 06/17/2017 11:06:24 [id number] [address] [place] [address] 02/22/2018 15:31:18 02/22/2018 16:41:01 [id number] [address] [place] [address] 02/02/2018 08:03:24 02/02/2018 09:00:04 [id number] [address] [place] [address] 05/25/2017 11:23:18 05/25/2017 11:48:52 [id number] [address] [place] [address] 10/14/2016 10:56:11 10/14/2016 11:30:58 [id number] [address] [place] [address] 11/26/2020 16:42:53 11/26/2020 16:43:11 [id number] [address] [place] [address] 06/21/2017 11:53:31 06/21/2017 13:29:56 [id number] [address] [place] [address] 06/16/2019 08:48:18 06/16/2019 09:14:34 [id number] [address] [place] [address] 08/07/2016 19:08:06 08/07/2016 19:38:52 [id number] [address] [place] [address] 06/23/2017 16:34:40 06/23/2017 18:33:44 [id number] [address] [place] [address] 07/11/2019 09:23:05 07/11/2019 11:04:58 [id number] [address] [place] [address] 03/30/2018 12:12:45 03/30/2018 13:33:52 [id number] [address] [place] [address] 05/06/2015 15:03:33 05/06/2015 16:37:42 [id number] [address] [place] [address] 08/11/2016 12:26:36 08/11/2016 13:19:33 [id number] [address] [place] [address] 04/01/2017 18:06:32 04/01/2017 19:35:58 [id number] [address] [place] [address] 04/30/2019 18:38:30 04/30/2019 19:31:57 [id number] [address] [facility] [place] [address] 10/10/2017 19:06:43 10/10/2017 20:39:06 [id number] BETTY NIXON MD [address] [place] [address] 07/13/2022 12:04:22 07/13/2022 17:59:56 Exacerbation of intermittent asthma 533705121 J45.21 Acute left otitis media 294696744 H66.92 [id number] Jt Jeffries NP [address] [facility] [facility] [place] [address] 08/10/2022 15:55:34 08/10/2022 16:50:43 Abscess of face 668378612 L02.01 Health Concerns Section Related Observation LastModified by Organization Detai ls LastModified Time None Recorded Concern Status LastModified by Organization Details LastModified Time None Recorded Advance Directives Directive None Recorded Payers Insurance Date Sequence Insurance Name Policy Number Policy Kennedy Covered Member ID Kennedy Member ID Guarantor Name 10/06/[address] [facility] - HEALTH NET PLAN (MEDICAID HMO) [place] Kaylynn Julian [id number] Kaylynn Moyer 07/13/2022 1 [facility] (HMO) [id number] Kaylynn Moyer [id number] Kaylynn Moyer Notes Date Note Type Note [...] n/v/d/rash/headache or other symptoms. BETTY NIXON MD [address] [place], [place] [address], [address], PA - [facility] 07/13/2022 19:16:11 3 text/html Facial ProblemReported by PatientHPIFor location, patient reportsface rightandmandible right. For severity, patient reportsworseningbut reportsmild. For associated symptoms, patient reportsfacial pain. For onset/timing, patient reportsabrupt. For quality, patient reportspainful. For duration, patient cmcuapb5cnos. For alleviating factors, patient reportsnone. For aggravating factors, patient reportsnone.Mild swelling and tenderness along right side of jaw bone. Jt Jeffries NP [address] [place], [address], [place] - [facility] 08/10/2022 16:59:04 OBGyn Episode No OBEpisode recorded.
== END 2025-05-03 21:03 | disposition left against medical advice (07) ==
PROVIDERS: Physician Assistant; Emergency Provider Emergency Medicine; PCP Internal Medicine
DX: R10.9 Unspecified abdominal pain (principal); E78.5 Hyperlipidemia, unspecified; E03.9 Hypothyroidism, unspecified; J45.909 Unspecified asthma, uncomplicated; Z79.899 Other long term (current) drug therapy; Z79.02 Long term (current) use of antithrombotics/antiplatelets
CPT/HCPCS: 36415; 80048; 80076; 83690; 83735; 84484; 85025; 93005; 99283

== ENCOUNTER → 2025-05-03 12:35 | Outpatient (BNV) | payer OTHER, SELFPAY | PROVIDERS: Emergency Provider Emergency Medicine; PCP Internal Medicine; Visit Provider Internal Medicine | DX: R00.1 Bradycardia, unspecified (principal) | CPT/HCPCS: 93010 ==

== ENCOUNTER 2025-05-04 11:16 | Outpatient (AMB) | payer OTHER, SELFPAY ==
--- NOTE | 2025-05-04 11:30 | A.OFFPC_ITS ---
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 Required: No Accompanied by: Self / Same As Patient Allergies Opioids - Morphine Analogues Allergy (Severe, Verified 05/04/25 12:16) convultions sulfabenzamide Allergy (Severe, Verified 05/04/25 12:16) tongue swelled shut gluten (GLUTEN) Allergy (Intermediate, Verified 05/04/25 12:16) INFLAMMATION SYSTEMICALLY mold (MOLD) Allergy (Intermediate, Verified 05/04/25 12:16) UNKNOWN animal dander Allergy (Unknown, Verified 05/04/25 12:16) ASTHMA FLAIRUP Clindamycin HCl Allergy (Unknown, Verified 05/04/25 12:16) rash doxycycline (DOXYCYCLINE) Allergy (Unknown, Verified 05/04/25 12:16) RASH morphine (MORPHINE) Allergy (Unknown, Verified 05/04/25 12:16) SEIZURE LIKE EXPERIENCE - FELT TERRIBLE, convulsions penicillin V Allergy (Unknown, Verified 05/04/25 12:16) rash Penicillins (PENICILLINS) Allergy (Unknown, Verified 05/04/25 12:16) RASH HIVES soybean Allergy (Unknown, Verified 05/04/25 12:16) unknown Sulfa (Sulfonamide Antibiotics) (SULFA (SULFONAMIDE ANTIBIOTICS)) Allergy (Unknown, Verified 05/04/25 12:16) TONGUE SWELLING, swelling of mouth soy Adverse Reaction (Intermediate, Verified 05/04/25 12:16) UPSET STOMACH cefdinir Allergy (Severe, Uncoded 05/04/25 12:16) Severe vomiting DAIRY PRODUCTS Allergy (Intermediate, Uncoded 05/04/25 12:16) INFLAMMATION cats, dogs Allergy (Unknown, Uncoded 05/04/25 12:16) Unknown mole,bread and diary Allergy (Unknown, Uncoded 05/04/25 12:16) Unknown Medication List - Last Reconciled 05/04/25 by Stephania Guaman MD alprazolam 0.25 mg PO DAILY PRN ascorbic acid (vitamin C) (Vitamin C) 500 mg PO DAILY azelastine 1 spray intranasal BID betaxolol 0.25% (Betoptic S) 1 drp ophthalmic (eye) DAILY brimonidine 0.1% (Alphagan P) 1 drp ophthalmic (eye) DAILY carboxymethylcell-glycerin(PF) 0.5-0.9 % (Refresh Optive Sensitive (PF)) 1 drp ophthalmic (eye) DAILY cyclobenzaprine 5 mg PO BEDTIME PRN cyclosporine 0.05% (Restasis) 1 drp ophthalmic (eye) DAILY diclofenac sodium 50 mg PO Q12H PRN estradiol 10 mcg vaginal 2XW fluorometholone 0.1% 1 drp ophthalmic (eye) NEEDED fluticasone furoate 100 mcg/actuation (Arnuity Ellipta) 1 inh inhalation Q24H fluticasone propionate 50 mcg/actuation 2 sprays intranasal DAILY inhalational spacing device (BreatheRite MDI Spacer) As directed levothyroxine 88 mcg PO DAILY loteprednol etabonate 0.5% (Lotemax) 0.5 drps ophthalmic (eye) DAILY nebulizers (AeroEclipse II Nebulizer) As directed omeprazole 40 mg PO DAILY polyethylene glycol 3350 17 grams PO BID prednisone 5 mg PO DAILY rosuvastatin 5 mg PO DAILY valacyclovir 500 mg PO Q12H 3 days Ventolin HFA 90 mcg/actuation (albuterol sulfate) 2 puffs inhalation Q6H PRN NS Tobacco use date assessed: 12/23/24 Dental Screening Dental Screen Date: 03/24/25 HPI sinus and ear pain HPI Details The patient is a 64 year old female presenting for evaluation of hip pain and sinus issues. She reports an exacerbation of her ulcer and GERD symptoms starting around Nancy Ara, which she believes was activated by an outbreak of herpes. Her symptoms worsened after taking valacyclovir, leading to a visit to the hospital the previous night for severe chest pain resembling a heart attack, which was determined to be heartburn. Out of fear, she stopped taking her prescribed omeprazole and prednisone. The patient experiences monthly herpes outbreaks in her coccygeal area, which she notes also triggers her hip pain. She has been halving her prescribed valacyclovirdose due to side effects. Regarding her hip pain, a recent MRI of the right hip showed swelling in the femoral head concerning for developing avascular necrosis, significant arthropathy, and a small fluid collection. 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 Her known drug allergies include penicillin, cefdinir, and doxycycline. She also reports issues with constipation and has been prescribed MiraLAX but has been hesitant to take it due to her current stomach pain. [facility] Medical History (Updated 05/04/25 @ 12:36 by Stephania Guaman MD) Arthritis of right hip Avascular necrosis of bone of right hip Chronic right hip pain Arm paresthesia, left Dry mouth and eyes Acute respiratory disease Dyslipidemia Cataract of right eye History of adenomatous polyp of colon Recurrent genital herpes Environmental and seasonal allergies Temporomandibular joint dysfunction Immunization refused Hx of breast cancer History of COVID-19 Anxiety disorder Recurrent otitis media Retinal detachment Vini's thyroiditis Mild intermittent asthma Narrow angle glaucoma suspect of both eyes Vitamin D deficiency Acquired hypothyroidism Surgical History Hx of colonoscopy History of surgery H/O myringotomy History of hysterectomy History of eyelid surgery History of eye surgery Family History Father No problems noted. Mother Diabetes mellitus Heart disease Heart attack Brother No problems noted. Brother No problems noted. Brother No problems noted. Brother No problems noted. Brother No problems noted. Social History Household Members: None Housing: House Alcohol intake: current Alcohol intake frequency: a few times a week Patient Tobacco Use Status: Never used Tobacco e-Cigarette/Vaping Use: Never Used service: No Current occupational status: employed Cognitive needs: No Hearing needs: No Vision needs: No Questionnaire Thrive Questionnaire Date Thrive assessed: 11/22/24 PASCUAL-7 AMB Questionnaire PASCUAL-7 Date PASCUAL - 7 assessed: 03/24/25 Source: Developed by Drs. Angel Allen, Manuela Gardner, Emre Palacios and colleagues, with an educational cresencio from [employer] Review of Systems Const All systems reviewed & are unremarkable except as noted in HPI and below Reports headache(s) Eyes Reports dry eyes, Reports irritation and Denies loss of vision ENT Reports otalgia, Reports headache(s), Reports nasal congestion and Reports sinus pain Card Reports no additional complaints Resp Reports no additional complaints GI Reports as per HPI Musc Details: Right hip pain aggravated by prolonged walking standing Neuro Reports headache(s), Denies focal weakness, Denies loss of vision and Denies Sensory deficit (Neuro) Endo Reports no additional complaints Kiel/Lymph Reports no additional complaints Physical exam (Primary Care) Vital Signs: Last Vital Signs Temp 98.8 F 05/04/25 11:31 Pulse 70 05/04/25 11:31 BP 110/72 05/04/25 11:31 Pulse Ox 96 05/04/25 11:31 BMI result Body Mass Index 18.6 Tobacco/Smoking Status: Tobacco use Status Tobacco use date assessed 12/23/24 05/04/25 11:31 Patient Tobacco Use Status Never used Tobacco 05/04/25 11:31 e-Cigarette/Vaping Use Never Used 05/04/25 11:31 Thrive Assessment: Date of Thrive Assessment Date Thrive assessed 11/22/24 05/04/25 11:31 Const General: alert Nutritional Appearance: average body habitus Orientation/consciousness: patient oriented x3 HENMT Face and sinus: Yes sinus tenderness (Maxillary area) Mouth: Normal oral and palatal mucosa present and moist mucous membranes Eyes Periorbital: periorbital findings normal Eyelids: Yes eyelids normal Sclerae: scleral abnormal (Diffuse erythema) Pupils: Equal, round and reactive pupils present EOM: EOMs intact bilaterally Neck Neck: Yes full ROM, Yes no lymphadenopathy and Yes supple Thyroid: Thyroid normal (Nonpalpable) and nontender Resp Auscultation: clear to auscultation bilaterally Cardio Other: S1 and S2 present regular rate and rhythm GI Palpation (GI): Soft to palpation, Tenderness to palpation present (GI) in the epigastrum, no guarding and no masses Auscultation: normal bowel sounds General: Yes no CVA tenderness Back/Spine/Pelvis Back: no CVA tenderness and No back tenderness Skin General skin exam: no rashes or lesions noted Neuro General: patient oriented x3, tone normal, moves all extremities and no focal motor deficits Cranial nerves: Yes Equal, round and reactive pupils present Sensory Exam: No Sensory deficit (Neuro) Extrem Other: Decreased range of motion right hip joint especially on abduction due to pain Coding Level of Care Code Est Pt Level 4 (04014) Diagnoses Epigastric pain R10.13 Avascular necrosis of bone of right hip M87.9 Arthritis of right hip M16.11 Acute sinusitis J01.90 Sinusitis location: maxillary Assessment & Plan Assessment & Plan (1) Epigastric pain: Code(s): R10.13 - Epigastric pain Plan: Advised to resume taking omeprazole 40 mg daily, avoidance of triggers for heartburn emphasized. Ordered H pylori antigen (2) Avascular necrosis of bone of right hip: Code(s): M87.9 - Osteonecrosis, unspecified Category: Medical Plan: Her recent MRI shows swelling in the right femoral head concerning for developing AVN, significant arthropathy, and a small fluid collection, likely related to prolonged steroid use. A stat referral made to Orthopedics in [place] for further evaluation and management. (3) Arthritis of right hip: Code(s): M16.11 - Unilateral primary osteoarthritis, right hip Category: Medical Plan: Orthopedic consult ordered (4) Acute sinusitis: Code(s): J01.90 - Acute sinusitis, unspecified Qualifiers: Sinusitis location: maxillary Plan: Patient with allergies to penicillin, sulfa, cefdinir. Prescription sent for levofloxacin 250 mg once a day for 7 days. Return to clinic if no improvement of symptoms after antibiotic completion Orders: Orders H pylori Ag Stool 05/04/25 R10.13 - Epigastric pain Referrals Orthopedics Referral M16.11 - Unilateral primary osteoarthritis, right hip, M87.9 - Osteonecrosis, unspecified Medications: New levofloxacin 250 mg PO DAILY 7 tabs 0RF
[2025-05-04 11:31] VITALS: BP 110/72; PULSE 70; TEMP 37.1; O2SAT 96; BMI 18.6
--- OUTSIDE RECORDS SUMMARY | 2025-05-04 12:53 | XMS_ITS | Patient Health Record ---
Author Organization [facility] Address [address] [place] [address] Support Name Relationship Address Phone ALIE SIFUENTES Guarantor Unknown [phone] Reason For Referral No Information Medications Medication SIG (Take, Route, Fr equency, Duration) Notes Start Date End Date Status Vitamin D3 1000 IU ORAL daily; Duration: -3 [facility] 2011 Active Levoxyl 75MCG 1 ORAL DAILY; Duration: -3 [facility] 2 Active Multivitamins 1 ORAL daily; Duration: -3 [facility] 2 Active Proventil HFA 108 MCG 2 Inhalation four times daily; Duration: -3 [facility] 07/23/2011 Active Calcium-Carb 600 + D 1 ORAL daily; Duration: -3 [facility] [place]- Active Claritin 10 MG 1 ORAL daily; Duration: -3 [facility] [place]- 09/10/19 12 Active Fish Oil 1 ORAL daily; Duration: -3 [facility] [place]- 09/10/2011 Active Flonase 50MCG 2 Nasal daily; Duration: -3 [facility] [place]- 07/23/19 12 Active Immunizations Vaccine Route Administration Date Status Comme nts Influenza, live, intranasal Intramuscular 07/22/2011 Jake patel Problems Problem Type SNOMED Code ICD Code Onset Dates Problem Status W/U Status Risk Notes Problem Benign neoplasm of skin (91380970) Benign neoplasm of skin, site unspecified (216.9) Active confirmed Diag Problem Hypothyroidism (62134233) Unspecified hypothyroidism (244.9) Active confirmed Major Problem Hyperlipidemia (22528333) Other and unspecified hyperlipidemia (272.4) Active confirmed Major Problem Asthma (disorder) (583856777) Asthma, unspecified, unspecified status (493.90) Active confirmed Major Problem Seborrheic keratosis (39521489) Other seborrheic keratosis (702.19) Active confirmed Diag Problem Joint pain (48450860) Pain in joint, site unspecified (719.40) Active confirmed Diag Problem General examination of patient (619919389) Routine general medical examination at health care facility (V70.0) Active confirmed Diag Plan Of Treatment No Information Insurance Providers Payer Name Payer Address Payer Phone Subscriber Number Group Number Insured Name Patient Relationship to Insured Coverage Start Date Coverage End Date [address] [place] [phone] [id number] EBLLE SIFUENTES Spouse - patient is the spouse of the insured 2
--- OUTSIDE RECORDS SUMMARY | 2025-05-04 12:53 | XMS_ITS | Clinical Summary ---
Author Organization [facility] Address [address] [place] [address] Care Team Providers Care Straightener And Aligner Name Role Phone Stephania Guaman MD Primary [...] age to complete this topic Care Teams Straightener And Aligner Relationship Specialty Start Date End Date Stephania Guaman MD [address] [place] [address] PCP - General Internal Medicine 03/14/17
== END 2025-05-04 12:58 | disposition home or self-care (01) ==
LOC: HO.HMCC 11:17
PROVIDERS: PCP Internal Medicine; Visit Provider Internal Medicine
DX: R10.13 Epigastric pain (principal); M87.9 Osteonecrosis, unspecified; M16.11 Unilateral primary osteoarthritis, right hip; J01.90 Acute sinusitis, unspecified

== ENCOUNTER → 2025-05-04 11:16 | Outpatient (BNVA) | payer OTHER, SELFPAY | PROVIDERS: PCP Internal Medicine; Visit Provider Internal Medicine | DX: J01.90 Acute sinusitis, unspecified (principal); R10.13 Epigastric pain; M16.11 Unilateral primary osteoarthritis, right hip; M87.851 Other osteonecrosis, right femur; Z88.2 Allergy status to sulfonamides; Z88.0 Allergy status to penicillin; Z88.8 Allergy status to other drugs, medicaments and biological substances | CPT/HCPCS: 99212 ==